=== PATIENT | female | born 1955 | race African-American/Black ===

== ENCOUNTER 2019-01-13 13:49 | Inpatient (IN) | payer MEDICARE ==
[~2019-01-13] VITALS: Ht 162.6 cm; Wt 67.8 kg
--- NOTE | 2019-01-13 15:18 | PHYS DOC ---
Past Medical History Past Medical History: GERD, Hypertension Additional Past Medical Histor: Parkinson's, grave's, cardiac stent Past Surgical History: Hysterectomy Additional Past Surgical Histo: Right ankle plate & screws, Left rotator cuff repair Additional Information: non smoker Alcohol Use: None Drug Use: None Adult General Chief Complaint Chief Complaint: MECHANICAL FALL HPI HPI Patient is a 63 year old female presents after tripping and falling off she was getting dressed. She hit her right side of her face on the headboard of the bed. She had a negative loss of consciousness. Occurred at 1:20 PM. Rates her pain as 4 out of 10 character the pain is raw. The patient declines pain medicine this time. Had no pain medicine prior to arrival. Review of Systems Review of Systems Constitutional: Denies fever or chills [] Eyes: Denies change in visual acuity, redness, or eye pain [] HENT: Denies nasal congestion or sore throat but report pain to the R side of face. Respiratory: Denies cough or shortness of breath [] Cardiovascular: No additional information not addressed in HPI [] GI: Denies abdominal pain, nausea, vomiting, bloody stools or diarrhea [] : Denies dysuria or hematuria [] Musculoskeletal: Denies back pain or joint pain [] Integument: Denies rash or skin lesions [] Neurologic: Denies headache, focal weakness or sensory changes [] Endocrine: Denies polyuria or polydipsia [] Complete systems were reviewed and found to be within normal limits, except as documented in this note. Current Medications Current Medications Current Medications Medications (Trade) Dose Ordered Sig/Karol Start Time Stop Time Status Last Admin Dose Admin Fentanyl Citrate (Fentanyl 2ml Vial) 50 mcg PRN Q1HR PRN 01/13/19 17:30 01/14/19 17:29 Ondansetron HCl (Zofran) 4 mg PRN Q8HRS PRN 01/13/19 17:30 01/14/19 17:29 Allergies Allergies Allergies Coded Allergies Type Severity Reaction Last Updated Verified oxybutynin Allergy Intermediate Nausea 01/13/19 Yes ciprofloxacin Allergy Mild Diarrhea 01/13/19 Yes gabapentin Allergy Mild Virtago 01/13/19 Yes Physical Exam Physical Exam Constitutional: Well developed, well nourished, no acute distress, non-toxic appearance. [] HENT: Normocephalic, traumatic old bruising to left orbital area, new bruising and edema to the R orbital., bilateral external ears normal, oropharynx moist, no oral exudates, nose normal. [] Eyes: PERRLA, EOMI, conjunctiva normal on left, on the right has some blood, no discharge. [] Neck: Normal range of motion, no tenderness, supple, no stridor. [] Cardiovascular:Heart rate regular rhythm, no murmur [] Lungs & Thorax: Bilateral breath sounds clear to auscultation [] Abdomen: Bowel sounds normal, soft, no tenderness, no masses, no pulsatile taiwo s. [] Skin: Warm, dry, no erythema, no rash. [] Extremities: No tenderness, no cyanosis, no clubbing, ROM intact, no edema. [] Neurologic: Alert and oriented X 3, normal motor function, normal sensory function, no focal deficits noted. [] Psychologic: Affect normal, judgement normal, mood normal. [] Current Patient Data Vital Signs Vital Signs Date Time Temp Pulse Resp B/P (MAP) Pulse Ox O2 Delivery O2 Flow Rate FiO2 01/13/19 14:40 97.8 64 18 135/69 (91) 98 Room Air 97.8 Lab Values Laboratory Tests Test 01/13/19 16:36 White Blood Count 3.9 x10^3/uL (4.0-11.0) L Red Blood Count 3.85 x10^6/uL (3.50-5.40) Hemoglobin 12.0 g/dL (12.0-15.5) Hematocrit 36.5 % (36.0-47.0) Mean Corpuscular Volume 95 fL (79-100) Mean Corpuscular Hemoglobin 31 pg (25-35) Mean Corpuscular Hemoglobin Concent 33 g/dL (31-37) Red Cell Distribution Width 14.4 % (11.5-14.5) Platelet Count 229 x10^3/uL (140-400) Neutrophils (%) (Auto) 55 % (31-73) Lymphocytes (%) (Auto) 32 % (24-48) Monocytes (%) (Auto) 9 % (0-9) Eosinophils (%) (Auto) 3 % (0-3) Basophils (%) (Auto) 1 % (0-3) Neutrophils # (Auto) 2.1 x10^3uL (1.8-7.7) Lymphocytes # (Auto) 1.2 x10^3/uL (1.0-4.8) Monocytes # (Auto) 0.3 x10^3/uL (0.0-1.1) Eosinophils # (Auto) 0.1 x10^3/uL (0.0-0.7) Basophils # (Auto) 0.0 x10^3/uL (0.0-0.2) Prothrombin Time 13.1 SEC (11.7-14.0) Prothrombin Time INR 1.0 (0.8-1.1) PTT 43 SEC (24-38) H Sodium Level 141 mmol/L (136-145) Potassium Level 4.5 mmol/L (3.5-5.1) Chloride Level 102 mmol/L (98-107) Carbon Dioxide Level 31 mmol/L (21-32) Anion Gap 8 (6-14) Blood Urea Nitrogen 20 mg/dL (7-20) Creatinine 0.8 mg/dL (0.6-1.0) Estimated GFR (Cockcroft-Gault) 88.2 Glucose Level 95 mg/dL (70-99) Calcium Level 8.9 mg/dL (8.5-10.1) Laboratory Tests 01/13/19 16:36 Laboratory Tests 01/13/19 16:36 EKG EKG [] Radiology/Procedures Radiology/Procedures []PATIENT: JEREMY HANEY DACCOUNT: [id number]#: [id number] : 1955 LOCATION: ER AGE: 63 SEX: F EXAM STATUS: REG ER ORD. PHYSICIAN: DARWIN HORN APRN REASON: FELL ON FACE THIS AM, HEAD INJURY, NECK PAIN PROCEDURE: CT CERVICAL SPINE WO CONTRAST CT HEAD AND MAXILLOFACIAL WO, CT CERVICAL SPINE WO CONTRAST dated 01/13/2019 3:03 PM Indication: Pain after injury fell on face.. Next pain. Comparison: No comparison is available. Technique: Contiguous axial imaging the head was performed from skull base to vertex. In addition, axial imaging the maxillofacial bones and cervical spine obtained with thin cut coronal and sagittal reconstruction One or more of the following individualized dose reduction techniques were utilized for this examination: 1. Automated exposure control 2. Adjustment of the mA and/or kV according to patient size 3. Use of iterative reconstruction technique Findings: There is a small hyperdense extra-axial collection along the right frontotemporal convexity that measures approximately 5 mm thickness. No significant mass effect or midline shift. Brain parenchyma is of normal otherwise normal attenuation. No subarachnoid hemorrhage or intraventricular hemorrhage. Posterior fossa and brainstem unremarkable. No acute calvarial abnormality. Images the maxillofacial bones show focal soft tissue swelling at the right frontal bone and lateral right orbital region. Small amount of soft tissue gas. The orbital arceo and maxillary acreo are intact. No displaced facial fracture. The zygomatic arches are intact. Mandible is intact. No nasal bone fracture. Mild mucosal thickening of the bilateral ethmoid air cells and bilateral maxillary sinus. Mastoid air cells are clear. Middle ears are clear. No significant soft tissue abnormality. Images of the cervical spine acquired from skull base to T2. Sagittal alignment is anatomic. Vertebral body heights are maintained. No prevertebral soft tissue swelling. Posterior elements are intact. No apparent fracture. Mild to moderate endplate hypertrophic changes throughout with moderate multilevel uncovertebral spurring and facet arthropathy. Resultant mild central stenosis at C5-C6 and C6-C7 with moderate to severe bilateral foraminal stenosis at the C5-C6 level and moderate to severe left foraminal stenosis at C6-C7. Visualized soft tissue structures unremarkable. There is a nodular focus at the right thyroid gland that measures 1.9 cm maximum dimension. Limited images of lung apices are clear. IMPRESSION HEAD: 1. There is a small hyperdense extra-axial collection along the right frontotemporal convexity, likely a small subdural hematoma. No significant mass effect or midline shift. IMPRESSION MAXILLOFACIAL: 1. Focal soft tissue swelling over the right frontal bone and right orbit with no evidence of underlying displaced fracture. 2. Mild sinus disease. IMPRESSION CERVICAL SPINE: 1. No evidence of fracture or malalignment. 2. Moderate multilevel spondylosis. Results discussed with ER physician at approximate 4:10 PM on the day of the exam. Electronically signed by: Darwin Monson MD (01/13/2019 4:10 PM) [facility] Course & Med Decision Making Course & Med Decision Making Pertinent Labs and Imaging studies reviewed. (See chart for details) Discussed symptoms with patient. Will obtain x-rays and head/neck/face CT. Patient is agreeable. Radiologist report that patient has small subdural hematoma. Talked to Dr. Palafox's DATA CENTER OPERATOR, Lauren. Will admit to hospital to Hospitalist. Dr. Mcallister agrees to admit. Dragon Disclaimer Dragon Disclaimer This electronic medical record was generated, in whole or in part, using a voice recognition dictation system. Departure Departure Impression: Primary Impression: Subdural hematoma Disposition: ADMITTED INPATIENT Condition: CRITICAL Referrals: UNKNOWN PCP NAME (PCP) DARWIN HORN APRN January 13, 2019 15:18
--- NOTE | 2019-01-13 16:02 | RAD ---
Examination: 2 views of the left tibia and fibula HISTORY: History of fall, pain COMPARISON: None available Findings/ impression: The alignment of the tibia and fibula grossly appears unremarkable. Severe joint space loss identified in the medial, lateral, patellofemoral compartments with large osteophytes. There is a lucency identified at base of the osteophyte of the lateral knee compartment probably artifactual given single view of the knee and less likely fractured osteophyte. Recommend 3 views of the left knee for further evaluation. Electronically signed by: Drew Nassar MD (01/13/2019 3:59 PM) [facility]
--- NOTE | 2019-01-13 16:06 | RAD ---
Examination: 2 views of the left forearm HISTORY: History of fall, pain COMPARISON: None available. FINDINGS: The alignment of the radius, ulna grossly appears unremarkable. There is no acute fracture or dislocation identified. IMPRESSION: No acute osseous findings. Electronically signed by: Drew Nassar MD (01/13/2019 4:04 PM) [place] [id number]
--- NOTE | 2019-01-13 16:13 | RAD ---
CT HEAD AND MAXILLOFACIAL WO, CT CERVICAL SPINE WO CONTRAST dated 01/13/2019 3:03 PM Indication: Pain after injury fell on face.. Next pain. Comparison: No comparison is available. Technique: Contiguous axial imaging the head was performed from skull base to vertex. In addition, axial imaging the maxillofacial bones and cervical spine obtained with thin cut coronal and sagittal reconstruction One or more of the following individualized dose reduction techniques were utilized for this examination: 1. Automated exposure control 2. Adjustment of the mA and/or kV according to patient size 3. Use of iterative reconstruction technique Findings: There is a small hyperdense extra-axial collection along the right frontotemporal convexity that measures approximately 5 mm thickness. No significant mass effect or midline shift. Brain parenchyma is of normal otherwise normal attenuation. No subarachnoid hemorrhage or intraventricular hemorrhage. Posterior fossa and brainstem unremarkable. No acute calvarial abnormality. Images the maxillofacial bones show focal soft tissue swelling at the right frontal bone and lateral right orbital region. Small amount of soft tissue gas. The orbital arceo and maxillary arceo are intact. No displaced facial fracture. The zygomatic arches are intact. Mandible is intact. No nasal bone fracture. Mild mucosal thickening of the bilateral ethmoid air cells and bilateral maxillary sinus. Mastoid air cells are clear. Middle ears are clear. No significant soft tissue abnormality. Images of the cervical spine acquired from skull base to T2. Sagittal alignment is anatomic. Vertebral body heights are maintained. No prevertebral soft tissue swelling. Posterior elements are intact. No apparent fracture. Mild to moderate endplate hypertrophic changes throughout with moderate multilevel uncovertebral spurring and facet arthropathy. Resultant mild central stenosis at C5-C6 and C6-C7 with moderate to severe bilateral foraminal stenosis at the C5-C6 level and moderate to severe left foraminal stenosis at C6-C7. Visualized soft tissue structures unremarkable. There is a nodular focus at the right thyroid gland that measures 1.9 cm maximum dimension. Limited images of lung apices are clear. IMPRESSION HEAD: 1. There is a small hyperdense extra-axial collection along the right frontotemporal convexity, likely a small subdural hematoma. No significant mass effect or midline shift. IMPRESSION MAXILLOFACIAL: 1. Focal soft tissue swelling over the right frontal bone and right orbit with no evidence of underlying displaced fracture. 2. Mild sinus disease. IMPRESSION CERVICAL SPINE: 1. No evidence of fracture or malalignment. 2. Moderate multilevel spondylosis. Results discussed with ER physician at approximate 4:10 PM on the day of the exam. Electronically signed by: Darwin Monson MD (01/13/2019 4:10 PM) [facility]
[2019-01-13 16:42] LABS: BASO % 1 % (0-3); EOS # 0.1 x10^3/uL (0.0-0.7); EOS % 3 % (0-3); HEMATOCRIT 36.5 % (36.0-47.0); LYMPH # 1.2 x10^3/uL (1.0-4.8); LYMPH % 32 % (24-48); MEAN CORPUSCULAR HEMOGLOBIN 31 pg (25-35); MEAN CORPUSCULAR HGB CONC 33 g/dL (31-37); MEAN CORPUSCULAR VOLUME 95 fL (79-100); MONO # 0.3 x10^3/uL (0.0-1.1); MONO % 9 % (0-9); NEUT # 2.1 x10^3uL (1.8-7.7); NEUT % 55 % (31-73); PLATELET COUNT 229 x10^3/uL (140-400); RED BLOOD COUNT 3.85 x10^6/uL (3.50-5.40); RED CELL DISTRIBUTION WIDTH 14.4 % (11.5-14.5); WHITE BLOOD COUNT 3.9 x10^3/uL (4.0-11.0)
[2019-01-13 16:51] LABS: CALCIUM 8.9 mg/dL (8.5-10.1); CREATININE 0.8 mg/dL (0.6-1.0); GFR 88.2; POTASSIUM 4.5 mmol/L (3.5-5.1); PROTHROMBIN TIME PATIENT 13.1 SEC (11.7-14.0)
--- NOTE | 2019-01-13 17:24 | PDOC1 ---
History and Physical Date of Admission Date of Admission DATE: 01/13/19 TIME: 17:22 Identification/Chief Complaint Chief Complaint Fall at home, subdural hematoma Source Source: Caregiver, Chart review, Patient History of Present Illness History of Present Illness Ms Wilkes is a 63 year old female w/ PMHx GERD, Hypertension, Parkinson's, grav e's, PVD s/p peripheral stents, and bladder dystonia with intermittent cathing who presents after tripping and falling while she was getting dressed. She hit her right side of her face on the headboard of the bed and struck her right orbit. She had no loss of consciousness. Occurred at 1:20 PM. Rates her pain as 4 out of 10, aching. Her sister, bedside notes that she fell late last week as well and still has some bruising on her left eye from this. CT head revealed what is a likely a subdural hematoma. On further review she notes she is on ASA for a lower extremity stent placed at [facility] over 3 years ago. Past Medical History Cardiovascular: HTN Pulmonary: No pertinent hx CENTRAL NERVOUS SYSTEM: Other (Parkinison's) GI: GERD Heme/Onc: No pertinent hx Hepatobiliary: No pertinent hx Psych: No pertinent hx Rheumatologic: No pertinent hx Infectious disease: No pertinent hx ENT: No pertinent hx Renal/: Urinary Incontinence Endocrine: No pertinent hx Dermatology: No pertinent hx Past Surgical History Past Surgical History: Arthroscopy (left rotator cuff), Hysterectomy, Other (Right ankle fracture repair) Family History Family History: Heart Disease, High Cholestrol, Hypertension Social History Smoke: No ALCOHOL: none Drugs: None Current Problem List Problem List Problems Medical Problems: (1) Subdural hematoma Status: Acute Allergies Allergies: Coded Allergies: oxybutynin (Verified Allergy, Intermediate, Nausea, 01/13/19) & Hypotension ciprofloxacin (Verified Allergy, Mild, Diarrhea, 01/13/19) gabapentin (Verified Allergy, Mild, Virtago, 01/13/19) ROS General: YES: Fatigue, Malaise; No: Chills, Night Sweats, Appetite, Other PSYCHOLOGICAL ROS: No: Anxiety, Behavioral Disorder, Concentration difficultie, Decreased libido, Depression, Disorientation, Hallucinations, Hostility, Irritablity, Memory difficulties, Mood Swings, Obsessive thoughts, Physical abuse, Sexual abuse, Sleep disturbances, Suicidal ideation, Other Eyes: No Blurry vision, No Decreased vision, No Double vision, No Dry eyes, No Excessive tearing, No Eye Pain, No Itchy Eyes, No Loss of vision, No Phot ophobia, No Scotomata, No Uses contacts, No Uses glasses, No Other HEENT: YES: Heacaches, Visual Changes; No: Hearing change, Nasal congestion, Nasal discharge, Oral lesions, Sinus pain, Sore Throat, Epistaxis, Sneezing, Snoring, Tinnitus, Vertigo, Vocal changes, Other ALLERGY AND IMMUNOLOGY: No: Hives, Insect Bite Sensitivity, Itchy/Watery Eyes, Nasal Congestion, Post Nasal Drip, Seasonal Allergies, Other Hematological and Lymphatic: No: Bleeding Problems, Blood Clots, Blood Transfusions, Brusing, Night Sweats, Pallor, Swollen Lymph Nodes, Other ENDOCRINE: No: Breast Changes, Galactorrhea, Hair Pattern Changes, Hot Flashes, Malaise/lethargy, Mood Swings, Palpitations, Polydipsia/polyuria, Skin Changes, Temperature Intolerance, Unexpected Weight Changes, Other Breast: No New/Changing Breast Lumps, No Nipple changes, No Nipple discharge, No Other Respiratory: No: Cough, Hemoptysis, Orthopnea, Pleuritic Pain, Shortness of breath, SOB with excertion, Sputum Changes, Stridor, Tachypnea, Wheezing, Other Cardiovascular: No Chest Pain, No Palpitations, No Orthopnea, No Paroxysmal Noc. Dyspnea, No Edema, No Lt Headedness, No Other Gastrointestinal: Yes Nausea; No Vomiting, No Abdominal Pain, No Diarrhea, No Constipation, No Melena, No Hematochezia, No Other Genitourinary: No Dysuria, No Frequency, No Incontinence, No Hematuria, No Retention, No Discharge, No Urgency, No Pain, No Flank Pain, No Other, No , No , No , No , No , No , No Musculoskeletal: No Gait Disturbance, No Joint Pain, No Joint Stiffness, No Joint Swelling, No Muscle Pain, No Muscular Weakness, No Pain In:, No Swelling In:, No Other Neurological: No Behavorial Changes, No Bowel/Bladder ControlChng, No Confusion, No Dizziness, No Gait Disturbance, No Headaches, No Impaired Coord/balance, No Memory Loss, No Numbness/Tingling, No Seizures, No Speech Problems, No Tremors, No Visual Changes, No Weakness, No Other Skin: No Dry Skin, No Eczema, No Hair Changes, No Lumps, No Mole Changes, No Mottling, No Nail Changes, No Pruritus, No Rash, No Skin Lesion Changes, No Other, No Acne Physical Exam General: Alert, Oriented X3, Cooperative, No acute distress HEENT: PERRLA, EOMI, Mucous membr. moist/pink, Other (Right orbit swollen, bruising, left orbit bruising as well) Lungs: Clear to auscultation, Normal air movement Heart: S1S2, RRR, no gallops, no murmurs Abdomen: Normal bowel sounds, Soft, No tenderness, No hepatosplenomegaly, No masses Rectal Exam: not examined Extremities: No clubbing, No cyanosis, No edema, Normal pulses, No tenderness/swelling Skin: No rashes, No breakdown, No significant lesion Neuro: Normal gait, Normal speech, Strength at 5/5 X4 ext, Normal tone, Sensation intact, Cranial nerves 3-12 NL, Reflexes 2+ Psych/Mental Status: Mental status NL, Mood NL Vitals Vitals Vital Signs Date Time Temp Pulse Resp B/P (MAP) Pulse Ox O2 Delivery O2 Flow Rate FiO2 01/13/19 14:40 97.8 64 18 135/69 (91) 98 Room Air 97.8 Labs Labs Laboratory Tests Test 01/13/19 16:36 White Blood Count 3.9 x10^3/uL (4.0-11.0) Red Blood Count 3.85 x10^6/uL (3.50-5.40) Hemoglobin 12.0 g/dL (12.0-15.5) Hematocrit 36.5 % (36.0-47.0) Mean Corpuscular Volume 95 fL (79-100) Mean Corpuscular Hemoglobin 31 pg (25-35) Mean Corpuscular Hemoglobin Concent 33 g/dL (31-37) Red Cell Distribution Width 14.4 % (11.5-14.5) Platelet Count 229 x10^3/uL (140-400) Neutrophils (%) (Auto) 55 % (31-73) Lymphocytes (%) (Auto) 32 % (24-48) Monocytes (%) (Auto) 9 % (0-9) Eosinophils (%) (Auto) 3 % (0-3) Basophils (%) (Auto) 1 % (0-3) Neutrophils # (Auto) 2.1 x10^3uL (1.8-7.7) Lymphocytes # (Auto) 1.2 x10^3/uL (1.0-4.8) Monocytes # (Auto) 0.3 x10^3/uL (0.0-1.1) Eosinophils # (Auto) 0.1 x10^3/uL (0.0-0.7) Basophils # (Auto) 0.0 x10^3/uL (0.0-0.2) Prothrombin Time 13.1 SEC (11.7-14.0) Prothromb Time International Ratio 1.0 (0.8-1.1) Activated Partial Thromboplast Time 43 SEC (24-38) Sodium Level 141 mmol/L (136-145) Potassium Level 4.5 mmol/L (3.5-5.1) Chloride Level 102 mmol/L (98-107) Carbon Dioxide Level 31 mmol/L (21-32) Anion Gap 8 (6-14) Blood Urea Nitrogen 20 mg/dL (7-20) Creatinine 0.8 mg/dL (0.6-1.0) Estimated GFR (Cockcroft-Gault) 88.2 Glucose Level 95 mg/dL (70-99) Calcium Level 8.9 mg/dL (8.5-10.1) Laboratory Tests Test 01/13/19 16:36 White Blood Count 3.9 x10^3/uL (4.0-11.0) Red Blood Count 3.85 x10^6/uL (3.50-5.40) Hemoglobin 12.0 g/dL (12.0-15.5) Hematocrit 36.5 % (36.0-47.0) Mean Corpuscular Volume 95 fL (79-100) Mean Corpuscular Hemoglobin 31 pg (25-35) Mean Corpuscular Hemoglobin Concent 33 g/dL (31-37) Red Cell Distribution Width 14.4 % (11.5-14.5) Platelet Count 229 x10^3/uL (140-400) Neutrophils (%) (Auto) 55 % (31-73) Lymphocytes (%) (Auto) 32 % (24-48) Monocytes (%) (Auto) 9 % (0-9) Eosinophils (%) (Auto) 3 % (0-3) Basophils (%) (Auto) 1 % (0-3) Neutrophils # (Auto) 2.1 x10^3uL (1.8-7.7) Lymphocytes # (Auto) 1.2 x10^3/uL (1.0-4.8) Monocytes # (Auto) 0.3 x10^3/uL (0.0-1.1) Eosinophils # (Auto) 0.1 x10^3/uL (0.0-0.7) Basophils # (Auto) 0.0 x10^3/uL (0.0-0.2) Prothrombin Time 13.1 SEC (11.7-14.0) Prothromb Time International Ratio 1.0 (0.8-1.1) Activated Partial Thromboplast Time 43 SEC (24-38) Sodium Level 141 mmol/L (136-145) Potassium Level 4.5 mmol/L (3.5-5.1) Chloride Level 102 mmol/L (98-107) Carbon Dioxide Level 31 mmol/L (21-32) Anion Gap 8 (6-14) Blood Urea Nitrogen 20 mg/dL (7-20) Creatinine 0.8 mg/dL (0.6-1.0) Estimated GFR (Cockcroft-Gault) 88.2 Glucose Level 95 mg/dL (70-99) Calcium Level 8.9 mg/dL (8.5-10.1) Images Images CT facial bones - There is a small hyperdense extra-axial collection along the right frontotemporal convexity, likely a small subdural hematoma. No significant mass effect or midline shift. VTE Prophylaxis Ordered VTE Prophylaxis Devices: Yes VTE Pharmacological Prophylaxi: Contraindicated Assessment/Plan Assessment/Plan A/P: Subdural hematoma - small frontal density on CT. Will hold ASA, admit to ICU, q4 hour neuro checks, consult neurosurgery, serial head CTs GERD - cont home PPI Hypertension - cont home medications, lower BP by 25%, MONITOR CLOSELY Parkinson's - cont sinemet, requip. Consult neuro. Falls - consult PT/OT, may need some skilled svcs on d/c to prevent further fal ls Grave's - will verify her thyroid dosing PVD s/p peripheral stents - hold antiplatelet agents for SDH Bladder dystonia - with intermittent self-catheterization, seen by Urology outpatient, had this recommended for her history of dystonia and frequent UTI, will intermittently cath inpatient, would not recommend a grace at this time with her history of catheter related UTIs FEN - General diet PPX - SCDs FULL CODE ICU for SDH likely 2 midnights. SABI HARRIS MD January 13, 2019 17:24
[2019-01-13] MEDS ORDERED: ONDANSETRON PF 4 MG/2 ML VIAL. IV PRN (17:30)
[2019-01-13] MEDS: fentaNYL PF VIAL 100 MCG/2 ML VIAL IV PRN ×2 (18:08→21:50)
[2019-01-13 20:00] VITALS: BP 167/74
[2019-01-13 20:15] VITALS: BP 187/95
[2019-01-13 20:45] VITALS: BP 192/95
[2019-01-13] MEDS ORDERED: ASPI81TA59 PO (20:54)
[2019-01-13] MEDS ORDERED: CARB1TAB4 PO (20:54)
[2019-01-13] MEDS ORDERED: ATOR10TA60 PO (20:54)
[2019-01-13] MEDS ORDERED: CARB1TAB5 PO (20:54)
[2019-01-13] MEDS ORDERED: ROPI0.5T PO (20:54)
[2019-01-13] MEDS ORDERED: NITR0.4T22 SL (20:54)
[2019-01-13] MEDS ORDERED: HYDR12.58 PO (20:54)
[2019-01-13] MEDS ORDERED: CICL15CR2 TP (20:54)
[2019-01-13] MEDS ORDERED: LEVO75TA5 PO (20:54)
[2019-01-13] MEDS ORDERED: RANI150T2 PO (20:54)
--- NOTE | 2019-01-13 20:57 | RAD ---
Three-view left knee radiographs 01/13/2019 CLINICAL HISTORY: Fall with left knee pain. AP, lateral and oblique digital radiographs of the left knee were obtained. No fracture or dislocation of the left knee is seen. Moderate to severe degenerative changes are seen involving all 3 compartments of the left knee. These consist of joint compartment narrowing, subchondral sclerosis and associated osteophyte formation. This particularly involves the lateral and patellofemoral compartments. IMPRESSION: Degenerative changes are seen involving left knee as discussed above. No fracture or dislocation is seen. Electronically signed by: Rd Perera MD (01/13/2019 8:54 PM) [facility]
[2019-01-13 21:00] VITALS: BP 164/74
[2019-01-13] MEDS ORDERED: HYDROcodone/APAP 5/325MG 1 TAB TABLET PO PRN (21:15)
[2019-01-13] MEDS ORDERED: NITROGLYCERIN SUBLINGUAL 0.4 MG BOTTLE OF 25. SL PRN (21:15)
[2019-01-13] MEDS: rOPINIRole 0.25 MG TABLET. PO SCH (21:44)
[2019-01-13] MEDS: CARBIDOPA/LEVODOPA CR 25/100MG TABLET.SA. PO SCH ×2 (21:49)
[2019-01-13 22:00] VITALS: BP 152/73
[2019-01-13] MEDS: ATORVASTATIN CALCIUM 10 MG TABLET. PO SCH (22:13)
[2019-01-13 22:40] LABS: BILIRUBIN,URINE NEGATIVE (NEG); CLARITY,URINE CLEAR; COLOR,URINE YELLOW; NITRITE,URINE POSITIVE (NEG); PH,URINE 6.5; PROTEIN,URINE NEGATIVE (NEG-TRACE)
[2019-01-13 22:49] LABS: BACTERIA,URINE MANY /HPF (0-FEW)
[2019-01-13 23:00] VITALS: BP 146/74
--- NOTE | 2019-01-13 23:22 | NUR ---
Patient admitted to room 104 from ER at 1945. Monitor on, SB noted. On RA. Bilateral black eyes with swelling noted to right one. A bandage that was placed in the ER is noted right above the right eye. Patient denies any pain or discomfort at this time. CAll light is within reach. Family at bedside. Dr. Mcallister paged at [phone] and returned page at [phone] for orders. Admission orders received, see orders. At 2300, patient straight cathed using sterile technique. 350cc of clear, yellow urine emptied from patient's bladder. Patient tolerated procedure well. VSS.
[2019-01-14] VITALS (24 sets, daily range): BP systolic 95–144; BP diastolic 51–88
[2019-01-14] MEDS: fentaNYL PF VIAL 100 MCG/2 ML VIAL IV PRN (02:35)
[2019-01-14 04:32] LABS: BASO % 1 % (0-3); EOS % 0 % (0-3); HEMATOCRIT 37.4 % (36.0-47.0); HEMOGLOBIN 12.4 g/dL (12.0-15.5); LYMPH # 0.9 x10^3/uL (1.0-4.8); LYMPH % 12 % (24-48); MEAN CORPUSCULAR HEMOGLOBIN 31 pg (25-35); MEAN CORPUSCULAR HGB CONC 33 g/dL (31-37); MEAN CORPUSCULAR VOLUME 93 fL (79-100); MONO # 0.4 x10^3/uL (0.0-1.1); MONO % 5 % (0-9); NEUT # 6.3 x10^3uL (1.8-7.7); NEUT % 82 % (31-73); PLATELET COUNT 228 x10^3/uL (140-400); RED BLOOD COUNT 4.01 x10^6/uL (3.50-5.40); RED CELL DISTRIBUTION WIDTH 14.2 % (11.5-14.5); WHITE BLOOD COUNT 7.7 x10^3/uL (4.0-11.0)
[2019-01-14 04:55] LABS: CALCIUM 9.2 mg/dL (8.5-10.1); CREATININE 0.6 mg/dL (0.6-1.0); POTASSIUM 3.7 mmol/L (3.5-5.1)
--- NOTE | 2019-01-14 06:43 | EKG ---
[facility] [address] [place] [address] Test Date: 2019-01-13 Test Time: 19:28:42 Pat Name: JEREMY HANEY Department: Room: 104 1 Gender: F Advertising Assistant: : 1955 Requested By: DEJAN WELSH Order Number: [id number] Reading MD: Jc Thomas Measurements Intervals [place] Rate: 44 P: 55 TN: 202 QRS: 14 QRSD: 86 T: 74 QT: 500 QTc: 427 Interpretive Statements SINUS BRADYCARDIA Electronically Signed On 02-07-2019 11:42:33 CDT by Jc Thomas
[2019-01-14] MEDS: LEVOTHYROXINE 75 MCG TABLET PO SCH (06:47)
[2019-01-14] MEDS: rOPINIRole 0.25 MG TABLET. PO SCH ×3 (08:55→21:27)
[2019-01-14] MEDS: CARBIDOPA/LEVODOPA CR 25/100MG TABLET.SA. PO SCH ×11 (08:55→21:29)
[2019-01-14] MEDS: hydroCHLOROthiazide 12.5 MG CAPSULE PO SCH (08:55)
[2019-01-14] MEDS: FAMOTIDINE 20 MG TABLET. PO SCH (08:55)
--- NOTE | 2019-01-14 11:20 | RAD ---
CT head without contrast dated 01/14/2019. Comparison made to 01/13/2019. CLINICAL INDICATION: Follow-up subdural hematoma. TECHNIQUE: Contiguous axial imaging the head was performed from skull base to vertex. No contrast administered. One or more of the following individualized dose reduction techniques were utilized for this examination: 1. Automated exposure control 2. Adjustment of the mA and/or kV according to patient size 3. Use of iterative reconstruction technique. FINDINGS: There is been interval increase in size of right convexity subdural hematoma which now extends from the middle cranial fossa to the vertex. Maximum thickness of the high density collection measures about 7 mm versus 5 mm previously. There is increasing mass effect upon the right lateral ventricle with estimated 4 mm of right to left midline shift. Suspected trace amount of hemorrhage along the anterior falx. No definite subarachnoid hemorrhage or intraventricular hemorrhage. Brain parenchyma is otherwise stable in attenuation. Moderate mucosal thickening of the bilateral ethmoid air cells. Soft tissue swelling over the lateral right orbit, unchanged. No apparent fracture. IMPRESSION: Interval increase in size of right convexity subdural hematoma. There is mild mass effect with estimated 4 mm of right to left midline shift, new from prior study. Results discussed with patient's ICU nurse at approximately 11:15 AM on the day of the study. Electronically signed by: Darwin Monson MD (01/14/2019 11:17 AM) [id number]
--- NOTE | 2019-01-14 11:43 | NUR ---
SS following for discharge planning. SS reviewed pt's chart. Pt is from home with family and is currently on room air. PT/OT ordered. SS will await PT/OT evaluations and recommendations and will proceed accordingly with discharge planning.
--- NOTE | 2019-01-14 13:10 | PDOC ---
Provider Note Provider Note patient seen and examined s/p fall follow up CT with interval increase in size of right convexity subdural hematoma. There is mild mass effect with estimated 4 mm of right to left midline shift. Neuro intact keep in ICU today repeat CT head in AM full consult to follow MARIANA MARTINES MD January 14, 2019 13:10
--- NOTE | 2019-01-14 13:52 | PDOC2 ---
NEUROLOGY CONSULT Date of Admission Date of Admission DATE: 01/14/19 TIME: 13:42 Reason for Consult Reason for Consult: IMPRESSION: Small right SDH. Orbital soft tissue ecchymosis from falling, no fracture. Falls. UTI. PD. HTN. PVD s/p stents. Bladder dystonia. GERD. RECOMMENDATIONS/PLAN: BP control. Avoid anticoagulant and antiplatelet agens at the present time. Treat medical diseases. Lab: see orders. Fall prevention. HISTORY OF THE PRESENT ILLNESS: This is a 63-year-old AA female patient with history of PD, Hypertension, Grave's disease, PVD s/p peripheral stents, and bladder dystonia with intermittent cathing who presents after tripping and falling while she was getting dressed. She hit her right side of her face on the headboard of the bed and struck her right orbit. She had no loss of consciousness. Her sister, bedside notes that she fell late last week as well and still has some bruising on her left eye from that fall. She has been on ASA for a lower extremity stent placed at [facility] over 3 years ago. Past Medical History Cardiovascular: HTN Pulmonary: No pertinent hx CENTRAL NERVOUS SYSTEM: Other (Parkinison's) GI: GERD Heme/Onc: No pertinent hx Hepatobiliary: No pertinent hx Psych: No pertinent hx Rheumatologic: No pertinent hx Infectious disease: No pertinent hx ENT: No pertinent hx Renal/: Urinary Incontinence Endocrine: No pertinent hx Dermatology: No pertinent hx Past Surgical History Arthroscopy (left rotator cuff), Hysterectomy, Other (Right ankle fracture repair) Family History Heart Disease, High Cholestrol, Hypertension Social History Smoke: No ALCOHOL: none Drugs: None ALLERGY: NKDA MEDICATIONS: Refer to MAR REVIEW OF SYSTEMS: Constitutional: No malnutrition, weight loss, cachexia. Head: No traumatic brain or head injury. Skin: No edema, or rash. Ear: No infection. Eyes: No vision loss or color blindness. Nose: No bleeding or purulent discharges. Hearing: No hearing decrease. Neck: No injury. Breast: No history of cancer, masses,or discharges. Cardiac: HTN, PVD. Pulmonary: No COPD. GI: GERD. Urinary/genital: UTI. Endocrinologic: No cousin face, craniofacial dysmorphism, polydactyly. Skeletomuscular: Falls. Neurological: PD. Psychiatric: Denies drug use/abuse. Otherwise, not [id number] review of systems. PHYSICAL EXAMINATION: General appearance is in subacute distress. HEENT: Normocephalic and nontraumatic. Eyes, nose, ears, and throat are unremarkable. Neck is supple. No lymphadenopathy. No bruits are heard over the carotid artery. No crepitus. Cardiovascular: S1, S2, regular rate and rhythm. Pulmonary: Clear to auscultation bilaterally. Abdomen: Bowel sounds are positive. Abdomen is soft, nontender, and no ndistended. Extremities: No rash, lesions, or edema. No restriction of range of motion NEUROLOGICAL EXAMINATION: Awake. Oriented to time, place and person. PERRL. EOMI. Bilateral orbital area ecchymoses. CN: no focal findings. Muscle tone: within normal. Muscle strength: 5- DTR: 2 Plantar reflex: Flexor response bilaterally Gait: not examined in bed. Sensory exam: no abnormal findings. No cerebellar signs elicited. F-T-N test fine Current Medications Current Medications Current Medications Ondansetron HCl (Zofran) 4 mg PRN Q8HRS PRN IV NAUSEA/VOMITING Last administered on 01/13/19at 20:49; Start 01/13/19 at 17:30; Stop 01/14/19 at 17:29 Fentanyl Citrate (Fentanyl 2ml Vial) 50 mcg PRN Q1HR PRN IV PAIN Last administered on 01/14/19at 02:35; Start 01/13/19 at 17:30; Stop 01/14/19 at 17:29 Acetaminophen/ Hydrocodone Bitart (Lortab 5/325) 1 tab PRN Q6HRS PRN PO PAIN; Start 01/13/19 at 21:15 Atorvastatin Calcium (Lipitor) 10 mg QHS PO Last administered on 01/13/19at 22:13; Start 01/13/19 at 22:30 Carbidopa/Levodopa (Sinemet Cr) 1 tab.sa 5XDAY PO Last administered on 01/14/19at 11:40; Start 01/13/19 at 22:00 Levothyroxine Sodium (Synthroid) 75 mcg DAILY06 PO Last administered on 01/14/19at 06:47; Start 01/14/19 at 06:00 Nitroglycerin (Nitrostat) 0.4 mg PRN Q5MIN PRN SL CHEST PAIN; Start 01/13/19 at 21:15 Carbidopa/Levodopa (Sinemet Cr) 2 tab.sa 0700,1000,1300,1600 PO Last administered on 01/14/19at 11:40; Start 01/14/19 at 07:00 Non-Formulary Medication (Ciclopirox Olamine (Ciclopirox)) 1 teja HS TP ; Start 01/14/19 at 21:00; Status UNV Hydrochlorothiazide (Microzide) 12.5 mg DAILY PO Last administered on 01/14/19at 08:55; Start 01/14/19 at 09:00 Famotidine (Pepcid) 20 mg DAILY PO Last administered on 01/14/19at 08:55; Start 01/14/19 at 09:00 Ropinirole HCl (Requip) 0.5 mg TID PO Last administered on 01/14/19at 08:55; Start 01/13/19 at 22:00 Carbidopa/Levodopa (Sinemet Cr) 2 tab.sa 1900,2100 PO Last administered on 01/13/19at 21:49; Start 01/13/19 at 22:00 Labetalol HCl (Normodyne Iv Push) 10 mg PRN Q2HR PRN IVP HYPERTENSION, SEE COMMENTS; Start 01/13/19 at 22:00 Active Scripts Active Reported Ciclopirox (Ciclopirox Olamine) 15 Gm Cream..g. 1 Teja TP HS NITROGLYCERIN SubLingual (Nitroglycerin) 0.4 Mg Tab.subl 0.4 Mg SL PRN Q5MIN PRN Atorvastatin Calcium 10 Mg Tablet 1 Tab PO DAILY Ranitidine Hcl 150 Mg Tablet 150 Mg PO DAILY Requip (Ropinirole Hcl) 0.5 Mg Tablet 0.5 Mg PO TID Children's Aspirin (Aspirin) 81 Mg Tab.chew 81 Mg PO DAILY Hydrochlorothiazide Tablet (Hydrochlorothiazide) 12.5 Mg Tablet 12.5 Mg PO DAILY Levothyroxine Sodium 75 Mcg Tablet 1 Tab PO DAILY Sinemet Cr 25-100 Tablet (Carbidopa/Levodopa) 1 Each Tablet.er 1 Tab PO FIVE TIMES A DAY Sinemet Cr 50-200 Tablet (Carbidopa/Levodopa) 1 Each Tablet.er 1 Tab PO SIX TIMES A DAY Allergies Allergies: Allergies Coded Allergies Type Severity Reaction Last Updated Verified oxybutynin Allergy Intermediate Nausea 01/13/19 Yes ciprofloxacin Allergy Mild Diarrhea 01/13/19 Yes gabapentin Allergy Mild VERTIGO 01/14/19 Yes ROS Review of System The patient denies any associated fevers, chills, headache, ear pain, rhinorrhea, sore throat, stiff neck, productive cough, chest pain, shortness of breath, back or flank pain, abdominal pain, nausea, vomiting, diarrhea, constipation, dysuria, rash, numbness, weakness, tingling, incontinence, difficulty ambulating, or diaphoresis. Physical Exam Physical Exam General: Well developed, well nourished, no acute distress, well appearing HEENT: Pupils equally round and reactive to light, EOMI, no discharge, normal conjunctiva Neck: Supple, no nuchal rigidity, no JVD, trachea midline, no tenderness Cardiac: RRR, no murmurs, no gallops, no rubs Chest/Lungs: CTAB, no wheeze, no rhonchi, no crackles Abdomen: soft, non-distended, no guarding, no peritoneal signs, non-tender Back: No tenderness Extremities: no edema, pulses intact, non-tender,capillary refill <3 sec bilateral upper and lower extremities, Neuro: Alert and oriented x 4, no focal deficits, normal speech Vitals Vitals: Vital Signs Date Time Temp Pulse Resp B/P (MAP) Pulse Ox O2 Delivery O2 Flow Rate FiO2 01/14/19 10:00 54 13 128/71 (90) 98 Room Air 01/14/19 08:00 97.8 97.8 01/13/19 18:08 98.0 Labs Labs Laboratory Tests Test 01/13/19 16:36 01/13/19 22:30 01/14/19 03:45 White Blood Count 3.9 x10^3/uL (4.0-11.0) 7.7 x10^3/uL (4.0-11.0) Red Blood Count 3.85 x10^6/uL (3.50-5.40) 4.01 x10^6/uL (3.50-5.40) Hemoglobin 12.0 g/dL (12.0-15.5) 12.4 g/dL (12.0-15.5) Hematocrit 36.5 % (36.0-47.0) 37.4 % (36.0-47.0) Mean Corpuscular Volume 95 fL (79-100) 93 fL (79-100) Mean Corpuscular Hemoglobin 31 pg (25-35) 31 pg (25-35) Mean Corpuscular Hemoglobin Concent 33 g/dL (31-37) 33 g/dL (31-37) Red Cell Distribution Width 14.4 % (11.5-14.5) 14.2 % (11.5-14.5) Platelet Count 229 x10^3/uL (140-400) 228 x10^3/uL (140-400) Neutrophils (%) (Auto) 55 % (31-73) 82 % (31-73) Lymphocytes (%) (Auto) 32 % (24-48) 12 % (24-48) Monocytes (%) (Auto) 9 % (0-9) 5 % (0-9) Eosinophils (%) (Auto) 3 % (0-3) 0 % (0-3) Basophils (%) (Auto) 1 % (0-3) 1 % (0-3) Neutrophils # (Auto) 2.1 x10^3uL (1.8-7.7) 6.3 x10^3uL (1.8-7.7) Lymphocytes # (Auto) 1.2 x10^3/uL (1.0-4.8) 0.9 x10^3/uL (1.0-4.8) Monocytes # (Auto) 0.3 x10^3/uL (0.0-1.1) 0.4 x10^3/uL (0.0-1.1) Eosinophils # (Auto) 0.1 x10^3/uL (0.0-0.7) 0.0 x10^3/uL (0.0-0.7) Basophils # (Auto) 0.0 x10^3/uL (0.0-0.2) 0.0 x10^3/uL (0.0-0.2) Prothrombin Time 13.1 SEC (11.7-14.0) Prothromb Time International Ratio 1.0 (0.8-1.1) Activated Partial Thromboplast Time 43 SEC (24-38) Sodium Level 141 mmol/L (136-145) 140 mmol/L (136-145) Potassium Level 4.5 mmol/L (3.5-5.1) 3.7 mmol/L (3.5-5.1) Chloride Level 102 mmol/L (98-107) 101 mmol/L (98-107) Carbon Dioxide Level 31 mmol/L (21-32) 29 mmol/L (21-32) Anion Gap 8 (6-14) 10 (6-14) Blood Urea Nitrogen 20 mg/dL (7-20) 16 mg/dL (7-20) Creatinine 0.8 mg/dL (0.6-1.0) 0.6 mg/dL (0.6-1.0) Estimated GFR (Cockcroft-Gault) 88.2 123.0 Glucose Level 95 mg/dL (70-99) 104 mg/dL (70-99) Calcium Level 8.9 mg/dL (8.5-10.1) 9.2 mg/dL (8.5-10.1) Urine Collection Type Unknown Urine Color Yellow Urine Clarity Clear Urine pH 6.5 Urine Specific Goodwin 1.020 Urine Protein Negative mg/dL (NEG-TRACE) Urine Glucose (UA) Negative mg/dL (NEG) Urine Ketones (Stick) 40 mg/dL (NEG) Urine Blood Negative (NEG) Urine Nitrite Positive (NEG) Urine Bilirubin Negative (NEG) Urine Urobilinogen Dipstick 1.0 mg/dL (0.2 mg/dL) Urine Leukocyte Esterase Small (NEG) Urine RBC 1-2 /HPF (0-2) Urine WBC 5-10 /HPF (0-4) Urine Bacteria Many /HPF (0-FEW) Laboratory Tests Test 01/13/19 16:36 01/13/19 22:30 01/14/19 03:45 White Blood Count 3.9 x10^3/uL (4.0-11.0) 7.7 x10^3/uL (4.0-11.0) Red Blood Count 3.85 x10^6/uL (3.50-5.40) 4.01 x10^6/uL (3.50-5.40) Hemoglobin 12.0 g/dL (12.0-15.5) 12.4 g/dL (12.0-15.5) Hematocrit 36.5 % (36.0-47.0) 37.4 % (36.0-47.0) Mean Corpuscular Volume 95 fL (79-100) 93 fL (79-100) Mean Corpuscular Hemoglobin 31 pg (25-35) 31 pg (25-35) Mean Corpuscular Hemoglobin Concent 33 g/dL (31-37) 33 g/dL (31-37) Red Cell Distribution Width 14.4 % (11.5-14.5) 14.2 % (11.5-14.5) Platelet Count 229 x10^3/uL (140-400) 228 x10^3/uL (140-400) Neutrophils (%) (Auto) 55 % (31-73) 82 % (31-73) Lymphocytes (%) (Auto) 32 % (24-48) 12 % (24-48) Monocytes (%) (Auto) 9 % (0-9) 5 % (0-9) Eosinophils (%) (Auto) 3 % (0-3) 0 % (0-3) Basophils (%) (Auto) 1 % (0-3) 1 % (0-3) Neutrophils # (Auto) 2.1 x10^3uL (1.8-7.7) 6.3 x10^3uL (1.8-7.7) Lymphocytes # (Auto) 1.2 x10^3/uL (1.0-4.8) 0.9 x10^3/uL (1.0-4.8) Monocytes # (Auto) 0.3 x10^3/uL (0.0-1.1) 0.4 x10^3/uL (0.0-1.1) Eosinophils # (Auto) 0.1 x10^3/uL (0.0-0.7) 0.0 x10^3/uL (0.0-0.7) Basophils # (Auto) 0.0 x10^3/uL (0.0-0.2) 0.0 x10^3/uL (0.0-0.2) Prothrombin Time 13.1 SEC (11.7-14.0) Prothromb Time International Ratio 1.0 (0.8-1.1) Activated Partial Thromboplast Time 43 SEC (24-38) Sodium Level 141 mmol/L (136-145) 140 mmol/L (136-145) Potassium Level 4.5 mmol/L (3.5-5.1) 3.7 mmol/L (3.5-5.1) Chloride Level 102 mmol/L (98-107) 101 mmol/L (98-107) Carbon Dioxide Level 31 mmol/L (21-32) 29 mmol/L (21-32) Anion Gap 8 (6-14) 10 (6-14) Blood Urea Nitrogen 20 mg/dL (7-20) 16 mg/dL (7-20) Creatinine 0.8 mg/dL (0.6-1.0) 0.6 mg/dL (0.6-1.0) Estimated GFR (Cockcroft-Gault) 88.2 123.0 Glucose Level 95 mg/dL (70-99) 104 mg/dL (70-99) Calcium Level 8.9 mg/dL (8.5-10.1) 9.2 mg/dL (8.5-10.1) Urine Collection Type Unknown Urine Color Yellow Urine Clarity Clear Urine pH 6.5 Urine Specific Goodwin 1.020 Urine Protein Negative mg/dL (NEG-TRACE) Urine Glucose (UA) Negative mg/dL (NEG) Urine Ketones (Stick) 40 mg/dL (NEG) Urine Blood Negative (NEG) Urine Nitrite Positive (NEG) Urine Bilirubin Negative (NEG) Urine Urobilinogen Dipstick 1.0 mg/dL (0.2 mg/dL) Urine Leukocyte Esterase Small (NEG) Urine RBC 1-2 /HPF (0-2) Urine WBC 5-10 /HPF (0-4) Urine Bacteria Many /HPF (0-FEW) MAKENNA KHALIL MD January 14, 2019 13:52
[2019-01-14 14:57] LABS: BARBITURATES NEG (NEG); BENZODIAZEPINES NEG (NEG); CANNABINOIDS NEG (NEG); COCAINE NEG (NEG); METHADONE NEG (NEG); OPIATES NEG (NEG); PHENCYCLIDINE NEG (NEG)
[2019-01-14 15:00] LABS: AMPHETAMINE/METHAMPHETAMINE NEG (NEG)
--- NOTE | 2019-01-14 16:31 | PDOC ---
[facility] [facility] PROGRESS NOTE Chief Complaint Chief Complaint Subdural hematoma HTN Parkinson's Grave's PVD s/p peripheral stents GERD Bladder dystonia with intermittent cathing History of Present Illness History of Present Illness Patient seen and examined in ICU She was sitting comfortable in chair She was pleasant, alert and oriented x3 Bilateral periorbital ecchymosis present, no fracture Awaiting secondary CT to see size change Vitals Vitals Vital Signs Date Time Temp Pulse Resp B/P (MAP) Pulse Ox O2 Delivery O2 Flow Rate FiO2 01/14/19 15:00 52 15 131/71 (91) 100 Room Air 01/14/19 12:00 98.6 98.6 01/13/19 18:08 98.0 Physical Exam General: Alert, Oriented X3, Cooperative, No acute distress Abdomen: Normal bowel sounds, Soft, No tenderness, No hepatosplenomegaly, No masses Extremities: No clubbing, No cyanosis, No edema, Normal pulses, No tenderness/swelling Skin: No rashes, No breakdown, Other (bilateraly periorbital ecchymosis, swelling to R christian) Labs LABS Laboratory Tests Test 01/13/19 16:36 01/13/19 22:30 01/14/19 03:45 01/14/19 14:30 White Blood Count 3.9 x10^3/uL (4.0-11.0) 7.7 x10^3/uL (4.0-11.0) Red Blood Count 3.85 x10^6/uL (3.50-5.40) 4.01 x10^6/uL (3.50-5.40) Hemoglobin 12.0 g/dL (12.0-15.5) 12.4 g/dL (12.0-15.5) Hematocrit 36.5 % (36.0-47.0) 37.4 % (36.0-47.0) Mean Corpuscular Volume 95 fL (79-100) 93 fL (79-100) Mean Corpuscular Hemoglobin 31 pg (25-35) 31 pg (25-35) Mean Corpuscular Hemoglobin Concent 33 g/dL (31-37) 33 g/dL (31-37) Red Cell Distribution Width 14.4 % (11.5-14.5) 14.2 % (11.5-14.5) Platelet Count 229 x10^3/uL (140-400) 228 x10^3/uL (140-400) Neutrophils (%) (Auto) 55 % (31-73) 82 % (31-73) Lymphocytes (%) (Auto) 32 % (24-48) 12 % (24-48) Monocytes (%) (Auto) 9 % (0-9) 5 % (0-9) Eosinophils (%) (Auto) 3 % (0-3) 0 % (0-3) Basophils (%) (Auto) 1 % (0-3) 1 % (0-3) Neutrophils # (Auto) 2.1 x10^3uL (1.8-7.7) 6.3 x10^3uL (1.8-7.7) Lymphocytes # (Auto) 1.2 x10^3/uL (1.0-4.8) 0.9 x10^3/uL (1.0-4.8) Monocytes # (Auto) 0.3 x10^3/uL (0.0-1.1) 0.4 x10^3/uL (0.0-1.1) Eosinophils # (Auto) 0.1 x10^3/uL (0.0-0.7) 0.0 x10^3/uL (0.0-0.7) Basophils # (Auto) 0.0 x10^3/uL (0.0-0.2) 0.0 x10^3/uL (0.0-0.2) Prothrombin Time 13.1 SEC (11.7-14.0) Prothromb Time International Ratio 1.0 (0.8-1.1) Activated Partial Thromboplast Time 43 SEC (24-38) Sodium Level 141 mmol/L (136-145) 140 mmol/L (136-145) Potassium Level 4.5 mmol/L (3.5-5.1) 3.7 mmol/L (3.5-5.1) Chloride Level 102 mmol/L (98-107) 101 mmol/L (98-107) Carbon Dioxide Level 31 mmol/L (21-32) 29 mmol/L (21-32) Anion Gap 8 (6-14) 10 (6-14) Blood Urea Nitrogen 20 mg/dL (7-20) 16 mg/dL (7-20) Creatinine 0.8 mg/dL (0.6-1.0) 0.6 mg/dL (0.6-1.0) Estimated GFR (Cockcroft-Gault) 88.2 123.0 Glucose Level 95 mg/dL (70-99) 104 mg/dL (70-99) Calcium Level 8.9 mg/dL (8.5-10.1) 9.2 mg/dL (8.5-10.1) Urine Collection Type Unknown Urine Color Yellow Urine Clarity Clear Urine pH 6.5 Urine Specific [place] 1.020 Urine Protein Negative mg/dL (NEG-TRACE) Urine Glucose (UA) Negative mg/dL (NEG) Urine Ketones (Stick) 40 mg/dL (NEG) Urine Blood Negative (NEG) Urine Nitrite Positive (NEG) Urine Bilirubin Negative (NEG) Urine Urobilinogen Dipstick 1.0 mg/dL (0.2 mg/dL) Urine Leukocyte Esterase Small (NEG) Urine RBC 1-2 /HPF (0-2) Urine WBC 5-10 /HPF (0-4) Urine Bacteria Many /HPF (0-FEW) Urine Opiates Screen Neg (NEG) Urine Methadone Screen Neg (NEG) Urine Barbiturates Neg (NEG) Urine Phencyclidine Screen Neg (NEG) Urine Amphetamine/Methamphetamine Neg (NEG) Urine Benzodiazepines Screen Neg (NEG) Urine Cocaine Screen Neg (NEG) Urine Cannabinoids Screen Neg (NEG) Urine Ethyl Alcohol Neg (NEG) Review of Systems Review of Systems Patient reports ROSENTHAL Patient denies abdominal pain Assessment and Plan Assessmemt and Plan Problems Medical Problems: (1) Subdural hematoma Status: Acute Assessment: Subdural hematoma UTI HTN Parkinson's Grave's PVD s/p peripheral stents GERD Bladder dystonia with intermittent cathing Plan: Await CT results to monitor size Avoid anticoagulant and antiplatelet agents at the present time- per neuro surg Ciprofloxacin for UTI Home meds Labs DVT ppx Full code Neuro Surg consulted Comment Review of Relevant I have reviewed the following items dami (where applicable) has been applied. Labs Laboratory Tests Test 01/13/19 16:36 01/13/19 22:30 01/14/19 03:45 01/14/19 14:30 White Blood Count 3.9 x10^3/uL (4.0-11.0) 7.7 x10^3/uL (4.0-11.0) Red Blood Count 3.85 x10^6/uL (3.50-5.40) 4.01 x10^6/uL (3.50-5.40) Hemoglobin 12.0 g/dL (12.0-15.5) 12.4 g/dL (12.0-15.5) Hematocrit 36.5 % (36.0-47.0) 37.4 % (36.0-47.0) Mean Corpuscular Volume 95 fL (79-100) 93 fL (79-100) Mean Corpuscular Hemoglobin 31 pg (25-35) 31 pg (25-35) Mean Corpuscular Hemoglobin Concent 33 g/dL (31-37) 33 g/dL (31-37) Red Cell Distribution Width 14.4 % (11.5-14.5) 14.2 % (11.5-14.5) Platelet Count 229 x10^3/uL (140-400) 228 x10^3/uL (140-400) Neutrophils (%) (Auto) 55 % (31-73) 82 % (31-73) Lymphocytes (%) (Auto) 32 % (24-48) 12 % (24-48) Monocytes (%) (Auto) 9 % (0-9) 5 % (0-9) Eosinophils (%) (Auto) 3 % (0-3) 0 % (0-3) Basophils (%) (Auto) 1 % (0-3) 1 % (0-3) Neutrophils # (Auto) 2.1 x10^3uL (1.8-7.7) 6.3 x10^3uL (1.8-7.7) Lymphocytes # (Auto) 1.2 x10^3/uL (1.0-4.8) 0.9 x10^3/uL (1.0-4.8) Monocytes # (Auto) 0.3 x10^3/uL (0.0-1.1) 0.4 x10^3/uL (0.0-1.1) Eosinophils # (Auto) 0.1 x10^3/uL (0.0-0.7) 0.0 x10^3/uL (0.0-0.7) Basophils # (Auto) 0.0 x10^3/uL (0.0-0.2) 0.0 x10^3/uL (0.0-0.2) Prothrombin Time 13.1 SEC (11.7-14.0) Prothromb Time International Ratio 1.0 (0.8-1.1) Activated Partial Thromboplast Time 43 SEC (24-38) Sodium Level 141 mmol/L (136-145) 140 mmol/L (136-145) Potassium Level 4.5 mmol/L (3.5-5.1) 3.7 mmol/L (3.5-5.1) Chloride Level 102 mmol/L (98-107) 101 mmol/L (98-107) Carbon Dioxide Level 31 mmol/L (21-32) 29 mmol/L (21-32) Anion Gap 8 (6-14) 10 (6-14) Blood Urea Nitrogen 20 mg/dL (7-20) 16 mg/dL (7-20) Creatinine 0.8 mg/dL (0.6-1.0) 0.6 mg/dL (0.6-1.0) Estimated GFR (Cockcroft-Gault) 88.2 123.0 Glucose Level 95 mg/dL (70-99) 104 mg/dL (70-99) Calcium Level 8.9 mg/dL (8.5-10.1) 9.2 mg/dL (8.5-10.1) Urine Collection Type Unknown Urine Color Yellow Urine Clarity Clear Urine pH 6.5 Urine Specific [place] 1.020 Urine Protein Negative mg/dL (NEG-TRACE) Urine Glucose (UA) Negative mg/dL (NEG) Urine Ketones (Stick) 40 mg/dL (NEG) Urine Blood Negative (NEG) Urine Nitrite Positive (NEG) Urine Bilirubin Negative (NEG) Urine Urobilinogen Dipstick 1.0 mg/dL (0.2 mg/dL) Urine Leukocyte Esterase Small (NEG) Urine RBC 1-2 /HPF (0-2) Urine WBC 5-10 /HPF (0-4) Urine Bacteria Many /HPF (0-FEW) Urine Opiates Screen Neg (NEG) Urine Methadone Screen Neg (NEG) Urine Barbiturates Neg (NEG) Urine Phencyclidine Screen Neg (NEG) Urine Amphetamine/Methamphetamine Neg (NEG) Urine Benzodiazepines Screen Neg (NEG) Urine Cocaine Screen Neg (NEG) Urine Cannabinoids Screen Neg (NEG) Urine Ethyl Alcohol Neg (NEG) Laboratory Tests Test 01/13/19 16:36 01/13/19 22:30 01/14/19 03:45 01/14/19 14:30 White Blood Count 3.9 x10^3/uL (4.0-11.0) 7.7 x10^3/uL (4.0-11.0) Red Blood Count 3.85 x10^6/uL (3.50-5.40) 4.01 x10^6/uL (3.50-5.40) Hemoglobin 12.0 g/dL (12.0-15.5) 12.4 g/dL (12.0-15.5) Hematocrit 36.5 % (36.0-47.0) 37.4 % (36.0-47.0) Mean Corpuscular Volume 95 fL (79-100) 93 fL (79-100) Mean Corpuscular Hemoglobin 31 pg (25-35) 31 pg (25-35) Mean Corpuscular Hemoglobin Concent 33 g/dL (31-37) 33 g/dL (31-37) Red Cell Distribution Width 14.4 % (11.5-14.5) 14.2 % (11.5-14.5) Platelet Count 229 x10^3/uL (140-400) 228 x10^3/uL (140-400) Neutrophils (%) (Auto) 55 % (31-73) 82 % (31-73) Lymphocytes (%) (Auto) 32 % (24-48) 12 % (24-48) Monocytes (%) (Auto) 9 % (0-9) 5 % (0-9) Eosinophils (%) (Auto) 3 % (0-3) 0 % (0-3) Basophils (%) (Auto) 1 % (0-3) 1 % (0-3) Neutrophils # (Auto) 2.1 x10^3uL (1.8-7.7) 6.3 x10^3uL (1.8-7.7) Lymphocytes # (Auto) 1.2 x10^3/uL (1.0-4.8) 0.9 x10^3/uL (1.0-4.8) Monocytes # (Auto) 0.3 x10^3/uL (0.0-1.1) 0.4 x10^3/uL (0.0-1.1) Eosinophils # (Auto) 0.1 x10^3/uL (0.0-0.7) 0.0 x10^3/uL (0.0-0.7) Basophils # (Auto) 0.0 x10^3/uL (0.0-0.2) 0.0 x10^3/uL (0.0-0.2) Prothrombin Time 13.1 SEC (11.7-14.0) Prothromb Time International Ratio 1.0 (0.8-1.1) Activated Partial Thromboplast Time 43 SEC (24-38) Sodium Level 141 mmol/L (136-145) 140 mmol/L (136-145) Potassium Level 4.5 mmol/L (3.5-5.1) 3.7 mmol/L (3.5-5.1) Chloride Level 102 mmol/L (98-107) 101 mmol/L (98-107) Carbon Dioxide Level 31 mmol/L (21-32) 29 mmol/L (21-32) Anion Gap 8 (6-14) 10 (6-14) Blood Urea Nitrogen 20 mg/dL (7-20) 16 mg/dL (7-20) Creatinine 0.8 mg/dL (0.6-1.0) 0.6 mg/dL (0.6-1.0) Estimated GFR (Cockcroft-Gault) 88.2 123.0 Glucose Level 95 mg/dL (70-99) 104 mg/dL (70-99) Calcium Level 8.9 mg/dL (8.5-10.1) 9.2 mg/dL (8.5-10.1) Urine Collection Type Unknown Urine Color Yellow Urine Clarity Clear Urine pH 6.5 Urine Specific [place] 1.020 Urine Protein Negative mg/dL (NEG-TRACE) Urine Glucose (UA) Negative mg/dL (NEG) Urine Ketones (Stick) 40 mg/dL (NEG) Urine Blood Negative (NEG) Urine Nitrite Positive (NEG) Urine Bilirubin Negative (NEG) Urine Urobilinogen Dipstick 1.0 mg/dL (0.2 mg/dL) Urine Leukocyte Esterase Small (NEG) Urine RBC 1-2 /HPF (0-2) Urine WBC 5-10 /HPF (0-4) Urine Bacteria Many /HPF (0-FEW) Urine Opiates Screen Neg (NEG) Urine Methadone Screen Neg (NEG) Urine Barbiturates Neg (NEG) Urine Phencyclidine Screen Neg (NEG) Urine Amphetamine/Methamphetamine Neg (NEG) Urine Benzodiazepines Screen Neg (NEG) Urine Cocaine Screen Neg (NEG) Urine Cannabinoids Screen Neg (NEG) Urine Ethyl Alcohol Neg (NEG) Medications Current Medications Ondansetron HCl (Zofran) 4 mg PRN Q8HRS PRN IV NAUSEA/VOMITING Last administered on 01/13/19 20:49; Start 01/13/19 at 17:30; Stop 01/14/19 at 17:29 Fentanyl Citrate (Fentanyl 2ml Vial) 50 mcg PRN Q1HR PRN IV PAIN Last administered on 01/14/19 02:35; Start 01/13/19 at 17:30; Stop 01/14/19 at 17:29 Acetaminophen/ Hydrocodone Bitart (Lortab 5/325) 1 tab PRN Q6HRS PRN PO PAIN; Start 01/13/19 at 21:15 Atorvastatin Calcium (Lipitor) 10 mg QHS PO Last administered on 01/13/19 22:13; Start 01/13/19 at 22:30 Carbidopa/Levodopa (Sinemet Cr) 1 tab.sa 5XDAY PO Last administered on 01/14/19at 14:34; Start 01/13/19 at 22:00 Levothyroxine Sodium (Synthroid) 75 mcg DAILY06 PO Last administered on 01/14/19 06:47; Start 01/14/19 at 06:00 Nitroglycerin (Nitrostat) 0.4 mg PRN Q5MIN PRN SL CHEST PAIN; Start 01/13/19 at 21:15 Carbidopa/Levodopa (Sinemet Cr) 2 tab.sa 0700,1000,1300,1600 PO Last administered on 01/14/19 14:34; Start 01/14/19 at 07:00 Non-Formulary Medication (Ciclopirox Olamine (Ciclopirox)) 1 teja HS TP ; Start 01/14/19 at 21:00; Status UNV Hydrochlorothiazide (Microzide) 12.5 mg DAILY PO Last administered on 01/14/19at 08:55; Start 01/14/19 at 09:00 Famotidine (Pepcid) 20 mg DAILY PO Last administered on 01/14/19at 08:55; Start 01/14/19 at 09:00 Ropinirole HCl (Requip) 0.5 mg TID PO Last administered on 01/14/19at 14:36; Start 01/13/19 at 22:00 Carbidopa/Levodopa (Sinemet Cr) 2 tab.sa 1900,2100 PO Last administered on 01/13/19at 21:49; Start 01/13/19 at 22:00 Labetalol HCl (Normodyne Iv Push) 10 mg PRN Q2HR PRN IVP HYPERTENSION, SEE COMMENTS; Start 01/13/19 at 22:00 Active Scripts Active Reported Ciclopirox (Ciclopirox Olamine) 15 Gm Cream..g. 1 Teja TP HS NITROGLYCERIN SubLingual (Nitroglycerin) 0.4 Mg Tab.subl 0.4 Mg SL PRN Q5MIN PRN Atorvastatin Calcium 10 Mg Tablet 1 Tab PO DAILY Ranitidine Hcl 150 Mg Tablet 150 Mg PO DAILY Requip (Ropinirole Hcl) 0.5 Mg Tablet 0.5 Mg PO TID Children's Aspirin (Aspirin) 81 Mg Tab.chew 81 Mg PO DAILY Hydrochlorothiazide Tablet (Hydrochlorothiazide) 12.5 Mg Tablet 12.5 Mg PO DAILY Levothyroxine Sodium 75 Mcg Tablet 1 Tab PO DAILY Sinemet Cr 25-100 Tablet (Carbidopa/Levodopa) 1 Each Tablet.er 1 Tab PO FIVE TIMES A DAY Sinemet Cr 50-200 Tablet (Carbidopa/Levodopa) 1 Each Tablet.er 1 Tab PO SIX TIMES A DAY Vitals/I & O Vital Sign - Last 24 Hours 01/13/19 01/13/19 01/13/19 01/13/19 18:07 18:08 19:45 20:00 Temp 97.8 97.8 Pulse 44 42 Resp 20 20 18 B/P (MAP) 167/74 (105) Pulse Ox 99 100 O2 Delivery Room Air Room Air Room Air O2 Flow Rate 98.0 01/13/19 01/13/19 01/13/19 01/13/19 20:15 20:45 21:00 21:50 Pulse 46 60 44 Resp 16 17 16 13 B/P (MAP) 187/95 (125) 192/95 (127) 164/74 (104) Pulse Ox 100 100 98 95 O2 Delivery Room Air Room Air Room Air Room Air 01/13/19 01/13/19 01/14/19 01/14/19 22:00 23:00 00:00 00:00 Temp 97.6 97.6 Pulse 68 62 60 Resp 18 20 16 B/P (MAP) 152/73 (99) 146/74 (98) 143/71 (95) Pulse Ox 98 97 98 O2 Delivery Room Air Room Air Room Air Room Air 01/14/19 01/14/19 01/14/19 01/14/19 01:00 02:00 02:35 03:00 Pulse 65 81 68 Resp 12 13 16 14 B/P (MAP) 119/70 (86) 142/71 (94) 116/72 (87) Pulse Ox 96 98 94 97 O2 Delivery Room Air Room Air Room Air 01/14/19 01/14/19 01/14/19 01/14/19 03:15 04:00 04:00 05:00 Temp 97.8 97.8 Pulse 49 50 Resp 18 15 12 B/P (MAP) 140/87 (104) 121/64 (83) Pulse Ox 98 96 97 O2 Delivery Room Air Room Air Room Air Room Air 01/14/19 01/14/19 01/14/19 01/14/19 06:00 07:00 08:00 08:00 Temp 97.8 97.8 Pulse 42 40 45 Resp 12 12 13 B/P (MAP) 137/69 (91) 144/88 (106) 110/84 (93) Pulse Ox 100 100 100 O2 Delivery Room Air Room Air Room Air Room Air 01/14/19 01/14/19 01/14/19 01/14/19 09:00 10:00 11:00 12:00 Temp 98.6 98.6 Pulse 76 54 58 45 Resp 23 13 20 13 B/P (MAP) 102/61 (75) 128/71 (90) 119/78 (92) 136/78 (97) Pulse Ox 100 98 98 100 O2 Delivery Room Air Room Air Room Air Room Air 01/14/19 01/14/19 01/14/19 01/14/19 12:00 13:00 14:00 15:00 Pulse 55 56 52 Resp 12 18 15 B/P (MAP) 95/51 (66) 103/62 (76) 131/71 (91) Pulse Ox 98 98 100 O2 Delivery Room Air Room Air Room Air Room Air Intake and Output 01/13/19 01/13/19 01/14/19 14:59 22:59 06:59 Intake Total 480 ml 120 ml Output Total 425 ml Balance 480 ml -305 ml LEOLA MILLER III DO January 14, 2019 16:31
[2019-01-14] MEDS ORDERED: CIPROFLOXACIN 400MG PREMIX 200 ML IV SCH (17:30)
[2019-01-14] MEDS: cefTRIAXone IV Push 1 GM VIAL. IVP SCH (17:56)
[2019-01-14] MEDS: CICLOPIROX OLAMINE TP SCH (21:00)
[2019-01-14] MEDS: ATORVASTATIN CALCIUM 10 MG TABLET. PO SCH (21:27)
[2019-01-15] VITALS (17 sets, daily range): BP systolic 78–170; BP diastolic 4–94
--- NOTE | 2019-01-15 00:11 | CONS ---
DATE OF CONSULTATION: 01/14/2019 REASON FOR CONSULTATION: Subdural hematoma. HISTORY OF PRESENT ILLNESS: The patient is a 63-year-old woman who fell while she was getting dressed. She struck the right side of her face and head on the headboard of the bed. There was no loss of consciousness. She came to the Emergency Room for further evaluation. She does have problems with Parkinson's disease and unsteadiness. The morning following her injury, she says she has mild headache. She does not notice any other significant pain. She denies any difficulty with mentation. She denies numbness or weakness in the upper and lower extremities. PAST MEDICAL HISTORY: Includes hypertension, Parkinson's disease, GERD, urinary incontinence. PAST SURGICAL HISTORY: Left rotator cuff arthroscopy, hysterectomy, right ankle fracture repair. ALLERGIES: SHE REPORTS THAT SHE IS ALLERGIC TO OXYBUTYNIN, WHICH IS ASSOCIATED WITH NAUSEA AND HYPOTENSION. CIPROFLOXACIN, DIARRHEA. GABAPENTIN, VERTIGO. MEDICATIONS: Available on the chart. She does take aspirin. PERSONAL HISTORY: She does not smoke or use alcohol or use illicit drugs. REVIEW OF SYSTEMS: Ten points was performed and other than outlined above, was negative. PHYSICAL EXAMINATION: GENERAL: She is seated in a chair. She is alert, pleasant and cooperative, oriented x 3 with normal recent and remote memory, normal speech. There is bilateral ecchymosis in the periorbital regions, more significant on the right side with some orbital swelling. Her pupils are equal and reactive to light with normal extraocular motor function. Facial motor and facial sensory examination was normal. Her lower cranial nerves were intact. Motor examination: Strength was 5/5 in upper and lower extremities bilaterally. There was full range of motion of upper and lower extremities bilaterally. LABORATORY DATA: I reviewed CT scans of the head from yesterday and today. There is a small right acute subdural hematoma present on the initial study, which has enlarged slightly reaching about 7 mm in greatest thickness over the right frontotemporoparietal region. This is associated with a right to left shift. The patient suffered a subdural hematoma related to a fall. At this point, she is stable. Because of the enlargement, I would keep her in the ICU today. She can be fed. I think the chance of a problem requiring operative intervention is low. I would have her rescanned tomorrow. I appreciate asking us to see her. MARIANA MARTINES MD DR: Wesley JOB#: [id number] / [id number] GALINA
[2019-01-15 04:40] LABS: BASO % 1 % (0-3); EOS # 0.1 x10^3/uL (0.0-0.7); EOS % 2 % (0-3); HEMATOCRIT 36.3 % (36.0-47.0); LYMPH # 1.3 x10^3/uL (1.0-4.8); LYMPH % 31 % (24-48); MEAN CORPUSCULAR HEMOGLOBIN 31 pg (25-35); MEAN CORPUSCULAR HGB CONC 33 g/dL (31-37); MEAN CORPUSCULAR VOLUME 94 fL (79-100); MONO # 0.4 x10^3/uL (0.0-1.1); MONO % 9 % (0-9); NEUT # 2.4 x10^3uL (1.8-7.7); NEUT % 57 % (31-73); PLATELET COUNT 220 x10^3/uL (140-400); RED BLOOD COUNT 3.86 x10^6/uL (3.50-5.40); RED CELL DISTRIBUTION WIDTH 14.2 % (11.5-14.5); WHITE BLOOD COUNT 4.3 x10^3/uL (4.0-11.0)
[2019-01-15] MEDS: LABETALOL 20 MG/4 ML DISP.SYRIN. IVP PRN ×2 (04:46→22:06)
[2019-01-15 04:55] LABS: CALCIUM 9.2 mg/dL (8.5-10.1); CREATININE 0.7 mg/dL (0.6-1.0); GFR 102.9; POTASSIUM 3.5 mmol/L (3.5-5.1)
[2019-01-15] MEDS: LEVOTHYROXINE 75 MCG TABLET PO SCH (05:23)
[2019-01-15] MEDS: CARBIDOPA/LEVODOPA CR 25/100MG TABLET.SA. PO SCH ×8 (05:23→21:14)
[2019-01-15] MEDS: hydroCHLOROthiazide 12.5 MG CAPSULE PO SCH (08:20)
[2019-01-15] MEDS: FAMOTIDINE 20 MG TABLET. PO SCH (08:21)
[2019-01-15] MEDS: rOPINIRole 0.25 MG TABLET. PO SCH ×3 (08:21→21:14)
--- NOTE | 2019-01-15 10:21 | PDOC ---
PROGRESS NOTES Chief Complaint Chief Complaint Subdural hematoma Interval increase in size of right convexity subdural hematoma. There is mild mass effect with estimated 4 mm of right to left midline shift, new from prior study Focal soft tissue swelling over the right frontal bone and right orbit with no evidence of underlying displaced fracture. Mild sinus disease. on ct head HTN Parkinson's Grave's PVD s/p peripheral stents GERD Bladder dystonia with intermittent cathing GAIT INSTABILITY hypertension, uncontrolled History of Present Illness History of Present Illness seen and examined in ICU She was pleasant, alert and oriented x3 Bilateral periorbital ecchymosis present, no fracture Awaiting secondary CT NEUROSURGERY FOLLOWING norvasc 5 mg po daily 35 min cc time Vitals Vitals Vital Signs Date Time Temp Pulse Resp B/P (MAP) Pulse Ox O2 Delivery O2 Flow Rate FiO2 01/15/19 06:00 60 20 165/94 (117) 98 Room Air 01/15/19 04:00 98.4 98.4 Physical Exam General: Alert, Oriented X3, Cooperative, No acute distress, mild distress Heart: Regular rate, Normal S1, Normal S2 Lungs: Clear Abdomen: Normal bowel sounds, Soft, No tenderness, No hepatosplenomegaly, No masses Extremities: No clubbing, No cyanosis, No edema, Normal pulses, No tend erness/swelling Skin: No rashes, No breakdown, Other (bilateraly periorbital ecchymosis, swelling to [place]) Labs LABS CT HEAD AND MAXILLOFACIAL WO, CT CERVICAL SPINE WO CONTRAST dated 01/13/2019 3:03 PM Indication: Pain after injury fell on face.. Next pain. Comparison: No comparison is available. Technique: Contiguous axial imaging the head was performed from skull base to vertex. In addition, axial imaging the maxillofacial bones and cervical spine obtained with thin cut coronal and sagittal reconstruction One or more of the following individualized dose reduction techniques were utilized for this examination: 1. Automated exposure control 2. Adjustment of the mA and/or kV according to patient size 3. Use of iterative reconstruction technique Findings: There is a small hyperdense extra-axial collection along the right frontotemporal convexity that measures approximately 5 mm thickness. No significant mass effect or midline shift. Brain parenchyma is of normal otherwise normal attenuation. No subarachnoid hemorrhage or intraventricular hemorrhage. Posterior fossa and brainstem unremarkable. No acute calvarial abnormality. Images the maxillofacial bones show focal soft tissue swelling at the right frontal bone and lateral right orbital region. Small amount of soft tissue gas. The orbital arceo and maxillary arceo are intact. No displaced facial fracture. The zygomatic arches are intact. Mandible is intact. No nasal bone fracture. Mild mucosal thickening of the bilateral ethmoid air cells and bilateral maxillary sinus. Mastoid air cells are clear. Middle ears are clear. No significant soft tissue abnormality. Images of the cervical spine acquired from skull base to T2. Sagittal alignment is anatomic. Vertebral body heights are maintained. No prevertebral soft tissue swelling. Posterior elements are intact. No apparent fracture. Mild to moderate endplate hypertrophic changes throughout with moderate multilevel uncovertebral spurring and facet arthropathy. Resultant mild central stenosis at C5-C6 and C6-C7 with moderate to severe bilateral foraminal stenosis at the C5-C6 level and moderate to severe left foraminal stenosis at C6-C7. Visualized soft tissue structures unremarkable. There is a nodular focus at the right thyroid gland that measures 1.9 cm maximum dimension. Limited images of lung apices are clear. IMPRESSION HEAD: 1. There is a small hyperdense extra-axial collection along the right frontotemporal convexity, likely a small subdural hematoma. No significant mass effect or midline shift. IMPRESSION MAXILLOFACIAL: 1. Focal soft tissue swelling over the right frontal bone and right orbit with no evidence of underlying displaced fracture. 2. Mild sinus disease. IMPRESSION CERVICAL SPINE: 1. No evidence of fracture or malalignment. 2. Moderate multilevel spondylosis. CT head without contrast dated 01/14/2019. Comparison made to 01/13/2019. CLINICAL INDICATION: Follow-up subdural hematoma. TECHNIQUE: Contiguous axial imaging the head was performed from skull base to vertex. No contrast administered. One or more of the following individualized dose reduction techniques were utilized for this examination: 1. Automated exposure control 2. Adjustment of the mA and/or kV according to patient size 3. Use of iterative reconstruction technique. FINDINGS: There is been interval increase in size of right convexity subdural hematoma which now extends from the middle cranial fossa to the vertex. Maximum thickness of the high density collection measures about 7 mm versus 5 mm previously. There is increasing mass effect upon the right lateral ventricle with estimated 4 mm of right to left midline shift. Suspected trace amount of hemorrhage along the anterior falx. No definite subarachnoid hemorrhage or intraventricular hemorrhage. Brain parenchyma is otherwise stable in attenuation. Moderate mucosal thickening of the bilateral ethmoid air cells. Soft tissue swelling over the lateral right orbit, unchanged. No apparent fracture. IMPRESSION: Interval increase in size of right convexity subdural hematoma. There is mild mass effect with estimated 4 mm of right to left midline shift, new from prior study. Laboratory Tests Test 01/14/19 14:30 01/15/19 03:50 Urine Opiates Screen Neg (NEG) Urine Methadone Screen Neg (NEG) Urine Barbiturates Neg (NEG) Urine Phencyclidine Screen Neg (NEG) Urine Amphetamine/Methamphetamine Neg (NEG) Urine Benzodiazepines Screen Neg (NEG) Urine Cocaine Screen Neg (NEG) Urine Cannabinoids Screen Neg (NEG) Urine Ethyl Alcohol Neg (NEG) White Blood Count 4.3 x10^3/uL (4.0-11.0) Red Blood Count 3.86 x10^6/uL (3.50-5.40) Hemoglobin 12.0 g/dL (12.0-15.5) Hematocrit 36.3 % (36.0-47.0) Mean Corpuscular Volume 94 fL (79-100) Mean Corpuscular Hemoglobin 31 pg (25-35) Mean Corpuscular Hemoglobin Concent 33 g/dL (31-37) Red Cell Distribution Width 14.2 % (11.5-14.5) Platelet Count 220 x10^3/uL (140-400) Neutrophils (%) (Auto) 57 % (31-73) Lymphocytes (%) (Auto) 31 % (24-48) Monocytes (%) (Auto) 9 % (0-9) Eosinophils (%) (Auto) 2 % (0-3) Basophils (%) (Auto) 1 % (0-3) Neutrophils # (Auto) 2.4 x10^3uL (1.8-7.7) Lymphocytes # (Auto) 1.3 x10^3/uL (1.0-4.8) Monocytes # (Auto) 0.4 x10^3/uL (0.0-1.1) Eosinophils # (Auto) 0.1 x10^3/uL (0.0-0.7) Basophils # (Auto) 0.0 x10^3/uL (0.0-0.2) Sodium Level 143 mmol/L (136-145) Potassium Level 3.5 mmol/L (3.5-5.1) Chloride Level 103 mmol/L (98-107) Carbon Dioxide Level 31 mmol/L (21-32) Anion Gap 9 (6-14) Blood Urea Nitrogen 11 mg/dL (7-20) Creatinine 0.7 mg/dL (0.6-1.0) Estimated GFR (Cockcroft-Gault) 102.9 Glucose Level 96 mg/dL (70-99) Calcium Level 9.2 mg/dL (8.5-10.1) Assessment and Plan Assessmemt and Plan Problems Medical Problems: (1) Subdural hematoma Status: Acute Comment Review of Relevant I have reviewed the following items dami (where applicable) has been applied. Labs Laboratory Tests Test 01/13/19 16:36 01/13/19 22:30 01/14/19 03:45 01/14/19 14:30 White Blood Count 3.9 x10^3/uL (4.0-11.0) 7.7 x10^3/uL (4.0-11.0) Red Blood Count 3.85 x10^6/uL (3.50-5.40) 4.01 x10^6/uL (3.50-5.40) Hemoglobin 12.0 g/dL (12.0-15.5) 12.4 g/dL (12.0-15.5) Hematocrit 36.5 % (36.0-47.0) 37.4 % (36.0-47.0) Mean Corpuscular Volume 95 fL (79-100) 93 fL (79-100) Mean Corpuscular Hemoglobin 31 pg (25-35) 31 pg (25-35) Mean Corpuscular Hemoglobin Concent 33 g/dL (31-37) 33 g/dL (31-37) Red Cell Distribution Width 14.4 % (11.5-14.5) 14.2 % (11.5-14.5) Platelet Count 229 x10^3/uL (140-400) 228 x10^3/uL (140-400) Neutrophils (%) (Auto) 55 % (31-73) 82 % (31-73) Lymphocytes (%) (Auto) 32 % (24-48) 12 % (24-48) Monocytes (%) (Auto) 9 % (0-9) 5 % (0-9) Eosinophils (%) (Auto) 3 % (0-3) 0 % (0-3) Basophils (%) (Auto) 1 % (0-3) 1 % (0-3) Neutrophils # (Auto) 2.1 x10^3uL (1.8-7.7) 6.3 x10^3uL (1.8-7.7) Lymphocytes # (Auto) 1.2 x10^3/uL (1.0-4.8) 0.9 x10^3/uL (1.0-4.8) Monocytes # (Auto) 0.3 x10^3/uL (0.0-1.1) 0.4 x10^3/uL (0.0-1.1) Eosinophils # (Auto) 0.1 x10^3/uL (0.0-0.7) 0.0 x10^3/uL (0.0-0.7) Basophils # (Auto) 0.0 x10^3/uL (0.0-0.2) 0.0 x10^3/uL (0.0-0.2) Prothrombin Time 13.1 SEC (11.7-14.0) Prothromb Time International Ratio 1.0 (0.8-1.1) Activated Partial Thromboplast Time 43 SEC (24-38) Sodium Level 141 mmol/L (136-145) 140 mmol/L (136-145) Potassium Level 4.5 mmol/L (3.5-5.1) 3.7 mmol/L (3.5-5.1) Chloride Level 102 mmol/L (98-107) 101 mmol/L (98-107) Carbon Dioxide Level 31 mmol/L (21-32) 29 mmol/L (21-32) Anion Gap 8 (6-14) 10 (6-14) Blood Urea Nitrogen 20 mg/dL (7-20) 16 mg/dL (7-20) Creatinine 0.8 mg/dL (0.6-1.0) 0.6 mg/dL (0.6-1.0) Estimated GFR (Cockcroft-Gault) 88.2 123.0 Glucose Level 95 mg/dL (70-99) 104 mg/dL (70-99) Calcium Level 8.9 mg/dL (8.5-10.1) 9.2 mg/dL (8.5-10.1) Urine Collection Type Unknown Urine Color Yellow Urine Clarity Clear Urine pH 6.5 Urine Specific Ocate 1.020 Urine Protein Negative mg/dL (NEG-TRACE) Urine Glucose (UA) Negative mg/dL (NEG) Urine Ketones (Stick) 40 mg/dL (NEG) Urine Blood Negative (NEG) Urine Nitrite Positive (NEG) Urine Bilirubin Negative (NEG) Urine Urobilinogen Dipstick 1.0 mg/dL (0.2 mg/dL) Urine Leukocyte Esterase Small (NEG) Urine RBC 1-2 /HPF (0-2) Urine WBC 5-10 /HPF (0-4) Urine Bacteria Many /HPF (0-FEW) Urine Opiates Screen Neg (NEG) Urine Methadone Screen Neg (NEG) Urine Barbiturates Neg (NEG) Urine Phencyclidine Screen Neg (NEG) Urine Amphetamine/Methamphetamine Neg (NEG) Urine Benzodiazepines Screen Neg (NEG) Urine Cocaine Screen Neg (NEG) Urine Cannabinoids Screen Neg (NEG) Urine Ethyl Alcohol Neg (NEG) Test 01/15/19 03:50 White Blood Count 4.3 x10^3/uL (4.0-11.0) Red Blood Count 3.86 x10^6/uL (3.50-5.40) Hemoglobin 12.0 g/dL (12.0-15.5) Hematocrit 36.3 % (36.0-47.0) Mean Corpuscular Volume 94 fL (79-100) Mean Corpuscular Hemoglobin 31 pg (25-35) Mean Corpuscular Hemoglobin Concent 33 g/dL (31-37) Red Cell Distribution Width 14.2 % (11.5-14.5) Platelet Count 220 x10^3/uL (140-400) Neutrophils (%) (Auto) 57 % (31-73) Lymphocytes (%) (Auto) 31 % (24-48) Monocytes (%) (Auto) 9 % (0-9) Eosinophils (%) (Auto) 2 % (0-3) Basophils (%) (Auto) 1 % (0-3) Neutrophils # (Auto) 2.4 x10^3uL (1.8-7.7) Lymphocytes # (Auto) 1.3 x10^3/uL (1.0-4.8) Monocytes # (Auto) 0.4 x10^3/uL (0.0-1.1) Eosinophils # (Auto) 0.1 x10^3/uL (0.0-0.7) Basophils # (Auto) 0.0 x10^3/uL (0.0-0.2) Sodium Level 143 mmol/L (136-145) Potassium Level 3.5 mmol/L (3.5-5.1) Chloride Level 103 mmol/L (98-107) Carbon Dioxide Level 31 mmol/L (21-32) Anion Gap 9 (6-14) Blood Urea Nitrogen 11 mg/dL (7-20) Creatinine 0.7 mg/dL (0.6-1.0) Estimated GFR (Cockcroft-Gault) 102.9 Glucose Level 96 mg/dL (70-99) Calcium Level 9.2 mg/dL (8.5-10.1) Laboratory Tests Test 01/14/19 14:30 01/15/19 03:50 Urine Opiates Screen Neg (NEG) Urine Methadone Screen Neg (NEG) Urine Barbiturates Neg (NEG) Urine Phencyclidine Screen Neg (NEG) Urine Amphetamine/Methamphetamine Neg (NEG) Urine Benzodiazepines Screen Neg (NEG) Urine Cocaine Screen Neg (NEG) Urine Cannabinoids Screen Neg (NEG) Urine Ethyl Alcohol Neg (NEG) White Blood Count 4.3 x10^3/uL (4.0-11.0) Red Blood Count 3.86 x10^6/uL (3.50-5.40) Hemoglobin 12.0 g/dL (12.0-15.5) Hematocrit 36.3 % (36.0-47.0) Mean Corpuscular Volume 94 fL (79-100) Mean Corpuscular Hemoglobin 31 pg (25-35) Mean Corpuscular Hemoglobin Concent 33 g/dL (31-37) Red Cell Distribution Width 14.2 % (11.5-14.5) Platelet Count 220 x10^3/uL (140-400) Neutrophils (%) (Auto) 57 % (31-73) Lymphocytes (%) (Auto) 31 % (24-48) Monocytes (%) (Auto) 9 % (0-9) Eosinophils (%) (Auto) 2 % (0-3) Basophils (%) (Auto) 1 % (0-3) Neutrophils # (Auto) 2.4 x10^3uL (1.8-7.7) Lymphocytes # (Auto) 1.3 x10^3/uL (1.0-4.8) Monocytes # (Auto) 0.4 x10^3/uL (0.0-1.1) Eosinophils # (Auto) 0.1 x10^3/uL (0.0-0.7) Basophils # (Auto) 0.0 x10^3/uL (0.0-0.2) Sodium Level 143 mmol/L (136-145) Potassium Level 3.5 mmol/L (3.5-5.1) Chloride Level 103 mmol/L (98-107) Carbon Dioxide Level 31 mmol/L (21-32) Anion Gap 9 (6-14) Blood Urea Nitrogen 11 mg/dL (7-20) Creatinine 0.7 mg/dL (0.6-1.0) Estimated GFR (Cockcroft-Gault) 102.9 Glucose Level 96 mg/dL (70-99) Calcium Level 9.2 mg/dL (8.5-10.1) Medications Current Medications Ondansetron HCl (Zofran) 4 mg PRN Q8HRS PRN IV NAUSEA/VOMITING Last administered on 01/13/19 20:49; Start 01/13/19 at 17:30; Stop 01/14/19 at 17:29; Status DC Fentanyl Citrate (Fentanyl 2ml Vial) 50 mcg PRN Q1HR PRN IV PAIN Last administered on 01/14/19 02:35; Start 01/13/19 at 17:30; Stop 01/14/19 at 17:29; Status DC Acetaminophen/ Hydrocodone Bitart (Lortab 5/325) 1 tab PRN Q6HRS PRN PO PAIN; Start 01/13/19 at 21:15 Atorvastatin Calcium (Lipitor) 10 mg QHS PO Last administered on 01/14/19 21:27; Start 01/13/19 at 22:30 Carbidopa/Levodopa (Sinemet Cr) 1 tab.sa 5XDAY PO Last administered on 01/15/19 05:23; Start 01/13/19 at 22:00 Levothyroxine Sodium (Synthroid) 75 mcg DAILY06 PO Last administered on 5/15/19at 05:23; Start 01/14/19 at 06:00 Nitroglycerin (Nitrostat) 0.4 mg PRN Q5MIN PRN SL CHEST PAIN; Start 01/13/19 at 21:15 Carbidopa/Levodopa (Sinemet Cr) 2 tab.sa 0700,1000,1300,1600 PO Last administered on 01/15/19 09:23; Start 01/14/19 at 07:00 Non-Formulary Medication (Ciclopirox Olamine (Ciclopirox)) 1 teja HS TP ; Start 01/14/19 at 21:00; Status UNV Hydrochlorothiazide (Microzide) 12.5 mg DAILY PO Last administered on 01/15/19 08:20; Start 01/14/19 at 09:00 Famotidine (Pepcid) 20 mg DAILY PO Last administered on 01/15/19 08:21; Start 01/14/19 at 09:00 Ropinirole HCl (Requip) 0.5 mg TID PO Last administered on 01/15/19 08:21; Start 01/13/19 at 22:00 Carbidopa/Levodopa (Sinemet Cr) 2 tab.sa 1900,2100 PO Last administered on 01/14/19at 21:28; Start 01/13/19 at 22:00 Labetalol HCl (Normodyne Iv Push) 10 mg PRN Q2HR PRN IVP HYPERTENSION, SEE COMMENTS Last administered on 01/15/19 04:46; Start 01/13/19 at 22:00 Ciprofloxacin/ Dextrose 200 ml @ 200 mls/hr Q12HR IV ; Start 01/14/19 at 17:30; Stop 01/14/19 at 17:30; Status DC Ceftriaxone Sodium (Rocephin) 1 gm Q24H IVP Last administered on 01/14/19at 17:56; Start 01/14/19 at 18:00 Active Scripts Active Reported Ciclopirox (Ciclopirox Olamine) 15 Gm Cream..g. 1 Teja TP HS NITROGLYCERIN SubLingual (Nitroglycerin) 0.4 Mg Tab.subl 0.4 Mg SL PRN Q5MIN PRN Atorvastatin Calcium 10 Mg Tablet 1 Tab PO DAILY Ranitidine Hcl 150 Mg Tablet 150 Mg PO DAILY Requip (Ropinirole Hcl) 0.5 Mg Tablet 0.5 Mg PO TID Children's Aspirin (Aspirin) 81 Mg Tab.chew 81 Mg PO DAILY Hydrochlorothiazide Tablet (Hydrochlorothiazide) 12.5 Mg Tablet 12.5 Mg PO DAILY Levothyroxine Sodium 75 Mcg Tablet 1 Tab PO DAILY Sinemet Cr 25-100 Tablet (Carbidopa/Levodopa) 1 Each Tablet.er 1 Tab PO FIVE TIMES A DAY Sinemet Cr 50-200 Tablet (Carbidopa/Levodopa) 1 Each Tablet.er 1 Tab PO SIX TIMES A DAY Vitals/I & O Vital Sign - Last 24 Hours 01/14/19 01/14/19 01/14/19 01/14/19 11:00 12:00 12:00 13:00 Temp 98.6 98.6 Pulse 58 45 55 Resp 20 13 12 B/P (MAP) 119/78 (92) 136/78 (97) 95/51 (66) Pulse Ox 98 100 98 O2 Delivery Room Air Room Air Room Air Room Air 01/14/19 01/14/19 01/14/19 01/14/19 14:00 15:00 16:00 16:00 Temp 98.4 98.4 Pulse 56 52 48 Resp 18 15 17 B/P (MAP) 103/62 (76) 131/71 (91) 127/71 (89) Pulse Ox 98 100 100 O2 Delivery Room Air Room Air Room Air Room Air 01/14/19 01/14/19 01/14/19 01/14/19 17:00 18:00 19:00 20:00 Temp 98.6 98.6 Pulse 52 50 56 44 Resp 23 17 22 18 B/P (MAP) 118/62 (80) 121/70 (87) 134/75 (94) 125/70 (88) Pulse Ox 97 98 100 100 O2 Delivery Room Air Room Air Room Air Room Air 01/14/19 01/14/19 01/14/19 01/14/19 20:00 21:00 22:00 23:00 Pulse 51 47 45 Resp 16 15 14 B/P (MAP) 113/60 (77) 134/78 (96) 130/62 (84) Pulse Ox 99 98 98 O2 Delivery Room Air Room Air Room Air Room Air 01/14/19 01/15/19 01/15/19 01/15/19 23:59 00:00 01:00 02:00 Temp 97.9 97.9 Pulse 49 48 55 Resp 18 18 20 B/P (MAP) 126/70 (88) 119/59 (79) 140/77 (98) Pulse Ox 99 100 100 O2 Delivery Room Air Room Air Room Air Room Air 01/15/19 01/15/19 01/15/19 01/15/19 03:00 04:00 04:00 04:46 Temp 98.4 98.4 Pulse 55 58 65 Resp 14 16 B/P (MAP) 153/75 (101) 163/83 (109) 163/83 Pulse Ox 99 99 O2 Delivery Room Air Room Air Room Air 01/15/19 01/15/19 05:00 06:00 Pulse 59 60 Resp 16 20 B/P (MAP) 151/65 (93) 165/94 (117) Pulse Ox 99 98 O2 Delivery Room Air Room Air Intake and Output 01/14/19 01/14/19 01/15/19 15:00 23:00 07:00 Intake Total 360 ml 1120 ml 360 ml Output Total 700 ml 835 ml 930 ml Balance -340 ml 285 ml -570 ml GABBY LARSON MD January 15, 2019 10:21
[2019-01-15] MEDS: amLODIPine BESYLATE 5 MG TABLET PO SCH (12:00)
--- NOTE | 2019-01-15 13:22 | PDOC ---
PROGRESS NOTES Assessment Assessment Small right SDH. Orbital soft tissue ecchymosis from falling, no fracture. Falls. UTI. PD. HTN. PVD s/p stents. Bladder dystonia. GERD. RECOMMENDATIONS/PLAN: BP control. Continue Sinemet. Avoid anticoagulant and antiplatelet agents at the present time. Treat medical diseases. Fall prevention. OT/PT. HISTORY OF THE PRESENT ILLNESS: This is a 63-year-old AA female patient with history of PD, Hypertension, Grave's disease, PVD s/p peripheral stents, and bladder dystonia with intermittent cathing who presents after tripping and falling while she was getting dressed. She hit her right side of her face on the headboard of the bed and struck her right orbit. She had no loss of consciousness. Her sister, bedside notes that she fell late last week as well and still has some bruising on her left eye from that fall. She has been on ASA for a lower extremity stent placed at [facility] over 3 years ago. Past Medical History Cardiovascular: HTN Pulmonary: No pertinent hx CENTRAL NERVOUS SYSTEM: Other (Parkinison's) GI: GERD Heme/Onc: No pertinent hx Hepatobiliary: No pertinent hx Psych: No pertinent hx Rheumatologic: No pertinent hx Infectious disease: No pertinent hx ENT: No pertinent hx Renal/: Urinary Incontinence Endocrine: No pertinent hx Dermatology: No pertinent hx Past Surgical History Arthroscopy (left rotator cuff), Hysterectomy, Other (Right ankle fracture repair) Family History Heart Disease, High Cholestrol, Hypertension Social History Smoke: No ALCOHOL: none Drugs: None ALLERGY: NKDA MEDICATIONS: Refer to MAR REVIEW OF SYSTEMS: Constitutional: No malnutrition, weight loss, cachexia. Head: No traumatic brain or head injury. Skin: No edema, or rash. Ear: No infection. Eyes: No vision loss or color blindness. Nose: No bleeding or purulent discharges. Hearing: No hearing decrease. Neck: No injury. Breast: No history of cancer, masses,or discharges. Cardiac: HTN, PVD. Pulmonary: No COPD. GI: GERD. Urinary/genital: UTI. Endocrinologic: No cousin face, craniofacial dysmorphism, polydactyly. Skeletomuscular: Falls. Neurological: PD. Psychiatric: Denies drug use/abuse. Otherwise, not [id number] review of systems. PHYSICAL EXAMINATION: General appearance is in subacute distress. HEENT: Normocephalic and nontraumatic. Eyes, nose, ears, and throat are unremarkable. Neck is supple. No lymphadenopathy. No bruits are heard over the carotid artery. No crepitus. Cardiovascular: S1, S2, regular rate and rhythm. Pulmonary: Clear to auscultation bilaterally. Abdomen: Bowel sounds are positive. Abdomen is soft, nontender, and nondistended. Extremities: No rash, lesions, or edema. No restriction of range of motion NEUROLOGICAL EXAMINATION: Awake. Oriented to time, place and person. PERRL. EOMI. Bilateral orbital area ecchymoses. CN: no focal findings. Muscle tone: fluctuated. Muscle strength: 5- DTR: 2 UE, 1-2 at knee. Plantar reflex: Flexor response bilaterally Gait: not examined in bed. Sensory exam: no abnormal findings. No cerebellar signs elicited. F-T-N test fine Objective Objective Vital Signs Date Time Temp Pulse Resp B/P (MAP) Pulse Ox O2 Delivery O2 Flow Rate FiO2 01/15/19 08:00 Room Air 01/15/19 06:00 60 20 165/94 (117) 98 01/15/19 04:00 98.4 98.4 Intake and Output 01/15/19 06:59 Intake Total 1840 ml Output Total 2465 ml Balance -625 ml Intake Oral 1840 ml Output Urine Total 2465 ml Vitals Signs Vitals VS - Last 72 Hours, by Label Date Time Temp Pulse Resp B/P (MAP) Pulse Ox O2 Delivery O2 Flow Rate FiO2 01/15/19 08:00 Room Air 01/15/19 06:00 60 20 165/94 (117) 98 Room Air 01/15/19 05:00 59 16 151/65 (93) 99 Room Air 01/15/19 04:46 65 163/83 01/15/19 04:00 Room Air 01/15/19 04:00 98.4 58 16 163/83 (109) 99 Room Air 98.4 01/15/19 03:00 55 14 153/75 (101) 99 Room Air 01/15/19 02:00 55 20 140/77 (98) 100 Room Air 01/15/19 01:00 48 18 119/59 (79) 100 Room Air 01/15/19 00:00 97.9 49 18 126/70 (88) 99 Room Air 97.9 01/14/19 23:59 Room Air 01/14/19 23:00 45 14 130/62 (84) 98 Room Air 01/14/19 22:00 47 15 134/78 (96) 98 Room Air 01/14/19 21:00 51 16 113/60 (77) 99 Room Air 01/14/19 20:00 Room Air 01/14/19 20:00 98.6 44 18 125/70 (88) 100 Room Air 98.6 01/14/19 19:00 56 22 134/75 (94) 100 Room Air 01/14/19 18:00 50 17 121/70 (87) 98 Room Air 01/14/19 17:00 52 23 118/62 (80) 97 Room Air 01/14/19 16:00 98.4 48 17 127/71 (89) 100 Room Air 98.4 01/14/19 16:00 Room Air 01/14/19 15:00 52 15 131/71 (91) 100 Room Air 01/14/19 14:00 56 18 103/62 (76) 98 Room Air 01/14/19 13:00 55 12 95/51 (66) 98 Room Air 01/14/19 12:00 Room Air 01/14/19 12:00 98.6 45 13 136/78 (97) 100 Room Air 98.6 01/14/19 11:00 58 20 119/78 (92) 98 Room Air 01/14/19 10:00 54 13 128/71 (90) 98 Room Air 01/14/19 09:00 76 23 102/61 (75) 100 Room Air 01/14/19 08:00 Room Air 01/14/19 08:00 97.8 45 13 110/84 (93) 100 Room Air 97.8 01/14/19 07:00 40 12 144/88 (106) 100 Room Air Laboratory Laboratory Laboratory Tests Test 01/14/19 14:30 01/15/19 03:50 Urine Opiates Screen Neg (NEG) Urine Methadone Screen Neg (NEG) Urine Barbiturates Neg (NEG) Urine Phencyclidine Screen Neg (NEG) Urine Amphetamine/Methamphetamine Neg (NEG) Urine Benzodiazepines Screen Neg (NEG) Urine Cocaine Screen Neg (NEG) Urine Cannabinoids Screen Neg (NEG) Urine Ethyl Alcohol Neg (NEG) White Blood Count 4.3 x10^3/uL (4.0-11.0) Red Blood Count 3.86 x10^6/uL (3.50-5.40) Hemoglobin 12.0 g/dL (12.0-15.5) Hematocrit 36.3 % (36.0-47.0) Mean Corpuscular Volume 94 fL (79-100) Mean Corpuscular Hemoglobin 31 pg (25-35) Mean Corpuscular Hemoglobin Concent 33 g/dL (31-37) Red Cell Distribution Width 14.2 % (11.5-14.5) Platelet Count 220 x10^3/uL (140-400) Neutrophils (%) (Auto) 57 % (31-73) Lymphocytes (%) (Auto) 31 % (24-48) Monocytes (%) (Auto) 9 % (0-9) Eosinophils (%) (Auto) 2 % (0-3) Basophils (%) (Auto) 1 % (0-3) Neutrophils # (Auto) 2.4 x10^3uL (1.8-7.7) Lymphocytes # (Auto) 1.3 x10^3/uL (1.0-4.8) Monocytes # (Auto) 0.4 x10^3/uL (0.0-1.1) Eosinophils # (Auto) 0.1 x10^3/uL (0.0-0.7) Basophils # (Auto) 0.0 x10^3/uL (0.0-0.2) Sodium Level 143 mmol/L (136-145) Potassium Level 3.5 mmol/L (3.5-5.1) Chloride Level 103 mmol/L (98-107) Carbon Dioxide Level 31 mmol/L (21-32) Anion Gap 9 (6-14) Blood Urea Nitrogen 11 mg/dL (7-20) Creatinine 0.7 mg/dL (0.6-1.0) Estimated GFR (Cockcroft-Gault) 102.9 Glucose Level 96 mg/dL (70-99) Calcium Level 9.2 mg/dL (8.5-10.1) Medication Medications Current Medications Amlodipine Besylate (Norvasc) 5 mg DAILY PO ; Start 01/15/19 at 12:00 Ceftriaxone Sodium (Rocephin) 1 gm Q24H IVP Last administered on 01/14/19at 17:56; Start 01/14/19 at 18:00 Ciprofloxacin/ Dextrose 200 ml @ 200 mls/hr Q12HR IV ; Start 01/14/19 at 17:30; Stop 01/14/19 at 17:30; Status DC Non-Formulary Medication (Ciclopirox Olamine (Ciclopirox)) 1 tomas HS TP ; Start 01/14/19 at 21:00; Status UNV Comment Review of Relevant I have reviewed the following items dami (where applicable) has been applied. MAKENNA KHALIL MD January 15, 2019 13:22
--- NOTE | 2019-01-15 13:57 | PDOC ---
PROGRESS NOTES Subjective Subjective up in chair feels better denies headache Objective Objective Vital Signs Date Time Temp Pulse Resp B/P (MAP) Pulse Ox O2 Delivery O2 Flow Rate FiO2 01/15/19 08:00 Room Air 01/15/19 06:00 60 20 165/94 (117) 98 01/15/19 04:00 98.4 98.4 01/13/19 18:08 98.0 Intake and Output 01/15/19 06:59 Intake Total 1840 ml Output Total 2465 ml Balance -625 ml Intake Oral 1840 ml Output Urine Total 2465 ml Physical Exam General: Alert, Oriented X3, Cooperative, No acute distress MUSCULOSKELETAL: Other (CHINO) Neuro: Normal speech Assessment Assessment Problems Medical Problems: (1) Subdural hematoma Status: Acute Plan Plan of Care reviewed f/u CT head, stable ok to transfer to floor will need f/u CT head in 2 to 3 days will follow Comment Review of Relevant I have reviewed the following items dami (where applicable) has been applied. Labs Laboratory Tests Test 01/13/19 16:36 01/13/19 22:30 01/14/19 03:45 01/14/19 14:30 White Blood Count 3.9 x10^3/uL (4.0-11.0) 7.7 x10^3/uL (4.0-11.0) Red Blood Count 3.85 x10^6/uL (3.50-5.40) 4.01 x10^6/uL (3.50-5.40) Hemoglobin 12.0 g/dL (12.0-15.5) 12.4 g/dL (12.0-15.5) Hematocrit 36.5 % (36.0-47.0) 37.4 % (36.0-47.0) Mean Corpuscular Volume 95 fL (79-100) 93 fL (79-100) Mean Corpuscular Hemoglobin 31 pg (25-35) 31 pg (25-35) Mean Corpuscular Hemoglobin Concent 33 g/dL (31-37) 33 g/dL (31-37) Red Cell Distribution Width 14.4 % (11.5-14.5) 14.2 % (11.5-14.5) Platelet Count 229 x10^3/uL (140-400) 228 x10^3/uL (140-400) Neutrophils (%) (Auto) 55 % (31-73) 82 % (31-73) Lymphocytes (%) (Auto) 32 % (24-48) 12 % (24-48) Monocytes (%) (Auto) 9 % (0-9) 5 % (0-9) Eosinophils (%) (Auto) 3 % (0-3) 0 % (0-3) Basophils (%) (Auto) 1 % (0-3) 1 % (0-3) Neutrophils # (Auto) 2.1 x10^3uL (1.8-7.7) 6.3 x10^3uL (1.8-7.7) Lymphocytes # (Auto) 1.2 x10^3/uL (1.0-4.8) 0.9 x10^3/uL (1.0-4.8) Monocytes # (Auto) 0.3 x10^3/uL (0.0-1.1) 0.4 x10^3/uL (0.0-1.1) Eosinophils # (Auto) 0.1 x10^3/uL (0.0-0.7) 0.0 x10^3/uL (0.0-0.7) Basophils # (Auto) 0.0 x10^3/uL (0.0-0.2) 0.0 x10^3/uL (0.0-0.2) Prothrombin Time 13.1 SEC (11.7-14.0) Prothromb Time International Ratio 1.0 (0.8-1.1) Activated Partial Thromboplast Time 43 SEC (24-38) Sodium Level 141 mmol/L (136-145) 140 mmol/L (136-145) Potassium Level 4.5 mmol/L (3.5-5.1) 3.7 mmol/L (3.5-5.1) Chloride Level 102 mmol/L (98-107) 101 mmol/L (98-107) Carbon Dioxide Level 31 mmol/L (21-32) 29 mmol/L (21-32) Anion Gap 8 (6-14) 10 (6-14) Blood Urea Nitrogen 20 mg/dL (7-20) 16 mg/dL (7-20) Creatinine 0.8 mg/dL (0.6-1.0) 0.6 mg/dL (0.6-1.0) Estimated GFR (Cockcroft-Gault) 88.2 123.0 Glucose Level 95 mg/dL (70-99) 104 mg/dL (70-99) Calcium Level 8.9 mg/dL (8.5-10.1) 9.2 mg/dL (8.5-10.1) Urine Collection Type Unknown Urine Color Yellow Urine Clarity Clear Urine pH 6.5 Urine Specific [place] 1.020 Urine Protein Negative mg/dL (NEG-TRACE) Urine Glucose (UA) Negative mg/dL (NEG) Urine Ketones (Stick) 40 mg/dL (NEG) Urine Blood Negative (NEG) Urine Nitrite Positive (NEG) Urine Bilirubin Negative (NEG) Urine Urobilinogen Dipstick 1.0 mg/dL (0.2 mg/dL) Urine Leukocyte Esterase Small (NEG) Urine RBC 1-2 /HPF (0-2) Urine WBC 5-10 /HPF (0-4) Urine Bacteria Many /HPF (0-FEW) Urine Opiates Screen Neg (NEG) Urine Methadone Screen Neg (NEG) Urine Barbiturates Neg (NEG) Urine Phencyclidine Screen Neg (NEG) Urine Amphetamine/Methamphetamine Neg (NEG) Urine Benzodiazepines Screen Neg (NEG) Urine Cocaine Screen Neg (NEG) Urine Cannabinoids Screen Neg (NEG) Urine Ethyl Alcohol Neg (NEG) Test 01/15/19 03:50 White Blood Count 4.3 x10^3/uL (4.0-11.0) Red Blood Count 3.86 x10^6/uL (3.50-5.40) Hemoglobin 12.0 g/dL (12.0-15.5) Hematocrit 36.3 % (36.0-47.0) Mean Corpuscular Volume 94 fL (79-100) Mean Corpuscular Hemoglobin 31 pg (25-35) Mean Corpuscular Hemoglobin Concent 33 g/dL (31-37) Red Cell Distribution Width 14.2 % (11.5-14.5) Platelet Count 220 x10^3/uL (140-400) Neutrophils (%) (Auto) 57 % (31-73) Lymphocytes (%) (Auto) 31 % (24-48) Monocytes (%) (Auto) 9 % (0-9) Eosinophils (%) (Auto) 2 % (0-3) Basophils (%) (Auto) 1 % (0-3) Neutrophils # (Auto) 2.4 x10^3uL (1.8-7.7) Lymphocytes # (Auto) 1.3 x10^3/uL (1.0-4.8) Monocytes # (Auto) 0.4 x10^3/uL (0.0-1.1) Eosinophils # (Auto) 0.1 x10^3/uL (0.0-0.7) Basophils # (Auto) 0.0 x10^3/uL (0.0-0.2) Sodium Level 143 mmol/L (136-145) Potassium Level 3.5 mmol/L (3.5-5.1) Chloride Level 103 mmol/L (98-107) Carbon Dioxide Level 31 mmol/L (21-32) Anion Gap 9 (6-14) Blood Urea Nitrogen 11 mg/dL (7-20) Creatinine 0.7 mg/dL (0.6-1.0) Estimated GFR (Cockcroft-Gault) 102.9 Glucose Level 96 mg/dL (70-99) Calcium Level 9.2 mg/dL (8.5-10.1) Laboratory Tests Test 01/14/19 14:30 01/15/19 03:50 Urine Opiates Screen Neg (NEG) Urine Methadone Screen Neg (NEG) Urine Barbiturates Neg (NEG) Urine Phencyclidine Screen Neg (NEG) Urine Amphetamine/Methamphetamine Neg (NEG) Urine Benzodiazepines Screen Neg (NEG) Urine Cocaine Screen Neg (NEG) Urine Cannabinoids Screen Neg (NEG) Urine Ethyl Alcohol Neg (NEG) White Blood Count 4.3 x10^3/uL (4.0-11.0) Red Blood Count 3.86 x10^6/uL (3.50-5.40) Hemoglobin 12.0 g/dL (12.0-15.5) Hematocrit 36.3 % (36.0-47.0) Mean Corpuscular Volume 94 fL (79-100) Mean Corpuscular Hemoglobin 31 pg (25-35) Mean Corpuscular Hemoglobin Concent 33 g/dL (31-37) Red Cell Distribution Width 14.2 % (11.5-14.5) Platelet Count 220 x10^3/uL (140-400) Neutrophils (%) (Auto) 57 % (31-73) Lymphocytes (%) (Auto) 31 % (24-48) Monocytes (%) (Auto) 9 % (0-9) Eosinophils (%) (Auto) 2 % (0-3) Basophils (%) (Auto) 1 % (0-3) Neutrophils # (Auto) 2.4 x10^3uL (1.8-7.7) Lymphocytes # (Auto) 1.3 x10^3/uL (1.0-4.8) Monocytes # (Auto) 0.4 x10^3/uL (0.0-1.1) Eosinophils # (Auto) 0.1 x10^3/uL (0.0-0.7) Basophils # (Auto) 0.0 x10^3/uL (0.0-0.2) Sodium Level 143 mmol/L (136-145) Potassium Level 3.5 mmol/L (3.5-5.1) Chloride Level 103 mmol/L (98-107) Carbon Dioxide Level 31 mmol/L (21-32) Anion Gap 9 (6-14) Blood Urea Nitrogen 11 mg/dL (7-20) Creatinine 0.7 mg/dL (0.6-1.0) Estimated GFR (Cockcroft-Gault) 102.9 Glucose Level 96 mg/dL (70-99) Calcium Level 9.2 mg/dL (8.5-10.1) Medications Current Medications Ondansetron HCl (Zofran) 4 mg PRN Q8HRS PRN IV NAUSEA/VOMITING Last administered on 01/13/19at 20:49; Start 01/13/19 at 17:30; Stop 01/14/19 at 17:29; Status DC Fentanyl Citrate (Fentanyl 2ml Vial) 50 mcg PRN Q1HR PRN IV PAIN Last administered on 01/14/19at 02:35; Start 01/13/19 at 17:30; Stop 01/14/19 at 17:29; Status DC Acetaminophen/ Hydrocodone Bitart (Lortab 5/325) 1 tab PRN Q6HRS PRN PO PAIN; Start 01/13/19 at 21:15 Atorvastatin Calcium (Lipitor) 10 mg QHS PO Last administered on 01/14/19at 21:27; Start 01/13/19 at 22:30 Carbidopa/Levodopa (Sinemet Cr) 1 tab.sa 5XDAY PO Last administered on 01/15/19 10:42; Start 01/13/19 at 22:00 Levothyroxine Sodium (Synthroid) 75 mcg DAILY06 PO Last administered on 01/15/19 05:23; Start 01/14/19 at 06:00 Nitroglycerin (Nitrostat) 0.4 mg PRN Q5MIN PRN SL CHEST PAIN; Start 01/13/19 at 21:15 Carbidopa/Levodopa (Sinemet Cr) 2 tab.sa 0700,1000,1300,1600 PO Last administered on 01/15/19 10:42; Start 01/14/19 at 07:00 Non-Formulary Medication (Ciclopirox Olamine (Ciclopirox)) 1 teja HS TP ; Start 01/14/19 at 21:00; Status UNV Hydrochlorothiazide (Microzide) 12.5 mg DAILY PO Last administered on 01/15/19 08:20; Start 01/14/19 at 09:00 Famotidine (Pepcid) 20 mg DAILY PO Last administered on 01/15/19 08:21; Start 01/14/19 at 09:00 Ropinirole HCl (Requip) 0.5 mg TID PO Last administered on 01/15/19 08:21; Start 01/13/19 at 22:00 Carbidopa/Levodopa (Sinemet Cr) 2 tab.sa 1900,2100 PO Last administered on 01/14/19at 21:28; Start 01/13/19 at 22:00 Labetalol HCl (Normodyne Iv Push) 10 mg PRN Q2HR PRN IVP HYPERTENSION, SEE COMMENTS Last administered on 01/15/19 04:46; Start 01/13/19 at 22:00 Ciprofloxacin/ Dextrose 200 ml @ 200 mls/hr Q12HR IV ; Start 01/14/19 at 17:30; Stop 01/14/19 at 17:30; Status DC Ceftriaxone Sodium (Rocephin) 1 gm Q24H IVP Last administered on 01/14/19at 17:56; Start 01/14/19 at 18:00 Amlodipine Besylate (Norvasc) 5 mg DAILY PO ; Start 01/15/19 at 12:00 Active Scripts Active Reported Ciclopirox (Ciclopirox Olamine) 15 Gm Cream..g. 1 Teja TP HS NITROGLYCERIN SubLingual (Nitroglycerin) 0.4 Mg Tab.subl 0.4 Mg SL PRN Q5MIN PRN Atorvastatin Calcium 10 Mg Tablet 1 Tab PO DAILY Ranitidine Hcl 150 Mg Tablet 150 Mg PO DAILY Requip (Ropinirole Hcl) 0.5 Mg Tablet 0.5 Mg PO TID Children's Aspirin (Aspirin) 81 Mg Tab.chew 81 Mg PO DAILY Hydrochlorothiazide Tablet (Hydrochlorothiazide) 12.5 Mg Tablet 12.5 Mg PO DAILY Levothyroxine Sodium 75 Mcg Tablet 1 Tab PO DAILY Sinemet Cr 25-100 Tablet (Carbidopa/Levodopa) 1 Each Tablet.er 1 Tab PO FIVE TIMES A DAY Sinemet Cr 50-200 Tablet (Carbidopa/Levodopa) 1 Each Tablet.er 1 Tab PO SIX TIMES A DAY Vitals/I & O Vital Sign - Last 24 Hours 01/14/19 01/14/19 01/14/19 01/14/19 14:00 15:00 16:00 16:00 Temp 98.4 98.4 Pulse 56 52 48 Resp 18 15 17 B/P (MAP) 103/62 (76) 131/71 (91) 127/71 (89) Pulse Ox 98 100 100 O2 Delivery Room Air Room Air Room Air Room Air 01/14/19 01/14/19 01/14/19 01/14/19 17:00 18:00 19:00 20:00 Temp 98.6 98.6 Pulse 52 50 56 44 Resp 23 17 22 18 B/P (MAP) 118/62 (80) 121/70 (87) 134/75 (94) 125/70 (88) Pulse Ox 97 98 100 100 O2 Delivery Room Air Room Air Room Air Room Air 01/14/19 01/14/19 01/14/19 01/14/19 20:00 21:00 22:00 23:00 Pulse 51 47 45 Resp 16 15 14 B/P (MAP) 113/60 (77) 134/78 (96) 130/62 (84) Pulse Ox 99 98 98 O2 Delivery Room Air Room Air Room Air Room Air 01/14/19 01/15/19 01/15/19 01/15/19 23:59 00:00 01:00 02:00 Temp 97.9 97.9 Pulse 49 48 55 Resp 18 18 20 B/P (MAP) 126/70 (88) 119/59 (79) 140/77 (98) Pulse Ox 99 100 100 O2 Delivery Room Air Room Air Room Air Room Air 01/15/19 01/15/19 01/15/19 01/15/19 03:00 04:00 04:00 04:46 Temp 98.4 98.4 Pulse 55 58 65 Resp 14 16 B/P (MAP) 153/75 (101) 163/83 (109) 163/83 Pulse Ox 99 99 O2 Delivery Room Air Room Air Room Air 01/15/19 01/15/19 01/15/19 05:00 06:00 08:00 Pulse 59 60 Resp 16 20 B/P (MAP) 151/65 (93) 165/94 (117) Pulse Ox 99 98 O2 Delivery Room Air Room Air Room Air Intake and Output 01/14/19 01/14/19 01/15/19 14:59 22:59 06:59 Intake Total 360 ml 1120 ml 360 ml Output Total 700 ml 750 ml 1015 ml Balance -340 ml 370 ml -655 ml PAULINA WHALTEY [employer] January 15, 2019 13:57
[2019-01-15 14:00] LABS: PROTHROMBIN TIME PATIENT 13.8 SEC (11.7-14.0)
[2019-01-15] MEDS: CARBIDOPA/LEVODOPA 25/100MG TABLET PO SCH ×3 (15:00→21:15)
--- NOTE | 2019-01-15 15:17 | RAD ---
Examination: CT HEAD WO CONTRAST History: Subdural hemorrhage follow-up Comparison/Correlation: 01/14/2019 CT head without contrast Findings: Axial images of the head were obtained without contrast. Right subdural hematoma is again present with similar, high density as compared to the previous exam. It is similar in thickness. No new hemorrhage. Slight mass effect on the gyri again seen. Slight midline shift to the left again seen a less than 0.5 cm and this is unchanged. No hydrocephalus. Bony structures are unremarkable. Impression: No change in known right lateral convexity subdural hemorrhage. PQRS Compliance Statement: One or more of the following individualized dose reduction techniques were utilized for this examination: 1. Automated exposure control 2. Adjustment of the mA and/or kV according to patient size 3. Use of iterative reconstruction technique Electronically signed by: Douglas Fuentes MD (01/15/2019 3:14 PM) [id number]
--- NOTE | 2019-01-15 16:16 | NUR ---
SS following up with discharge planning. PT recommended acute rehabilitation. SS met with pt and pt's family in room to discuss discharge planning and acute rehabilitation. Pt reported that acute rehabilitation was not necessary and reported that she will discharge to home. She reported that her home is set up to accommodate her and she has good family support. Pt declined home healthcare at this time but did request that she be provided with a list of home healthcare agencies for information.
--- NOTE | 2019-01-15 16:47 | PDOC2 ---
CONSULT Date of Consult Date of Consult DATE: 01/15/19 TIME: 16:38 Reason for consultation: Coagulopathy Consult: Hematology oncology, Dr. Melvina Dunbar History of present illness: She is a 63-year-old female who had a fall, unfortunately suffered a mild acute subdural, that progressed slightly over time between and 14 January, worsened w/ recent ASA use (currently held), but no change on [address], associated with bruising on the eye and slightly prolonged PTT, with some gait instability, and we were consulted due to the coagulopathy. She has had recent antibiotics within the last few months for UTI and looks as if she is getting treated for UTI currently as well. Her family history includes her and her sister's with heavy periods including clots up to quarter-sized and she also has evidence of a small hematoma on the left forearm and the left leg had a hematoma that lasted for a few months that has recently healed. She had to be on blood thinners for some coronary artery disease after an DC in 2015 and did have easy bruising at that time. Coags were normal in 2016 and 2016 when tested at . Past medical history: Right subdural hematoma after a fall January 2019 UTI with incontinence Parkinson's disease Hypertension Peripheral vascular disease with stents Bladder dystonia with intermittent GERD Falls History of heavy periods and easy bruising Past surgical history: Right ankle surgery Left rotator cuff surgery Hysterectomy Allergies: Cipro, oxybutynin, gabapentin Medications: See attached list Social history: No tobacco or alcohol, sister and her niece in the room Family history: Heavy periods, easy bruising, heart disease, hypertension, hyperlipidemia Review of systems: Easy bruising, hematomas, falls, history of GERD, UTIs, otherwise 10 point review of systems negative, including no current neurologic symptoms or headache currently. Physical exam: Vitals reviewed Gen.: Well-nourished and well-developed in no acute distress, sitting in a chair, reading, with shoes on HEENT: mucous membranes moist, head normocephalic, R eye periorb bruising, bandage and proptosis bilat Neck: Supple, no lymphadenopathy Lymph nodes: No palpable lymphadenopathy neck or axilla Lungs: Breathing comfortably, no evidence of respiratory distress Abdomen: Soft, nontender, nondistended Extremities: No cyanosis or edema Skin: No obvious rashes or skin breakdown, small hematoma L forearm Neuro: Alert and oriented 3 Psych: Pleasant mood and affect Lab reviewed: White count 4.3, hemoglobin 12, platelets 220 MCV of 94 INR 1.1 PT of 13.8 PTT of 43 down to 41 with upper limit of normal being 38 Urinalysis with positive nitrate and leukoesterase and white blood cell and bacteria Urine drug screen negative Creatinine 0.7 Rads reviewed: CT head showed subdural hematoma slightly worse between and 14 January with no change 15 january, with 4 mm right to left midline shift and maximal dimension of subdural 7 mm on [address] Case discussed with: Patient and her sister, records reviewed in [facility] and [facility], including labs and radiology, please see note for summary details. Assessment and Plan: Ms Wilkes is a 63-year-old female with subdural hematoma on aspirin after a fall, history of heavy periods in the past and hematomas and slightly prolonged PTT. Coagulopathy: We'll check mixing study if able, PTT only slightly prolonged, as well as other labs on the differential for prolonged PTT, would avoid aspirin and heparin and anticoagulation Subdural hematoma: Neurosurgery is following, no change on today's CT which is reassuring, if any concern for progression would give 2-4 units of FFP and recheck coags as needed history of vascular disease: On aspirin per cardiology [employer], would get cardiology and neurosurgery approval before restarting aspirin Disposition: After continued clinical improvement, we can follow up labs as an outpatient as needed and consider screening for von Willebrand's or anything else as needed in follow-up based on initial labs Thank you kindly for this consultation, I will return on Sunday morning but I am available for any questions in the interim. Past Medical History Cardiovascular: HTN Pulmonary: No pertinent hx CENTRAL NERVOUS SYSTEM: Other (Parkinison's) GI: GERD Heme/Onc: No pertinent hx Hepatobiliary: No pertinent hx Psych: No pertinent hx Rheumatologic: No pertinent hx Infectious disease: No pertinent hx ENT: No pertinent hx Renal/: Urinary Incontinence Endocrine: No pertinent hx Dermatology: No pertinent hx Past Surgical History Past Surgical History: Arthroscopy (left rotator cuff), Hysterectomy, Other (Right ankle fracture repair) Family History Family History: Heart Disease, High Cholestrol, Hypertension Social History No ALCOHOL: none Drugs: None Current Problem List Problem List Problems Medical Problems: (1) Subdural hematoma Status: Acute Current Medications Current Medications Current Medications Ondansetron HCl (Zofran) 4 mg PRN Q8HRS PRN IV NAUSEA/VOMITING Last administered on 01/13/19 20:49; Start 01/13/19 at 17:30; Stop 01/14/19 at 17:29; Status DC Fentanyl Citrate (Fentanyl 2ml Vial) 50 mcg PRN Q1HR PRN IV PAIN Last administered on 01/14/19 02:35; Start 01/13/19 at 17:30; Stop 01/14/19 at 17:29; Status DC Acetaminophen/ Hydrocodone Bitart (Lortab 5/325) 1 tab PRN Q6HRS PRN PO PAIN; Start 01/13/19 at 21:15 Atorvastatin Calcium (Lipitor) 10 mg QHS PO Last administered on 01/14/19 21:27; Start 01/13/19 at 22:30 Carbidopa/Levodopa (Sinemet Cr) 1 tab.sa 5XDAY PO Last administered on 01/15/19 10:42; Start 01/13/19 at 22:00; Stop 01/15/19 at 14:26; Status DC Levothyroxine Sodium (Synthroid) 75 mcg DAILY06 PO Last administered on 01/15/19 05:23; Start 01/14/19 at 06:00 Nitroglycerin (Nitrostat) 0.4 mg PRN Q5MIN PRN SL CHEST PAIN; Start 01/13/19 at 21:15 Carbidopa/Levodopa (Sinemet Cr) 2 tab.sa 0700,1000,1300,1600 PO Last administered on 01/15/19at 14:34; Start 01/14/19 at 07:00 Non-Formulary Medication (Ciclopirox Olamine (Ciclopirox)) 1 teja HS TP ; Start 01/14/19 at 21:00; Status UNV Hydrochlorothiazide (Microzide) 12.5 mg DAILY PO Last administered on 01/15/19 08:20; Start 01/14/19 at 09:00 Famotidine (Pepcid) 20 mg DAILY PO Last administered on 01/15/19 08:21; Start 01/14/19 at 09:00 Ropinirole HCl (Requip) 0.5 mg TID PO Last administered on 01/15/19 14:33; Start 01/13/19 at 22:00 Carbidopa/Levodopa (Sinemet Cr) 2 tab.sa 1900,2100 PO Last administered on 01/14/19at 21:28; Start 01/13/19 at 22:00 Labetalol HCl (Normodyne Iv Push) 10 mg PRN Q2HR PRN IVP HYPERTENSION, SEE COMMENTS Last administered on 01/15/19at 04:46; Start 01/13/19 at 22:00 Ciprofloxacin/ Dextrose 200 ml @ 200 mls/hr Q12HR IV ; Start 01/14/19 at 17:30; Stop 01/14/19 at 17:30; Status DC Ceftriaxone Sodium (Rocephin) 1 gm Q24H IVP Last administered on 01/14/19at 17:56; Start 01/14/19 at 18:00 Amlodipine Besylate (Norvasc) 5 mg DAILY PO ; Start 01/15/19 at 12:00 Carbidopa/Levodopa (Sinemet 25/100) 1 tab 5XDAY PO Last administered on 01/15/19 at 15:00; Start 01/15/19 at 15:00 Lactobacillus Rhamnosus (Culturelle) 1 cap BID PO ; Start 01/15/19 at 21:00 Active Scripts Active Reported Ciclopirox (Ciclopirox Olamine) 15 Gm Cream..g. 1 Teja TP HS NITROGLYCERIN SubLingual (Nitroglycerin) 0.4 Mg Tab.subl 0.4 Mg SL PRN Q5MIN PRN Atorvastatin Calcium 10 Mg Tablet 1 Tab PO DAILY Ranitidine Hcl 150 Mg Tablet 150 Mg PO DAILY Requip (Ropinirole Hcl) 0.5 Mg Tablet 0.5 Mg PO TID Children's Aspirin (Aspirin) 81 Mg Tab.chew 81 Mg PO DAILY Hydrochlorothiazide Tablet (Hydrochlorothiazide) 12.5 Mg Tablet 12.5 Mg PO DAILY Levothyroxine Sodium 75 Mcg Tablet 1 Tab PO DAILY Sinemet Cr 25-100 Tablet (Carbidopa/Levodopa) 1 Each Tablet.er 1 Tab PO FIVE TIMES A DAY Sinemet Cr 50-200 Tablet (Carbidopa/Levodopa) 1 Each Tablet.er 1 Tab PO SIX TIMES A DAY Allergies Allergies: Coded Allergies: oxybutynin (Verified Allergy, Intermediate, Nausea, 01/13/19) & Hypotension ciprofloxacin (Verified Allergy, Mild, Diarrhea, 01/13/19) gabapentin (Verified Allergy, Mild, VERTIGO, 01/14/19) Vitals VITALS Vital Signs Date Time Temp Pulse Resp B/P (MAP) Pulse Ox O2 Delivery O2 Flow Rate FiO2 01/15/19 15:00 60 22 117/50 (72) 97 Room Air 01/15/19 12:00 98.9 98.9 Labs Labs Laboratory Tests Test 01/13/19 22:30 01/14/19 03:45 01/14/19 14:30 01/14/19 14:40 Urine Collection Type Unknown Urine Color Yellow Urine Clarity Clear Urine pH 6.5 Urine Specific [place] 1.020 Urine Protein Negative mg/dL (NEG-TRACE) Urine Glucose (UA) Negative mg/dL (NEG) Urine Ketones (Stick) 40 mg/dL (NEG) Urine Blood Negative (NEG) Urine Nitrite Positive (NEG) Urine Bilirubin Negative (NEG) Urine Urobilinogen Dipstick 1.0 mg/dL (0.2 mg/dL) Urine Leukocyte Esterase Small (NEG) Urine RBC 1-2 /HPF (0-2) Urine WBC 5-10 /HPF (0-4) Urine Bacteria Many /HPF (0-FEW) White Blood Count 7.7 x10^3/uL (4.0-11.0) Red Blood Count 4.01 x10^6/uL (3.50-5.40) Hemoglobin 12.4 g/dL (12.0-15.5) Hematocrit 37.4 % (36.0-47.0) Mean Corpuscular Volume 93 fL (79-100) Mean Corpuscular Hemoglobin 31 pg (25-35) Mean Corpuscular Hemoglobin Concent 33 g/dL (31-37) Red Cell Distribution Width 14.2 % (11.5-14.5) Platelet Count 228 x10^3/uL (140-400) Neutrophils (%) (Auto) 82 % (31-73) Lymphocytes (%) (Auto) 12 % (24-48) Monocytes (%) (Auto) 5 % (0-9) Eosinophils (%) (Auto) 0 % (0-3) Basophils (%) (Auto) 1 % (0-3) Neutrophils # (Auto) 6.3 x10^3uL (1.8-7.7) Lymphocytes # (Auto) 0.9 x10^3/uL (1.0-4.8) Monocytes # (Auto) 0.4 x10^3/uL (0.0-1.1) Eosinophils # (Auto) 0.0 x10^3/uL (0.0-0.7) Basophils # (Auto) 0.0 x10^3/uL (0.0-0.2) Sodium Level 140 mmol/L (136-145) Potassium Level 3.7 mmol/L (3.5-5.1) Chloride Level 101 mmol/L (98-107) Carbon Dioxide Level 29 mmol/L (21-32) Anion Gap 10 (6-14) Blood Urea Nitrogen 16 mg/dL (7-20) Creatinine 0.6 mg/dL (0.6-1.0) Estimated GFR (Cockcroft-Gault) 123.0 Glucose Level 104 mg/dL (70-99) Calcium Level 9.2 mg/dL (8.5-10.1) Urine Opiates Screen Neg (NEG) Urine Methadone Screen Neg (NEG) Urine Barbiturates Neg (NEG) Urine Phencyclidine Screen Neg (NEG) Urine Amphetamine/Methamphetamine Neg (NEG) Urine Benzodiazepines Screen Neg (NEG) Urine Cocaine Screen Neg (NEG) Urine Cannabinoids Screen Neg (NEG) Urine Ethyl Alcohol Neg (NEG) Nasal Screen MRSA (PCR) Negative (Negative) Test 01/15/19 03:50 01/15/19 13:30 White Blood Count 4.3 x10^3/uL (4.0-11.0) Red Blood Count 3.86 x10^6/uL (3.50-5.40) Hemoglobin 12.0 g/dL (12.0-15.5) Hematocrit 36.3 % (36.0-47.0) Mean Corpuscular Volume 94 fL (79-100) Mean Corpuscular Hemoglobin 31 pg (25-35) Mean Corpuscular Hemoglobin Concent 33 g/dL (31-37) Red Cell Distribution Width 14.2 % (11.5-14.5) Platelet Count 220 x10^3/uL (140-400) Neutrophils (%) (Auto) 57 % (31-73) Lymphocytes (%) (Auto) 31 % (24-48) Monocytes (%) (Auto) 9 % (0-9) Eosinophils (%) (Auto) 2 % (0-3) Basophils (%) (Auto) 1 % (0-3) Neutrophils # (Auto) 2.4 x10^3uL (1.8-7.7) Lymphocytes # (Auto) 1.3 x10^3/uL (1.0-4.8) Monocytes # (Auto) 0.4 x10^3/uL (0.0-1.1) Eosinophils # (Auto) 0.1 x10^3/uL (0.0-0.7) Basophils # (Auto) 0.0 x10^3/uL (0.0-0.2) Sodium Level 143 mmol/L (136-145) Potassium Level 3.5 mmol/L (3.5-5.1) Chloride Level 103 mmol/L (98-107) Carbon Dioxide Level 31 mmol/L (21-32) Anion Gap 9 (6-14) Blood Urea Nitrogen 11 mg/dL (7-20) Creatinine 0.7 mg/dL (0.6-1.0) Estimated GFR (Cockcroft-Gault) 102.9 Glucose Level 96 mg/dL (70-99) Calcium Level 9.2 mg/dL (8.5-10.1) Prothrombin Time 13.8 SEC (11.7-14.0) Prothromb Time International Ratio 1.1 (0.8-1.1) Activated Partial Thromboplast Time 41 SEC (24-38) Fibrinogen 364 mg/dL (200-440) Laboratory Tests Test 01/15/19 03:50 01/15/19 13:30 White Blood Count 4.3 x10^3/uL (4.0-11.0) Red Blood Count 3.86 x10^6/uL (3.50-5.40) Hemoglobin 12.0 g/dL (12.0-15.5) Hematocrit 36.3 % (36.0-47.0) Mean Corpuscular Volume 94 fL (79-100) Mean Corpuscular Hemoglobin 31 pg (25-35) Mean Corpuscular Hemoglobin Concent 33 g/dL (31-37) Red Cell Distribution Width 14.2 % (11.5-14.5) Platelet Count 220 x10^3/uL (140-400) Neutrophils (%) (Auto) 57 % (31-73) Lymphocytes (%) (Auto) 31 % (24-48) Monocytes (%) (Auto) 9 % (0-9) Eosinophils (%) (Auto) 2 % (0-3) Basophils (%) (Auto) 1 % (0-3) Neutrophils # (Auto) 2.4 x10^3uL (1.8-7.7) Lymphocytes # (Auto) 1.3 x10^3/uL (1.0-4.8) Monocytes # (Auto) 0.4 x10^3/uL (0.0-1.1) Eosinophils # (Auto) 0.1 x10^3/uL (0.0-0.7) Basophils # (Auto) 0.0 x10^3/uL (0.0-0.2) Sodium Level 143 mmol/L (136-145) Potassium Level 3.5 mmol/L (3.5-5.1) Chloride Level 103 mmol/L (98-107) Carbon Dioxide Level 31 mmol/L (21-32) Anion Gap 9 (6-14) Blood Urea Nitrogen 11 mg/dL (7-20) Creatinine 0.7 mg/dL (0.6-1.0) Estimated GFR (Cockcroft-Gault) 102.9 Glucose Level 96 mg/dL (70-99) Calcium Level 9.2 mg/dL (8.5-10.1) Prothrombin Time 13.8 SEC (11.7-14.0) Prothromb Time International Ratio 1.1 (0.8-1.1) Activated Partial Thromboplast Time 41 SEC (24-38) Fibrinogen 364 mg/dL (200-440) MELVINA DUNBAR MD January 15, 2019 16:47
[2019-01-15 17:28] LABS: ALBUMIN 3.7 g/dL (3.4-5.0); DIRECT BILIRUBIN 0.2 mg/dL (0.0-0.2); TOTAL BILIRUBIN 0.5 mg/dL (0.2-1.0); TOTAL PROTEIN 6.6 g/dL (6.4-8.2)
[2019-01-15] MEDS: cefTRIAXone IV Push 1 GM VIAL. IVP SCH (18:10)
[2019-01-15] MEDS: CICLOPIROX OLAMINE TP SCH (21:00)
[2019-01-15] MEDS: LACTOBACILLUS RHAMNOSUS GG 1 CAPSULE. PO SCH (21:14)
[2019-01-15] MEDS: ATORVASTATIN CALCIUM 10 MG TABLET. PO SCH (21:14)
[2019-01-16] VITALS: BP 101/53
[2019-01-16 04:00] VITALS: BP 143/81
[2019-01-16] MEDS: LEVOTHYROXINE 75 MCG TABLET PO SCH (05:04)
[2019-01-16 05:26] LABS: BASO % 1 % (0-3); EOS # 0.1 x10^3/uL (0.0-0.7); EOS % 2 % (0-3); HEMATOCRIT 34.4 % (36.0-47.0); HEMOGLOBIN 11.5 g/dL (12.0-15.5); LYMPH # 1.6 x10^3/uL (1.0-4.8); LYMPH % 34 % (24-48); MEAN CORPUSCULAR HEMOGLOBIN 31 pg (25-35); MEAN CORPUSCULAR HGB CONC 33 g/dL (31-37); MEAN CORPUSCULAR VOLUME 94 fL (79-100); MONO # 0.4 x10^3/uL (0.0-1.1); MONO % 9 % (0-9); NEUT # 2.6 x10^3uL (1.8-7.7); NEUT % 54 % (31-73); PLATELET COUNT 216 x10^3/uL (140-400); RED BLOOD COUNT 3.67 x10^6/uL (3.50-5.40); RED CELL DISTRIBUTION WIDTH 14.5 % (11.5-14.5); WHITE BLOOD COUNT 4.8 x10^3/uL (4.0-11.0)
[2019-01-16 06:06] LABS: CALCIUM 8.8 mg/dL (8.5-10.1); CREATININE 0.6 mg/dL (0.6-1.0); POTASSIUM 3.4 mmol/L (3.5-5.1)
[2019-01-16] MEDS: CARBIDOPA/LEVODOPA CR 25/100MG TABLET.SA. PO SCH ×6 (07:08→21:10)
[2019-01-16] MEDS: CARBIDOPA/LEVODOPA 25/100MG TABLET PO SCH ×5 (07:08→22:13)
[2019-01-16 08:00] VITALS: BP 109/56
[2019-01-16] MEDS: hydroCHLOROthiazide 12.5 MG CAPSULE PO SCH (08:49)
[2019-01-16] MEDS: LACTOBACILLUS RHAMNOSUS GG 1 CAPSULE. PO SCH ×2 (08:49→21:10)
[2019-01-16] MEDS: amLODIPine BESYLATE 5 MG TABLET PO SCH (08:50)
[2019-01-16] MEDS: rOPINIRole 0.25 MG TABLET. PO SCH ×3 (08:51→21:10)
[2019-01-16] MEDS: FAMOTIDINE 20 MG TABLET. PO SCH (08:51)
--- NOTE | 2019-01-16 08:56 | PDOC ---
PROGRESS NOTES Chief Complaint Chief Complaint Subdural hematoma 01/15 Interval increase in size of right convexity subdural hematoma. There is mild mass effect with estimated 4 mm of right to left midline shift, new from prior study Focal soft tissue swelling over the right frontal bone and right orbit with no evidence of underlying displaced fracture. 01/16 No change in known right lateral convexity subdural hemorrhage. Mild sinus disease. on ct head HTN Parkinson's Grave's PVD s/p peripheral stents GERD Bladder dystonia with intermittent cathing GAIT INSTABILITY hypertension, uncontrolled History of Present Illness History of Present Illness seen and examined in ICU She was pleasant, alert and oriented x3 Bilateral periorbital ecchymosis present, no fracture secondary CT NEUROSURGERY FOLLOWING norvasc 5 mg po daily 38 min cc time Vitals Vitals Vital Signs Date Time Temp Pulse Resp B/P (MAP) Pulse Ox O2 Delivery O2 Flow Rate FiO2 01/16/19 08:50 62 109/56 01/16/19 08:00 98.9 16 95 Room Air 98.9 Physical Exam General: Alert, Oriented X3, Cooperative, No acute distress Heart: Regular rate, Normal S1, Normal S2 Lungs: Clear Abdomen: Normal bowel sounds, Soft, No tenderness, No hepatosplenomegaly, No masses Extremities: No clubbing, No cyanosis, No edema, Normal pulses, No tenderness/swelling Skin: No rashes, No breakdown, Other (bilateraly periorbital ecchymosis, swelling to R mandaeism) Labs LABS Examination: CT HEAD WO CONTRAST History: Subdural hemorrhage follow-up Comparison/Correlation: 01/14/2019 CT head without contrast Findings: Axial images of the head were obtained without contrast. Right subdural hematoma is again present with similar, high density as compared to the previous exam. It is similar in thickness. No new hemorrhage. Slight mass effect on the gyri again seen. Slight midline shift to the left again seen a less than 0.5 cm and this is unchanged. No hydrocephalus. Bony structures are unremarkable. Impression: No change in known right lateral convexity subdural hemorrhage. PQRS Compliance Statement: One or more of the following individualized dose reduction techniques were utilized for this examination: 1. Automated exposure control 2. Adjustment of the mA and/or kV according to patient size 3. Use of iterative reconstruction technique Electronically signed by: Douglas Fuentes MD (01/15/2019 3:14 PM) [id number] Laboratory Tests Test 01/15/19 13:30 01/15/19 16:35 01/16/19 04:30 01/16/19 04:35 Prothrombin Time 13.8 SEC (11.7-14.0) Prothromb Time International Ratio 1.1 (0.8-1.1) Activated Partial Thromboplast Time 41 SEC (24-38) Fibrinogen 364 mg/dL (200-440) Total Bilirubin 0.5 mg/dL (0.2-1.0) Direct Bilirubin 0.2 mg/dL (0.0-0.2) Aspartate Amino Transf (AST/SGOT) 13 U/L (15-37) Alanine Aminotransferase (ALT/SGPT) 11 U/L (14-59) Alkaline Phosphatase 140 U/L (46-116) Total Protein 6.6 g/dL (6.4-8.2) Albumin 3.7 g/dL (3.4-5.0) Sodium Level 144 mmol/L (136-145) Potassium Level 3.4 mmol/L (3.5-5.1) Chloride Level 104 mmol/L (98-107) Carbon Dioxide Level 32 mmol/L (21-32) Anion Gap 8 (6-14) Blood Urea Nitrogen 12 mg/dL (7-20) Creatinine 0.6 mg/dL (0.6-1.0) Estimated GFR (Cockcroft-Gault) 123.0 Glucose Level 85 mg/dL (70-99) Calcium Level 8.8 mg/dL (8.5-10.1) White Blood Count 4.8 x10^3/uL (4.0-11.0) Red Blood Count 3.67 x10^6/uL (3.50-5.40) Hemoglobin 11.5 g/dL (12.0-15.5) Hematocrit 34.4 % (36.0-47.0) Mean Corpuscular Volume 94 fL (79-100) Mean Corpuscular Hemoglobin 31 pg (25-35) Mean Corpuscular Hemoglobin Concent 33 g/dL (31-37) Red Cell Distribution Width 14.5 % (11.5-14.5) Platelet Count 216 x10^3/uL (140-400) Neutrophils (%) (Auto) 54 % (31-73) Lymphocytes (%) (Auto) 34 % (24-48) Monocytes (%) (Auto) 9 % (0-9) Eosinophils (%) (Auto) 2 % (0-3) Basophils (%) (Auto) 1 % (0-3) Neutrophils # (Auto) 2.6 x10^3uL (1.8-7.7) Lymphocytes # (Auto) 1.6 x10^3/uL (1.0-4.8) Monocytes # (Auto) 0.4 x10^3/uL (0.0-1.1) Eosinophils # (Auto) 0.1 x10^3/uL (0.0-0.7) Basophils # (Auto) 0.0 x10^3/uL (0.0-0.2) Assessment and Plan Assessmemt and Plan Problems Medical Problems: (1) Subdural hematoma Status: Acute Comment Review of Relevant I have reviewed the following items dami (where applicable) has been applied. Labs Laboratory Tests Test 01/14/19 14:30 01/14/19 14:40 01/15/19 03:50 01/15/19 13:30 Urine Opiates Screen Neg (NEG) Urine Methadone Screen Neg (NEG) Urine Barbiturates Neg (NEG) Urine Phencyclidine Screen Neg (NEG) Urine Amphetamine/Methamphetamine Neg (NEG) Urine Benzodiazepines Screen Neg (NEG) Urine Cocaine Screen Neg (NEG) Urine Cannabinoids Screen Neg (NEG) Urine Ethyl Alcohol Neg (NEG) Nasal Screen MRSA (PCR) Negative (Negative) White Blood Count 4.3 x10^3/uL (4.0-11.0) Red Blood Count 3.86 x10^6/uL (3.50-5.40) Hemoglobin 12.0 g/dL (12.0-15.5) Hematocrit 36.3 % (36.0-47.0) Mean Corpuscular Volume 94 fL (79-100) Mean Corpuscular Hemoglobin 31 pg (25-35) Mean Corpuscular Hemoglobin Concent 33 g/dL (31-37) Red Cell Distribution Width 14.2 % (11.5-14.5) Platelet Count 220 x10^3/uL (140-400) Neutrophils (%) (Auto) 57 % (31-73) Lymphocytes (%) (Auto) 31 % (24-48) Monocytes (%) (Auto) 9 % (0-9) Eosinophils (%) (Auto) 2 % (0-3) Basophils (%) (Auto) 1 % (0-3) Neutrophils # (Auto) 2.4 x10^3uL (1.8-7.7) Lymphocytes # (Auto) 1.3 x10^3/uL (1.0-4.8) Monocytes # (Auto) 0.4 x10^3/uL (0.0-1.1) Eosinophils # (Auto) 0.1 x10^3/uL (0.0-0.7) Basophils # (Auto) 0.0 x10^3/uL (0.0-0.2) Sodium Level 143 mmol/L (136-145) Potassium Level 3.5 mmol/L (3.5-5.1) Chloride Level 103 mmol/L (98-107) Carbon Dioxide Level 31 mmol/L (21-32) Anion Gap 9 (6-14) Blood Urea Nitrogen 11 mg/dL (7-20) Creatinine 0.7 mg/dL (0.6-1.0) Estimated GFR (Cockcroft-Gault) 102.9 Glucose Level 96 mg/dL (70-99) Calcium Level 9.2 mg/dL (8.5-10.1) Prothrombin Time 13.8 SEC (11.7-14.0) Prothromb Time International Ratio 1.1 (0.8-1.1) Activated Partial Thromboplast Time 41 SEC (24-38) Fibrinogen 364 mg/dL (200-440) Test 01/15/19 16:35 01/16/19 04:30 01/16/19 04:35 Total Bilirubin 0.5 mg/dL (0.2-1.0) Direct Bilirubin 0.2 mg/dL (0.0-0.2) Aspartate Amino Transf (AST/SGOT) 13 U/L (15-37) Alanine Aminotransferase (ALT/SGPT) 11 U/L (14-59) Alkaline Phosphatase 140 U/L (46-116) Total Protein 6.6 g/dL (6.4-8.2) Albumin 3.7 g/dL (3.4-5.0) Sodium Level 144 mmol/L (136-145) Potassium Level 3.4 mmol/L (3.5-5.1) Chloride Level 104 mmol/L (98-107) Carbon Dioxide Level 32 mmol/L (21-32) Anion Gap 8 (6-14) Blood Urea Nitrogen 12 mg/dL (7-20) Creatinine 0.6 mg/dL (0.6-1.0) Estimated GFR (Cockcroft-Gault) 123.0 Glucose Level 85 mg/dL (70-99) Calcium Level 8.8 mg/dL (8.5-10.1) White Blood Count 4.8 x10^3/uL (4.0-11.0) Red Blood Count 3.67 x10^6/uL (3.50-5.40) Hemoglobin 11.5 g/dL (12.0-15.5) Hematocrit 34.4 % (36.0-47.0) Mean Corpuscular Volume 94 fL (79-100) Mean Corpuscular Hemoglobin 31 pg (25-35) Mean Corpuscular Hemoglobin Concent 33 g/dL (31-37) Red Cell Distribution Width 14.5 % (11.5-14.5) Platelet Count 216 x10^3/uL (140-400) Neutrophils (%) (Auto) 54 % (31-73) Lymphocytes (%) (Auto) 34 % (24-48) Monocytes (%) (Auto) 9 % (0-9) Eosinophils (%) (Auto) 2 % (0-3) Basophils (%) (Auto) 1 % (0-3) Neutrophils # (Auto) 2.6 x10^3uL (1.8-7.7) Lymphocytes # (Auto) 1.6 x10^3/uL (1.0-4.8) Monocytes # (Auto) 0.4 x10^3/uL (0.0-1.1) Eosinophils # (Auto) 0.1 x10^3/uL (0.0-0.7) Basophils # (Auto) 0.0 x10^3/uL (0.0-0.2) Laboratory Tests Test 01/15/19 13:30 01/15/19 16:35 01/16/19 04:30 01/16/19 04:35 Prothrombin Time 13.8 SEC (11.7-14.0) Prothromb Time International Ratio 1.1 (0.8-1.1) Activated Partial Thromboplast Time 41 SEC (24-38) Fibrinogen 364 mg/dL (200-440) Total Bilirubin 0.5 mg/dL (0.2-1.0) Direct Bilirubin 0.2 mg/dL (0.0-0.2) Aspartate Amino Transf (AST/SGOT) 13 U/L (15-37) Alanine Aminotransferase (ALT/SGPT) 11 U/L (14-59) Alkaline Phosphatase 140 U/L (46-116) Total Protein 6.6 g/dL (6.4-8.2) Albumin 3.7 g/dL (3.4-5.0) Sodium Level 144 mmol/L (136-145) Potassium Level 3.4 mmol/L (3.5-5.1) Chloride Level 104 mmol/L (98-107) Carbon Dioxide Level 32 mmol/L (21-32) Anion Gap 8 (6-14) Blood Urea Nitrogen 12 mg/dL (7-20) Creatinine 0.6 mg/dL (0.6-1.0) Estimated GFR (Cockcroft-Gault) 123.0 Glucose Level 85 mg/dL (70-99) Calcium Level 8.8 mg/dL (8.5-10.1) White Blood Count 4.8 x10^3/uL (4.0-11.0) Red Blood Count 3.67 x10^6/uL (3.50-5.40) Hemoglobin 11.5 g/dL (12.0-15.5) Hematocrit 34.4 % (36.0-47.0) Mean Corpuscular Volume 94 fL (79-100) Mean Corpuscular Hemoglobin 31 pg (25-35) Mean Corpuscular Hemoglobin Concent 33 g/dL (31-37) Red Cell Distribution Width 14.5 % (11.5-14.5) Platelet Count 216 x10^3/uL (140-400) Neutrophils (%) (Auto) 54 % (31-73) Lymphocytes (%) (Auto) 34 % (24-48) Monocytes (%) (Auto) 9 % (0-9) Eosinophils (%) (Auto) 2 % (0-3) Basophils (%) (Auto) 1 % (0-3) Neutrophils # (Auto) 2.6 x10^3uL (1.8-7.7) Lymphocytes # (Auto) 1.6 x10^3/uL (1.0-4.8) Monocytes # (Auto) 0.4 x10^3/uL (0.0-1.1) Eosinophils # (Auto) 0.1 x10^3/uL (0.0-0.7) Basophils # (Auto) 0.0 x10^3/uL (0.0-0.2) Medications Current Medications Ondansetron HCl (Zofran) 4 mg PRN Q8HRS PRN IV NAUSEA/VOMITING Last administ ered on 01/13/19at 20:49; Start 01/13/19 at 17:30; Stop 01/14/19 at 17:29; Status DC Fentanyl Citrate (Fentanyl 2ml Vial) 50 mcg PRN Q1HR PRN IV PAIN Last administered on 01/14/19at 02:35; Start 01/13/19 at 17:30; Stop 01/14/19 at 17:29; Status DC Acetaminophen/ Hydrocodone Bitart (Lortab 5/325) 1 tab PRN Q6HRS PRN PO PAIN; Start 01/13/19 at 21:15 Atorvastatin Calcium (Lipitor) 10 mg QHS PO Last administered on 01/15/19 21:14; Start 01/13/19 at 22:30 Carbidopa/Levodopa (Sinemet Cr) 1 tab.sa 5XDAY PO Last administered on 01/15/19at 10:42; Start 01/13/19 at 22:00; Stop 01/15/19 at 14:26; Status DC Levothyroxine Sodium (Synthroid) 75 mcg DAILY06 PO Last administered on 01/16/19at 05:04; Start 01/14/19 at 06:00 Nitroglycerin (Nitrostat) 0.4 mg PRN Q5MIN PRN SL CHEST PAIN; Start 01/13/19 at 21:15 Carbidopa/Levodopa (Sinemet Cr) 2 tab.sa 0700,1000,1300,1600 PO Last administered on 01/16/19at 07:08; Start 01/14/19 at 07:00 Non-Formulary Medication (Ciclopirox Olamine (Ciclopirox)) 1 teja HS TP ; Start 01/14/19 at 21:00; Stop 01/16/19 at 07:37; Status DC Hydrochlorothiazide (Microzide) 12.5 mg DAILY PO Last administered on 01/16/19 08:49; Start 01/14/19 at 09:00 Famotidine (Pepcid) 20 mg DAILY PO Last administered on 01/16/19 08:51; Start 01/14/19 at 09:00 Ropinirole HCl (Requip) 0.5 mg TID PO Last administered on 01/16/19 08:51; Start 01/13/19 at 22:00 Carbidopa/Levodopa (Sinemet Cr) 2 tab.sa 1900,2100 PO Last administered on 01/15/19 21:14; Start 01/13/19 at 22:00 Labetalol HCl (Normodyne Iv Push) 10 mg PRN Q2HR PRN IVP HYPERTENSION, SEE COMMENTS Last administered on 01/15/19 22:06; Start 01/13/19 at 22:00 Ciprofloxacin/ Dextrose 200 ml @ 200 mls/hr Q12HR IV ; Start 01/14/19 at 17:30; Stop 01/14/19 at 17:30; Status DC Ceftriaxone Sodium (Rocephin) 1 gm Q24H IVP Last administered on 01/15/19 18:10; Start 01/14/19 at 18:00 Amlodipine Besylate (Norvasc) 5 mg DAILY PO Last administered on 01/16/19 08:50; Start 01/15/19 at 12:00 Carbidopa/Levodopa (Sinemet 25/100) 1 tab 5XDAY PO Last administered on 07:08; Start 01/15/19 at 15:00 Lactobacillus Rhamnosus (Culturelle) 1 cap BID PO Last administered on 01/16/19 08:49; Start 01/15/19 at 21:00 Active Scripts Active Reported Ciclopirox (Ciclopirox Olamine) 15 Gm Cream..g. 1 Teja TP HS NITROGLYCERIN SubLingual (Nitroglycerin) 0.4 Mg Tab.subl 0.4 Mg SL PRN Q5MIN PRN Atorvastatin Calcium 10 Mg Tablet 1 Tab PO DAILY Ranitidine Hcl 150 Mg Tablet 150 Mg PO DAILY Requip (Ropinirole Hcl) 0.5 Mg Tablet 0.5 Mg PO TID Children's Aspirin (Aspirin) 81 Mg Tab.chew 81 Mg PO DAILY Hydrochlorothiazide Tablet (Hydrochlorothiazide) 12.5 Mg Tablet 12.5 Mg PO DAILY Levothyroxine Sodium 75 Mcg Tablet 1 Tab PO DAILY Sinemet Cr 25-100 Tablet (Carbidopa/Levodopa) 1 Each Tablet.er 1 Tab PO FIVE TIMES A DAY Sinemet Cr 50-200 Tablet (Carbidopa/Levodopa) 1 Each Tablet.er 1 Tab PO SIX TIMES A DAY Vitals/I & O Vital Sign - Last 24 Hours 01/15/19 01/15/19 01/15/19 01/15/19 09:00 10:00 12:00 12:00 Temp 98.9 98.9 Pulse 66 68 68 Resp 20 24 26 B/P (MAP) 124/69 (87) 127/85 (99) 104/75 (85) Pulse Ox 97 99 98 O2 Delivery Room Air Room Air Room Air Room Air 01/15/19 01/15/19 01/15/19 01/15/19 13:00 14:00 15:00 16:00 Pulse 72 66 60 60 Resp 18 18 22 20 B/P (MAP) 78/50 (59) 94/66 (75) 117/50 (72) 117/63 (81) Pulse Ox 98 98 97 97 O2 Delivery Room Air Room Air Room Air Room Air 01/15/19 01/15/19 01/15/19 01/16/19 20:00 20:00 22:06 00:00 Temp 99.0 98.7 99.0 98.7 Pulse 63 61 54 Resp 18 14 B/P (MAP) 136/63 (87) 160/86 101/53 (69) Pulse Ox 99 97 O2 Delivery Room Air Room Air Room Air 01/16/19 01/16/19 01/16/19 04:00 08:00 08:50 Temp 98.7 98.9 98.7 98.9 Pulse 60 62 62 Resp 16 16 B/P (MAP) 143/81 (101) 109/56 (73) 109/56 Pulse Ox 98 95 O2 Delivery Room Air Room Air Intake and Output 01/15/19 01/15/19 01/16/19 15:00 23:00 07:00 Intake Total 480 ml Output Total 1025 ml 975 ml Balance -1025 ml -495 ml GABBY LARSON MD January 16, 2019 08:56
[2019-01-16 11:12] VITALS: BP 118/63
[2019-01-16 15:13] VITALS: BP 102/56
[2019-01-16] MEDS ORDERED: POTASSIUM CHLORIDE 20 MEQ TABLET.ER. PO ONE (17:00)
[2019-01-16] MEDS: cefTRIAXone IV Push 1 GM VIAL. IVP SCH (17:03)
[2019-01-16 20:00] VITALS: BP 126/70
[2019-01-16] MEDS: ATORVASTATIN CALCIUM 10 MG TABLET. PO SCH (21:10)
[2019-01-17] VITALS (12 sets, daily range): BP systolic 76–142; BP diastolic 39–76
[2019-01-17 05:38] LABS: BASO % 1 % (0-3); EOS # 0.2 x10^3/uL (0.0-0.7); EOS % 4 % (0-3); HEMATOCRIT 34.4 % (36.0-47.0); HEMOGLOBIN 11.6 g/dL (12.0-15.5); LYMPH # 1.5 x10^3/uL (1.0-4.8); LYMPH % 33 % (24-48); MEAN CORPUSCULAR HEMOGLOBIN 32 pg (25-35); MEAN CORPUSCULAR HGB CONC 34 g/dL (31-37); MEAN CORPUSCULAR VOLUME 95 fL (79-100); MONO # 0.4 x10^3/uL (0.0-1.1); MONO % 10 % (0-9); NEUT # 2.4 x10^3uL (1.8-7.7); NEUT % 53 % (31-73); PLATELET COUNT 217 x10^3/uL (140-400); RED BLOOD COUNT 3.64 x10^6/uL (3.50-5.40); RED CELL DISTRIBUTION WIDTH 14.8 % (11.5-14.5); WHITE BLOOD COUNT 4.5 x10^3/uL (4.0-11.0)
[2019-01-17] MEDS: CARBIDOPA/LEVODOPA 25/100MG TABLET PO SCH ×4 (05:54→19:00)
[2019-01-17] MEDS: LEVOTHYROXINE 75 MCG TABLET PO SCH (05:54)
[2019-01-17 06:08] LABS: CREATININE 0.6 mg/dL (0.6-1.0); POTASSIUM 3.9 mmol/L (3.5-5.1)
[2019-01-17] MEDS: amLODIPine BESYLATE 5 MG TABLET PO SCH (08:39)
[2019-01-17] MEDS: FAMOTIDINE 20 MG TABLET. PO SCH (08:39)
[2019-01-17] MEDS: LACTOBACILLUS RHAMNOSUS GG 1 CAPSULE. PO SCH ×2 (08:39→20:04)
[2019-01-17] MEDS: hydroCHLOROthiazide 12.5 MG CAPSULE PO SCH (08:39)
[2019-01-17] MEDS: rOPINIRole 0.25 MG TABLET. PO SCH ×3 (08:39→20:04)
[2019-01-17] MEDS: CARBIDOPA/LEVODOPA CR 25/100MG TABLET.SA. PO SCH ×6 (08:40→22:59)
--- NOTE | 2019-01-17 08:54 | PDOC ---
SUBJECTIVE Subjective S: a little out of sorts, thinks maybe due to PD meds... O: Gen: NAD, resting in bed HEENT: bruising bilat periorb R>L Psych: pleasant mood and affect A/P: Ms Wilkes is a 63-year-old female with subdural hematoma on aspirin after a fall, history of heavy periods in the past and hematomas and slightly prolonged PTT. 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 OBJECTIVE Vital Signs Vital Signs Date Time Temp Pulse Resp B/P (MAP) Pulse Ox O2 Delivery O2 Flow Rate FiO2 01/17/19 08:39 68 142/76 01/17/19 06:30 98.0 68 16 142/76 (98) 95 Room Air 98.0 01/17/19 04:00 98.2 79 30 116/66 (83) 98 Room Air 98.2 01/17/19 00:00 98.1 54 12 100/60 (73) 99 Room Air 98.1 01/16/19 20:00 Room Air 01/16/19 20:00 98.0 62 17 126/70 (88) 96 Room Air 98.0 01/16/19 15:13 97.6 59 22 102/56 (71) 96 Room Air 97.6 01/16/19 11:12 98.5 64 19 118/63 (81) 100 Room Air 98.5 I & O Intake and Output 01/17/19 06:59 Intake Total 120 ml Output Total 2100 ml Balance -1980 ml Intake Oral 120 ml Output Urine Total 2100 ml # Bowel Movements 1 COMMENT Lab Laboratory Tests Test 01/17/19 05:00 White Blood Count 4.5 x10^3/uL (4.0-11.0) Red Blood Count 3.64 x10^6/uL (3.50-5.40) Hemoglobin 11.6 g/dL (12.0-15.5) Hematocrit 34.4 % (36.0-47.0) Mean Corpuscular Volume 95 fL (79-100) Mean Corpuscular Hemoglobin 32 pg (25-35) Mean Corpuscular Hemoglobin Concent 34 g/dL (31-37) Red Cell Distribution Width 14.8 % (11.5-14.5) Platelet Count 217 x10^3/uL (140-400) Neutrophils (%) (Auto) 53 % (31-73) Lymphocytes (%) (Auto) 33 % (24-48) Monocytes (%) (Auto) 10 % (0-9) Eosinophils (%) (Auto) 4 % (0-3) Basophils (%) (Auto) 1 % (0-3) Neutrophils # (Auto) 2.4 x10^3uL (1.8-7.7) Lymphocytes # (Auto) 1.5 x10^3/uL (1.0-4.8) Monocytes # (Auto) 0.4 x10^3/uL (0.0-1.1) Eosinophils # (Auto) 0.2 x10^3/uL (0.0-0.7) Basophils # (Auto) 0.0 x10^3/uL (0.0-0.2) Sodium Level 145 mmol/L (136-145) Potassium Level 3.9 mmol/L (3.5-5.1) Chloride Level 106 mmol/L (98-107) Carbon Dioxide Level 29 mmol/L (21-32) Anion Gap 10 (6-14) Blood Urea Nitrogen 16 mg/dL (7-20) Creatinine 0.6 mg/dL (0.6-1.0) Estimated GFR (Cockcroft-Gault) 123.0 Glucose Level 83 mg/dL (70-99) Calcium Level 9.0 mg/dL (8.5-10.1) MELVINA KOENIG MD January 17, 2019 08:54
--- NOTE | 2019-01-17 11:22 | PDOC ---
PROGRESS NOTES Chief Complaint Chief Complaint Subdural hematoma 01/15 Interval increase in size of right convexity subdural hematoma. There is mild mass effect with estimated 4 mm of right to left midline shift, new from prior study Focal soft tissue swelling over the right frontal bone and right orbit with no evidence of underlying displaced fracture. 01/16 No change in known right lateral convexity subdural hemorrhage. Mild sinus disease. on ct head HTN Parkinson's Grave's PVD s/p peripheral stents GERD Bladder dystonia with intermittent cathing GAIT INSTABILITY hypertension History of Present Illness History of Present Illness Patient is feeling better and hoping to [place] discmissed soon. Patient denies headache, discussed recommendations from neurosurgical contact center consultant. rochelle continue to follow Vitals Vitals Vital Signs Date Time Temp Pulse Resp B/P (MAP) Pulse Ox O2 Delivery O2 Flow Rate FiO2 01/17/19 11:16 98.2 61 18 113/62 (79) 98 Room Air 98.2 Physical Exam General: Alert, Oriented X3, Cooperative, No acute distress Heart: Regular rate, Normal S1, Normal S2 Lungs: Clear Abdomen: Normal bowel sounds, Soft, No tenderness, No hepatosplenomegaly, No masses Extremities: No clubbing, No cyanosis, No edema, Normal pulses, No tenderness/swelling Skin: No rashes, No breakdown, Other (bilateraly periorbital ecchymosis, swelling to R episcopalian) Labs LABS Laboratory Tests Test 01/17/19 05:00 White Blood Count 4.5 x10^3/uL (4.0-11.0) Red Blood Count 3.64 x10^6/uL (3.50-5.40) Hemoglobin 11.6 g/dL (12.0-15.5) Hematocrit 34.4 % (36.0-47.0) Mean Corpuscular Volume 95 fL (79-100) Mean Corpuscular Hemoglobin 32 pg (25-35) Mean Corpuscular Hemoglobin Concent 34 g/dL (31-37) Red Cell Distribution Width 14.8 % (11.5-14.5) Platelet Count 217 x10^3/uL (140-400) Neutrophils (%) (Auto) 53 % (31-73) Lymphocytes (%) (Auto) 33 % (24-48) Monocytes (%) (Auto) 10 % (0-9) Eosinophils (%) (Auto) 4 % (0-3) Basophils (%) (Auto) 1 % (0-3) Neutrophils # (Auto) 2.4 x10^3uL (1.8-7.7) Lymphocytes # (Auto) 1.5 x10^3/uL (1.0-4.8) Monocytes # (Auto) 0.4 x10^3/uL (0.0-1.1) Eosinophils # (Auto) 0.2 x10^3/uL (0.0-0.7) Basophils # (Auto) 0.0 x10^3/uL (0.0-0.2) Sodium Level 145 mmol/L (136-145) Potassium Level 3.9 mmol/L (3.5-5.1) Chloride Level 106 mmol/L (98-107) Carbon Dioxide Level 29 mmol/L (21-32) Anion Gap 10 (6-14) Blood Urea Nitrogen 16 mg/dL (7-20) Creatinine 0.6 mg/dL (0.6-1.0) Estimated GFR (Cockcroft-Gault) 123.0 Glucose Level 83 mg/dL (70-99) Calcium Level 9.0 mg/dL (8.5-10.1) Assessment and Plan Assessmemt and Plan Problems Medical Problems: (1) Subdural hematoma Status: Acute Comment Review of Relevant I have reviewed the following items dami (where applicable) has been applied. Labs Laboratory Tests Test 01/15/19 13:30 01/15/19 16:35 01/16/19 04:30 01/16/19 04:35 Prothrombin Time 13.8 SEC (11.7-14.0) Prothromb Time International Ratio 1.1 (0.8-1.1) Activated Partial Thromboplast Time 41 SEC (24-38) Fibrinogen 364 mg/dL (200-440) Total Bilirubin 0.5 mg/dL (0.2-1.0) Direct Bilirubin 0.2 mg/dL (0.0-0.2) Aspartate Amino Transf (AST/SGOT) 13 U/L (15-37) Alanine Aminotransferase (ALT/SGPT) 11 U/L (14-59) Alkaline Phosphatase 140 U/L (46-116) Total Protein 6.6 g/dL (6.4-8.2) Albumin 3.7 g/dL (3.4-5.0) Sodium Level 144 mmol/L (136-145) Potassium Level 3.4 mmol/L (3.5-5.1) Chloride Level 104 mmol/L (98-107) Carbon Dioxide Level 32 mmol/L (21-32) Anion Gap 8 (6-14) Blood Urea Nitrogen 12 mg/dL (7-20) Creatinine 0.6 mg/dL (0.6-1.0) Estimated GFR (Cockcroft-Gault) 123.0 Glucose Level 85 mg/dL (70-99) Calcium Level 8.8 mg/dL (8.5-10.1) White Blood Count 4.8 x10^3/uL (4.0-11.0) Red Blood Count 3.67 x10^6/uL (3.50-5.40) Hemoglobin 11.5 g/dL (12.0-15.5) Hematocrit 34.4 % (36.0-47.0) Mean Corpuscular Volume 94 fL (79-100) Mean Corpuscular Hemoglobin 31 pg (25-35) Mean Corpuscular Hemoglobin Concent 33 g/dL (31-37) Red Cell Distribution Width 14.5 % (11.5-14.5) Platelet Count 216 x10^3/uL (140-400) Neutrophils (%) (Auto) 54 % (31-73) Lymphocytes (%) (Auto) 34 % (24-48) Monocytes (%) (Auto) 9 % (0-9) Eosinophils (%) (Auto) 2 % (0-3) Basophils (%) (Auto) 1 % (0-3) Neutrophils # (Auto) 2.6 x10^3uL (1.8-7.7) Lymphocytes # (Auto) 1.6 x10^3/uL (1.0-4.8) Monocytes # (Auto) 0.4 x10^3/uL (0.0-1.1) Eosinophils # (Auto) 0.1 x10^3/uL (0.0-0.7) Basophils # (Auto) 0.0 x10^3/uL (0.0-0.2) Test 01/17/19 05:00 White Blood Count 4.5 x10^3/uL (4.0-11.0) Red Blood Count 3.64 x10^6/uL (3.50-5.40) Hemoglobin 11.6 g/dL (12.0-15.5) Hematocrit 34.4 % (36.0-47.0) Mean Corpuscular Volume 95 fL (79-100) Mean Corpuscular Hemoglobin 32 pg (25-35) Mean Corpuscular Hemoglobin Concent 34 g/dL (31-37) Red Cell Distribution Width 14.8 % (11.5-14.5) Platelet Count 217 x10^3/uL (140-400) Neutrophils (%) (Auto) 53 % (31-73) Lymphocytes (%) (Auto) 33 % (24-48) Monocytes (%) (Auto) 10 % (0-9) Eosinophils (%) (Auto) 4 % (0-3) Basophils (%) (Auto) 1 % (0-3) Neutrophils # (Auto) 2.4 x10^3uL (1.8-7.7) Lymphocytes # (Auto) 1.5 x10^3/uL (1.0-4.8) Monocytes # (Auto) 0.4 x10^3/uL (0.0-1.1) Eosinophils # (Auto) 0.2 x10^3/uL (0.0-0.7) Basophils # (Auto) 0.0 x10^3/uL (0.0-0.2) Sodium Level 145 mmol/L (136-145) Potassium Level 3.9 mmol/L (3.5-5.1) Chloride Level 106 mmol/L (98-107) Carbon Dioxide Level 29 mmol/L (21-32) Anion Gap 10 (6-14) Blood Urea Nitrogen 16 mg/dL (7-20) Creatinine 0.6 mg/dL (0.6-1.0) Estimated GFR (Cockcroft-Gault) 123.0 Glucose Level 83 mg/dL (70-99) Calcium Level 9.0 mg/dL (8.5-10.1) Laboratory Tests Test 01/17/19 05:00 White Blood Count 4.5 x10^3/uL (4.0-11.0) Red Blood Count 3.64 x10^6/uL (3.50-5.40) Hemoglobin 11.6 g/dL (12.0-15.5) Hematocrit 34.4 % (36.0-47.0) Mean Corpuscular Volume 95 fL (79-100) Mean Corpuscular Hemoglobin 32 pg (25-35) Mean Corpuscular Hemoglobin Concent 34 g/dL (31-37) Red Cell Distribution Width 14.8 % (11.5-14.5) Platelet Count 217 x10^3/uL (140-400) Neutrophils (%) (Auto) 53 % (31-73) Lymphocytes (%) (Auto) 33 % (24-48) Monocytes (%) (Auto) 10 % (0-9) Eosinophils (%) (Auto) 4 % (0-3) Basophils (%) (Auto) 1 % (0-3) Neutrophils # (Auto) 2.4 x10^3uL (1.8-7.7) Lymphocytes # (Auto) 1.5 x10^3/uL (1.0-4.8) Monocytes # (Auto) 0.4 x10^3/uL (0.0-1.1) Eosinophils # (Auto) 0.2 x10^3/uL (0.0-0.7) Basophils # (Auto) 0.0 x10^3/uL (0.0-0.2) Sodium Level 145 mmol/L (136-145) Potassium Level 3.9 mmol/L (3.5-5.1) Chloride Level 106 mmol/L (98-107) Carbon Dioxide Level 29 mmol/L (21-32) Anion Gap 10 (6-14) Blood Urea Nitrogen 16 mg/dL (7-20) Creatinine 0.6 mg/dL (0.6-1.0) Estimated GFR (Cockcroft-Gault) 123.0 Glucose Level 83 mg/dL (70-99) Calcium Level 9.0 mg/dL (8.5-10.1) Medications Current Medications Ondansetron HCl (Zofran) 4 mg PRN Q8HRS PRN IV NAUSEA/VOMITING Last administ ered on 01/13/19at 20:49; Start 01/13/19 at 17:30; Stop 01/14/19 at 17:29; Status DC Fentanyl Citrate (Fentanyl 2ml Vial) 50 mcg PRN Q1HR PRN IV PAIN Last administered on 01/14/19at 02:35; Start 01/13/19 at 17:30; Stop 01/14/19 at 17:29; Status DC Acetaminophen/ Hydrocodone Bitart (Lortab 5/325) 1 tab PRN Q6HRS PRN PO PAIN; Start 01/13/19 at 21:15 Atorvastatin Calcium (Lipitor) 10 mg QHS PO Last administered on 01/16/19 21:10; Start 01/13/19 at 22:30 Carbidopa/Levodopa (Sinemet Cr) 1 tab.sa 5XDAY PO Last administered on 01/15/19 10:42; Start 01/13/19 at 22:00; Stop 01/15/19 at 14:26; Status DC Levothyroxine Sodium (Synthroid) 75 mcg DAILY06 PO Last administered on 01/17/19 05:54; Start 01/14/19 at 06:00 Nitroglycerin (Nitrostat) 0.4 mg PRN Q5MIN PRN SL CHEST PAIN; Start 01/13/19 at 21:15 Carbidopa/Levodopa (Sinemet Cr) 2 tab.sa 0700,1000,1300,1600 PO Last administered on 01/17/19 10:14; Start 01/14/19 at 07:00 Non-Formulary Medication (Ciclopirox Olamine (Ciclopirox)) 1 teja HS TP ; Start 01/14/19 at 21:00; Stop 01/16/19 at 07:37; Status DC Hydrochlorothiazide (Microzide) 12.5 mg DAILY PO Last administered on 01/17/19 08:39; Start 01/14/19 at 09:00 Famotidine (Pepcid) 20 mg DAILY PO Last administered on 01/17/19 08:39; Start 01/14/19 at 09:00 Ropinirole HCl (Requip) 0.5 mg TID PO Last administered on 01/17/19 08:39; Start 01/13/19 at 22:00 Carbidopa/Levodopa (Sinemet Cr) 2 tab.sa 1900,2100 PO Last administered on 01/16/19 21:10; Start 01/13/19 at 22:00 Labetalol HCl (Normodyne Iv Push) 10 mg PRN Q2HR PRN IVP HYPERTENSION, SEE COMMENTS Last administered on 01/15/19at 22:06; Start 01/13/19 at 22:00 Ciprofloxacin/ Dextrose 200 ml @ 200 mls/hr Q12HR IV ; Start 01/14/19 at 17:30; Stop 01/14/19 at 17:30; Status DC Ceftriaxone Sodium (Rocephin) 1 gm Q24H IVP Last administered on 01/16/19at 17:03; Start 01/14/19 at 18:00 Amlodipine Besylate (Norvasc) 5 mg DAILY PO Last administered on 01/17/19at 08:39; Start 01/15/19 at 12:00 Carbidopa/Levodopa (Sinemet 25/100) 1 tab 5XDAY PO Last administered on at 10:14; Start 01/15/19 at 15:00 Lactobacillus Rhamnosus (Culturelle) 1 cap BID PO Last administered on 01/17/19at 08:39; Start 01/15/19 at 21:00 Potassium Chloride (Klor-Con) 40 meq 1X ONCE PO Last administered on 01/16/19at 17:03; Start 01/16/19 at 17:00; Stop 01/16/19 at 17:01; Status DC Active Scripts Active Reported Ciclopirox (Ciclopirox Olamine) 15 Gm Cream..g. 1 Teja TP HS NITROGLYCERIN SubLingual (Nitroglycerin) 0.4 Mg Tab.subl 0.4 Mg SL PRN Q5MIN PRN Atorvastatin Calcium 10 Mg Tablet 1 Tab PO DAILY Ranitidine Hcl 150 Mg Tablet 150 Mg PO DAILY Requip (Ropinirole Hcl) 0.5 Mg Tablet 0.5 Mg PO TID Children's Aspirin (Aspirin) 81 Mg Tab.chew 81 Mg PO DAILY Hydrochlorothiazide Tablet (Hydrochlorothiazide) 12.5 Mg Tablet 12.5 Mg PO DAILY Levothyroxine Sodium 75 Mcg Tablet 1 Tab PO DAILY Sinemet Cr 25-100 Tablet (Carbidopa/Levodopa) 1 Each Tablet.er 1 Tab PO FIVE TIMES A DAY Sinemet Cr 50-200 Tablet (Carbidopa/Levodopa) 1 Each Tablet.er 1 Tab PO SIX TIMES A DAY Vitals/I & O Vital Sign - Last 24 Hours 01/16/19 01/16/19 01/16/19 01/17/19 15:13 20:00 20:00 00:00 Temp 97.6 98.0 98.1 97.6 98.0 98.1 Pulse 59 62 54 Resp 22 17 12 B/P (MAP) 102/56 (71) 126/70 (88) 100/60 (73) Pulse Ox 96 96 99 O2 Delivery Room Air Room Air Room Air Room Air 01/17/19 01/17/19 01/17/19 01/17/19 04:00 06:30 08:39 11:16 Temp 98.2 98.0 98.2 98.2 98.0 98.2 Pulse 79 68 68 61 Resp 30 16 18 B/P (MAP) 116/66 (83) 142/76 (98) 142/76 113/62 (79) Pulse Ox 98 95 98 O2 Delivery Room Air Room Air Room Air Intake and Output0 01/16/19 01/16/19 01/17/19 14:59 22:59 06:59 Intake Total 120 ml Output Total 1000 ml 1100 ml Balance 120 ml -1000 ml -1100 ml MARY THAKKAR MD January 17, 2019 11:22
[2019-01-17 15:14] LABS: IMMUNOGLOBULIN A 119 mg/dL (87-352); IMMUNOGLOBULIN G 746 mg/dL (700-1600); IMMUNOGLOBULIN M 113 mg/dL (26-217)
--- NOTE | 2019-01-17 16:05 | PDOC ---
PROGRESS NOTES Assessment Assessment Small right SDH. Orbital soft tissue ecchymosis from falling, no fracture. Falls. UTI. PD. HTN. PVD s/p stents. Bladder dystonia. GERD. RECOMMENDATIONS/PLAN: BP control. Continue Sinemet. Avoid anticoagulant and antiplatelet agents at the present time. Treat medical diseases. Fall prevention. Repeat HCT w/o contrast anytime if worse. FU with PCP. FU with Neurology as needed. OT/PT. HISTORY OF THE PRESENT ILLNESS: This is a 63-year-old AA female patient with history of PD, Hypertension, Grave's disease, PVD s/p peripheral stents, and bladder dystonia with intermittent cathing who presents after tripping and falling while she was getting dressed. She hit her right side of her face on the headboard of the bed and struck her right orbit. She had no loss of consciousness. Her sister, bedside notes that she fell late last week as well and still has some bruising on her left eye from that fall. She has been on ASA for a lower extremity stent placed at [facility] over 3 years ago. Past Medical History Cardiovascular: HTN Pulmonary: No pertinent hx CENTRAL NERVOUS SYSTEM: Other (Parkinison's) GI: GERD Heme/Onc: No pertinent hx Hepatobiliary: No pertinent hx Psych: No pertinent hx Rheumatologic: No pertinent hx Infectious disease: No pertinent hx ENT: No pertinent hx Renal/: Urinary Incontinence Endocrine: No pertinent hx Dermatology: No pertinent hx Past Surgical History Arthroscopy (left rotator cuff), Hysterectomy, Other (Right ankle fracture repair) Family History Heart Disease, High Cholestrol, Hypertension Social History Smoke: No ALCOHOL: none Drugs: None ALLERGY: NKDA MEDICATIONS: Refer to MAR REVIEW OF SYSTEMS: Constitutional: No malnutrition, weight loss, cachexia. Head: No traumatic brain or head injury. Skin: No edema, or rash. Ear: No infection. Eyes: No vision loss or color blindness. Nose: No bleeding or purulent discharges. Hearing: No hearing decrease. Neck: No injury. Breast: No history of cancer, masses,or discharges. Cardiac: HTN, PVD. Pulmonary: No COPD. GI: GERD. Urinary/genital: UTI. Endocrinologic: No cousin face, craniofacial dysmorphism, polydactyly. Skeletomuscular: Falls. Neurological: PD. Psychiatric: Denies drug use/abuse. Otherwise, not [id number] review of systems. PHYSICAL EXAMINATION: General appearance is in no acute distress. HEENT: Normocephalic and nontraumatic. Eyes, nose, ears, and throat are unremarkable. Neck is supple. No lymphadenopathy. No bruits are heard over the carotid artery. No crepitus. Cardiovascular: S1, S2, regular rate and rhythm. Pulmonary: Clear to auscultation bilaterally. Abdomen: Bowel sounds are positive. Abdomen is soft, nontender, and nondistended. Extremities: No rash, lesions, or edema. No restriction of range of motion NEUROLOGICAL EXAMINATION: Awake. Oriented to time, place and person. PERRL. EOMI. Bilateral orbital area ecchymoses. CN: no focal findings. Muscle tone: fluctuated. Muscle strength: 5- DTR: 2 UE, 1-2 at knee. Plantar reflex: Flexor response bilaterally Gait: not examined in bed. Sensory exam: no abnormal findings. No cerebellar signs elicited. F-T-N test fine Objective Objective Vital Signs Date Time Temp Pulse Resp B/P (MAP) Pulse Ox O2 Delivery O2 Flow Rate FiO2 01/17/19 11:16 98.2 61 18 113/62 (79) 98 Room Air 98.2 Intake and Output 01/17/19 07:00 Intake Total 120 ml Output Total 2100 ml Balance -1980 ml Intake Oral 120 ml Output Urine Total 2100 ml # Bowel Movements 1 Vitals Signs Vitals VS - Last 72 Hours, by Label Date Time Temp Pulse Resp B/P (MAP) Pulse Ox O2 Delivery O2 Flow Rate FiO2 01/17/19 11:16 98.2 61 18 113/62 (79) 98 Room Air 98.2 01/17/19 08:39 68 142/76 01/17/19 08:00 Room Air 01/17/19 06:30 98.0 68 16 142/76 (98) 95 Room Air 98.0 01/17/19 04:00 98.2 79 30 116/66 (83) 98 Room Air 98.2 01/17/19 00:00 98.1 54 12 100/60 (73) 99 Room Air 98.1 01/16/19 20:00 Room Air 01/16/19 20:00 98.0 62 17 126/70 (88) 96 Room Air 98.0 01/16/19 15:13 97.6 59 22 102/56 (71) 96 Room Air 97.6 01/16/19 11:12 98.5 64 19 118/63 (81) 100 Room Air 98.5 01/16/19 08:50 62 109/56 01/16/19 08:00 98.9 62 16 109/56 (73) 95 Room Air 98.9 01/16/19 08:00 Room Air Laboratory Laboratory Laboratory Tests Test 01/17/19 05:00 White Blood Count 4.5 x10^3/uL (4.0-11.0) Red Blood Count 3.64 x10^6/uL (3.50-5.40) Hemoglobin 11.6 g/dL (12.0-15.5) Hematocrit 34.4 % (36.0-47.0) Mean Corpuscular Volume 95 fL (79-100) Mean Corpuscular Hemoglobin 32 pg (25-35) Mean Corpuscular Hemoglobin Concent 34 g/dL (31-37) Red Cell Distribution Width 14.8 % (11.5-14.5) Platelet Count 217 x10^3/uL (140-400) Neutrophils (%) (Auto) 53 % (31-73) Lymphocytes (%) (Auto) 33 % (24-48) Monocytes (%) (Auto) 10 % (0-9) Eosinophils (%) (Auto) 4 % (0-3) Basophils (%) (Auto) 1 % (0-3) Neutrophils # (Auto) 2.4 x10^3uL (1.8-7.7) Lymphocytes # (Auto) 1.5 x10^3/uL (1.0-4.8) Monocytes # (Auto) 0.4 x10^3/uL (0.0-1.1) Eosinophils # (Auto) 0.2 x10^3/uL (0.0-0.7) Basophils # (Auto) 0.0 x10^3/uL (0.0-0.2) Sodium Level 145 mmol/L (136-145) Potassium Level 3.9 mmol/L (3.5-5.1) Chloride Level 106 mmol/L (98-107) Carbon Dioxide Level 29 mmol/L (21-32) Anion Gap 10 (6-14) Blood Urea Nitrogen 16 mg/dL (7-20) Creatinine 0.6 mg/dL (0.6-1.0) Estimated GFR (Cockcroft-Gault) 123.0 Glucose Level 83 mg/dL (70-99) Calcium Level 9.0 mg/dL (8.5-10.1) Medication Medications Current Medications Potassium Chloride (Klor-Con) 40 meq 1X ONCE PO Last administered on 01/16/19at 17:03; Start 01/16/19 at 17:00; Stop 01/16/19 at 17:01; Status DC Comment Review of Relevant I have reviewed the following items dami (where applicable) has been applied. MAKENNA KHALIL MD January 17, 2019 16:05
[2019-01-17 16:11] LABS: ALPHA 1 0.2 g/dL (0.0-0.4); ALPHA 2 0.6 g/dL (0.4-1.0); BETA 0.7 g/dL (0.7-1.3); GAMMA 0.6 g/dL (0.4-1.8); PROTEIN TOTAL 6.1 g/dL (6.0-8.5); SPEP AG RATIO 1.9 (0.7-1.7)
--- NOTE | 2019-01-17 16:45 | NUR ---
Was notified by OFFICE CORRESPONDENT that the patient's BP was 76/39. Patient up in recliner. Awake and alert. Responds appropriately. BP rechecked and was 81/41. Dr. Cummings notified of hypotension and he requested orthostatic blood pressure be done. Reclining in chair BP 87/46. Sitting BP 83/39. Standing BP 80/49. Patient asymptomatic. Dr. Cummings was notified of results.
[2019-01-17] MEDS: cefTRIAXone IV Push 1 GM VIAL. IVP SCH (20:04)
[2019-01-17] MEDS: ATORVASTATIN CALCIUM 10 MG TABLET. PO SCH (21:29)
[2019-01-18 03:06] VITALS: BP 128/63
[2019-01-18 05:28] LABS: BASO % 1 % (0-3); EOS # 0.1 x10^3/uL (0.0-0.7); EOS % 3 % (0-3); HEMATOCRIT 34.7 % (36.0-47.0); HEMOGLOBIN 11.5 g/dL (12.0-15.5); LYMPH # 1.4 x10^3/uL (1.0-4.8); LYMPH % 30 % (24-48); MEAN CORPUSCULAR HEMOGLOBIN 31 pg (25-35); MEAN CORPUSCULAR HGB CONC 33 g/dL (31-37); MEAN CORPUSCULAR VOLUME 94 fL (79-100); MONO # 0.4 x10^3/uL (0.0-1.1); MONO % 9 % (0-9); NEUT # 2.7 x10^3uL (1.8-7.7); NEUT % 57 % (31-73); PLATELET COUNT 234 x10^3/uL (140-400); RED BLOOD COUNT 3.69 x10^6/uL (3.50-5.40); RED CELL DISTRIBUTION WIDTH 14.6 % (11.5-14.5); WHITE BLOOD COUNT 4.8 x10^3/uL (4.0-11.0)
[2019-01-18 06:08] LABS: CALCIUM 9.1 mg/dL (8.5-10.1); CREATININE 0.6 mg/dL (0.6-1.0); POTASSIUM 3.5 mmol/L (3.5-5.1)
[2019-01-18] MEDS: LEVOTHYROXINE 75 MCG TABLET PO SCH (06:19)
[2019-01-18 07:03] VITALS: BP 153/80
[2019-01-18] MEDS: CARBIDOPA/LEVODOPA 25/100MG TABLET PO SCH ×5 (07:22→19:59)
[2019-01-18] MEDS: rOPINIRole 0.25 MG TABLET. PO SCH ×3 (07:23→19:58)
[2019-01-18] MEDS: CARBIDOPA/LEVODOPA CR 25/100MG TABLET.SA. PO SCH ×6 (07:24→23:00)
--- NOTE | 2019-01-18 09:12 | RAD ---
CT HEAD INDICATION: Follow-up subdural bleed COMPARISON: 01/15/2019 Exposure: One or more of the following individualized dose reduction techniques were utilized for this examination: 1. Automated exposure control 2. Adjustment of the mA and/or kV according to patient size 3. Use of iterative reconstruction technique TECHNIQUE: 5 mm contiguous axial images were obtained from the skull base to the vertex in both bone and soft tissue algorithm. FINDINGS: Minimal [id number] midline shift measuring 4.5 mm is unchanged. Right subdural hematoma in the right frontal parietotemporal region with the thickness of 5 mm is similar to prior exam. The visualized lateral ventricles, third ventricle, fourth ventricle are patent. There is effacement of the right cerebral gyri similar to prior exam. The basal cisterns are uneffaced. The visualized paranasal sinuses, mastoid air cells are clear. Mild soft tissue swelling identified lateral to the orbital wall likely soft tissue injury. IMPRESSION: 1. Unchanged right cerebral convexity subdural hemorrhage with minimal mass effect. Electronically signed by: Drew Nassar MD (01/18/2019 9:09 AM) [facility]
[2019-01-18] MEDS: LACTOBACILLUS RHAMNOSUS GG 1 CAPSULE. PO SCH ×2 (09:52→19:58)
[2019-01-18] MEDS: hydroCHLOROthiazide 12.5 MG CAPSULE PO SCH (09:52)
[2019-01-18] MEDS: FAMOTIDINE 20 MG TABLET. PO SCH (09:52)
[2019-01-18] MEDS: amLODIPine BESYLATE 5 MG TABLET PO SCH (09:52)
[2019-01-18 10:39] VITALS: BP 100/55
[2019-01-18 14:55] VITALS: BP 108/47
--- NOTE | 2019-01-18 15:26 | PDOC ---
PROGRESS NOTES Assessment Assessment Small right SDH. Orbital soft tissue ecchymosis from falling, no fracture. Falls. UTI. PD. HTN. PVD s/p stents. Bladder dystonia. GERD. RECOMMENDATIONS/PLAN: BP control. Continue Sinemet. Avoid anticoagulant and antiplatelet agents at the present time. Treat medical diseases. Fall prevention. Repeat HCT w/o contrast anytime if worse. FU with PCP. FU with Neurology as needed. OT/PT. HISTORY OF THE PRESENT ILLNESS: This is a 63-year-old AA female patient with history of PD, Hypertension, Grave's disease, PVD s/p peripheral stents, and bladder dystonia with intermittent cathing who presents after tripping and falling while she was getting dressed. She hit her right side of her face on the headboard of the bed and struck her right orbit. She had no loss of consciousness. Her sister, bedside notes that she fell late last week as well and still has some bruising on her left eye from that fall. She has been on ASA for a lower extremity stent placed at [facility] over 3 years ago. No headaches or other complaints on 01/18/19. Past Medical History Cardiovascular: HTN Pulmonary: No pertinent hx CENTRAL NERVOUS SYSTEM: Other (Parkinison's) GI: GERD Heme/Onc: No pertinent hx Hepatobiliary: No pertinent hx Psych: No pertinent hx Rheumatologic: No pertinent hx Infectious disease: No pertinent hx ENT: No pertinent hx Renal/: Urinary Incontinence Endocrine: No pertinent hx Dermatology: No pertinent hx Past Surgical History Arthroscopy (left rotator cuff), Hysterectomy, Other (Right ankle fracture repair) Family History Heart Disease, High Cholestrol, Hypertension Social History Smoke: No ALCOHOL: none Drugs: None ALLERGY: NKDA MEDICATIONS: Refer to MAR REVIEW OF SYSTEMS: Constitutional: No malnutrition, weight loss, cachexia. Head: No traumatic brain or head injury. Skin: No edema, or rash. Ear: No infection. Eyes: No vision loss or color blindness. Nose: No bleeding or purulent discharges. Hearing: No hearing decrease. Neck: No injury. Breast: No history of cancer, masses,or discharges. Cardiac: HTN, PVD. Pulmonary: No COPD. GI: GERD. Urinary/genital: UTI. Endocrinologic: No cousin face, craniofacial dysmorphism, polydactyly. Skeletomuscular: Falls. Neurological: PD. Psychiatric: Denies drug use/abuse. Otherwise, not [id number] review of systems. PHYSICAL EXAMINATION: General appearance is in no acute distress. HEENT: Normocephalic and nontraumatic. Eyes, nose, ears, and throat are unremarkable. Neck is supple. No lymphadenopathy. No bruits are heard over the carotid artery. No crepitus. Cardiovascular: S1, S2, regular rate and rhythm. Pulmonary: Clear to auscultation bilaterally. Abdomen: Bowel sounds are positive. Abdomen is soft, nontender, and nondistended. Extremities: No rash, lesions, or edema. No restriction of range of motion NEUROLOGICAL EXAMINATION: Awake. Oriented to time, place and person. PERRL. EOMI. Bilateral orbital area ecchymoses. CN: no focal findings. Muscle tone: fluctuated. Muscle strength: 5- DTR: 2 UE, 1-2 at knee. Plantar reflex: Flexor response bilaterally Gait: not examined in bed. Sensory exam: no abnormal findings. No cerebellar signs elicited. F-T-N test fine Objective Objective Vital Signs Date Time Temp Pulse Resp B/P (MAP) Pulse Ox O2 Delivery O2 Flow Rate FiO2 01/18/19 14:55 97.6 74 18 108/47 (67) 97 Room Air 97.6 01/18/19 08:00 98.0 Intake and Output 01/18/19 07:00 Intake Total 200 ml Output Total 300 ml Balance -100 ml Intake Oral 200 ml Output Urine Total 300 ml Vitals Signs Vitals VS - Last 72 Hours, by Label Date Time Temp Pulse Resp B/P (MAP) Pulse Ox O2 Delivery O2 Flow Rate FiO2 01/18/19 14:55 97.6 74 18 108/47 (67) 97 Room Air 97.6 01/18/19 10:39 97.8 67 17 100/55 (70) 97 Room Air 97.8 01/18/19 09:52 81 153/80 01/18/19 08:00 Room Air 98.0 01/18/19 07:03 98.1 81 16 153/80 (104) 95 Room Air 98.1 01/18/19 03:06 98.2 67 18 128/63 (84) 98 Room Air 98.2 01/17/19 23:05 98.1 61 16 101/55 (70) 97 Room Air 98.1 01/17/19 20:00 Room Air 01/17/19 19:10 98.3 68 16 95/57 (70) 99 Room Air 98.3 01/17/19 16:36 80/49 (59) 01/17/19 16:32 83/39 (54) 01/17/19 16:30 87/46 (60) 01/17/19 16:15 58 81/41 (54) 01/17/19 16:08 97.5 60 18 76/39 (51) 99 Room Air 97.5 01/17/19 15:00 97.5 60 18 76/39 (51) 99 Room Air 97.5 01/17/19 11:16 98.2 61 18 113/62 (79) 98 Room Air 98.2 01/17/19 08:39 68 142/76 01/17/19 08:00 Room Air Laboratory Laboratory Laboratory Tests Test 01/18/19 04:10 White Blood Count 4.8 x10^3/uL (4.0-11.0) Red Blood Count 3.69 x10^6/uL (3.50-5.40) Hemoglobin 11.5 g/dL (12.0-15.5) Hematocrit 34.7 % (36.0-47.0) Mean Corpuscular Volume 94 fL (79-100) Mean Corpuscular Hemoglobin 31 pg (25-35) Mean Corpuscular Hemoglobin Concent 33 g/dL (31-37) Red Cell Distribution Width 14.6 % (11.5-14.5) Platelet Count 234 x10^3/uL (140-400) Neutrophils (%) (Auto) 57 % (31-73) Lymphocytes (%) (Auto) 30 % (24-48) Monocytes (%) (Auto) 9 % (0-9) Eosinophils (%) (Auto) 3 % (0-3) Basophils (%) (Auto) 1 % (0-3) Neutrophils # (Auto) 2.7 x10^3uL (1.8-7.7) Lymphocytes # (Auto) 1.4 x10^3/uL (1.0-4.8) Monocytes # (Auto) 0.4 x10^3/uL (0.0-1.1) Eosinophils # (Auto) 0.1 x10^3/uL (0.0-0.7) Basophils # (Auto) 0.0 x10^3/uL (0.0-0.2) Sodium Level 144 mmol/L (136-145) Potassium Level 3.5 mmol/L (3.5-5.1) Chloride Level 105 mmol/L (98-107) Carbon Dioxide Level 28 mmol/L (21-32) Anion Gap 11 (6-14) Blood Urea Nitrogen 21 mg/dL (7-20) Creatinine 0.6 mg/dL (0.6-1.0) Estimated GFR (Cockcroft-Gault) 123.0 Glucose Level 90 mg/dL (70-99) Calcium Level 9.1 mg/dL (8.5-10.1) Medication Medications Current Medications Carbidopa/Levodopa (Sinemet 25/100) 1 tab 0700,1000,1300 PO Last administered on 01/18/19at 13:28; Start 01/18/19 at 07:00 Carbidopa/Levodopa (Sinemet 25/100) 1 tab 1600,1900 PO Last administered on 01/17/19 19:00; Start 01/17/19 at 19:00 Ropinirole HCl (Requip) 0.5 mg TID@0700,1300,1900 PO Last administered on 01/18/19 13:28; Start 01/17/19 at 19:00 Comment Review of Relevant I have reviewed the following items dami (where applicable) has been applied. MAKENNA KHALIL MD January 18, 2019 15:26
--- NOTE | 2019-01-18 16:08 | NUR ---
Patient wants to know if she can be discharged after having the CT scan done this morning. Paged Dr. Joe for update at 0775, currently awaiting for call back. Addendum: 01/19/19 at 1011 by VELMA NIETO RN Late entry: Dr. Joe's nurse practitioner, Minnie Recio called back at 0723 01/18, stated that patient can be discharged and she will arrange an outpatient follow up.
--- NOTE | 2019-01-18 17:18 | PDOC ---
PROGRESS NOTES Chief Complaint Chief Complaint Subdural hematoma 01/15 Interval increase in size of right convexity subdural hematoma. There is mild mass effect with estimated 4 mm of right to left midline shift, new from prior study Focal soft tissue swelling over the right frontal bone and right orbit with no evidence of underlying displaced fracture. 01/16 No change in known right lateral convexity subdural hemorrhage. Mild sinus disease. on ct head HTN Parkinson's Grave's PVD s/p peripheral stents GERD Bladder dystonia with intermittent cathing GAIT INSTABILITY hypertension Repeat CT unchanged awaiting for clearance from neurosurgery stabel from the medical stand point of view History of Present Illness History of Present Illness Patient is feeling better and hoping to be dismissed soon. Patient denies headache, discussed recommendations from neurosurgical student union consultant. will continue to follow Vitals Vitals Vital Signs Date Time Temp Pulse Resp B/P (MAP) Pulse Ox O2 Delivery O2 Flow Rate FiO2 01/18/19 14:55 97.6 74 18 108/47 (67) 97 Room Air 97.6 01/18/19 08:00 98.0 Physical Exam General: Alert, Oriented X3, Cooperative, No acute distress Heart: Regular rate, Normal S1, Normal S2 Lungs: Clear Abdomen: Normal bowel sounds, Soft, No tenderness, No hepatosplenomegaly, No masses Extremities: No clubbing, No cyanosis, No edema, Normal pulses, No tenderness/swelling Skin: No rashes, No breakdown, Other (bilateraly periorbital ecchymosis, swelling to R adventist) Labs LABS Laboratory Tests Test 01/18/19 04:10 White Blood Count 4.8 x10^3/uL (4.0-11.0) Red Blood Count 3.69 x10^6/uL (3.50-5.40) Hemoglobin 11.5 g/dL (12.0-15.5) Hematocrit 34.7 % (36.0-47.0) Mean Corpuscular Volume 94 fL (79-100) Mean Corpuscular Hemoglobin 31 pg (25-35) Mean Corpuscular Hemoglobin Concent 33 g/dL (31-37) Red Cell Distribution Width 14.6 % (11.5-14.5) Platelet Count 234 x10^3/uL (140-400) Neutrophils (%) (Auto) 57 % (31-73) Lymphocytes (%) (Auto) 30 % (24-48) Monocytes (%) (Auto) 9 % (0-9) Eosinophils (%) (Auto) 3 % (0-3) Basophils (%) (Auto) 1 % (0-3) Neutrophils # (Auto) 2.7 x10^3uL (1.8-7.7) Lymphocytes # (Auto) 1.4 x10^3/uL (1.0-4.8) Monocytes # (Auto) 0.4 x10^3/uL (0.0-1.1) Eosinophils # (Auto) 0.1 x10^3/uL (0.0-0.7) Basophils # (Auto) 0.0 x10^3/uL (0.0-0.2) Sodium Level 144 mmol/L (136-145) Potassium Level 3.5 mmol/L (3.5-5.1) Chloride Level 105 mmol/L (98-107) Carbon Dioxide Level 28 mmol/L (21-32) Anion Gap 11 (6-14) Blood Urea Nitrogen 21 mg/dL (7-20) Creatinine 0.6 mg/dL (0.6-1.0) Estimated GFR (Cockcroft-Gault) 123.0 Glucose Level 90 mg/dL (70-99) Calcium Level 9.1 mg/dL (8.5-10.1) Assessment and Plan Assessmemt and Plan Problems Medical Problems: (1) Subdural hematoma Status: Acute Comment Review of Relevant I have reviewed the following items dami (where applicable) has been applied. Labs Laboratory Tests Test 01/17/19 05:00 01/18/19 04:10 White Blood Count 4.5 x10^3/uL (4.0-11.0) 4.8 x10^3/uL (4.0-11.0) Red Blood Count 3.64 x10^6/uL (3.50-5.40) 3.69 x10^6/uL (3.50-5.40) Hemoglobin 11.6 g/dL (12.0-15.5) 11.5 g/dL (12.0-15.5) Hematocrit 34.4 % (36.0-47.0) 34.7 % (36.0-47.0) Mean Corpuscular Volume 95 fL (79-100) 94 fL (79-100) Mean Corpuscular Hemoglobin 32 pg (25-35) 31 pg (25-35) Mean Corpuscular Hemoglobin Concent 34 g/dL (31-37) 33 g/dL (31-37) Red Cell Distribution Width 14.8 % (11.5-14.5) 14.6 % (11.5-14.5) Platelet Count 217 x10^3/uL (140-400) 234 x10^3/uL (140-400) Neutrophils (%) (Auto) 53 % (31-73) 57 % (31-73) Lymphocytes (%) (Auto) 33 % (24-48) 30 % (24-48) Monocytes (%) (Auto) 10 % (0-9) 9 % (0-9) Eosinophils (%) (Auto) 4 % (0-3) 3 % (0-3) Basophils (%) (Auto) 1 % (0-3) 1 % (0-3) Neutrophils # (Auto) 2.4 x10^3uL (1.8-7.7) 2.7 x10^3uL (1.8-7.7) Lymphocytes # (Auto) 1.5 x10^3/uL (1.0-4.8) 1.4 x10^3/uL (1.0-4.8) Monocytes # (Auto) 0.4 x10^3/uL (0.0-1.1) 0.4 x10^3/uL (0.0-1.1) Eosinophils # (Auto) 0.2 x10^3/uL (0.0-0.7) 0.1 x10^3/uL (0.0-0.7) Basophils # (Auto) 0.0 x10^3/uL (0.0-0.2) 0.0 x10^3/uL (0.0-0.2) Sodium Level 145 mmol/L (136-145) 144 mmol/L (136-145) Potassium Level 3.9 mmol/L (3.5-5.1) 3.5 mmol/L (3.5-5.1) Chloride Level 106 mmol/L (98-107) 105 mmol/L (98-107) Carbon Dioxide Level 29 mmol/L (21-32) 28 mmol/L (21-32) Anion Gap 10 (6-14) 11 (6-14) Blood Urea Nitrogen 16 mg/dL (7-20) 21 mg/dL (7-20) Creatinine 0.6 mg/dL (0.6-1.0) 0.6 mg/dL (0.6-1.0) Estimated GFR (Cockcroft-Gault) 123.0 123.0 Glucose Level 83 mg/dL (70-99) 90 mg/dL (70-99) Calcium Level 9.0 mg/dL (8.5-10.1) 9.1 mg/dL (8.5-10.1) Laboratory Tests Test 01/18/19 04:10 White Blood Count 4.8 x10^3/uL (4.0-11.0) Red Blood Count 3.69 x10^6/uL (3.50-5.40) Hemoglobin 11.5 g/dL (12.0-15.5) Hematocrit 34.7 % (36.0-47.0) Mean Corpuscular Volume 94 fL (79-100) Mean Corpuscular Hemoglobin 31 pg (25-35) Mean Corpuscular Hemoglobin Concent 33 g/dL (31-37) Red Cell Distribution Width 14.6 % (11.5-14.5) Platelet Count 234 x10^3/uL (140-400) Neutrophils (%) (Auto) 57 % (31-73) Lymphocytes (%) (Auto) 30 % (24-48) Monocytes (%) (Auto) 9 % (0-9) Eosinophils (%) (Auto) 3 % (0-3) Basophils (%) (Auto) 1 % (0-3) Neutrophils # (Auto) 2.7 x10^3uL (1.8-7.7) Lymphocytes # (Auto) 1.4 x10^3/uL (1.0-4.8) Monocytes # (Auto) 0.4 x10^3/uL (0.0-1.1) Eosinophils # (Auto) 0.1 x10^3/uL (0.0-0.7) Basophils # (Auto) 0.0 x10^3/uL (0.0-0.2) Sodium Level 144 mmol/L (136-145) Potassium Level 3.5 mmol/L (3.5-5.1) Chloride Level 105 mmol/L (98-107) Carbon Dioxide Level 28 mmol/L (21-32) Anion Gap 11 (6-14) Blood Urea Nitrogen 21 mg/dL (7-20) Creatinine 0.6 mg/dL (0.6-1.0) Estimated GFR (Cockcroft-Gault) 123.0 Glucose Level 90 mg/dL (70-99) Calcium Level 9.1 mg/dL (8.5-10.1) Medications Current Medications Ondansetron HCl (Zofran) 4 mg PRN Q8HRS PRN IV NAUSEA/VOMITING Last administe red on 01/13/19 20:49; Start 01/13/19 at 17:30; Stop 01/14/19 at 17:29; Status DC Fentanyl Citrate (Fentanyl 2ml Vial) 50 mcg PRN Q1HR PRN IV PAIN Last administered on 01/14/19 02:35; Start 01/13/19 at 17:30; Stop 01/14/19 at 17:29; Status DC Acetaminophen/ Hydrocodone Bitart (Lortab 5/325) 1 tab PRN Q6HRS PRN PO PAIN; Start 01/13/19 at 21:15 Atorvastatin Calcium (Lipitor) 10 mg QHS PO Last administered on 01/17/19 21:29; Start 01/13/19 at 22:30 Carbidopa/Levodopa (Sinemet Cr) 1 tab.sa 5XDAY PO Last administered on 01/15/19at 10:42; Start 01/13/19 at 22:00; Stop 01/15/19 at 14:26; Status DC Levothyroxine Sodium (Synthroid) 75 mcg DAILY06 PO Last administered on 01/18/19at 06:19; Start 01/14/19 at 06:00 Nitroglycerin (Nitrostat) 0.4 mg PRN Q5MIN PRN SL CHEST PAIN; Start 01/13/19 at 21:15 Carbidopa/Levodopa (Sinemet Cr) 2 tab.sa 0700,1000,1300,1600 PO Last administered on 01/18/19at 16:35; Start 01/14/19 at 07:00 Non-Formulary Medication (Ciclopirox Olamine (Ciclopirox)) 1 teja HS TP ; Start 01/14/19 at 21:00; Stop 01/16/19 at 07:37; Status DC Hydrochlorothiazide (Microzide) 12.5 mg DAILY PO Last administered on 01/18/19at 09:52; Start 01/14/19 at 09:00 Famotidine (Pepcid) 20 mg DAILY PO Last administered on 01/18/19 09:52; Start 01/14/19 at 09:00 Ropinirole HCl (Requip) 0.5 mg TID PO Last administered on 01/17/19at 13:07; Start 01/13/19 at 22:00; Stop 01/17/19 at 17:47; Status DC Carbidopa/Levodopa (Sinemet Cr) 2 tab.sa 1900,2100 PO Last administered on 01/17/19at 22:59; Start 01/13/19 at 22:00 Labetalol HCl (Normodyne Iv Push) 10 mg PRN Q2HR PRN IVP HYPERTENSION, SEE COMMENTS Last administered on 01/15/19at 22:06; Start 01/13/19 at 22:00 Ciprofloxacin/ Dextrose 200 ml @ 200 mls/hr Q12HR IV ; Start 01/14/19 at 17:30; Stop 01/14/19 at 17:30; Status DC Ceftriaxone Sodium (Rocephin) 1 gm Q24H IVP Last administered on 01/17/19at 20:04; Start 01/14/19 at 18:00 Amlodipine Besylate (Norvasc) 5 mg DAILY PO Last administered on 01/18/19 09:52; Start 01/15/19 at 12:00 Carbidopa/Levodopa (Sinemet 25/100) 1 tab 5XDAY PO Last administered on 01/17/19at 13:08; Start 01/15/19 at 15:00; Stop 01/17/19 at 17:51; Status DC Lactobacillus Rhamnosus (Culturelle) 1 cap BID PO Last administered on 01/18/19 09:52; Start 01/15/19 at 21:00 Potassium Chloride (Klor-Con) 40 meq 1X ONCE PO Last administered on 01/16/19at 17:03; Start 01/16/19 at 17:00; Stop 01/16/19 at 17:01; Status DC Ropinirole HCl (Requip) 0.5 mg TID@0700,1300,1900 PO Last administered on 01/18/19at 13:28; Start 01/17/19 at 19:00 Carbidopa/Levodopa (Sinemet 25/100) 1 tab 0700,1000,1300 PO Last administered on 01/18/19at 13:28; Start 01/18/19 at 07:00 Carbidopa/Levodopa (Sinemet 25/100) 1 tab 1600,1900 PO Last administered on 01/18/19at 16:35; Start 01/17/19 at 19:00 Active Scripts Active Reported Ciclopirox (Ciclopirox Olamine) 15 Gm Cream..g. 1 Teja TP HS NITROGLYCERIN SubLingual (Nitroglycerin) 0.4 Mg Tab.subl 0.4 Mg SL PRN Q5MIN PRN Atorvastatin Calcium 10 Mg Tablet 1 Tab PO DAILY Ranitidine Hcl 150 Mg Tablet 150 Mg PO DAILY Requip (Ropinirole Hcl) 0.5 Mg Tablet 0.5 Mg PO TID Children's Aspirin (Aspirin) 81 Mg Tab.chew 81 Mg PO DAILY Hydrochlorothiazide Tablet (Hydrochlorothiazide) 12.5 Mg Tablet 12.5 Mg PO DAILY Levothyroxine Sodium 75 Mcg Tablet 1 Tab PO DAILY Sinemet Cr 25-100 Tablet (Carbidopa/Levodopa) 1 Each Tablet.er 1 Tab PO FIVE TIMES A DAY Sinemet Cr 50-200 Tablet (Carbidopa/Levodopa) 1 Each Tablet.er 1 Tab PO SIX TIMES A DAY Vitals/I & O Vital Sign - Last 24 Hours 01/17/19 01/17/19 01/17/19 01/18/19 19:10 20:00 23:05 03:06 Temp 98.3 98.1 98.2 98.3 98.1 98.2 Pulse 68 61 67 Resp 16 16 18 B/P (MAP) 95/57 (70) 101/55 (70) 128/63 (84) Pulse Ox 99 97 98 O2 Delivery Room Air Room Air Room Air Room Air 01/18/19 01/18/19 01/18/19 01/18/19 07:03 08:00 09:52 10:39 Temp 98.1 97.8 98.1 97.8 Pulse 81 81 67 Resp 16 17 B/P (MAP) 153/80 (104) 153/80 100/55 (70) Pulse Ox 95 97 O2 Delivery Room Air Room Air Room Air O2 Flow Rate 98.0 01/18/19 14:55 Temp 97.6 97.6 Pulse 74 Resp 18 B/P (MAP) 108/47 (67) Pulse Ox 97 O2 Delivery Room Air Intake and Output 01/17/19 01/17/19 01/18/19 14:59 22:59 06:59 Intake Total 200 ml Output Total 300 ml Balance -100 ml MARY THAKKAR MD January 18, 2019 17:18
[2019-01-18] MEDS: cefTRIAXone IV Push 1 GM VIAL. IVP SCH (18:20)
[2019-01-18 19:32] VITALS: BP 92/52
[2019-01-18] MEDS: ATORVASTATIN CALCIUM 10 MG TABLET. PO SCH (19:59)
[2019-01-18 23:29] VITALS: BP 100/56
[2019-01-19 03:04] VITALS: BP 105/54
[2019-01-19 05:44] LABS: BASO % 1 % (0-3); EOS # 0.1 x10^3/uL (0.0-0.7); EOS % 3 % (0-3); HEMATOCRIT 32.9 % (36.0-47.0); LYMPH # 1.5 x10^3/uL (1.0-4.8); LYMPH % 33 % (24-48); MEAN CORPUSCULAR HEMOGLOBIN 31 pg (25-35); MEAN CORPUSCULAR HGB CONC 33 g/dL (31-37); MEAN CORPUSCULAR VOLUME 94 fL (79-100); MONO # 0.4 x10^3/uL (0.0-1.1); MONO % 9 % (0-9); NEUT # 2.4 x10^3uL (1.8-7.7); NEUT % 54 % (31-73); PLATELET COUNT 227 x10^3/uL (140-400); RED CELL DISTRIBUTION WIDTH 14.3 % (11.5-14.5); WHITE BLOOD COUNT 4.4 x10^3/uL (4.0-11.0)
[2019-01-19 06:09] LABS: CALCIUM 8.7 mg/dL (8.5-10.1); CREATININE 0.7 mg/dL (0.6-1.0); GFR 102.9; POTASSIUM 3.6 mmol/L (3.5-5.1)
[2019-01-19] MEDS: LEVOTHYROXINE 75 MCG TABLET PO SCH (06:12)
[2019-01-19 06:58] VITALS: BP 147/83
[2019-01-19] MEDS: CARBIDOPA/LEVODOPA CR 25/100MG TABLET.SA. PO SCH ×2 (07:12→10:28)
[2019-01-19] MEDS: rOPINIRole 0.25 MG TABLET. PO SCH (07:12)
[2019-01-19] MEDS: CARBIDOPA/LEVODOPA 25/100MG TABLET PO SCH ×2 (07:12→10:28)
[2019-01-19] MEDS: hydroCHLOROthiazide 12.5 MG CAPSULE PO SCH (09:11)
[2019-01-19] MEDS: FAMOTIDINE 20 MG TABLET. PO SCH (09:11)
[2019-01-19] MEDS: LACTOBACILLUS RHAMNOSUS GG 1 CAPSULE. PO SCH (09:11)
[2019-01-19] MEDS: amLODIPine BESYLATE 5 MG TABLET PO SCH (09:12)
[2019-01-19 10:25] VITALS: BP 99/54
--- NOTE | 2019-01-19 10:45 | NUR ---
Discharge Note: JEREMY HANEY [address] Discharge instructions and discharge home medications reviewed with patient and a copy given. All questions have been answered and understanding verbalized. The following instructions and handouts were given: Stop Aspirin FF up with PCP in a week. FF up with Neurosurgery (Dr. Joe) in a week FF up with Neurology as needed, Subdural hematoma handout. Discontinued lines and drains: peripheral IV intact, grace catheter tip intact, patient tolerated removal, no complications noted Patient discharged to home via wheelchair, accompanied by her sisters at 1040.
--- NOTE | 2019-01-19 12:30 | PDOC3 ---
Discharge Summary Visit Information Date of Admission: January 13, 2019 Date of Discharge: January 19, 2019 Admitting Diagnosis Comment: Subdural hematoma - small frontal density on CT. Will hold ASA, admit to ICU, q4 hour neuro checks, consult neurosurgery, serial head CTs GERD - cont home PPI Hypertension - cont home medications, lower BP by 25%, MONITOR CLOSELY Parkinson's - cont sinemet, requip. Consult neuro. Falls - consult PT/OT, may need some skilled svcs on d/c to prevent further falls Grave's - will verify her thyroid dosing PVD s/p peripheral stents - hold antiplatelet agents for SDH Bladder dystonia - with intermittent self-catheterization, seen by Urology outpatient, had this recommended for her history of dystonia and frequent UTI, will intermittently cath inpatient, would not recommend a grace at this time with her history of catheter related UTIs Final Diagnosis Problems Medical Problems: (1) Subdural hematoma asymptomatic Status: Acute GERD - cont home PPI Hypertension fairly controlled Parkinson's - cont sinemet, requip. Consult neuro. Falls - consult PT/OT, may need some skilled svcs on d/c to prevent further falls Grave's -continue home meds PVD s/p peripheral stents - Bladder dystonia - with intermittent self-catheterization, seen by Urology outpatient, had this recommended for her history of dystonia and frequent UTI, will intermittently cath inpatient Brief Hospital Course Allergies Allergies Coded Allergies Type Severity Reaction Last Updated Verified oxybutynin Allergy Intermediate HYPOTENSION, NAUSEA 01/16/19 Yes ciprofloxacin Adverse Reaction Mild Diarrhea 01/16/19 Yes gabapentin Adverse Reaction Mild VERTIGO 01/16/19 Yes Vital Signs Vital Signs Date Time Temp Pulse Resp B/P (MAP) Pulse Ox O2 Delivery O2 Flow Rate FiO2 01/19/19 10:25 98.0 74 16 99/54 (69) 99 Room Air 98.0 01/18/19 08:00 98.0 Gen.: well-developed well-nourished in no apparent distress Head: Normal shape atraumatic Eyes: Exophthalmus due to Bessy Ears: Normal shape Nose: Normal shape no trauma Mouth: No exudates of the back of throat no thrush no lesions Neck: Supple no JVD no carotid bruit or lymphadenopathy no thyromegaly Chest: Lungs clear to auscultation with good inspiratory effort no crackles rales or rhonchi Cardiovascular: S1-S2 regular rhythm no murmurs gallops or rubs Abdomen: Bowel sounds present soft nontender no hepatosplenomegaly appreciated sign Extremities: No clubbing no cyanosis no edema peripheral pulses palpated bilaterally Neurological: Alert awake oriented in person time place and situation, cranial nerves II through XII intact, no motor or sensory deficits appreciated Psych: Appropriate mood, cooperative Lab Results Laboratory Tests Test 01/18/19 04:10 01/19/19 05:20 White Blood Count 4.8 x10^3/uL (4.0-11.0) 4.4 x10^3/uL (4.0-11.0) Red Blood Count 3.69 x10^6/uL (3.50-5.40) 3.50 x10^6/uL (3.50-5.40) Hemoglobin 11.5 g/dL (12.0-15.5) 11.0 g/dL (12.0-15.5) Hematocrit 34.7 % (36.0-47.0) 32.9 % (36.0-47.0) Mean Corpuscular Volume 94 fL (79-100) 94 fL (79-100) Mean Corpuscular Hemoglobin 31 pg (25-35) 31 pg (25-35) Mean Corpuscular Hemoglobin Concent 33 g/dL (31-37) 33 g/dL (31-37) Red Cell Distribution Width 14.6 % (11.5-14.5) 14.3 % (11.5-14.5) Platelet Count 234 x10^3/uL (140-400) 227 x10^3/uL (140-400) Neutrophils (%) (Auto) 57 % (31-73) 54 % (31-73) Lymphocytes (%) (Auto) 30 % (24-48) 33 % (24-48) Monocytes (%) (Auto) 9 % (0-9) 9 % (0-9) Eosinophils (%) (Auto) 3 % (0-3) 3 % (0-3) Basophils (%) (Auto) 1 % (0-3) 1 % (0-3) Neutrophils # (Auto) 2.7 x10^3uL (1.8-7.7) 2.4 x10^3uL (1.8-7.7) Lymphocytes # (Auto) 1.4 x10^3/uL (1.0-4.8) 1.5 x10^3/uL (1.0-4.8) Monocytes # (Auto) 0.4 x10^3/uL (0.0-1.1) 0.4 x10^3/uL (0.0-1.1) Eosinophils # (Auto) 0.1 x10^3/uL (0.0-0.7) 0.1 x10^3/uL (0.0-0.7) Basophils # (Auto) 0.0 x10^3/uL (0.0-0.2) 0.0 x10^3/uL (0.0-0.2) Sodium Level 144 mmol/L (136-145) 144 mmol/L (136-145) Potassium Level 3.5 mmol/L (3.5-5.1) 3.6 mmol/L (3.5-5.1) Chloride Level 105 mmol/L (98-107) 105 mmol/L (98-107) Carbon Dioxide Level 28 mmol/L (21-32) 30 mmol/L (21-32) Anion Gap 11 (6-14) 9 (6-14) Blood Urea Nitrogen 21 mg/dL (7-20) 19 mg/dL (7-20) Creatinine 0.6 mg/dL (0.6-1.0) 0.7 mg/dL (0.6-1.0) Estimated GFR (Cockcroft-Gault) 123.0 102.9 Glucose Level 90 mg/dL (70-99) 88 mg/dL (70-99) Calcium Level 9.1 mg/dL (8.5-10.1) 8.7 mg/dL (8.5-10.1) Laboratory Tests Test 01/19/19 05:20 White Blood Count 4.4 x10^3/uL (4.0-11.0) Red Blood Count 3.50 x10^6/uL (3.50-5.40) Hemoglobin 11.0 g/dL (12.0-15.5) Hematocrit 32.9 % (36.0-47.0) Mean Corpuscular Volume 94 fL (79-100) Mean Corpuscular Hemoglobin 31 pg (25-35) Mean Corpuscular Hemoglobin Concent 33 g/dL (31-37) Red Cell Distribution Width 14.3 % (11.5-14.5) Platelet Count 227 x10^3/uL (140-400) Neutrophils (%) (Auto) 54 % (31-73) Lymphocytes (%) (Auto) 33 % (24-48) Monocytes (%) (Auto) 9 % (0-9) Eosinophils (%) (Auto) 3 % (0-3) Basophils (%) (Auto) 1 % (0-3) Neutrophils # (Auto) 2.4 x10^3uL (1.8-7.7) Lymphocytes # (Auto) 1.5 x10^3/uL (1.0-4.8) Monocytes # (Auto) 0.4 x10^3/uL (0.0-1.1) Eosinophils # (Auto) 0.1 x10^3/uL (0.0-0.7) Basophils # (Auto) 0.0 x10^3/uL (0.0-0.2) Sodium Level 144 mmol/L (136-145) Potassium Level 3.6 mmol/L (3.5-5.1) Chloride Level 105 mmol/L (98-107) Carbon Dioxide Level 30 mmol/L (21-32) Anion Gap 9 (6-14) Blood Urea Nitrogen 19 mg/dL (7-20) Creatinine 0.7 mg/dL (0.6-1.0) Estimated GFR (Cockcroft-Gault) 102.9 Glucose Level 88 mg/dL (70-99) Calcium Level 8.7 mg/dL (8.5-10.1) Brief Hospital Course Ms Haney is a 63 year old female w/ PMHx GERD, Hypertension, Parkinson's, grave's, PVD s/p peripheral stents, and bladder dystonia with intermittent cathing who presents after tripping and falling while she was getting dressed. She hit her right side of her face on the headboard of the bed and struck her right orbit. She had no loss of consciousness. Occurred at 1:20 PM. Rates her pain as 4 out of 10, aching. Her sister, bedside notes that she fell late last week as well and still has some bruising on her left eye from this. CT head revealed what is a likely a subdural hematoma. On further review she notes she is on ASA for a lower extremity stent placed at [facility] over 3 years ago. She was admitted initially to the intensive care unit for close monitoring insulin neurosurgical evaluation. The patient fortunately not did not require intervention given the stability of her subdural hematoma and lack of neurological deficits or symptoms. He was transitioned to the medical floor where she remained on observation pending repeat CAT scans 2 of them were done after the initial one and no worsening was noted. She was deemed appropriate from the neurosurgical standpoint of view to be dismissed home. She understand that she has to been more careful at home given her underlying Parkinson's disease with the expected gait disturbances. She was in good spirits to be dismissed home Grace catheter will be discontinued and she will continue with intermittent catheterization at home Results of her last CAT scan are as follows PATIENT: JEREMY HANEY ACCOUNT: [id number] : 1955 LOCATION: [address] [place] [address] AGE: 63 SEX: F EXAM STATUS: ADM IN ORD. PHYSICIAN: MARIANA MARTINES MD REASON: f/u SDH PROCEDURE: CT HEAD WO CONTRAST CT HEAD INDICATION: Follow-up subdural bleed COMPARISON: 01/15/2019 Exposure: One or more of the following individualized dose reduction techniques were utilized for this examination: 1. Automated exposure control 2. Adjustment of the mA and/or kV according to patient size 3. Use of iterative reconstruction technique TECHNIQUE: 5 mm contiguous axial images were obtained from the skull base to the vertex in both bone and soft tissue algorithm. FINDINGS: Minimal oltje-el-[id number] midline shift measuring 4.5 mm is unchanged. Right subdural hematoma in the right frontal parietotemporal region with the thickness of 5 mm is similar to prior exam. The visualized lateral ventricles, third ventricle, fourth ventricle are patent. There is effacement of the right cerebral gyri similar to prior exam. The basal cisterns are uneffaced. The visualized paranasal sinuses, mastoid air cells are clear. Mild soft tissue swelling identified lateral to the orbital wall likely soft tissue injury. IMPRESSION: 1. Unchanged right cerebral convexity subdural hemorrhage with minimal mass effect. Electronically signed by: Drew Nassar MD (01/18/2019 9:09 AM) [facility] DICTATED and SIGNED BY: DREW NASSAR MD DATE: 01/18/19908 Discharge Information Condition at Discharge: Improved Follow Up: Weeks (1 week with primary care physician) Disposition/Orders: D/C to Home Scheduled Aspirin (Children's Aspirin) 81 Mg Tab.chew, 81 MG PO DAILY for CAD, (Reported) Entered as Reported by: DARA VANCE on 01/13/192053 Last Action: New Order on 01/13/192053 by DARA VANCE Atorvastatin Calcium (Atorvastatin Calcium) 10 Mg Tablet, 1 TAB PO DAILY for high cholesterol, #30 Ref 5 (Reported) Entered as Reported by: DARA VANCE on 01/13/192053 Last Action: Continued on 01/13/192113 by DARA VANCE Carbidopa/Levodopa (Sinemet Cr 50-200 Tablet) 1 Each Tablet.er, 1 TAB PO six times a day for parkinsons, (Reported) Entered as Reported by: DARA VANCE on 01/13/192053 Last Action: Converted on 01/13/192113 by DARA VANCE Carbidopa/Levodopa (Sinemet Cr 25-100 Tablet) 1 Each Tablet.er, 1 TAB PO five times a day for parkinsons, (Reported) Entered as Reported by: DARA VANCE on 01/13/192053 Last Action: Continued on 01/13/192113 by DARA VANCE Ciclopirox Olamine (Ciclopirox) 15 Gm Cream..g., 1 MILANA TP HS for toes, #15 Ref 1 (Reported) Entered as Reported by: DARA VANCE on 01/13/192053 Last Action: Converted on 01/13/192113 by DARA VANCE Hydrochlorothiazide (Hydrochlorothiazide Tablet) 12.5 Mg Tablet, 12.5 MG PO DAILY for DIURETIC, Ref 0 (Reported) Entered as Reported by: DARA VANCE on 01/13/192053 Last Action: Converted on 01/13/192113 by DARA VANCE Levothyroxine Sodium (Levothyroxine Sodium) 75 Mcg Tablet, 1 TAB PO DAILY for hypothyroidism, #30 Ref 5 (Reported) Entered as Reported by: DARA VANCE on 01/13/192053 Last Action: Continued on 01/13/192113 by DARA VANCE Ranitidine Hcl (Ranitidine Hcl) 150 Mg Tablet, 150 MG PO DAILY for GERD, (Reported) Entered as Reported by: DARA VANCE on 01/13/192053 Last Action: Converted on 01/13/192113 by DARA VANCE Ropinirole Hcl (Requip) 0.5 Mg Tablet, 0.5 MG PO TID for parkinsons, (Reported) Entered as Reported by: DARA VANCE on 01/13/192053 Last Action: Converted on 01/13/192113 by DARA VANCE Scheduled PRN Nitroglycerin (NITROGLYCERIN SubLingual) 0.4 Mg Tab.subl, 0.4 MG SL PRN Q5MIN PRN for CHEST PAIN, (Reported) Entered as Reported by: DARA VANCE on 01/13/192053 Last Action: Continued on 01/13/192113 by MARY MOHAN MD January 19, 2019 12:30
[2019-01-21 06:00] LABS: FACTOR IX ASSAY SEE SEPARATE REPORT
[2019-01-22 08:58] LABS: LUPUS ANTICOAGULANT SEE SEPARATE REPORT
[2019-01-22 09:00] LABS: FACTOR XI ASSAY SEE SEPARATE REPORT
[2019-01-25] MEDS ORDERED: CARBIDOPA/LEVODOPA CR 25/100MG TABLET.SA. PO SCH (07:00)
[2019-01-28] MEDS ORDERED: POLY17PO29 PO (14:01)
[2019-01-28] MEDS ORDERED: DEXA4TAB63 PO (14:02)
== END 2019-01-19 10:40 | disposition home or self-care (01) | DRG 83 ==
LOC: ER 13:49 → 1 WEST ICU 17:27 → 6 SOUTH 01-17 06:57
PROVIDERS: ADMIT Internal Medicine; ATTEND Internal Medicine
DX: S06.5X9A Traumatic subdural hemorrhage with loss of consciousness of unspecified duration, initial encounter (principal); N39.0 Urinary tract infection, site not specified; D68.9 Coagulation defect, unspecified; G20 Parkinson's disease; G24.9 Dystonia, unspecified; I10 Essential (primary) hypertension; I25.10 Atherosclerotic heart disease of native coronary artery without angina pectoris; I25.2 Old myocardial infarction; I73.9 Peripheral vascular disease, unspecified; K21.9 Gastro-esophageal reflux disease without esophagitis; S00.11XA Contusion of right eyelid and periocular area, initial encounter; S00.12XA Contusion of left eyelid and periocular area, initial encounter; W01.0XXA Fall on same level from slipping, tripping and stumbling without subsequent striking against object, initial encounter; Z79.899 Other long term (current) drug therapy; Z82.49 Family history of ischemic heart disease and other diseases of the circulatory system; Z90.710 Acquired absence of both cervix and uterus; Z95.5 Presence of coronary angioplasty implant and graft; Z95.820 Peripheral vascular angioplasty status with implants and grafts; Z87.440 Personal history of urinary (tract) infections; Z79.82 Long term (current) use of aspirin; Z88.8 Allergy status to other drugs, medicaments and biological substances; Y93.89 Activity, other specified; Y92.89 Other specified places as the place of occurrence of the external cause; Y99.8 Other external cause status
CPT/HCPCS: 36415; 70450; 70486; 72125; 73090; 73562; 73590; 80048; 80076; 80307; 81001; 84165; 85025; 85250; 85270; 85335; 85384; 85610; 85730; 86334; 86850; 86900; 86901; 87641; 93005; J0696; J2405; J3010; J3490; 97110; 97116; 97535; 99285-25

== ENCOUNTER 2019-01-24 12:57 | Inpatient (IN) | payer MEDICARE ==
[~2019-01-24] VITALS: Ht 162.6 cm; Wt 70.1 kg
[~2019-01-24 12:57] MED LIST: ASPI81TA59 PO; ATOR10TA60 PO; CARB1TAB4 PO; CARB1TAB5 PO; CICL15CR2 TP; HYDR12.58 PO; LEVO75TA5 PO; NITR0.4T22 SL; RANI150T2 PO; ROPI0.5T PO
[2019-01-24] MEDS ORDERED: IV NORMAL SALINE 1000ML BAG 1,000 ML IV ONE (13:45)
[2019-01-24 13:50] LABS: BASO % 1 % (0-3); EOS % 0 % (0-3); HEMATOCRIT 36.8 % (36.0-47.0); HEMOGLOBIN 12.4 g/dL (12.0-15.5); LYMPH # 0.8 x10^3/uL (1.0-4.8); LYMPH % 14 % (24-48); MEAN CORPUSCULAR HEMOGLOBIN 32 pg (25-35); MEAN CORPUSCULAR HGB CONC 34 g/dL (31-37); MEAN CORPUSCULAR VOLUME 94 fL (79-100); MONO # 0.4 x10^3/uL (0.0-1.1); MONO % 7 % (0-9); NEUT # 4.2 x10^3uL (1.8-7.7); NEUT % 78 % (31-73); PLATELET COUNT 293 x10^3/uL (140-400); RED BLOOD COUNT 3.91 x10^6/uL (3.50-5.40); WHITE BLOOD COUNT 5.4 x10^3/uL (4.0-11.0)
--- NOTE | 2019-01-24 13:52 | PHYS DOC ---
Past Medical History Past Medical History: GERD, High Cholesterol, Hypertension Additional Past Medical Histor: Parkinson's, grave's, cardiac stent Past Surgical History: Hysterectomy Additional Past Surgical Histo: Right ankle plate & screws, Left rotator cuff repair Alcohol Use: None Drug Use: None Adult General Chief Complaint Chief Complaint: FATIGUE HPI HPI Patient is a 63 year old female who presents with fatigue and generalized weakness. She was admitted on January 13 for a fall that resulted in a subdural hematoma and was discharged just 4 days ago. She and her sisters are concerned because they were told if she experienced nausea or vomiting that it may be a si gn of increasing intracranial pressure. Patient feels nauseous but it is only when she eats food. She states that her appetite has been decreased and she feels as if she is force feeding herself. She has not vomited but she dry-heaved once while eating. She has not had morning nausea or been woken up from sleep due to nausea. She denies headache, palpitations, shortness of breath, fever, chills, extremity weakness, changes in sensation, vision or hearing. She has not had any weight loss. Review of Systems Review of Systems Constitutional: Reports fatigue and generalized weakness. Denies fever or chills Eyes: Denies vision changes, diplopia, or blurred vision HENT: Denies nasal congestion or sore throat Respiratory: Denies cough or shortness of breath Cardiovascular: Denies chest pain or palpitations GI: Reports nausea. Denies abdominal pain or vomiting : Denies dysuria or hematuria Neurologic: Denies headache, focal weakness or sensory changes Complete systems were reviewed and found to be within normal limits, except as documented in this note. Current Medications Current Medications Current Medications Medications (Trade) Dose Ordered Sig/Karol Start Time Stop Time Status Last Admin Dose Admin Atropine Sulfate (ATROPINE 0.5mg SYRINGE) 0.5 mg 1X ONCE 01/24/19 17:15 01/24/19 17:20 DC Ceftriaxone Sodium (Rocephin) 1 gm 1X ONCE 01/24/19 17:00 01/24/19 17:01 DC 01/24/19 17:26 1 GM Dexamethasone (Decadron) 2 mg 1X ONCE 01/24/19 17:15 01/24/19 17:20 DC Famotidine (Pepcid Vial) 20 mg 1X ONCE 01/24/19 17:15 01/24/19 17:20 DC 01/24/19 17:29 20 MG Ondansetron HCl (Zofran) 4 mg 1X ONCE 01/24/19 16:45 01/24/19 16:53 DC 01/24/19 17:26 4 MG Potassium Chloride (Klor-Con) 40 meq 1X ONCE 01/24/19 16:30 01/24/19 16:32 DC Sodium Chloride 1,000 ml @ 1,000 mls/hr 1X ONCE 01/24/19 13:45 01/24/19 14:44 DC 01/24/19 14:30 1,000 MLS/HR Allergies Allergies Allergies Coded Allergies Type Severity Reaction Last Updated Verified oxybutynin Allergy Intermediate HYPOTENSION, NAUSEA 01/16/19 Yes ciprofloxacin Adverse Reaction Mild Diarrhea 01/16/19 Yes gabapentin Adverse Reaction Mild VERTIGO 01/16/19 Yes Physical Exam Physical Exam Constitutional: Well developed, well nourished, no acute distress, non-toxic appearance HENT: Bilateral orbital ecchymoses from prior fall, nares patent, oropharynx dry Eyes: PERRL, EOMI, conjunctiva normal, no discharge Neck: Normal range of motion, supple, nontender without lymphadenopathy Cardiovascular: Heart rate bradycardic, regular rhythm Lungs & Thorax: Bilateral breath sounds clear to auscultation, no wheezing Abdomen: Soft, no tenderness Neurologic: Alert and oriented, normal motor function, normal sensory function, no focal deficits noted, cranial nerves II through XII grossly intact bila terally, finger to nose testing normal. Psychologic: Affect is flat, judgement normal, mood normal Current Patient Data Vital Signs Vital Signs Date Time Temp Pulse Resp B/P (MAP) Pulse Ox O2 Delivery O2 Flow Rate FiO2 01/24/19 16:30 48 20 148/73 (98) 100 Room Air 01/24/19 13:30 97.5 97.5 Lab Values Laboratory Tests Test 01/24/19 13:20 01/24/19 16:11 White Blood Count 5.4 x10^3/uL (4.0-11.0) Red Blood Count 3.91 x10^6/uL (3.50-5.40) Hemoglobin 12.4 g/dL (12.0-15.5) Hematocrit 36.8 % (36.0-47.0) Mean Corpuscular Volume 94 fL (79-100) Mean Corpuscular Hemoglobin 32 pg (25-35) Mean Corpuscular Hemoglobin Concent 34 g/dL (31-37) Red Cell Distribution Width 14.0 % (11.5-14.5) Platelet Count 293 x10^3/uL (140-400) Neutrophils (%) (Auto) 78 % (31-73) H Lymphocytes (%) (Auto) 14 % (24-48) L Monocytes (%) (Auto) 7 % (0-9) Eosinophils (%) (Auto) 0 % (0-3) Basophils (%) (Auto) 1 % (0-3) Neutrophils # (Auto) 4.2 x10^3uL (1.8-7.7) Lymphocytes # (Auto) 0.8 x10^3/uL (1.0-4.8) L Monocytes # (Auto) 0.4 x10^3/uL (0.0-1.1) Eosinophils # (Auto) 0.0 x10^3/uL (0.0-0.7) Basophils # (Auto) 0.0 x10^3/uL (0.0-0.2) Sodium Level 143 mmol/L (136-145) Potassium Level 3.3 mmol/L (3.5-5.1) L Chloride Level 102 mmol/L (98-107) Carbon Dioxide Level 33 mmol/L (21-32) H Anion Gap 8 (6-14) Blood Urea Nitrogen 13 mg/dL (7-20) Creatinine 0.6 mg/dL (0.6-1.0) Estimated GFR (Cockcroft-Gault) 123.0 BUN/Creatinine Ratio 22 (6-20) H Glucose Level 99 mg/dL (70-99) Calcium Level 9.5 mg/dL (8.5-10.1) Magnesium Level 2.1 mg/dL (1.8-2.4) Total Bilirubin 0.8 mg/dL (0.2-1.0) Aspartate Amino Transferase (AST) 16 U/L (15-37) Alanine Aminotransferase (ALT) 14 U/L (14-59) Alkaline Phosphatase 167 U/L (46-116) H Creatine Kinase 118 U/L (26-192) Creatine Kinase MB (Mass) 1.3 ng/mL (0.0-3.6) Creatine Kinase MB Relative Index 1.1 % (0-4) Troponin I Quantitative < 0.017 ng/mL (0.000-0.055) Total Protein 8.0 g/dL (6.4-8.2) Albumin 4.3 g/dL (3.4-5.0) Albumin/Globulin Ratio 1.2 (1.0-1.7) Thyroid Stimulating Hormone (TSH) 3.735 uIU/mL (0.358-3.74) Free Thyroxine 1.11 ng/dL (0.76-1.46) Free Triiodothyronine (T3) pg/mL 1.92 pg/mL (2.18-3.98) L Urine Color Yellow Urine Clarity Turbid Urine pH 6.5 Urine Specific [place] 1.020 Urine Protein Negative mg/dL (NEG-TRACE) Urine Glucose (UA) Negative mg/dL (NEG) Urine Ketones (Stick) Trace mg/dL (NEG) Urine Blood Negative (NEG) Urine Nitrite Negative (NEG) Urine Bilirubin Negative (NEG) Urine Urobilinogen Dipstick 1.0 mg/dL (0.2 mg/dL) Urine Leukocyte Esterase Moderate (NEG) Urine RBC 0 /HPF (0-2) Urine WBC 5-10 /HPF (0-4) Urine Squamous Epithelial Cells Occ /LPF Urine Bacteria Few /HPF (0-FEW) Urine Mucus Mod /LPF Laboratory Tests 01/24/19 13:20 Laboratory Tests 01/24/19 13:20 EKG EKG @1344: Sinus bradycardia with rate of 46. Normal axis. No Q waves. No T wave inversions. No ST segment elevation or depression. @1728: Sinus bradycardia with rate of 43. Normal axis. No Q waves. No ST segment elevation or depression. [] Radiology/Procedures Radiology/Procedures [] Course & Med Decision Making Course & Med Decision Making Pertinent Labs and Imaging studies reviewed. (See chart for details) [] Dragon Disclaimer Dragon Disclaimer This electronic medical record was generated, in whole or in part, using a voice recognition dictation system. Departure Departure Impression: Primary Impression: Severe sinus bradycardia Additional Impressions: Subacute subdural hematoma Fatigue Hypokalemia Urinary tract infection Disposition: ADMITTED INPATIENT Condition: GUARDED Referrals: UNKNOWN PCP NAME (PCP) Problem Qualifiers Additional Impressions: Fatigue Fatigue type: unspecified Qualified Codes: R53.83 - Other fatigue Urinary tract infection Urinary tract infection type: catheter-associated UTI Indwelling urinary catheter type: unspecified Encounter type: initial encounter Qualified Codes: T83.511A - Infection and inflammatory reaction due to indwelling urethral catheter, initial encounter; N39.0 - Urinary tract infection, site not specified WANDA ANDREW DO January 24, 2019 13:52
--- NOTE | 2019-01-24 14:00 | RAD ---
Portable chest, 01/24/2019: HISTORY: Fatigue The heart is at the upper limits of normal in size. The pulmonary vascularity is normal. No pulmonary infiltrate is seen. There is no evidence of pleural fluid. IMPRESSION: No acute cardiopulmonary abnormality is detected. Electronically signed by: Ady Campbell MD (01/24/2019 1:57 PM) [facility]
[2019-01-24 14:02] LABS: CALCIUM 9.5 mg/dL (8.5-10.1); CREATININE 0.6 mg/dL (0.6-1.0); POTASSIUM 3.3 mmol/L (3.5-5.1)
--- NOTE | 2019-01-24 14:04 | EKG ---
[facility] [address] [place] [address] Test Date: 2019-01-24 Test Time: 13:44:04 Pat Name: JEREMY HANEY Department: Room: Gender: F [employer] In[employer]: : [id number] Requested By: WANDA ANDREW Order Number: [id number] Reading MD: Catarino Dacosta MD Measurements Intervals Paden Rate: 46 P: 48 AR: 210 QRS: 8 QRSD: 80 T: 72 QT: 472 QTc: 414 Interpretive Statements SINUS BRADYCARDIA Electronically Signed On 01-25-2019 11:45:13 CDT by Catarino Dacosta MD
[2019-01-24 14:08] LABS: ALBUMIN 4.3 g/dL (3.4-5.0); ALBUMIN/GLOBULIN RATIO 1.2 (1.0-1.7); MAGNESIUM 2.1 mg/dL (1.8-2.4); TOTAL BILIRUBIN 0.8 mg/dL (0.2-1.0)
[2019-01-24 14:19] LABS: FREE T4 1.11 ng/dL (0.76-1.46); THYROID STIM HORMONE (TSH) 3.735 uIU/mL (0.358-3.74)
--- NOTE | 2019-01-24 14:47 | RAD ---
CT of the head without contrast, 01/24/2019: HISTORY: Weakness, previous subdural hematoma Comparison is made to a study from 01/18/2019. There is a persistent subdural hematoma on the right which extends from the temporal region up through the frontoparietal region. Portions of this hematoma are less dense and less clearly defined than on the previous study, compatible with normal evolution of an acute hemorrhage. It is best defined in the right temporal region where it measures 5 to 6 mm in thickness. On the coronal images it measures 6-7 mm in thickness in the parietal region is 7-8 mm in width in the frontal region. No prior coronal images are available for direct comparison. The overall size appears similar to that seen on 01/18/2019. There is ongoing effacement of cortical sulci over the right cerebral convexity. There is a moderate right to left shift of the midline structures which has worsened. The degree of effacement of the right lateral ventricle appears to worsened slightly. No intra-axial hemorrhage is seen. There is moderate hyperostosis interna. IMPRESSION: The evolving recent right subdural hematoma is of similar overall size, however, there is increasing mass effect with an increase in the right to left shift of the midline structures. PQRS Compliance Statement: One or more of the following individualized dose reduction techniques were utilized for this examination: 1. Automated exposure control 2. Adjustment of the mA and/or kV according to patient size 3. Use of iterative reconstruction technique Electronically signed by: Ady Campbell MD (01/24/2019 2:44 PM) [facility]
[2019-01-24 16:20] LABS: BILIRUBIN,URINE NEGATIVE (NEG); CLARITY,URINE TURBID; COLOR,URINE YELLOW; NITRITE,URINE NEGATIVE (NEG); PH,URINE 6.5; PROTEIN,URINE NEGATIVE (NEG-TRACE)
[2019-01-24] MEDS ORDERED: POTASSIUM CHLORIDE 20 MEQ TABLET.ER. PO ONE (16:30)
[2019-01-24 16:38] LABS: BACTERIA,URINE FEW /HPF (0-FEW); RBC,URINE 0 /HPF (0-2); SQUAMOUS EPITHELIAL CELL,UR OCC /LPF
[2019-01-24] MEDS ORDERED: ONDANSETRON PF 4 MG/2 ML VIAL. IV ONE (16:45)
[2019-01-24] MEDS ORDERED: cefTRIAXone IV Push 1 GM VIAL. IVP ONE (17:00)
[2019-01-24] MEDS ORDERED: ATROPINE 0.5 MG/5 ML DISP.SYRINGE. IV ONE (17:15)
[2019-01-24] MEDS ORDERED: FAMOTIDINE 20 MG/2 ML VIAL IVP ONE (17:15)
[2019-01-24] MEDS ORDERED: DEXAMETHASONE 1 MG TABLET PO ONE (17:15)
[2019-01-24] MEDS ORDERED: ONDANSETRON PF 4 MG/2 ML VIAL. IV PRN (17:45)
[2019-01-24 19:07] VITALS: BP 132/93
[2019-01-24] MEDS ORDERED: POLY17PO29 PO (19:56)
[2019-01-24] MEDS ORDERED: NITROGLYCERIN SUBLINGUAL 0.4 MG BOTTLE OF 25. SL PRN (20:15)
[2019-01-24] MEDS ORDERED: CARBIDOPA PO SCH (20:15)
[2019-01-24] MEDS ORDERED: LEVODOPA PO SCH (20:15)
[2019-01-24] MEDS ORDERED: CICLOPIROX OLAMINE TP SCH (21:00)
[2019-01-24] MEDS ORDERED: rOPINIRole 0.25 MG TABLET. PO SCH (21:00)
[2019-01-24] MEDS: ATORVASTATIN CALCIUM 10 MG TABLET. PO SCH (21:11)
[2019-01-24] MEDS: CARBIDOPA/LEVODOPA CR 25/100MG TABLET.SA. PO SCH (21:12)
[2019-01-24] MEDS: FAMOTIDINE 20 MG TABLET. PO SCH (21:49)
--- NOTE | 2019-01-24 22:02 | PDOC1 ---
History and Physical Date of Admission Date of Admission DATE: 01/24/19 TIME: 22:02 Identification/Chief Complaint Chief Complaint SEEN IN ER , 63 year old female who presents with fatigue and generalized weakness. admitted on January 13 for a fall that resulted in a subdural hematoma and was discharged just 4 days ago. She and her sisters are concerned because they were told if she experienced nausea or vomiting that it may be a sign of increasing intracranial pressure. Patient feels nauseous but it is only when she eats food. She states that her appetite has been decreased and she feels as if she is force feeding herself. has not vomited but she dry-heaved once while eating. She has not had morning nausea or been woken up from sleep due to nausea. She denies headache, palpitations, shortness of breath, fever, chills, extremity weakness, changes in sensation, vision or hearing. CT SHOWS more of shift tonight Past Medical History Past Medical History Past Medical History Past Medical History Past Medical History: GERD, High Cholesterol, Hypertension Additional Past Medical Histor: Parkinson's, grave's, cardiac stent Past Surgical History: Hysterectomy Additional Past Surgical Histo: Right ankle plate & screws, Left rotator cuff repair Alcohol Use: None Drug Use: None family hx htn Cardiovascular: HTN Pulmonary: No pertinent hx CENTRAL NERVOUS SYSTEM: Other GI: GERD Heme/Onc: No pertinent hx Hepatobiliary: No pertinent hx Psych: No pertinent hx Rheumatologic: No pertinent hx Infectious disease: No pertinent hx Renal/: Urinary Incontinence Endocrine: No pertinent hx Past Surgical History Past Surgical History: Arthroscopy, Hysterectomy, Other Family History Family History: Heart Disease, High Cholestrol, Hypertension Social History Smoke: No ALCOHOL: none Drugs: None Current Problem List Problem List Problems Medical Problems: (1) Fatigue Status: Acute (2) Hypokalemia Status: Acute (3) Severe sinus bradycardia Status: Acute (4) Subacute subdural hematoma Status: Acute (5) Urinary tract infection Status: Acute Current Medications Current Medications Current Medications Sodium Chloride 1,000 ml @ 1,000 mls/hr 1X ONCE IV Last administered on 01/24/19at 14:30; Start 01/24/19 at 13:45; Stop 01/24/19 at 14:44; Status DC Potassium Chloride (Klor-Con) 40 meq 1X ONCE PO Last administered on 01/24/19at 17:44; Start 01/24/19 at 16:30; Stop 01/24/19 at 16:32; Status DC Ondansetron HCl (Zofran) 4 mg 1X ONCE IV Last administered on 01/24/19at 17:26; Start 01/24/19 at 16:45; Stop 01/24/19 at 16:53; Status DC Ceftriaxone Sodium (Rocephin) 1 gm 1X ONCE IVP Last administered on 01/24/19at 17:26; Start 01/24/19 at 17:00; Stop 01/24/19 at 17:01; Status DC Dexamethasone (Decadron) 2 mg 1X ONCE PO Last administered on 01/24/19at 17:44; Start 01/24/19 at 17:15; Stop 01/24/19 at 17:20; Status DC Famotidine (Pepcid Vial) 20 mg 1X ONCE IVP Last administered on 01/24/19at 17:29; Start 01/24/19 at 17:15; Stop 01/24/19 at 17:20; Status DC Atropine Sulfate (ATROPINE 0.5mg SYRINGE) 0.5 mg 1X ONCE IV ; Start 01/24/19 at 17:15; Stop 01/24/19 at 17:20; Status DC Ondansetron HCl (Zofran) 4 mg PRN Q8HRS PRN IV NAUSEA/VOMITING; Start 01/24/19 at 17:45; Stop 01/25/19 at 17:44 Atorvastatin Calcium (Lipitor) 10 mg QHS PO Last administered on 01/24/19at 21:11; Start 01/24/19 at 21:00 Carbidopa/Levodopa (Sinemet Cr) 3 tab.sa 0700,1000,1300 PO ; Start 01/25/19 at 07:00 Levothyroxine Sodium (Synthroid) 75 mcg DAILY06 PO ; Start 01/25/19 at 09:00 Nitroglycerin (Nitrostat) 0.4 mg PRN Q5MIN PRN SL CHEST PAIN; Start 01/24/19 at 20:15 Non-Formulary Medication (Carbidopa/ Levodopa (Sinemet Cr 50-200 Tablet)) 1 tab six times a day PO ; Start 01/24/19 at 20:15; Status UNV Non-Formulary Medication (Ciclopirox Olamine (Ciclopirox)) 1 teja HS TP ; Start 01/24/19 at 21:00; Status UNV Hydrochlorothiazide (Microzide) 12.5 mg DAILY PO ; Start 01/25/19 at 09:00 Polyethylene Glycol (miraLAX PACKET) 17 gm DAILY PO ; Start 01/25/19 at 09:00; Stop 01/25/19 at 09:00; Status DC Famotidine (Pepcid) 20 mg QHS PO Last administered on 01/24/19at 21:49; Start 01/24/19 at 22:00 Ropinirole HCl (Requip) 0.5 mg TID PO ; Start 01/24/19 at 21:00; Stop 01/24/19 at 21:45; Status DC Carbidopa/Levodopa (Sinemet Cr) 3 tab.sa 1600,1900 PO ; Start 01/25/19 at 16:00 Carbidopa/Levodopa (Sinemet Cr) 2 tab.sa 2200 PO Last administered on 01/24/19at 21:12; Start 01/24/19 at 22:00 Polyethylene Glycol (miraLAX PACKET) 17 gm PRN DAILY PRN PO CONSTIPATION 1ST CHOICE; Start 01/25/19 at 09:00 Ropinirole HCl (Requip) 0.5 mg 0700,1300,1900 PO ; Start 01/25/19 at 07:00 Active Scripts Active Reported Miralax (Polyethylene Glycol 3350) 17 Gm Powd.pack 1 Pkt PO DAILY PRN Ciclopirox (Ciclopirox Olamine) 15 Gm Cream..g. 1 Teja TP HS NITROGLYCERIN SubLingual (Nitroglycerin) 0.4 Mg Tab.subl 0.4 Mg SL PRN Q5MIN PRN Atorvastatin Calcium 10 Mg Tablet 1 Tab PO DAILY Ranitidine Hcl 150 Mg Tablet 150 Mg PO DAILY Requip (Ropinirole Hcl) 0.5 Mg Tablet 0.5 Mg PO TID Hydrochlorothiazide Tablet (Hydrochlorothiazide) 12.5 Mg Tablet 12.5 Mg PO DAILY Levothyroxine Sodium 75 Mcg Tablet 1 Tab PO DAILY Sinemet Cr 25-100 Tablet (Carbidopa/Levodopa) 1 Each Tablet.er 1 Tab PO FIVE TIMES A DAY Sinemet Cr 50-200 Tablet (Carbidopa/Levodopa) 1 Each Tablet.er 1 Tab PO SIX TIMES A DAY Allergies Allergies: Coded Allergies: oxybutynin (Verified Allergy, Intermediate, HYPOTENSION, NAUSEA, 01/16/19) ciprofloxacin (Verified Adverse Reaction, Mild, Diarrhea, 01/16/19) gabapentin (Verified Adverse Reaction, Mild, VERTIGO, 01/16/19) ROS Review of System ROS 14 pt ros otherwise neg General: YES: Fatigue, Malaise; No: Chills, Night Sweats, Appetite, Other PSYCHOLOGICAL ROS: No: Anxiety, Behavioral Disorder, Concentration difficultie, Decreased libido, Depression, Disorientation, Hallucinations, Hostility, Irritablity, Memory difficulties, Mood Swings, Obsessive thoughts, Physical abuse, Sexual abuse, Sleep disturbances, Suicidal ideation, Other Eyes: No Blurry vision, No Decreased vision, No Double vision, No Dry eyes, No Excessive tearing, No Eye Pain, No Itchy Eyes, No Loss of vision, No Photophobia, No Scotomata, No Uses contacts, No Uses glasses, No Other HEENT: YES: Heacaches, Visual Changes; No: Hearing change, Nasal congestion, Nasal discharge, Oral lesions, Sinus pain, Sore Throat, Epistaxis, Sneezing, Snoring, Tinnitus, Vertigo, Vocal changes, Other ALLERGY AND IMMUNOLOGY: No: Hives, Insect Bite Sensitivity, Itchy/Watery Eyes, Nasal Congestion, Post Nasal Drip, Seasonal Allergies, Other Hematological and Lymphatic: No: Bleeding Problems, Blood Clots, Blood Transfusions, Brusing, Night Sweats, Pallor, Swollen Lymph Nodes, Other ENDOCRINE: No: Breast Changes, Galactorrhea, Hair Pattern Changes, Hot Flashes, Malaise/lethargy, Mood Swings, Palpitations, Polydipsia/polyuria, Skin Changes, Temperature Intolerance, Unexpected Weight Changes, Other Breast: No New/Changing Breast Lumps, No Nipple changes, No Nipple discharge, No Other Respiratory: No: Cough, Hemoptysis, Orthopnea, Pleuritic Pain, Shortness of breath, SOB with excertion, Sputum Changes, Stridor, Tachypnea, Wheezing, Other Cardiovascular: No Chest Pain, No Palpitations, No Orthopnea, No Paroxysmal Noc. Dyspnea, No Edema, No Lt Headedness, No Other Gastrointestinal: Yes Nausea; No Vomiting, No Abdominal Pain, No Diarrhea, No Constipation, No Melena, No Hematochezia, No Other Genitourinary: No Dysuria, No Frequency, No Incontinence, No Hematuria, No Retention, No Discharge, No Urgency, No Pain, No Flank Pain, No Other, No , No , No , No , No , No , No Musculoskeletal: No Gait Disturbance, No Joint Pain, No Joint Stiffness, No Joint Swelling, No Muscle Pain, No Muscular Weakness, No Pain In:, No Swelling In:, No Other Neurological: No Behavorial Changes, No Bowel/Bladder Control Chng, No Confusion, No Dizziness, No Gait Disturbance, No Headaches, No Impaired Coord/balance, No Memory Loss, No Numbness/Tingling, No Seizures, No Speech Problems, No Tremors, No Visual Changes, No Weakness, No Other Skin: No Dry Skin, No Eczema, No Hair Changes, No Lumps, No Mole Changes, No Mottling, No Nail Changes, No Pruritus, No Rash, No Skin Lesion Changes, No Other, No Acne Physical Exam General: Alert, Oriented X3, Cooperative, No acute distress HEENT: PERRLA, EOMI, Mucous membr. moist/pink, Other (Right orbit swollen, bruising, left orbit bruising as well) Lungs: Clear to auscultation, Normal air movement Heart: S1S2, RRR, no gallops, no murmurs Abdomen: Normal bowel sounds, Soft, No tenderness, No hepatosplenomegaly, No masses Rectal Exam: not examined Extremities: No clubbing, No cyanosis, No edema, Normal pulses, No tenderness/swelling Skin: No rashes, No breakdown, No significant lesion Neuro: Normal gait, Normal speech, Strength at 5/5 X4 ext, Normal tone, Sensation intact, Cranial nerves 3-12 NL, Reflexes 2+ Psych/Mental Status: Mental status NL, Mood NL ct head viewed General: YES: Fatigue PSYCHOLOGICAL ROS: No: Anxiety, Behavioral Disorder, Concentration difficultie, Decreased libido, Depression, Disorientation, Hallucinations, Hostility, Irritablity, Memory difficulties, Mood Swings, Obsessive thoughts, Physical abuse, Sexual abuse, Sleep disturbances, Suicidal ideation, Other ALLERGY AND IMMUNOLOGY: No: Hives, Insect Bite Sensitivity, Itchy/Watery Eyes, Nasal Congestion, Post Nasal Drip, Seasonal Allergies, Other Respiratory: No: Cough, Hemoptysis, Orthopnea, Pleuritic Pain, Shortness of breath, SOB with excertion, Sputum Changes, Stridor, Tachypnea, Wheezing, Other Physical Exam General: Alert, Oriented X3, Cooperative, No acute distress HEENT: PERRLA, EOMI, Mucous membr. moist/pink Lungs: Clear to auscultation, Normal air movement Breasts: Not examined Abdomen: Normal bowel sounds, Soft Extremities: No edema Neuro: Normal speech, Cranial nerves 3-12 NL Psych/Mental Status: Mental status NL, Mood NL Vitals Vitals Vital Signs Date Time Temp Pulse Resp B/P (MAP) Pulse Ox O2 Delivery O2 Flow Rate FiO2 01/24/19 19:40 Room Air 01/24/19 19:07 98.1 52 18 132/93 (106) 97 98.1 Labs Labs Laboratory Tests Test 01/24/19 13:20 01/24/19 16:11 White Blood Count 5.4 x10^3/uL (4.0-11.0) Red Blood Count 3.91 x10^6/uL (3.50-5.40) Hemoglobin 12.4 g/dL (12.0-15.5) Hematocrit 36.8 % (36.0-47.0) Mean Corpuscular Volume 94 fL (79-100) Mean Corpuscular Hemoglobin 32 pg (25-35) Mean Corpuscular Hemoglobin Concent 34 g/dL (31-37) Red Cell Distribution Width 14.0 % (11.5-14.5) Platelet Count 293 x10^3/uL (140-400) Neutrophils (%) (Auto) 78 % (31-73) Lymphocytes (%) (Auto) 14 % (24-48) Monocytes (%) (Auto) 7 % (0-9) Eosinophils (%) (Auto) 0 % (0-3) Basophils (%) (Auto) 1 % (0-3) Neutrophils # (Auto) 4.2 x10^3uL (1.8-7.7) Lymphocytes # (Auto) 0.8 x10^3/uL (1.0-4.8) Monocytes # (Auto) 0.4 x10^3/uL (0.0-1.1) Eosinophils # (Auto) 0.0 x10^3/uL (0.0-0.7) Basophils # (Auto) 0.0 x10^3/uL (0.0-0.2) Sodium Level 143 mmol/L (136-145) Potassium Level 3.3 mmol/L (3.5-5.1) Chloride Level 102 mmol/L (98-107) Carbon Dioxide Level 33 mmol/L (21-32) Anion Gap 8 (6-14) Blood Urea Nitrogen 13 mg/dL (7-20) Creatinine 0.6 mg/dL (0.6-1.0) Estimated GFR (Cockcroft-Gault) 123.0 BUN/Creatinine Ratio 22 (6-20) Glucose Level 99 mg/dL (70-99) Calcium Level 9.5 mg/dL (8.5-10.1) Magnesium Level 2.1 mg/dL (1.8-2.4) Total Bilirubin 0.8 mg/dL (0.2-1.0) Aspartate Amino Transf (AST/SGOT) 16 U/L (15-37) Alanine Aminotransferase (ALT/SGPT) 14 U/L (14-59) Alkaline Phosphatase 167 U/L (46-116) Creatine Kinase 118 U/L (26-192) Creatine Kinase MB (Mass) 1.3 ng/mL (0.0-3.6) Creatine Kinase MB Relative Index 1.1 % (0-4) Troponin I Quantitative < 0.017 ng/mL (0.000-0.055) Total Protein 8.0 g/dL (6.4-8.2) Albumin 4.3 g/dL (3.4-5.0) Albumin/Globulin Ratio 1.2 (1.0-1.7) Thyroid Stimulating Hormone (TSH) 3.735 uIU/mL (0.358-3.74) Free Thyroxine 1.11 ng/dL (0.76-1.46) Free Triiodothyronine (T3) pg/mL 1.92 pg/mL (2.18-3.98) Urine Color Yellow Urine Clarity Turbid Urine pH 6.5 Urine Specific [place] 1.020 Urine Protein Negative mg/dL (NEG-TRACE) Urine Glucose (UA) Negative mg/dL (NEG) Urine Ketones (Stick) Trace mg/dL (NEG) Urine Blood Negative (NEG) Urine Nitrite Negative (NEG) Urine Bilirubin Negative (NEG) Urine Urobilinogen Dipstick 1.0 mg/dL (0.2 mg/dL) Urine Leukocyte Esterase Moderate (NEG) Urine RBC 0 /HPF (0-2) Urine WBC 5-10 /HPF (0-4) Urine Squamous Epithelial Cells Occ /LPF Urine Bacteria Few /HPF (0-FEW) Urine Mucus Mod /LPF Laboratory Tests Test 01/24/19 13:20 01/24/19 16:11 White Blood Count 5.4 x10^3/uL (4.0-11.0) Red Blood Count 3.91 x10^6/uL (3.50-5.40) Hemoglobin 12.4 g/dL (12.0-15.5) Hematocrit 36.8 % (36.0-47.0) Mean Corpuscular Volume 94 fL (79-100) Mean Corpuscular Hemoglobin 32 pg (25-35) Mean Corpuscular Hemoglobin Concent 34 g/dL (31-37) Red Cell Distribution Width 14.0 % (11.5-14.5) Platelet Count 293 x10^3/uL (140-400) Neutrophils (%) (Auto) 78 % (31-73) Lymphocytes (%) (Auto) 14 % (24-48) Monocytes (%) (Auto) 7 % (0-9) Eosinophils (%) (Auto) 0 % (0-3) Basophils (%) (Auto) 1 % (0-3) Neutrophils # (Auto) 4.2 x10^3uL (1.8-7.7) Lymphocytes # (Auto) 0.8 x10^3/uL (1.0-4.8) Monocytes # (Auto) 0.4 x10^3/uL (0.0-1.1) Eosinophils # (Auto) 0.0 x10^3/uL (0.0-0.7) Basophils # (Auto) 0.0 x10^3/uL (0.0-0.2) Sodium Level 143 mmol/L (136-145) Potassium Level 3.3 mmol/L (3.5-5.1) Chloride Level 102 mmol/L (98-107) Carbon Dioxide Level 33 mmol/L (21-32) Anion Gap 8 (6-14) Blood Urea Nitrogen 13 mg/dL (7-20) Creatinine 0.6 mg/dL (0.6-1.0) Estimated GFR (Cockcroft-Gault) 123.0 BUN/Creatinine Ratio 22 (6-20) Glucose Level 99 mg/dL (70-99) Calcium Level 9.5 mg/dL (8.5-10.1) Magnesium Level 2.1 mg/dL (1.8-2.4) Total Bilirubin 0.8 mg/dL (0.2-1.0) Aspartate Amino Transf (AST/SGOT) 16 U/L (15-37) Alanine Aminotransferase (ALT/SGPT) 14 U/L (14-59) Alkaline Phosphatase 167 U/L (46-116) Creatine Kinase 118 U/L (26-192) Creatine Kinase MB (Mass) 1.3 ng/mL (0.0-3.6) Creatine Kinase MB Relative Index 1.1 % (0-4) Troponin I Quantitative < 0.017 ng/mL (0.000-0.055) Total Protein 8.0 g/dL (6.4-8.2) Albumin 4.3 g/dL (3.4-5.0) Albumin/Globulin Ratio 1.2 (1.0-1.7) Thyroid Stimulating Hormone (TSH) 3.735 uIU/mL (0.358-3.74) Free Thyroxine 1.11 ng/dL (0.76-1.46) Free Triiodothyronine (T3) pg/mL 1.92 pg/mL (2.18-3.98) Urine Color Yellow Urine Clarity Turbid Urine pH 6.5 Urine Specific [place] 1.020 Urine Protein Negative mg/dL (NEG-TRACE) Urine Glucose (UA) Negative mg/dL (NEG) Urine Ketones (Stick) Trace mg/dL (NEG) Urine Blood Negative (NEG) Urine Nitrite Negative (NEG) Urine Bilirubin Negative (NEG) Urine Urobilinogen Dipstick 1.0 mg/dL (0.2 mg/dL) Urine Leukocyte Esterase Moderate (NEG) Urine RBC 0 /HPF (0-2) Urine WBC 5-10 /HPF (0-4) Urine Squamous Epithelial Cells Occ /LPF Urine Bacteria Few /HPF (0-FEW) Urine Mucus Mod /LPF Images Images CT of the head without contrast, 01/24/2019: HISTORY: Weakness, previous subdural hematoma Comparison is made to a study from 01/18/2019. There is a persistent subdural hematoma on the right which extends from the temporal region up through the frontoparietal region. Portions of this hematoma are less dense and less clearly defined than on the previous study, compatible with normal evolution of an acute hemorrhage. It is best defined in the right temporal region where it measures 5 to 6 mm in thickness. On the coronal images it measures 6-7 mm in thickness in the parietal region is 7-8 mm in width in the frontal region. No prior coronal images are available for direct comparison. The overall size appears similar to that seen on 01/18/2019. There is ongoing effacement of cortical sulci over the right cerebral convexity. There is a moderate right to left shift of the midline structures which has worsened. The degree of effacement of the right lateral ventricle appears to worsened slightly. No intra-axial hemorrhage is seen. There is moderate hyperostosis interna. IMPRESSION: The evolving recent right subdural hematoma is of similar overall size, however, there is increasing mass effect with an increase in the right to left shift of the midline structures. PQRS Compliance Statement: One or more of the following individualized dose reduction techniques were utilized for this examination: 1. Automated exposure control 2. Adjustment of the mA and/or kV according to patient size 3. Use of iterative reconstruction technique Electronically signed by: Ady Campbell MD (01/24/2019 2:44 PM) [facility] VTE Prophylaxis Ordered VTE Prophylaxis Devices: Yes VTE Pharmacological Prophylaxi: Contraindicated Assessment/Plan Assessment/Plan impression Subdural hematoma - small frontal density on CT. Will hold ASA, admit to ICU, q4 hour neuro checks, consult neurosurgery, serial head CTs The evolving recent right subdural hematoma is of similar overall size, however, there is increasing mass effect with an increase in the right to left shift of the midline structures. GERD - cont home PPI Hypertension - cont home medications, lower BP by 25%, MONITOR CLOSELY Parkinson's - cont sinemet, requip. Consult neuro. Falls - consult PT/OT, may need some skilled svcs on d/c to prevent further falls Grave's - will verify her thyroid dosing PVD s/p peripheral stents - hold antiplatelet agents for SDH Bladder dystonia - with intermittent self-catheterization, seen by Urology outpatient, had this recommended for her history of dystonia and frequent UTI, will intermittently cath inpatient neurosurg consulted in ER 37 min cc time GABBY LARSON MD January 24, 2019 22:02
[2019-01-24 22:21] VITALS: BP 119/80
[2019-01-25 03:45] VITALS: BP 132/60
--- NOTE | 2019-01-25 05:05 | NUR ---
Reported by day shift Frankie RN Dr. Joe and Dr. Thomas consults called. Pt remained SB through out shift heart rate 30-50's. Pt asymptomatic. BP stable. Dr. Lacy on floor around 2200 to see pt.
[2019-01-25] MEDS: rOPINIRole 0.25 MG TABLET. PO SCH ×3 (06:02→19:09)
[2019-01-25] MEDS: LEVOTHYROXINE 75 MCG TABLET PO SCH (06:02)
[2019-01-25] MEDS: CARBIDOPA/LEVODOPA CR 25/100MG TABLET.SA. PO SCH ×6 (06:03→21:47)
[2019-01-25 07:00] VITALS: BP 154/68
[2019-01-25] MEDS: hydroCHLOROthiazide 12.5 MG CAPSULE PO SCH (08:17)
[2019-01-25] MEDS: POLYETHYLENE GLYCOL 3350 17 GM PACKET. PO PRN (08:18)
[2019-01-25] MEDS ORDERED: POLYETHYLENE GLYCOL 3350 17 GM PACKET. PO SCH (09:00)
--- NOTE | 2019-01-25 09:59 | PDOC ---
PROGRESS NOTES History of Present Illness History of Present Illness VTE Prophylaxis Ordered VTE Prophylaxis Devices: Yes VTE Pharmacological Prophylaxi: Contraindicated Assessment/Plan Assessment/Plan impression Subdural hematoma - small frontal density on CT. Will hold ASA, admit to ICU, q4 hour neuro checks, consult neurosurgery, serial head CTs The evolving recent right subdural hematoma is of similar overall size, however, there is increasing mass effect with an increase in the right to left shift of the midline structures. GERD - cont home PPI Hypertension - cont home medications, lower BP by 25%, MONITOR CLOSELY Parkinson's - cont sinemet, requip. Consult neuro. Falls - consult PT/OT, may need some skilled svcs on d/c to prevent further falls Grave's - will verify her thyroid dosing PVD s/p peripheral stents - hold antiplatelet agents for SDH Bladder dystonia - with intermittent self-catheterization, seen by Urology outpatient, had this recommended for her history of dystonia and frequent UTI, will intermittently cath inpatient neurosurg consulted in ER 44 min pt exam, chart review, > 50% of time spent with exam, chart review, pt care coordination Vitals Vitals Vital Signs Date Time Temp Pulse Resp B/P (MAP) Pulse Ox O2 Delivery O2 Flow Rate FiO2 01/25/19 07:50 Room Air 01/25/19 07:00 97.7 58 18 154/68 (96) 97 97.7 Physical Exam General: Alert, Oriented X3, Cooperative, No acute distress Heart: Regular rate Lungs: Clear Abdomen: Normal bowel sounds, Soft, No tenderness Extremities: No cyanosis, No edema Labs LABS REASON: Weakness, Hx of subdural hematoma PROCEDURE: CT HEAD WO CONTRAST CT of the head without contrast, 01/24/2019: HISTORY: Weakness, previous subdural hematoma Comparison is made to a study from 01/18/2019. There is a persistent subdural hematoma on the right which extends from the temporal region up through the frontoparietal region. Portions of this hematoma are less dense and less clearly defined than on the previous study, compatible with normal evolution of an acute hemorrhage. It is best defined in the right temporal region where it measures 5 to 6 mm in thickness. On the coronal images it measures 6-7 mm in thickness in the parietal region is 7-8 mm in width in the frontal region. No prior coronal images are available for direct comparison. The overall size appears similar to that seen on 01/18/2019. There is ongoing effacement of cortical sulci over the right cerebral convexity. There is a moderate right to left shift of the midline structures which has worsened. The degree of effacement of the right lateral ventricle appears to worsened slightly. No intra-axial hemorrhage is seen. There is moderate hyperostosis interna. IMPRESSION: The evolving recent right subdural hematoma is of similar overall size, however, there is increasing mass effect with an increase in the right to left shift of the midline structures. PQRS Compliance Statement: One or more of the following individualized dose reduction techniques were utilized for this examination: 1. Automated exposure control 2. Adjustment of the mA and/or kV according to patient size 3. Use of iterative reconstruction technique Electronically signed by: Ady Campbell MD (01/24/2019 2:44 PM) [facility] CT HEAD AND MAXILLOFACIAL WO, CT CERVICAL SPINE WO CONTRAST dated 01/13/2019 3:03 PM Indication: Pain after injury fell on face.. Next pain. Comparison: No comparison is available. Technique: Contiguous axial imaging the head was performed from skull base to vertex. In addition, axial imaging the maxillofacial bones and cervical spine obtained with thin cut coronal and sagittal reconstruction One or more of the following individualized dose reduction techniques were utilized for this examination: 1. Automated exposure control 2. Adjustment of the mA and/or kV according to patient size 3. Use of iterative reconstruction technique Findings: There is a small hyperdense extra-axial collection along the right frontotemporal convexity that measures approximately 5 mm thickness. No significant mass effect or midline shift. Brain parenchyma is of normal otherwise normal attenuation. No subarachnoid hemorrhage or intraventricular hemorrhage. Posterior fossa and brainstem unremarkable. No acute calvarial abnormality. Images the maxillofacial bones show focal soft tissue swelling at the right frontal bone and lateral right orbital region. Small amount of soft tissue gas. The orbital arceo and maxillary arceo are intact. No displaced facial fracture. The zygomatic arches are intact. Mandible is intact. No nasal bone fracture. Mild mucosal thickening of the bilateral ethmoid air cells and bilateral maxillary sinus. Mastoid air cells are clear. Middle ears are clear. No significant soft tissue abnormality. Images of the cervical spine acquired from skull base to T2. Sagittal alignment is anatomic. Vertebral body heights are maintained. No prevertebral soft tissue swelling. Posterior elements are intact. No apparent fracture. Mild to moderate endplate hypertrophic changes throughout with moderate multilevel uncovertebral spurring and facet arthropathy. Resultant mild central stenosis at C5-C6 and C6-C7 with moderate to severe bilateral foraminal stenosis at the C5-C6 level and moderate to severe left foraminal stenosis at C6-C7. Visualized soft tissue structures unremarkable. There is a nodular focus at the right thyroid gland that measures 1.9 cm maximum dimension. Limited images of lung apices are clear. IMPRESSION HEAD: 1. There is a small hyperdense extra-axial collection along the right frontotemporal convexity, likely a small subdural hematoma. No significant mass effect or midline shift. Laboratory Tests Test 01/24/19 13:20 01/24/19 16:11 01/24/19 21:00 01/24/19 23:40 White Blood Count 5.4 x10^3/uL (4.0-11.0) Red Blood Count 3.91 x10^6/uL (3.50-5.40) Hemoglobin 12.4 g/dL (12.0-15.5) Hematocrit 36.8 % (36.0-47.0) Mean Corpuscular Volume 94 fL (79-100) Mean Corpuscular Hemoglobin 32 pg (25-35) Mean Corpuscular Hemoglobin Concent 34 g/dL (31-37) Red Cell Distribution Width 14.0 % (11.5-14.5) Platelet Count 293 x10^3/uL (140-400) Neutrophils (%) (Auto) 78 % (31-73) Lymphocytes (%) (Auto) 14 % (24-48) Monocytes (%) (Auto) 7 % (0-9) Eosinophils (%) (Auto) 0 % (0-3) Basophils (%) (Auto) 1 % (0-3) Neutrophils # (Auto) 4.2 x10^3uL (1.8-7.7) Lymphocytes # (Auto) 0.8 x10^3/uL (1.0-4.8) Monocytes # (Auto) 0.4 x10^3/uL (0.0-1.1) Eosinophils # (Auto) 0.0 x10^3/uL (0.0-0.7) Basophils # (Auto) 0.0 x10^3/uL (0.0-0.2) Sodium Level 143 mmol/L (136-145) Potassium Level 3.3 mmol/L (3.5-5.1) Chloride Level 102 mmol/L (98-107) Carbon Dioxide Level 33 mmol/L (21-32) Anion Gap 8 (6-14) Blood Urea Nitrogen 13 mg/dL (7-20) Creatinine 0.6 mg/dL (0.6-1.0) Estimated GFR (Cockcroft-Gault) 123.0 BUN/Creatinine Ratio 22 (6-20) Glucose Level 99 mg/dL (70-99) Calcium Level 9.5 mg/dL (8.5-10.1) Magnesium Level 2.1 mg/dL (1.8-2.4) Total Bilirubin 0.8 mg/dL (0.2-1.0) Aspartate Amino Transf (AST/SGOT) 16 U/L (15-37) Alanine Aminotransferase (ALT/SGPT) 14 U/L (14-59) Alkaline Phosphatase 167 U/L (46-116) Creatine Kinase 118 U/L (26-192) Creatine Kinase MB (Mass) 1.3 ng/mL (0.0-3.6) Creatine Kinase MB Relative Index 1.1 % (0-4) Troponin I Quantitative < 0.017 ng/mL (0.000-0.055) < 0.017 ng/mL (0.000-0.055) < 0.017 ng/mL (0.000-0.055) Total Protein 8.0 g/dL (6.4-8.2) Albumin 4.3 g/dL (3.4-5.0) Albumin/Globulin Ratio 1.2 (1.0-1.7) Thyroid Stimulating Hormone (TSH) 3.735 uIU/mL (0.358-3.74) Free Thyroxine 1.11 ng/dL (0.76-1.46) Free Triiodothyronine (T3) pg/mL 1.92 pg/mL (2.18-3.98) Urine Color Yellow Urine Clarity Turbid Urine pH 6.5 Urine Specific [employer] 1.020 Urine Protein Negative mg/dL (NEG-TRACE) Urine Glucose (UA) Negative mg/dL (NEG) Urine Ketones (Stick) Trace mg/dL (NEG) Urine Blood Negative (NEG) Urine Nitrite Negative (NEG) Urine Bilirubin Negative (NEG) Urine Urobilinogen Dipstick 1.0 mg/dL (0.2 mg/dL) Urine Leukocyte Esterase Moderate (NEG) Urine RBC 0 /HPF (0-2) Urine WBC 5-10 /HPF (0-4) Urine Squamous Epithelial Cells Occ /LPF Urine Bacteria Few /HPF (0-FEW) Urine Mucus Mod /LPF Assessment and Plan Assessmemt and Plan Problems Medical Problems: (1) Fatigue Status: Acute (2) Hypokalemia Status: Acute (3) Severe sinus bradycardia Status: Acute (4) Subacute subdural hematoma Status: Acute (5) Urinary tract infection Status: Acute Comment Review of Relevant I have reviewed the following items dami (where applicable) has been applied. Labs Laboratory Tests Test 01/24/19 13:20 01/24/19 16:11 01/24/19 21:00 01/24/19 23:40 White Blood Count 5.4 x10^3/uL (4.0-11.0) Red Blood Count 3.91 x10^6/uL (3.50-5.40) Hemoglobin 12.4 g/dL (12.0-15.5) Hematocrit 36.8 % (36.0-47.0) Mean Corpuscular Volume 94 fL (79-100) Mean Corpuscular Hemoglobin 32 pg (25-35) Mean Corpuscular Hemoglobin Concent 34 g/dL (31-37) Red Cell Distribution Width 14.0 % (11.5-14.5) Platelet Count 293 x10^3/uL (140-400) Neutrophils (%) (Auto) 78 % (31-73) Lymphocytes (%) (Auto) 14 % (24-48) Monocytes (%) (Auto) 7 % (0-9) Eosinophils (%) (Auto) 0 % (0-3) Basophils (%) (Auto) 1 % (0-3) Neutrophils # (Auto) 4.2 x10^3uL (1.8-7.7) Lymphocytes # (Auto) 0.8 x10^3/uL (1.0-4.8) Monocytes # (Auto) 0.4 x10^3/uL (0.0-1.1) Eosinophils # (Auto) 0.0 x10^3/uL (0.0-0.7) Basophils # (Auto) 0.0 x10^3/uL (0.0-0.2) Sodium Level 143 mmol/L (136-145) Potassium Level 3.3 mmol/L (3.5-5.1) Chloride Level 102 mmol/L (98-107) Carbon Dioxide Level 33 mmol/L (21-32) Anion Gap 8 (6-14) Blood Urea Nitrogen 13 mg/dL (7-20) Creatinine 0.6 mg/dL (0.6-1.0) Estimated GFR (Cockcroft-Gault) 123.0 BUN/Creatinine Ratio 22 (6-20) Glucose Level 99 mg/dL (70-99) Calcium Level 9.5 mg/dL (8.5-10.1) Magnesium Level 2.1 mg/dL (1.8-2.4) Total Bilirubin 0.8 mg/dL (0.2-1.0) Aspartate Amino Transf (AST/SGOT) 16 U/L (15-37) Alanine Aminotransferase (ALT/SGPT) 14 U/L (14-59) Alkaline Phosphatase 167 U/L (46-116) Creatine Kinase 118 U/L (26-192) Creatine Kinase MB (Mass) 1.3 ng/mL (0.0-3.6) Creatine Kinase MB Relative Index 1.1 % (0-4) Troponin I Quantitative < 0.017 ng/mL (0.000-0.055) < 0.017 ng/mL (0.000-0.055) < 0.017 ng/mL (0.000-0.055) Total Protein 8.0 g/dL (6.4-8.2) Albumin 4.3 g/dL (3.4-5.0) Albumin/Globulin Ratio 1.2 (1.0-1.7) Thyroid Stimulating Hormone (TSH) 3.735 uIU/mL (0.358-3.74) Free Thyroxine 1.11 ng/dL (0.76-1.46) Free Triiodothyronine (T3) pg/mL 1.92 pg/mL (2.18-3.98) Urine Color Yellow Urine Clarity Turbid Urine pH 6.5 Urine Specific [employer] 1.020 Urine Protein Negative mg/dL (NEG-TRACE) Urine Glucose (UA) Negative mg/dL (NEG) Urine Ketones (Stick) Trace mg/dL (NEG) Urine Blood Negative (NEG) Urine Nitrite Negative (NEG) Urine Bilirubin Negative (NEG) Urine Urobilinogen Dipstick 1.0 mg/dL (0.2 mg/dL) Urine Leukocyte Esterase Moderate (NEG) Urine RBC 0 /HPF (0-2) Urine WBC 5-10 /HPF (0-4) Urine Squamous Epithelial Cells Occ /LPF Urine Bacteria Few /HPF (0-FEW) Urine Mucus Mod /LPF Laboratory Tests Test 01/24/19 13:20 01/24/19 16:11 01/24/19 21:00 01/24/19 23:40 White Blood Count 5.4 x10^3/uL (4.0-11.0) Red Blood Count 3.91 x10^6/uL (3.50-5.40) Hemoglobin 12.4 g/dL (12.0-15.5) Hematocrit 36.8 % (36.0-47.0) Mean Corpuscular Volume 94 fL (79-100) Mean Corpuscular Hemoglobin 32 pg (25-35) Mean Corpuscular Hemoglobin Concent 34 g/dL (31-37) Red Cell Distribution Width 14.0 % (11.5-14.5) Platelet Count 293 x10^3/uL (140-400) Neutrophils (%) (Auto) 78 % (31-73) Lymphocytes (%) (Auto) 14 % (24-48) Monocytes (%) (Auto) 7 % (0-9) Eosinophils (%) (Auto) 0 % (0-3) Basophils (%) (Auto) 1 % (0-3) Neutrophils # (Auto) 4.2 x10^3uL (1.8-7.7) Lymphocytes # (Auto) 0.8 x10^3/uL (1.0-4.8) Monocytes # (Auto) 0.4 x10^3/uL (0.0-1.1) Eosinophils # (Auto) 0.0 x10^3/uL (0.0-0.7) Basophils # (Auto) 0.0 x10^3/uL (0.0-0.2) Sodium Level 143 mmol/L (136-145) Potassium Level 3.3 mmol/L (3.5-5.1) Chloride Level 102 mmol/L (98-107) Carbon Dioxide Level 33 mmol/L (21-32) Anion Gap 8 (6-14) Blood Urea Nitrogen 13 mg/dL (7-20) Creatinine 0.6 mg/dL (0.6-1.0) Estimated GFR (Cockcroft-Gault) 123.0 BUN/Creatinine Ratio 22 (6-20) Glucose Level 99 mg/dL (70-99) Calcium Level 9.5 mg/dL (8.5-10.1) Magnesium Level 2.1 mg/dL (1.8-2.4) Total Bilirubin 0.8 mg/dL (0.2-1.0) Aspartate Amino Transf (AST/SGOT) 16 U/L (15-37) Alanine Aminotransferase (ALT/SGPT) 14 U/L (14-59) Alkaline Phosphatase 167 U/L (46-116) Creatine Kinase 118 U/L (26-192) Creatine Kinase MB (Mass) 1.3 ng/mL (0.0-3.6) Creatine Kinase MB Relative Index 1.1 % (0-4) Troponin I Quantitative < 0.017 ng/mL (0.000-0.055) < 0.017 ng/mL (0.000-0.055) < 0.017 ng/mL (0.000-0.055) Total Protein 8.0 g/dL (6.4-8.2) Albumin 4.3 g/dL (3.4-5.0) Albumin/Globulin Ratio 1.2 (1.0-1.7) Thyroid Stimulating Hormone (TSH) 3.735 uIU/mL (0.358-3.74) Free Thyroxine 1.11 ng/dL (0.76-1.46) Free Triiodothyronine (T3) pg/mL 1.92 pg/mL (2.18-3.98) Urine Color Yellow Urine Clarity Turbid Urine pH 6.5 Urine Specific [employer] 1.020 Urine Protein Negative mg/dL (NEG-TRACE) Urine Glucose (UA) Negative mg/dL (NEG) Urine Ketones (Stick) Trace mg/dL (NEG) Urine Blood Negative (NEG) Urine Nitrite Negative (NEG) Urine Bilirubin Negative (NEG) Urine Urobilinogen Dipstick 1.0 mg/dL (0.2 mg/dL) Urine Leukocyte Esterase Moderate (NEG) Urine RBC 0 /HPF (0-2) Urine WBC 5-10 /HPF (0-4) Urine Squamous Epithelial Cells Occ /LPF Urine Bacteria Few /HPF (0-FEW) Urine Mucus Mod /LPF Medications Current Medications Sodium Chloride 1,000 ml @ 1,000 mls/hr 1X ONCE IV Last administered on 01/24/19 14:30; Start 01/24/19 at 13:45; Stop 01/24/19 at 14:44; Status DC Potassium Chloride (Klor-Con) 40 meq 1X ONCE PO Last administered on 01/24/19 17:44; Start 01/24/19 at 16:30; Stop 01/24/19 at 16:32; Status DC Ondansetron HCl (Zofran) 4 mg 1X ONCE IV Last administered on 01/24/19 17:26; Start 01/24/19 at 16:45; Stop 01/24/19 at 16:53; Status DC Ceftriaxone Sodium (Rocephin) 1 gm 1X ONCE IVP Last administered on 01/24/19 17:26; Start 01/24/19 at 17:00; Stop 01/24/19 at 17:01; Status DC Dexamethasone (Decadron) 2 mg 1X ONCE PO Last administered on 01/24/19at 17:44; Start 01/24/19 at 17:15; Stop 01/24/19 at 17:20; Status DC Famotidine (Pepcid Vial) 20 mg 1X ONCE IVP Last administered on 01/24/19at 17:29; Start 01/24/19 at 17:15; Stop 01/24/19 at 17:20; Status DC Atropine Sulfate (ATROPINE 0.5mg SYRINGE) 0.5 mg 1X ONCE IV ; Start 01/24/19 at 17:15; Stop 01/24/19 at 17:20; Status DC Ondansetron HCl (Zofran) 4 mg PRN Q8HRS PRN IV NAUSEA/VOMITING; Start 01/24/19 at 17:45; Stop 01/25/19 at 17:44 Atorvastatin Calcium (Lipitor) 10 mg QHS PO Last administered on 01/24/19at 21:11; Start 01/24/19 at 21:00 Carbidopa/Levodopa (Sinemet Cr) 3 tab.sa 0700,1000,1300 PO Last administered on 01/25/19 06:03; Start 01/25/19 at 07:00 Levothyroxine Sodium (Synthroid) 75 mcg DAILY07 PO Last administered on 01/25/19at 06:02; Start 01/25/19 at 07:00 Nitroglycerin (Nitrostat) 0.4 mg PRN Q5MIN PRN SL CHEST PAIN; Start 01/24/19 at 20:15 Non-Formulary Medication (Carbidopa/ Levodopa (Sinemet Cr 50-200 Tablet)) 1 tab six times a day PO ; Start 01/24/19 at 20:15; Status UNV Non-Formulary Medication (Ciclopirox Olamine (Ciclopirox)) 1 teja HS TP ; Start 01/24/19 at 21:00; Stop 01/25/19 at 00:22; Status DC Hydrochlorothiazide (Microzide) 12.5 mg DAILY PO Last administered on 01/25/19at 08:17; Start 01/25/19 at 09:00 Polyethylene Glycol (miraLAX PACKET) 17 gm DAILY PO ; Start 01/25/19 at 09:00; Stop 01/25/19 at 09:00; Status DC Famotidine (Pepcid) 20 mg QHS PO Last administered on 01/24/19at 21:49; Start 01/24/19 at 22:00 Ropinirole HCl (Requip) 0.5 mg TID PO ; Start 01/24/19 at 21:00; Stop 01/24/19 at 21:45; Status DC Carbidopa/Levodopa (Sinemet Cr) 3 tab.sa 1600,1900 PO ; Start 01/25/19 at 16:00 Carbidopa/Levodopa (Sinemet Cr) 2 tab.sa 2200 PO Last administered on 01/24/19at 21:12; Start 01/24/19 at 22:00 Polyethylene Glycol (miraLAX PACKET) 17 gm PRN DAILY PRN PO CONSTIPATION 1ST CHOICE Last administered on 01/25/19at 08:18; Start 01/25/19 at 09:00 Ropinirole HCl (Requip) 0.5 mg 0700,1300,1900 PO Last administered on 01/25/19at 06:02; Start 01/25/19 at 07:00 Clotrimazole (Lotrimin) 1 teja QHS TP ; Start 01/25/19 at 21:00 Dexamethasone Sodium Phosphate (Decadron) 2 mg Q8HRS IV ; Start 01/25/19 at 10:00 Active Scripts Active Reported Miralax (Polyethylene Glycol 3350) 17 Gm Powd.pack 1 Pkt PO DAILY PRN Ciclopirox (Ciclopirox Olamine) 15 Gm Cream..g. 1 Teja TP HS NITROGLYCERIN SubLingual (Nitroglycerin) 0.4 Mg Tab.subl 0.4 Mg SL PRN Q5MIN PRN Atorvastatin Calcium 10 Mg Tablet 1 Tab PO DAILY Ranitidine Hcl 150 Mg Tablet 150 Mg PO DAILY Requip (Ropinirole Hcl) 0.5 Mg Tablet 0.5 Mg PO TID Hydrochlorothiazide Tablet (Hydrochlorothiazide) 12.5 Mg Tablet 12.5 Mg PO DAILY Levothyroxine Sodium 75 Mcg Tablet 1 Tab PO DAILY Sinemet Cr 25-100 Tablet (Carbidopa/Levodopa) 1 Each Tablet.er 1 Tab PO FIVE TIMES A DAY Sinemet Cr 50-200 Tablet (Carbidopa/Levodopa) 1 Each Tablet.er 1 Tab PO SIX TIMES A DAY Vitals/I & O Vital Sign - Last 24 Hours 01/24/19 01/24/19 01/24/19 01/24/19 13:30 14:00 15:30 16:30 Temp 97.5 97.5 Pulse 52 52 54 48 Resp 22 18 18 20 B/P (MAP) 135/64 (87) 116/65 (82) 132/69 (90) 148/73 (98) Pulse Ox 99 98 98 100 O2 Delivery Room Air Room Air Room Air Room Air 01/24/19 01/24/19 01/24/19 01/24/19 17:00 17:30 19:07 19:40 Temp 98.1 98.1 Pulse 42 52 52 Resp 16 16 18 B/P (MAP) 139/65 (89) 135/76 (95) 132/93 (106) Pulse Ox 99 100 97 O2 Delivery Room Air Room Air Room Air 01/24/19 01/25/19 01/25/19 01/25/19 22:21 03:45 07:00 07:50 Temp 97.3 98.1 97.7 97.3 98.1 97.7 Pulse 40 41 58 Resp 18 16 18 B/P (MAP) 119/80 (93) 132/60 (84) 154/68 (96) Pulse Ox 99 96 97 O2 Delivery Room Air Room Air Room Air Room Air Intake and Output 01/24/19 01/24/19 01/25/19 15:00 23:00 07:00 Intake Total 1000 ml 200 ml Output Total 950 ml Balance 1000 ml -750 ml GABBY LARSON MD January 25, 2019 09:59
[2019-01-25] MEDS: DEXAMETHASONE SOD PHOS 4 MG/ML VIAL IV SCH ×3 (10:08→21:47)
[2019-01-25 11:00] VITALS: BP 117/52
--- NOTE | 2019-01-25 12:07 | PDOC2 ---
CARDIOLOGY CONSULT NOTE CHEIF COMPLAINT: Fatigue HPI: Pleasant 63 y.o woman presenting with fatigue. cardiology asked to evaluate for bradycardia in the setting of cerebral edema related to bleeding. No prior cardiac rhythm issues per patient. Denies any chest pain. No fatigue. No syncope. PMHX: cad s/p PCI to the LAD Mild HTN dyslipidemia recent cerebral edema. Graves disease parkinsons SOCHX: No alcohol, tob or illicits FAMHX: NC CURRENT MEDS: Current Medications Medications (Trade) Dose Ordered Sig/Karol Start Time Stop Time Status Last Admin Dose Admin Atorvastatin Calcium (Lipitor) 10 mg QHS 01/24/19 21:00 01/24/19 21:11 10 MG Atropine Sulfate (ATROPINE 0.5mg SYRINGE) 0.5 mg 1X ONCE 01/24/19 17:15 01/24/19 17:20 DC Carbidopa/Levodopa (Sinemet Cr) 2 tab.sa 2200 01/24/19 22:00 01/24/19 21:12 2 TAB.SA Ceftriaxone Sodium (Rocephin) 1 gm 1X ONCE 01/24/19 17:00 01/24/19 17:01 DC 01/24/19 17:26 1 GM Clotrimazole (Lotrimin) 1 tomas QHS 01/25/19 21:00 Dexamethasone (Decadron) 2 mg 1X ONCE 01/24/19 17:15 01/24/19 17:20 DC 01/24/19 17:44 2 MG Dexamethasone Sodium Phosphate (Decadron) 2 mg Q8HRS 01/25/19 10:00 01/25/19 10:08 2 MG Famotidine (Pepcid Vial) 20 mg 1X ONCE 01/24/19 17:15 01/24/19 17:20 DC 01/24/19 17:29 20 MG Famotidine (Pepcid) 20 mg QHS 01/24/19 22:00 01/24/19 21:49 20 MG Hydrochlorothiazide (Microzide) 12.5 mg DAILY 01/25/19 09:00 01/25/19 08:17 12.5 MG Levothyroxine Sodium (Synthroid) 75 mcg DAILY07 01/25/19 07:00 01/25/19 06:02 75 MCG Nitroglycerin (Nitrostat) 0.4 mg PRN Q5MIN PRN 01/24/19 20:15 Non-Formulary Medication (Carbidopa/ Levodopa (Sinemet Cr 50-200 Tablet)) 1 tab six times a day 01/24/19 20:15 UNV Non-Formulary Medication (Ciclopirox Olamine (Ciclopirox)) 1 tomas HS 01/24/19 21:00 01/25/19 00:22 DC Ondansetron HCl (Zofran) 4 mg PRN Q8HRS PRN 01/24/19 17:45 01/25/19 17:44 Polyethylene Glycol (miraLAX PACKET) 17 gm PRN DAILY PRN 01/25/19 09:00 01/25/19 08:18 17 GM Potassium Chloride (Klor-Con) 40 meq 1X ONCE 01/24/19 16:30 01/24/19 16:32 DC 01/24/19 17:44 40 MEQ Ropinirole HCl (Requip) 0.5 mg 0700,1300,1900 01/25/19 07:00 01/25/19 06:02 0.5 MG Sodium Chloride 1,000 ml @ 1,000 mls/hr 1X ONCE 01/24/19 13:45 01/24/19 14:44 DC 01/24/19 14:30 1,000 MLS/HR ALLERGIES: Allergies Coded Allergies Type Severity Reaction Last Updated Verified oxybutynin Allergy Intermediate HYPOTENSION, NAUSEA 01/16/19 Yes ciprofloxacin Adverse Reaction Mild Diarrhea 01/16/19 Yes gabapentin Adverse Reaction Mild VERTIGO 01/16/19 Yes ROS: negative for 06/16 systems reviewed unless otherwise noted above in HPI PHYSICAL EXAM: Vital Signs: Vital Signs Date Time Temp Pulse Resp B/P (MAP) Pulse Ox O2 Delivery O2 Flow Rate FiO2 01/25/19 11:00 97.7 48 18 117/52 (73) 97 Room Air 97.7 I & O Intake and Output 01/25/19 07:00 Intake Total 1200 ml Output Total 950 ml Balance 250 ml Intake Oral 200 ml IV Total 1000 ml Output Urine Total 950 ml Physical Exam: GEN.: No apparent distress. Alert and oriented. HEENT: Head is normocephalic, atraumatic ,exopthalmos NECK: Supple. LUNGS: Clear to auscultation. HEART: RRR, S1, S2 present. Peripheral pulses intact ABDOMEN: Soft, nontender. Positive bowel sounds. EXTREMITIES: Without any cyanosis. NEUROLOGIC: Normal speech, normal tone PSYCHIATRIC: Normal affect, normal mood. SKIN: No ulcerations DIAGNOSTIC TESTING: EKG - Sinus bradycardia. Lab Labs unremarkable ASSESSMENT: 1. Sinus bradycardia - likely reactive. 2. Graves disease. 3. Cerebral edema. PLAN: 1. supportive care from CV standpoint. No need for pacer. 2. Routine f/u with primary for cerebral edema, graves etc. thanks. Pls call with any further questions. NASIMA HARVEY MD January 25, 2019 12:07
[2019-01-25 13:53] LABS: BASO % 1 % (0-3); EOS % 0 % (0-3); HEMATOCRIT 35.5 % (36.0-47.0); HEMOGLOBIN 11.9 g/dL (12.0-15.5); LYMPH # 0.4 x10^3/uL (1.0-4.8); LYMPH % 7 % (24-48); MEAN CORPUSCULAR HEMOGLOBIN 31 pg (25-35); MEAN CORPUSCULAR HGB CONC 34 g/dL (31-37); MEAN CORPUSCULAR VOLUME 94 fL (79-100); MONO # 0.2 x10^3/uL (0.0-1.1); MONO % 3 % (0-9); NEUT # 5.4 x10^3uL (1.8-7.7); NEUT % 90 % (31-73); PLATELET COUNT 271 x10^3/uL (140-400); RED BLOOD COUNT 3.79 x10^6/uL (3.50-5.40); RED CELL DISTRIBUTION WIDTH 14.1 % (11.5-14.5)
[2019-01-25 14:10] LABS: ALBUMIN 3.8 g/dL (3.4-5.0); ALBUMIN/GLOBULIN RATIO 1.1 (1.0-1.7); CREATININE 0.6 mg/dL (0.6-1.0); POTASSIUM 3.5 mmol/L (3.5-5.1); TOTAL BILIRUBIN 0.8 mg/dL (0.2-1.0); TOTAL PROTEIN 7.2 g/dL (6.4-8.2)
[2019-01-25 14:28] LABS: % BASOS 1 % (0-3); % LYMPHS 8 % (24-48); % MONOS 5 % (0-10); % SEGS 86 % (35-66)
[2019-01-25 14:29] LABS: PLT ESTIMATE ADEQUATE (ADEQUATE)
[2019-01-25 15:00] VITALS: BP 122/58
[2019-01-25 19:26] VITALS: BP 100/54
[2019-01-25] MEDS: ATORVASTATIN CALCIUM 10 MG TABLET. PO SCH (20:35)
[2019-01-25] MEDS: CLOTRIMAZOLE 1% TOPICAL CREAM 15GM TUBE. TP SCH (20:35)
[2019-01-25] MEDS: FAMOTIDINE 20 MG TABLET. PO SCH (20:35)
[2019-01-25 22:35] VITALS: BP 125/64
[2019-01-26 03:26] VITALS: BP 141/77
[2019-01-26] MEDS: DEXAMETHASONE SOD PHOS 4 MG/ML VIAL IV SCH ×3 (06:08→21:54)
[2019-01-26] MEDS: LEVOTHYROXINE 75 MCG TABLET PO SCH (06:09)
[2019-01-26] MEDS: CARBIDOPA/LEVODOPA CR 25/100MG TABLET.SA. PO SCH ×6 (06:09→21:51)
[2019-01-26] MEDS: rOPINIRole 0.25 MG TABLET. PO SCH ×4 (06:09→21:51)
[2019-01-26 07:00] VITALS: BP 147/63
[2019-01-26] MEDS: hydroCHLOROthiazide 12.5 MG CAPSULE PO SCH (08:13)
[2019-01-26] MEDS: POLYETHYLENE GLYCOL 3350 17 GM PACKET. PO PRN (08:13)
[2019-01-26 11:00] VITALS: BP 138/69
[2019-01-26 11:19] LABS: BASO % 0 % (0-3); EOS % 0 % (0-3); HEMATOCRIT 43.8 % (36.0-47.0); HEMOGLOBIN 14.3 g/dL (12.0-15.5); LYMPH # 0.7 x10^3/uL (1.0-4.8); LYMPH % 7 % (24-48); MEAN CORPUSCULAR HEMOGLOBIN 31 pg (25-35); MEAN CORPUSCULAR HGB CONC 33 g/dL (31-37); MEAN CORPUSCULAR VOLUME 95 fL (79-100); MONO # 0.8 x10^3/uL (0.0-1.1); MONO % 8 % (0-9); NEUT % 84 % (31-73); PLATELET COUNT 325 x10^3/uL (140-400); RED CELL DISTRIBUTION WIDTH 15.1 % (11.5-14.5); WHITE BLOOD COUNT 9.5 x10^3/uL (4.0-11.0)
[2019-01-26 11:38] LABS: CALCIUM 10.3 mg/dL (8.5-10.1); CREATININE 0.9 mg/dL (0.6-1.0); POTASSIUM 3.6 mmol/L (3.5-5.1)
--- NOTE | 2019-01-26 13:17 | PDOC ---
[employer] PROGRESS NOTE Chief Complaint Chief Complaint Subdural hematoma - evolving per CT GERD Hypertension Parkinson's Falls Grave's PVD s/p peripheral stents Bladder dystonia - with intermittent self-catheterization, seen by Urology outpatient History of Present Illness History of Present Illness Patient seen and examined Bruising on face still diffusely noted She reports no new complaints Discussed with Neuro, discussed with Nurse Vitals Vitals Vital Signs Date Time Temp Pulse Resp B/P (MAP) Pulse Ox O2 Delivery O2 Flow Rate FiO2 01/26/19 07:30 Room Air 01/26/19 07:00 98.9 14 147/63 (91) 97 98.9 01/26/19 03:26 54 Physical Exam General: Alert, Oriented X3, Cooperative, No acute distress Heart: Regular rate Lungs: Clear Abdomen: Normal bowel sounds, Soft, No tenderness Extremities: No cyanosis, No edema Labs Labs: Laboratory Tests Test 01/25/19 13:35 01/26/19 10:43 White Blood Count 6.0 x10^3/uL (4.0-11.0) 9.5 x10^3/uL (4.0-11.0) Red Blood Count 3.79 x10^6/uL (3.50-5.40) 4.60 x10^6/uL (3.50-5.40) Hemoglobin 11.9 g/dL (12.0-15.5) 14.3 g/dL (12.0-15.5) Hematocrit 35.5 % (36.0-47.0) 43.8 % (36.0-47.0) Mean Corpuscular Volume 94 fL (79-100) 95 fL (79-100) Mean Corpuscular Hemoglobin 31 pg (25-35) 31 pg (25-35) Mean Corpuscular Hemoglobin Concent 34 g/dL (31-37) 33 g/dL (31-37) Red Cell Distribution Width 14.1 % (11.5-14.5) 15.1 % (11.5-14.5) Platelet Count 271 x10^3/uL (140-400) 325 x10^3/uL (140-400) Neutrophils (%) (Auto) 90 % (31-73) 84 % (31-73) Lymphocytes (%) (Auto) 7 % (24-48) 7 % (24-48) Monocytes (%) (Auto) 3 % (0-9) 8 % (0-9) Eosinophils (%) (Auto) 0 % (0-3) 0 % (0-3) Basophils (%) (Auto) 1 % (0-3) 0 % (0-3) Neutrophils # (Auto) 5.4 x10^3uL (1.8-7.7) 8.0 x10^3uL (1.8-7.7) Lymphocytes # (Auto) 0.4 x10^3/uL (1.0-4.8) 0.7 x10^3/uL (1.0-4.8) Monocytes # (Auto) 0.2 x10^3/uL (0.0-1.1) 0.8 x10^3/uL (0.0-1.1) Eosinophils # (Auto) 0.0 x10^3/uL (0.0-0.7) 0.0 x10^3/uL (0.0-0.7) Basophils # (Auto) 0.0 x10^3/uL (0.0-0.2) 0.0 x10^3/uL (0.0-0.2) Segmented Neutrophils % 86 % (35-66) Lymphocytes % 8 % (24-48) Monocytes % 5 % (0-10) Basophils % 1 % (0-3) Platelet Estimate Adequate (ADEQUATE) Sodium Level 140 mmol/L (136-145) 141 mmol/L (136-145) Potassium Level 3.5 mmol/L (3.5-5.1) 3.6 mmol/L (3.5-5.1) Chloride Level 102 mmol/L (98-107) 101 mmol/L (98-107) Carbon Dioxide Level 27 mmol/L (21-32) 28 mmol/L (21-32) Anion Gap 11 (6-14) 12 (6-14) Blood Urea Nitrogen 10 mg/dL (7-20) 12 mg/dL (7-20) Creatinine 0.6 mg/dL (0.6-1.0) 0.9 mg/dL (0.6-1.0) Estimated GFR (Cockcroft-Gault) 123.0 77.0 BUN/Creatinine Ratio 17 (6-20) Glucose Level 140 mg/dL (70-99) 96 mg/dL (70-99) Calcium Level 9.0 mg/dL (8.5-10.1) 10.3 mg/dL (8.5-10.1) Total Bilirubin 0.8 mg/dL (0.2-1.0) Aspartate Amino Transf (AST/SGOT) 14 U/L (15-37) Alanine Aminotransferase (ALT/SGPT) 13 U/L (14-59) Alkaline Phosphatase 155 U/L (46-116) Total Protein 7.2 g/dL (6.4-8.2) Albumin 3.8 g/dL (3.4-5.0) Albumin/Globulin Ratio 1.1 (1.0-1.7) Review of Systems Review of Systems Patient denies ROSENTHAL Patient denies swelling of extremities Assessment and Plan Assessmemt and Plan Problems Medical Problems: (1) Fatigue Status: Acute (2) Hypokalemia Status: Acute (3) Severe sinus bradycardia Status: Acute (4) Subacute subdural hematoma Status: Acute (5) Urinary tract infection Status: Acute Assessment: Subdural hematoma - evolving per CT Falls GERD Hypertension Parkinson's Grave's PVD s/p peripheral stents Bladder dystonia - with intermittent self-catheterization, seen by Urology outpatient Plan: CT in the AM IV Decadron Intermittent catheterization Home meds Labs PT/OT DVT ppx Code status: Full Neuro and Cards consulted, appreciate input Comment Review of Relevant I have reviewed the following items dami (where applicable) has been applied. Labs Laboratory Tests Test 01/24/19 13:20 01/24/19 16:11 01/24/19 21:00 01/24/19 23:40 White Blood Count 5.4 x10^3/uL (4.0-11.0) Red Blood Count 3.91 x10^6/uL (3.50-5.40) Hemoglobin 12.4 g/dL (12.0-15.5) Hematocrit 36.8 % (36.0-47.0) Mean Corpuscular Volume 94 fL (79-100) Mean Corpuscular Hemoglobin 32 pg (25-35) Mean Corpuscular Hemoglobin Concent 34 g/dL (31-37) Red Cell Distribution Width 14.0 % (11.5-14.5) Platelet Count 293 x10^3/uL (140-400) Neutrophils (%) (Auto) 78 % (31-73) Lymphocytes (%) (Auto) 14 % (24-48) Monocytes (%) (Auto) 7 % (0-9) Eosinophils (%) (Auto) 0 % (0-3) Basophils (%) (Auto) 1 % (0-3) Neutrophils # (Auto) 4.2 x10^3uL (1.8-7.7) Lymphocytes # (Auto) 0.8 x10^3/uL (1.0-4.8) Monocytes # (Auto) 0.4 x10^3/uL (0.0-1.1) Eosinophils # (Auto) 0.0 x10^3/uL (0.0-0.7) Basophils # (Auto) 0.0 x10^3/uL (0.0-0.2) Sodium Level 143 mmol/L (136-145) Potassium Level 3.3 mmol/L (3.5-5.1) Chloride Level 102 mmol/L (98-107) Carbon Dioxide Level 33 mmol/L (21-32) Anion Gap 8 (6-14) Blood Urea Nitrogen 13 mg/dL (7-20) Creatinine 0.6 mg/dL (0.6-1.0) Estimated GFR (Cockcroft-Gault) 123.0 BUN/Creatinine Ratio 22 (6-20) Glucose Level 99 mg/dL (70-99) Calcium Level 9.5 mg/dL (8.5-10.1) Magnesium Level 2.1 mg/dL (1.8-2.4) Total Bilirubin 0.8 mg/dL (0.2-1.0) Aspartate Amino Transf (AST/SGOT) 16 U/L (15-37) Alanine Aminotransferase (ALT/SGPT) 14 U/L (14-59) Alkaline Phosphatase 167 U/L (46-116) Creatine Kinase 118 U/L (26-192) Creatine Kinase MB (Mass) 1.3 ng/mL (0.0-3.6) Creatine Kinase MB Relative Index 1.1 % (0-4) Troponin I Quantitative < 0.017 ng/mL (0.000-0.055) < 0.017 ng/mL (0.000-0.055) < 0.017 ng/mL (0.000-0.055) Total Protein 8.0 g/dL (6.4-8.2) Albumin 4.3 g/dL (3.4-5.0) Albumin/Globulin Ratio 1.2 (1.0-1.7) Thyroid Stimulating Hormone (TSH) 3.735 uIU/mL (0.358-3.74) Free Thyroxine 1.11 ng/dL (0.76-1.46) Free Triiodothyronine (T3) pg/mL 1.92 pg/mL (2.18-3.98) Urine Color Yellow Urine Clarity Turbid Urine pH 6.5 Urine Specific Ezel 1.020 Urine Protein Negative mg/dL (NEG-TRACE) Urine Glucose (UA) Negative mg/dL (NEG) Urine Ketones (Stick) Trace mg/dL (NEG) Urine Blood Negative (NEG) Urine Nitrite Negative (NEG) Urine Bilirubin Negative (NEG) Urine Urobilinogen Dipstick 1.0 mg/dL (0.2 mg/dL) Urine Leukocyte Esterase Moderate (NEG) Urine RBC 0 /HPF (0-2) Urine WBC 5-10 /HPF (0-4) Urine Squamous Epithelial Cells Occ /LPF Urine Bacteria Few /HPF (0-FEW) Urine Mucus Mod /LPF Test 01/25/19 13:35 01/26/19 10:43 White Blood Count 6.0 x10^3/uL (4.0-11.0) 9.5 x10^3/uL (4.0-11.0) Red Blood Count 3.79 x10^6/uL (3.50-5.40) 4.60 x10^6/uL (3.50-5.40) Hemoglobin 11.9 g/dL (12.0-15.5) 14.3 g/dL (12.0-15.5) Hematocrit 35.5 % (36.0-47.0) 43.8 % (36.0-47.0) Mean Corpuscular Volume 94 fL (79-100) 95 fL (79-100) Mean Corpuscular Hemoglobin 31 pg (25-35) 31 pg (25-35) Mean Corpuscular Hemoglobin Concent 34 g/dL (31-37) 33 g/dL (31-37) Red Cell Distribution Width 14.1 % (11.5-14.5) 15.1 % (11.5-14.5) Platelet Count 271 x10^3/uL (140-400) 325 x10^3/uL (140-400) Neutrophils (%) (Auto) 90 % (31-73) 84 % (31-73) Lymphocytes (%) (Auto) 7 % (24-48) 7 % (24-48) Monocytes (%) (Auto) 3 % (0-9) 8 % (0-9) Eosinophils (%) (Auto) 0 % (0-3) 0 % (0-3) Basophils (%) (Auto) 1 % (0-3) 0 % (0-3) Neutrophils # (Auto) 5.4 x10^3uL (1.8-7.7) 8.0 x10^3uL (1.8-7.7) Lymphocytes # (Auto) 0.4 x10^3/uL (1.0-4.8) 0.7 x10^3/uL (1.0-4.8) Monocytes # (Auto) 0.2 x10^3/uL (0.0-1.1) 0.8 x10^3/uL (0.0-1.1) Eosinophils # (Auto) 0.0 x10^3/uL (0.0-0.7) 0.0 x10^3/uL (0.0-0.7) Basophils # (Auto) 0.0 x10^3/uL (0.0-0.2) 0.0 x10^3/uL (0.0-0.2) Segmented Neutrophils % 86 % (35-66) Lymphocytes % 8 % (24-48) Monocytes % 5 % (0-10) Basophils % 1 % (0-3) Platelet Estimate Adequate (ADEQUATE) Sodium Level 140 mmol/L (136-145) 141 mmol/L (136-145) Potassium Level 3.5 mmol/L (3.5-5.1) 3.6 mmol/L (3.5-5.1) Chloride Level 102 mmol/L (98-107) 101 mmol/L (98-107) Carbon Dioxide Level 27 mmol/L (21-32) 28 mmol/L (21-32) Anion Gap 11 (6-14) 12 (6-14) Blood Urea Nitrogen 10 mg/dL (7-20) 12 mg/dL (7-20) Creatinine 0.6 mg/dL (0.6-1.0) 0.9 mg/dL (0.6-1.0) Estimated GFR (Cockcroft-Gault) 123.0 77.0 BUN/Creatinine Ratio 17 (6-20) Glucose Level 140 mg/dL (70-99) 96 mg/dL (70-99) Calcium Level 9.0 mg/dL (8.5-10.1) 10.3 mg/dL (8.5-10.1) Total Bilirubin 0.8 mg/dL (0.2-1.0) Aspartate Amino Transf (AST/SGOT) 14 U/L (15-37) Alanine Aminotransferase (ALT/SGPT) 13 U/L (14-59) Alkaline Phosphatase 155 U/L (46-116) Total Protein 7.2 g/dL (6.4-8.2) Albumin 3.8 g/dL (3.4-5.0) Albumin/Globulin Ratio 1.1 (1.0-1.7) Laboratory Tests Test 01/25/19 13:35 01/26/19 10:43 White Blood Count 6.0 x10^3/uL (4.0-11.0) 9.5 x10^3/uL (4.0-11.0) Red Blood Count 3.79 x10^6/uL (3.50-5.40) 4.60 x10^6/uL (3.50-5.40) Hemoglobin 11.9 g/dL (12.0-15.5) 14.3 g/dL (12.0-15.5) Hematocrit 35.5 % (36.0-47.0) 43.8 % (36.0-47.0) Mean Corpuscular Volume 94 fL (79-100) 95 fL (79-100) Mean Corpuscular Hemoglobin 31 pg (25-35) 31 pg (25-35) Mean Corpuscular Hemoglobin Concent 34 g/dL (31-37) 33 g/dL (31-37) Red Cell Distribution Width 14.1 % (11.5-14.5) 15.1 % (11.5-14.5) Platelet Count 271 x10^3/uL (140-400) 325 x10^3/uL (140-400) Neutrophils (%) (Auto) 90 % (31-73) 84 % (31-73) Lymphocytes (%) (Auto) 7 % (24-48) 7 % (24-48) Monocytes (%) (Auto) 3 % (0-9) 8 % (0-9) Eosinophils (%) (Auto) 0 % (0-3) 0 % (0-3) Basophils (%) (Auto) 1 % (0-3) 0 % (0-3) Neutrophils # (Auto) 5.4 x10^3uL (1.8-7.7) 8.0 x10^3uL (1.8-7.7) Lymphocytes # (Auto) 0.4 x10^3/uL (1.0-4.8) 0.7 x10^3/uL (1.0-4.8) Monocytes # (Auto) 0.2 x10^3/uL (0.0-1.1) 0.8 x10^3/uL (0.0-1.1) Eosinophils # (Auto) 0.0 x10^3/uL (0.0-0.7) 0.0 x10^3/uL (0.0-0.7) Basophils # (Auto) 0.0 x10^3/uL (0.0-0.2) 0.0 x10^3/uL (0.0-0.2) Segmented Neutrophils % 86 % (35-66) Lymphocytes % 8 % (24-48) Monocytes % 5 % (0-10) Basophils % 1 % (0-3) Platelet Estimate Adequate (ADEQUATE) Sodium Level 140 mmol/L (136-145) 141 mmol/L (136-145) Potassium Level 3.5 mmol/L (3.5-5.1) 3.6 mmol/L (3.5-5.1) Chloride Level 102 mmol/L (98-107) 101 mmol/L (98-107) Carbon Dioxide Level 27 mmol/L (21-32) 28 mmol/L (21-32) Anion Gap 11 (6-14) 12 (6-14) Blood Urea Nitrogen 10 mg/dL (7-20) 12 mg/dL (7-20) Creatinine 0.6 mg/dL (0.6-1.0) 0.9 mg/dL (0.6-1.0) Estimated GFR (Cockcroft-Gault) 123.0 77.0 BUN/Creatinine Ratio 17 (6-20) Glucose Level 140 mg/dL (70-99) 96 mg/dL (70-99) Calcium Level 9.0 mg/dL (8.5-10.1) 10.3 mg/dL (8.5-10.1) Total Bilirubin 0.8 mg/dL (0.2-1.0) Aspartate Amino Transf (AST/SGOT) 14 U/L (15-37) Alanine Aminotransferase (ALT/SGPT) 13 U/L (14-59) Alkaline Phosphatase 155 U/L (46-116) Total Protein 7.2 g/dL (6.4-8.2) Albumin 3.8 g/dL (3.4-5.0) Albumin/Globulin Ratio 1.1 (1.0-1.7) Medications Current Medications Sodium Chloride 1,000 ml @ 1,000 mls/hr 1X ONCE IV Last administered on 01/24/19 14:30; Start 01/24/19 at 13:45; Stop 01/24/19 at 14:44; Status DC Potassium Chloride (Klor-Con) 40 meq 1X ONCE PO Last administered on 01/24/19at 17:44; Start 01/24/19 at 16:30; Stop 01/24/19 at 16:32; Status DC Ondansetron HCl (Zofran) 4 mg 1X ONCE IV Last administered on 01/24/19at 17:26; Start 01/24/19 at 16:45; Stop 01/24/19 at 16:53; Status DC Ceftriaxone Sodium (Rocephin) 1 gm 1X ONCE IVP Last administered on 01/24/19 17:26; Start 01/24/19 at 17:00; Stop 01/24/19 at 17:01; Status DC Dexamethasone (Decadron) 2 mg 1X ONCE PO Last administered on 01/24/19at 17:44; Start 01/24/19 at 17:15; Stop 01/24/19 at 17:20; Status DC Famotidine (Pepcid Vial) 20 mg 1X ONCE IVP Last administered on 01/24/19at 17:29; Start 01/24/19 at 17:15; Stop 01/24/19 at 17:20; Status DC Atropine Sulfate (ATROPINE 0.5mg SYRINGE) 0.5 mg 1X ONCE IV ; Start 01/24/19 at 17:15; Stop 01/24/19 at 17:20; Status DC Ondansetron HCl (Zofran) 4 mg PRN Q8HRS PRN IV NAUSEA/VOMITING; Start 01/24/19 at 17:45; Stop 01/25/19 at 17:44; Status DC Atorvastatin Calcium (Lipitor) 10 mg QHS PO Last administered on 01/25/19at 20:35; Start 01/24/19 at 21:00 Carbidopa/Levodopa (Sinemet Cr) 3 tab.sa 0700,1000,1300 PO Last administered on 01/26/19at 13:04; Start 01/25/19 at 07:00 Levothyroxine Sodium (Synthroid) 75 mcg DAILY07 PO Last administered on 01/26/19at 06:09; Start 01/25/19 at 07:00 Nitroglycerin (Nitrostat) 0.4 mg PRN Q5MIN PRN SL CHEST PAIN; Start 01/24/19 at 20:15 Non-Formulary Medication (Carbidopa/ Levodopa (Sinemet Cr 50-200 Tablet)) 1 tab six times a day PO ; Start 01/24/19 at 20:15; Status UNV Non-Formulary Medication (Ciclopirox Olamine (Ciclopirox)) 1 teja HS TP ; Start 01/24/19 at 21:00; Stop 01/25/19 at 00:22; Status DC Hydrochlorothiazide (Microzide) 12.5 mg DAILY PO Last administered on 01/26/19at 08:13; Start 01/25/19 at 09:00 Polyethylene Glycol (miraLAX PACKET) 17 gm DAILY PO ; Start 01/25/19 at 09:00; Stop 01/25/19 at 09:00; Status DC Famotidine (Pepcid) 20 mg QHS PO Last administered on 01/25/19at 20:35; Start 01/24/19 at 22:00 Ropinirole HCl (Requip) 0.5 mg TID PO ; Start 01/24/19 at 21:00; Stop 01/24/19 at 21:45; Status DC Carbidopa/Levodopa (Sinemet Cr) 3 tab.sa 1600,1900 PO Last administered on 01/25/19at 19:09; Start 01/25/19 at 16:00 Carbidopa/Levodopa (Sinemet Cr) 2 tab.sa 2200 PO Last administered on 01/25/19at 21:47; Start 01/24/19 at 22:00 Polyethylene Glycol (miraLAX PACKET) 17 gm PRN DAILY PRN PO CONSTIPATION 1ST CHOICE Last administered on 01/26/19at 08:13; Start 01/25/19 at 09:00 Ropinirole HCl (Requip) 0.5 mg 0700,1300,1900 PO Last administered on 01/26/19at 13:04; Start 01/25/19 at 07:00 Clotrimazole (Lotrimin) 1 teja QHS TP ; Start 01/25/19 at 21:00 Dexamethasone Sodium Phosphate (Decadron) 2 mg Q8HRS IV Last administered on 01/26/19at 13:04; Start 01/25/19 at 10:00 Active Scripts Active Reported Miralax (Polyethylene Glycol 3350) 17 Gm Powd.pack 1 Pkt PO DAILY PRN Ciclopirox (Ciclopirox Olamine) 15 Gm Cream..g. 1 Teja TP HS NITROGLYCERIN SubLingual (Nitroglycerin) 0.4 Mg Tab.subl 0.4 Mg SL PRN Q5MIN PRN Atorvastatin Calcium 10 Mg Tablet 1 Tab PO DAILY Ranitidine Hcl 150 Mg Tablet 150 Mg PO DAILY Requip (Ropinirole Hcl) 0.5 Mg Tablet 0.5 Mg PO TID Hydrochlorothiazide Tablet (Hydrochlorothiazide) 12.5 Mg Tablet 12.5 Mg PO DAILY Levothyroxine Sodium 75 Mcg Tablet 1 Tab PO DAILY Sinemet Cr 25-100 Tablet (Carbidopa/Levodopa) 1 Each Tablet.er 1 Tab PO FIVE TIMES A DAY Sinemet Cr 50-200 Tablet (Carbidopa/Levodopa) 1 Each Tablet.er 1 Tab PO SIX TIMES A DAY Vitals/I & O Vital Sign - Last 24 Hours 01/25/19 01/25/19 01/25/19 01/25/19 15:00 19:26 19:55 22:35 Temp 97.7 97.7 98.0 97.7 97.7 98.0 Pulse 51 52 48 Resp 18 16 16 B/P (MAP) 122/58 (79) 100/54 (69) 125/64 (84) Pulse Ox 96 99 98 O2 Delivery Room Air Room Air Room Air Room Air 01/26/19 01/26/19 01/26/19 03:26 07:00 07:30 Temp 98.4 98.9 98.4 98.9 Pulse 54 Resp 16 14 B/P (MAP) 141/77 (98) 147/63 (91) Pulse Ox 96 97 O2 Delivery Room Air Room Air Room Air Intake and Output 01/25/19 01/25/19 01/26/19 15:00 23:00 07:00 Intake Total 760 ml 360 ml 400 ml Output Total 325 ml 350 ml 1075 ml Balance 435 ml 10 ml -675 ml LEOLA MILLER III DO January 26, 2019 13:17
--- NOTE | 2019-01-26 14:58 | EKG ---
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
[2019-01-26 15:00] VITALS: BP 116/54
[2019-01-26 19:39] VITALS: BP 100/49
[2019-01-26] MEDS: FAMOTIDINE 20 MG TABLET. PO SCH (20:30)
[2019-01-26] MEDS: ATORVASTATIN CALCIUM 10 MG TABLET. PO SCH (20:30)
--- NOTE | 2019-01-26 20:33 | PDOC ---
PROGRESS NOTES Subjective Subjective patient seen and examined at 1100 awake, alert no headache Objective Objective Vital Signs Date Time Temp Pulse Resp B/P (MAP) Pulse Ox O2 Delivery O2 Flow Rate FiO2 01/26/19 19:50 Room Air 01/26/19 19:39 97.7 62 18 100/49 (66) 95 97.7 Intake and Output 01/26/19 07:00 Intake Total 1520 ml Output Total 1750 ml Balance -230 ml Intake Oral 1520 ml Output Urine Total 1750 ml Physical Exam General: Alert, Oriented X3, Cooperative, No acute distress MUSCULOSKELETAL: Other (CHINO) Neuro: Normal speech Assessment Assessment Problems Medical Problems: (1) Fatigue Status: Acute (2) Hypokalemia Status: Acute (3) Severe sinus bradycardia Status: Acute (4) Subacute subdural hematoma Status: Acute (5) Urinary tract infection Status: Acute Plan Plan of Care continue present treatment repeat CT head in AM d/w Dr. Carbajal Comment Review of Relevant I have reviewed the following items dami (where applicable) has been applied. Labs Laboratory Tests Test 01/24/19 21:00 01/24/19 23:40 01/25/19 13:35 01/26/19 10:43 Troponin I Quantitative < 0.017 ng/mL (0.000-0.055) < 0.017 ng/mL (0.000-0.055) White Blood Count 6.0 x10^3/uL (4.0-11.0) 9.5 x10^3/uL (4.0-11.0) Red Blood Count 3.79 x10^6/uL (3.50-5.40) 4.60 x10^6/uL (3.50-5.40) Hemoglobin 11.9 g/dL (12.0-15.5) 14.3 g/dL (12.0-15.5) Hematocrit 35.5 % (36.0-47.0) 43.8 % (36.0-47.0) Mean Corpuscular Volume 94 fL (79-100) 95 fL (79-100) Mean Corpuscular Hemoglobin 31 pg (25-35) 31 pg (25-35) Mean Corpuscular Hemoglobin Concent 34 g/dL (31-37) 33 g/dL (31-37) Red Cell Distribution Width 14.1 % (11.5-14.5) 15.1 % (11.5-14.5) Platelet Count 271 x10^3/uL (140-400) 325 x10^3/uL (140-400) Neutrophils (%) (Auto) 90 % (31-73) 84 % (31-73) Lymphocytes (%) (Auto) 7 % (24-48) 7 % (24-48) Monocytes (%) (Auto) 3 % (0-9) 8 % (0-9) Eosinophils (%) (Auto) 0 % (0-3) 0 % (0-3) Basophils (%) (Auto) 1 % (0-3) 0 % (0-3) Neutrophils # (Auto) 5.4 x10^3uL (1.8-7.7) 8.0 x10^3uL (1.8-7.7) Lymphocytes # (Auto) 0.4 x10^3/uL (1.0-4.8) 0.7 x10^3/uL (1.0-4.8) Monocytes # (Auto) 0.2 x10^3/uL (0.0-1.1) 0.8 x10^3/uL (0.0-1.1) Eosinophils # (Auto) 0.0 x10^3/uL (0.0-0.7) 0.0 x10^3/uL (0.0-0.7) Basophils # (Auto) 0.0 x10^3/uL (0.0-0.2) 0.0 x10^3/uL (0.0-0.2) Segmented Neutrophils % 86 % (35-66) Lymphocytes % 8 % (24-48) Monocytes % 5 % (0-10) Basophils % 1 % (0-3) Platelet Estimate Adequate (ADEQUATE) Sodium Level 140 mmol/L (136-145) 141 mmol/L (136-145) Potassium Level 3.5 mmol/L (3.5-5.1) 3.6 mmol/L (3.5-5.1) Chloride Level 102 mmol/L (98-107) 101 mmol/L (98-107) Carbon Dioxide Level 27 mmol/L (21-32) 28 mmol/L (21-32) Anion Gap 11 (6-14) 12 (6-14) Blood Urea Nitrogen 10 mg/dL (7-20) 12 mg/dL (7-20) Creatinine 0.6 mg/dL (0.6-1.0) 0.9 mg/dL (0.6-1.0) Estimated GFR (Cockcroft-Gault) 123.0 77.0 BUN/Creatinine Ratio 17 (6-20) Glucose Level 140 mg/dL (70-99) 96 mg/dL (70-99) Calcium Level 9.0 mg/dL (8.5-10.1) 10.3 mg/dL (8.5-10.1) Total Bilirubin 0.8 mg/dL (0.2-1.0) Aspartate Amino Transf (AST/SGOT) 14 U/L (15-37) Alanine Aminotransferase (ALT/SGPT) 13 U/L (14-59) Alkaline Phosphatase 155 U/L (46-116) Total Protein 7.2 g/dL (6.4-8.2) Albumin 3.8 g/dL (3.4-5.0) Albumin/Globulin Ratio 1.1 (1.0-1.7) Laboratory Tests Test 01/26/19 10:43 White Blood Count 9.5 x10^3/uL (4.0-11.0) Red Blood Count 4.60 x10^6/uL (3.50-5.40) Hemoglobin 14.3 g/dL (12.0-15.5) Hematocrit 43.8 % (36.0-47.0) Mean Corpuscular Volume 95 fL (79-100) Mean Corpuscular Hemoglobin 31 pg (25-35) Mean Corpuscular Hemoglobin Concent 33 g/dL (31-37) Red Cell Distribution Width 15.1 % (11.5-14.5) Platelet Count 325 x10^3/uL (140-400) Neutrophils (%) (Auto) 84 % (31-73) Lymphocytes (%) (Auto) 7 % (24-48) Monocytes (%) (Auto) 8 % (0-9) Eosinophils (%) (Auto) 0 % (0-3) Basophils (%) (Auto) 0 % (0-3) Neutrophils # (Auto) 8.0 x10^3uL (1.8-7.7) Lymphocytes # (Auto) 0.7 x10^3/uL (1.0-4.8) Monocytes # (Auto) 0.8 x10^3/uL (0.0-1.1) Eosinophils # (Auto) 0.0 x10^3/uL (0.0-0.7) Basophils # (Auto) 0.0 x10^3/uL (0.0-0.2) Sodium Level 141 mmol/L (136-145) Potassium Level 3.6 mmol/L (3.5-5.1) Chloride Level 101 mmol/L (98-107) Carbon Dioxide Level 28 mmol/L (21-32) Anion Gap 12 (6-14) Blood Urea Nitrogen 12 mg/dL (7-20) Creatinine 0.9 mg/dL (0.6-1.0) Estimated GFR (Cockcroft-Gault) 77.0 Glucose Level 96 mg/dL (70-99) Calcium Level 10.3 mg/dL (8.5-10.1) Medications Current Medications Sodium Chloride 1,000 ml @ 1,000 mls/hr 1X ONCE IV Last administered on 01/24/19 14:30; Start 01/24/19 at 13:45; Stop 01/24/19 at 14:44; Status DC Potassium Chloride (Klor-Con) 40 meq 1X ONCE PO Last administered on 01/24/19 17:44; Start 01/24/19 at 16:30; Stop 01/24/19 at 16:32; Status DC Ondansetron HCl (Zofran) 4 mg 1X ONCE IV Last administered on 01/24/19 17:26; Start 01/24/19 at 16:45; Stop 01/24/19 at 16:53; Status DC Ceftriaxone Sodium (Rocephin) 1 gm 1X ONCE IVP Last administered on 01/24/19 17:26; Start 01/24/19 at 17:00; Stop 01/24/19 at 17:01; Status DC Dexamethasone (Decadron) 2 mg 1X ONCE PO Last administered on 01/24/19 17:44; Start 01/24/19 at 17:15; Stop 01/24/19 at 17:20; Status DC Famotidine (Pepcid Vial) 20 mg 1X ONCE IVP Last administered on 5/24/19at 17:29; Start 01/24/19 at 17:15; Stop 01/24/19 at 17:20; Status DC Atropine Sulfate (ATROPINE 0.5mg SYRINGE) 0.5 mg 1X ONCE IV ; Start 01/24/19 at 17:15; Stop 01/24/19 at 17:20; Status DC Ondansetron HCl (Zofran) 4 mg PRN Q8HRS PRN IV NAUSEA/VOMITING; Start 01/24/19 at 17:45; Stop 01/25/19 at 17:44; Status DC Atorvastatin Calcium (Lipitor) 10 mg QHS PO Last administered on 01/25/19at 20:35; Start 01/24/19 at 21:00 Carbidopa/Levodopa (Sinemet Cr) 3 tab.sa 0700,1000,1300 PO Last administered on 01/26/19at 13:04; Start 01/25/19 at 07:00 Levothyroxine Sodium (Synthroid) 75 mcg DAILY07 PO Last administered on 01/26/19at 06:09; Start 01/25/19 at 07:00 Nitroglycerin (Nitrostat) 0.4 mg PRN Q5MIN PRN SL CHEST PAIN; Start 01/24/19 at 20:15 Non-Formulary Medication (Carbidopa/ Levodopa (Sinemet Cr 50-200 Tablet)) 1 tab six times a day PO ; Start 01/24/19 at 20:15; Status UNV Non-Formulary Medication (Ciclopirox Olamine (Ciclopirox)) 1 teja HS TP ; Start 01/24/19 at 21:00; Stop 01/25/19 at 00:22; Status DC Hydrochlorothiazide (Microzide) 12.5 mg DAILY PO Last administered on 01/26/19at 08:13; Start 01/25/19 at 09:00 Polyethylene Glycol (miraLAX PACKET) 17 gm DAILY PO ; Start 01/25/19 at 09:00; Stop 01/25/19 at 09:00; Status DC Famotidine (Pepcid) 20 mg QHS PO Last administered on 01/25/19at 20:35; Start 01/24/19 at 22:00 Ropinirole HCl (Requip) 0.5 mg TID PO ; Start 01/24/19 at 21:00; Stop 01/24/19 at 21:45; Status DC Carbidopa/Levodopa (Sinemet Cr) 3 tab.sa 1600,1900 PO Last administered on 01/26/19at 19:03; Start 01/25/19 at 16:00 Carbidopa/Levodopa (Sinemet Cr) 2 tab.sa 2200 PO Last administered on 01/25/19at 21:47; Start 01/24/19 at 22:00 Polyethylene Glycol (miraLAX PACKET) 17 gm PRN DAILY PRN PO CONSTIPATION 1ST C HOICE Last administered on 01/26/19at 08:13; Start 01/25/19 at 09:00 Ropinirole HCl (Requip) 0.5 mg 0700,1300,1900 PO Last administered on 01/26/19at 19:03; Start 01/25/19 at 07:00 Clotrimazole (Lotrimin) 1 teja QHS TP ; Start 01/25/19 at 21:00 Dexamethasone Sodium Phosphate (Decadron) 2 mg Q8HRS IV Last administered on 01/26/19at 13:04; Start 01/25/19 at 10:00 Active Scripts Active Reported Miralax (Polyethylene Glycol 3350) 17 Gm Powd.pack 1 Pkt PO DAILY PRN Ciclopirox (Ciclopirox Olamine) 15 Gm Cream..g. 1 Teja TP HS NITROGLYCERIN SubLingual (Nitroglycerin) 0.4 Mg Tab.subl 0.4 Mg SL PRN Q5MIN PRN Atorvastatin Calcium 10 Mg Tablet 1 Tab PO DAILY Ranitidine Hcl 150 Mg Tablet 150 Mg PO DAILY Requip (Ropinirole Hcl) 0.5 Mg Tablet 0.5 Mg PO TID Hydrochlorothiazide Tablet (Hydrochlorothiazide) 12.5 Mg Tablet 12.5 Mg PO DAILY Levothyroxine Sodium 75 Mcg Tablet 1 Tab PO DAILY Sinemet Cr 25-100 Tablet (Carbidopa/Levodopa) 1 Each Tablet.er 1 Tab PO FIVE TIMES A DAY Sinemet Cr 50-200 Tablet (Carbidopa/Levodopa) 1 Each Tablet.er 1 Tab PO SIX TIMES A DAY Vitals/I & O Vital Sign - Last 24 Hours 01/25/19 01/26/19 01/26/19 01/26/19 22:35 03:26 07:00 07:30 Temp 98.0 98.4 98.9 98.0 98.4 98.9 Pulse 48 54 Resp 16 16 14 B/P (MAP) 125/64 (84) 141/77 (98) 147/63 (91) Pulse Ox 98 96 97 O2 Delivery Room Air Room Air Room Air Room Air 01/26/19 01/26/19 01/26/19 01/26/19 11:00 15:00 19:39 19:50 Temp 98.1 98.0 97.7 98.1 98.0 97.7 Pulse 57 70 62 Resp 14 14 18 B/P (MAP) 138/69 (92) 116/54 (74) 100/49 (66) Pulse Ox 98 98 95 O2 Delivery Room Air Room Air Room Air Room Air Intake and Output 01/25/19 01/25/19 01/26/19 15:00 23:00 07:00 Intake Total 760 ml 360 ml 400 ml Output Total 325 ml 350 ml 1075 ml Balance 435 ml 10 ml -675 ml MARIANA MARTINES MD January 26, 2019 20:33
[2019-01-26] MEDS: CLOTRIMAZOLE 1% TOPICAL CREAM 15GM TUBE. TP SCH (21:00)
[2019-01-26 23:12] VITALS: BP 111/68
[2019-01-27 03:48] VITALS: BP 135/77
[2019-01-27 04:46] LABS: BASO % 0 % (0-3); EOS % 0 % (0-3); HEMATOCRIT 33.8 % (36.0-47.0); HEMOGLOBIN 11.3 g/dL (12.0-15.5); LYMPH # 0.8 x10^3/uL (1.0-4.8); LYMPH % 10 % (24-48); MEAN CORPUSCULAR HEMOGLOBIN 32 pg (25-35); MEAN CORPUSCULAR HGB CONC 33 g/dL (31-37); MEAN CORPUSCULAR VOLUME 95 fL (79-100); MONO # 0.4 x10^3/uL (0.0-1.1); MONO % 6 % (0-9); NEUT # 6.6 x10^3uL (1.8-7.7); NEUT % 84 % (31-73); PLATELET COUNT 290 x10^3/uL (140-400); RED BLOOD COUNT 3.58 x10^6/uL (3.50-5.40); RED CELL DISTRIBUTION WIDTH 14.6 % (11.5-14.5); WHITE BLOOD COUNT 7.8 x10^3/uL (4.0-11.0)
[2019-01-27 05:22] LABS: CALCIUM 9.1 mg/dL (8.5-10.1); CREATININE 0.6 mg/dL (0.6-1.0); POTASSIUM 3.8 mmol/L (3.5-5.1)
[2019-01-27] MEDS: DEXAMETHASONE SOD PHOS 4 MG/ML VIAL IV SCH ×3 (06:09→22:22)
[2019-01-27] MEDS: LEVOTHYROXINE 75 MCG TABLET PO SCH (06:09)
[2019-01-27] MEDS: CARBIDOPA/LEVODOPA CR 25/100MG TABLET.SA. PO SCH ×6 (06:20→22:22)
[2019-01-27 07:00] VITALS: BP 141/67
--- NOTE | 2019-01-27 08:25 | RAD ---
CT scan of the head without contrast 01/27/2019 Clinical History: History of subdural hematoma. Technique: Unenhanced, contiguous, 5 mm axial sections were obtained through the head. One or more of the following individualized dose reduction techniques were utilized for this study: 1. Automated exposure control. 2. Adjustment of the mA and/or kV according to patient size. 3. Use of iterative reconstruction technique. Findings: Comparison study is dated 01/04/2019 There is generalized parenchymal atrophy. Areas of decreased attenuation are seen within the periventricular and subcortical white matter of both cerebral hemispheres consistent with areas of small vessel ischemic disease. A subdural hematoma is seen surrounding the right cerebral hemisphere. This measures 8 mm in greatest thickness. It has not significantly changed in size since the previous examination. There is mass effect upon the right cerebral hemisphere with [id number] midline shift of 8 mm. This is unchanged. No acute parenchymal abnormality is seen. No additional extra-axial fluid collection is noted. No skull fracture is seen. IMPRESSION: A right-sided subdural hematoma, is again seen surrounding the right cerebral hemisphere. This measures 8 mm in thickness. There is mass effect upon the right cerebral hemisphere with [id number] midline shift of 8 mm. These findings are unchanged. Electronically signed by: Rd Perera MD (01/27/2019 8:22 AM) [facility]
--- NOTE | 2019-01-27 08:33 | PDOC ---
PROGRESS NOTES Chief Complaint Chief Complaint Subdural hematoma - evolving per CT GERD Hypertension Parkinson's Falls Grave's PVD s/p peripheral stents Bladder dystonia - with intermittent self-catheterization, seen by Urology outpatient History of Present Illness History of Present Illness Ms Wilkes is a 63 year old female w/ PMHx GERD, Hypertension, Parkinson's, grave's, PVD s/p peripheral stents, and bladder dystonia with intermittent cathing who presents with nausea and vomiting after a discharge home a week ago for SDH. Found with 8mm right SDH with midline shift on repeat CT head. CT head revealed what is a likely a subdural hematoma. On further review she notes she is on ASA for a lower extremity stent placed at [facility] over 3 years ago. Patient seen and examined Bruising on face still diffusely noted She reports no new complaints Discussed with Neurosurgery, discussed with Nurse. Bradycardia may be an indication for surgery, she needs to be observed another day. Vitals Vitals Vital Signs Date Time Temp Pulse Resp B/P (MAP) Pulse Ox O2 Delivery O2 Flow Rate FiO2 01/27/19 07:00 98.3 46 16 141/67 (91) 98 Room Air 98.3 Physical Exam General: Alert, Oriented X3, Cooperative, No acute distress Heart: Regular rate Lungs: Clear Abdomen: Normal bowel sounds, Soft, No tenderness Extremities: No cyanosis, No edema Labs LABS Laboratory Tests Test 01/26/19 10:43 01/27/19 03:30 White Blood Count 9.5 x10^3/uL (4.0-11.0) 7.8 x10^3/uL (4.0-11.0) Red Blood Count 4.60 x10^6/uL (3.50-5.40) 3.58 x10^6/uL (3.50-5.40) Hemoglobin 14.3 g/dL (12.0-15.5) 11.3 g/dL (12.0-15.5) Hematocrit 43.8 % (36.0-47.0) 33.8 % (36.0-47.0) Mean Corpuscular Volume 95 fL (79-100) 95 fL (79-100) Mean Corpuscular Hemoglobin 31 pg (25-35) 32 pg (25-35) Mean Corpuscular Hemoglobin Concent 33 g/dL (31-37) 33 g/dL (31-37) Red Cell Distribution Width 15.1 % (11.5-14.5) 14.6 % (11.5-14.5) Platelet Count 325 x10^3/uL (140-400) 290 x10^3/uL (140-400) Neutrophils (%) (Auto) 84 % (31-73) 84 % (31-73) Lymphocytes (%) (Auto) 7 % (24-48) 10 % (24-48) Monocytes (%) (Auto) 8 % (0-9) 6 % (0-9) Eosinophils (%) (Auto) 0 % (0-3) 0 % (0-3) Basophils (%) (Auto) 0 % (0-3) 0 % (0-3) Neutrophils # (Auto) 8.0 x10^3uL (1.8-7.7) 6.6 x10^3uL (1.8-7.7) Lymphocytes # (Auto) 0.7 x10^3/uL (1.0-4.8) 0.8 x10^3/uL (1.0-4.8) Monocytes # (Auto) 0.8 x10^3/uL (0.0-1.1) 0.4 x10^3/uL (0.0-1.1) Eosinophils # (Auto) 0.0 x10^3/uL (0.0-0.7) 0.0 x10^3/uL (0.0-0.7) Basophils # (Auto) 0.0 x10^3/uL (0.0-0.2) 0.0 x10^3/uL (0.0-0.2) Sodium Level 141 mmol/L (136-145) 141 mmol/L (136-145) Potassium Level 3.6 mmol/L (3.5-5.1) 3.8 mmol/L (3.5-5.1) Chloride Level 101 mmol/L (98-107) 103 mmol/L (98-107) Carbon Dioxide Level 28 mmol/L (21-32) 29 mmol/L (21-32) Anion Gap 12 (6-14) 9 (6-14) Blood Urea Nitrogen 12 mg/dL (7-20) 19 mg/dL (7-20) Creatinine 0.9 mg/dL (0.6-1.0) 0.6 mg/dL (0.6-1.0) Estimated GFR (Cockcroft-Gault) 77.0 123.0 Glucose Level 96 mg/dL (70-99) 96 mg/dL (70-99) Calcium Level 10.3 mg/dL (8.5-10.1) 9.1 mg/dL (8.5-10.1) Assessment and Plan Assessmemt and Plan Problems Medical Problems: (1) Fatigue Status: Acute (2) Hypokalemia Status: Acute (3) Severe sinus bradycardia Status: Acute (4) Subacute subdural hematoma Status: Acute (5) Urinary tract infection Status: Acute Comment Review of Relevant I have reviewed the following items dami (where applicable) has been applied. Labs Laboratory Tests Test 01/25/19 13:35 01/26/19 10:43 01/27/19 03:30 White Blood Count 6.0 x10^3/uL (4.0-11.0) 9.5 x10^3/uL (4.0-11.0) 7.8 x10^3/uL (4.0-11.0) Red Blood Count 3.79 x10^6/uL (3.50-5.40) 4.60 x10^6/uL (3.50-5.40) 3.58 x10^6/uL (3.50-5.40) Hemoglobin 11.9 g/dL (12.0-15.5) 14.3 g/dL (12.0-15.5) 11.3 g/dL (12.0-15.5) Hematocrit 35.5 % (36.0-47.0) 43.8 % (36.0-47.0) 33.8 % (36.0-47.0) Mean Corpuscular Volume 94 fL (79-100) 95 fL (79-100) 95 fL (79-100) Mean Corpuscular Hemoglobin 31 pg (25-35) 31 pg (25-35) 32 pg (25-35) Mean Corpuscular Hemoglobin Concent 34 g/dL (31-37) 33 g/dL (31-37) 33 g/dL (31-37) Red Cell Distribution Width 14.1 % (11.5-14.5) 15.1 % (11.5-14.5) 14.6 % (11.5-14.5) Platelet Count 271 x10^3/uL (140-400) 325 x10^3/uL (140-400) 290 x10^3/uL (140-400) Neutrophils (%) (Auto) 90 % (31-73) 84 % (31-73) 84 % (31-73) Lymphocytes (%) (Auto) 7 % (24-48) 7 % (24-48) 10 % (24-48) Monocytes (%) (Auto) 3 % (0-9) 8 % (0-9) 6 % (0-9) Eosinophils (%) (Auto) 0 % (0-3) 0 % (0-3) 0 % (0-3) Basophils (%) (Auto) 1 % (0-3) 0 % (0-3) 0 % (0-3) Neutrophils # (Auto) 5.4 x10^3uL (1.8-7.7) 8.0 x10^3uL (1.8-7.7) 6.6 x10^3uL (1.8-7.7) Lymphocytes # (Auto) 0.4 x10^3/uL (1.0-4.8) 0.7 x10^3/uL (1.0-4.8) 0.8 x10^3/uL (1.0-4.8) Monocytes # (Auto) 0.2 x10^3/uL (0.0-1.1) 0.8 x10^3/uL (0.0-1.1) 0.4 x10^3/uL (0.0-1.1) Eosinophils # (Auto) 0.0 x10^3/uL (0.0-0.7) 0.0 x10^3/uL (0.0-0.7) 0.0 x10^3/uL (0.0-0.7) Basophils # (Auto) 0.0 x10^3/uL (0.0-0.2) 0.0 x10^3/uL (0.0-0.2) 0.0 x10^3/uL (0.0-0.2) Segmented Neutrophils % 86 % (35-66) Lymphocytes % 8 % (24-48) Monocytes % 5 % (0-10) Basophils % 1 % (0-3) Platelet Estimate Adequate (ADEQUATE) Sodium Level 140 mmol/L (136-145) 141 mmol/L (136-145) 141 mmol/L (136-145) Potassium Level 3.5 mmol/L (3.5-5.1) 3.6 mmol/L (3.5-5.1) 3.8 mmol/L (3.5-5.1) Chloride Level 102 mmol/L (98-107) 101 mmol/L (98-107) 103 mmol/L (98-107) Carbon Dioxide Level 27 mmol/L (21-32) 28 mmol/L (21-32) 29 mmol/L (21-32) Anion Gap 11 (6-14) 12 (6-14) 9 (6-14) Blood Urea Nitrogen 10 mg/dL (7-20) 12 mg/dL (7-20) 19 mg/dL (7-20) Creatinine 0.6 mg/dL (0.6-1.0) 0.9 mg/dL (0.6-1.0) 0.6 mg/dL (0.6-1.0) Estimated GFR (Cockcroft-Gault) 123.0 77.0 123.0 BUN/Creatinine Ratio 17 (6-20) Glucose Level 140 mg/dL (70-99) 96 mg/dL (70-99) 96 mg/dL (70-99) Calcium Level 9.0 mg/dL (8.5-10.1) 10.3 mg/dL (8.5-10.1) 9.1 mg/dL (8.5-10.1) Total Bilirubin 0.8 mg/dL (0.2-1.0) Aspartate Amino Transf (AST/SGOT) 14 U/L (15-37) Alanine Aminotransferase (ALT/SGPT) 13 U/L (14-59) Alkaline Phosphatase 155 U/L (46-116) Total Protein 7.2 g/dL (6.4-8.2) Albumin 3.8 g/dL (3.4-5.0) Albumin/Globulin Ratio 1.1 (1.0-1.7) Laboratory Tests Test 01/26/19 10:43 01/27/19 03:30 White Blood Count 9.5 x10^3/uL (4.0-11.0) 7.8 x10^3/uL (4.0-11.0) Red Blood Count 4.60 x10^6/uL (3.50-5.40) 3.58 x10^6/uL (3.50-5.40) Hemoglobin 14.3 g/dL (12.0-15.5) 11.3 g/dL (12.0-15.5) Hematocrit 43.8 % (36.0-47.0) 33.8 % (36.0-47.0) Mean Corpuscular Volume 95 fL (79-100) 95 fL (79-100) Mean Corpuscular Hemoglobin 31 pg (25-35) 32 pg (25-35) Mean Corpuscular Hemoglobin Concent 33 g/dL (31-37) 33 g/dL (31-37) Red Cell Distribution Width 15.1 % (11.5-14.5) 14.6 % (11.5-14.5) Platelet Count 325 x10^3/uL (140-400) 290 x10^3/uL (140-400) Neutrophils (%) (Auto) 84 % (31-73) 84 % (31-73) Lymphocytes (%) (Auto) 7 % (24-48) 10 % (24-48) Monocytes (%) (Auto) 8 % (0-9) 6 % (0-9) Eosinophils (%) (Auto) 0 % (0-3) 0 % (0-3) Basophils (%) (Auto) 0 % (0-3) 0 % (0-3) Neutrophils # (Auto) 8.0 x10^3uL (1.8-7.7) 6.6 x10^3uL (1.8-7.7) Lymphocytes # (Auto) 0.7 x10^3/uL (1.0-4.8) 0.8 x10^3/uL (1.0-4.8) Monocytes # (Auto) 0.8 x10^3/uL (0.0-1.1) 0.4 x10^3/uL (0.0-1.1) Eosinophils # (Auto) 0.0 x10^3/uL (0.0-0.7) 0.0 x10^3/uL (0.0-0.7) Basophils # (Auto) 0.0 x10^3/uL (0.0-0.2) 0.0 x10^3/uL (0.0-0.2) Sodium Level 141 mmol/L (136-145) 141 mmol/L (136-145) Potassium Level 3.6 mmol/L (3.5-5.1) 3.8 mmol/L (3.5-5.1) Chloride Level 101 mmol/L (98-107) 103 mmol/L (98-107) Carbon Dioxide Level 28 mmol/L (21-32) 29 mmol/L (21-32) Anion Gap 12 (6-14) 9 (6-14) Blood Urea Nitrogen 12 mg/dL (7-20) 19 mg/dL (7-20) Creatinine 0.9 mg/dL (0.6-1.0) 0.6 mg/dL (0.6-1.0) Estimated GFR (Cockcroft-Gault) 77.0 123.0 Glucose Level 96 mg/dL (70-99) 96 mg/dL (70-99) Calcium Level 10.3 mg/dL (8.5-10.1) 9.1 mg/dL (8.5-10.1) Medications Current Medications Sodium Chloride 1,000 ml @ 1,000 mls/hr 1X ONCE IV Last administered on 01/24/19at 14:30; Start 01/24/19 at 13:45; Stop 01/24/19 at 14:44; Status DC Potassium Chloride (Klor-Con) 40 meq 1X ONCE PO Last administered on 01/24/19at 17:44; Start 01/24/19 at 16:30; Stop 01/24/19 at 16:32; Status DC Ondansetron HCl (Zofran) 4 mg 1X ONCE IV Last administered on 01/24/19at 17:26; Start 01/24/19 at 16:45; Stop 01/24/19 at 16:53; Status DC Ceftriaxone Sodium (Rocephin) 1 gm 1X ONCE IVP Last administered on 01/24/19at 17:26; Start 01/24/19 at 17:00; Stop 01/24/19 at 17:01; Status DC Dexamethasone (Decadron) 2 mg 1X ONCE PO Last administered on 01/24/19at 17:44; Start 01/24/19 at 17:15; Stop 01/24/19 at 17:20; Status DC Famotidine (Pepcid Vial) 20 mg 1X ONCE IVP Last administered on 01/24/19at 17:29; Start 01/24/19 at 17:15; Stop 01/24/19 at 17:20; Status DC Atropine Sulfate (ATROPINE 0.5mg SYRINGE) 0.5 mg 1X ONCE IV ; Start 01/24/19 at 17:15; Stop 01/24/19 at 17:20; Status DC Ondansetron HCl (Zofran) 4 mg PRN Q8HRS PRN IV NAUSEA/VOMITING; Start 01/24/19 at 17:45; Stop 01/25/19 at 17:44; Status DC Atorvastatin Calcium (Lipitor) 10 mg QHS PO Last administered on 01/26/19at 20:30; Start 01/24/19 at 21:00 Carbidopa/Levodopa (Sinemet Cr) 3 tab.sa 0700,1000,1300 PO Last administered on 01/27/19at 06:20; Start 01/25/19 at 07:00 Levothyroxine Sodium (Synthroid) 75 mcg DAILY07 PO Last administered on 01/27/19at 06:09; Start 01/25/19 at 07:00 Nitroglycerin (Nitrostat) 0.4 mg PRN Q5MIN PRN SL CHEST PAIN; Start 01/24/19 at 20:15 Non-Formulary Medication (Carbidopa/ Levodopa (Sinemet Cr 50-200 Tablet)) 1 tab six times a day PO ; Start 01/24/19 at 20:15; Status UNV Non-Formulary Medication (Ciclopirox Olamine (Ciclopirox)) 1 teja HS TP ; Start 01/24/19 at 21:00; Stop 01/25/19 at 00:22; Status DC Hydrochlorothiazide (Microzide) 12.5 mg DAILY PO Last administered on 01/26/19at 08:13; Start 01/25/19 at 09:00 Polyethylene Glycol (miraLAX PACKET) 17 gm DAILY PO ; Start 01/25/19 at 09:00; Stop 01/25/19 at 09:00; Status DC Famotidine (Pepcid) 20 mg QHS PO Last administered on 01/26/19at 20:30; Start 01/24/19 at 22:00 Ropinirole HCl (Requip) 0.5 mg TID PO ; Start 01/24/19 at 21:00; Stop 01/24/19 at 21:45; Status DC Carbidopa/Levodopa (Sinemet Cr) 3 tab.sa 1600,1900 PO Last administered on 01/26/19at 19:03; Start 01/25/19 at 16:00 Carbidopa/Levodopa (Sinemet Cr) 2 tab.sa 2200 PO Last administered on 01/26/19at 21:51; Start 01/24/19 at 22:00 Polyethylene Glycol (miraLAX PACKET) 17 gm PRN DAILY PRN PO CONSTIPATION 1ST CHOICE Last administered on 01/26/19 08:13; Start 01/25/19 at 09:00 Ropinirole HCl (Requip) 0.5 mg 0700,1300,1900 PO Last administered on 01/26/19at 21:51; Start 01/25/19 at 07:00 Clotrimazole (Lotrimin) 1 teja QHS TP ; Start 01/25/19 at 21:00 Dexamethasone Sodium Phosphate (Decadron) 2 mg Q8HRS IV Last administered on 01/27/19at 06:09; Start 01/25/19 at 10:00 Active Scripts Active Reported Miralax (Polyethylene Glycol 3350) 17 Gm Powd.pack 1 Pkt PO DAILY PRN Ciclopirox (Ciclopirox Olamine) 15 Gm Cream..g. 1 Teja TP HS NITROGLYCERIN SubLingual (Nitroglycerin) 0.4 Mg Tab.subl 0.4 Mg SL PRN Q5MIN PRN Atorvastatin Calcium 10 Mg Tablet 1 Tab PO DAILY Ranitidine Hcl 150 Mg Tablet 150 Mg PO DAILY Requip (Ropinirole Hcl) 0.5 Mg Tablet 0.5 Mg PO TID Hydrochlorothiazide Tablet (Hydrochlorothiazide) 12.5 Mg Tablet 12.5 Mg PO DAILY Levothyroxine Sodium 75 Mcg Tablet 1 Tab PO DAILY Sinemet Cr 25-100 Tablet (Carbidopa/Levodopa) 1 Each Tablet.er 1 Tab PO FIVE TIMES A DAY Sinemet Cr 50-200 Tablet (Carbidopa/Levodopa) 1 Each Tablet.er 1 Tab PO SIX TIMES A DAY Vitals/I & O Vital Sign - Last 24 Hours 01/26/19 01/26/19 01/26/19 01/26/19 11:00 15:00 19:39 19:50 Temp 98.1 98.0 97.7 98.1 98.0 97.7 Pulse 57 70 62 Resp 14 14 18 B/P (MAP) 138/69 (92) 116/54 (74) 100/49 (66) Pulse Ox 98 98 95 O2 Delivery Room Air Room Air Room Air Room Air 01/26/19 01/27/19 01/27/19 23:12 03:48 07:00 Temp 97.7 97.6 98.3 97.7 97.6 98.3 Pulse 47 40 46 Resp 17 15 16 B/P (MAP) 111/68 (82) 135/77 (96) 141/67 (91) Pulse Ox 98 97 98 O2 Delivery Room Air Room Air Room Air Intake and Output 01/26/19 01/26/19 01/27/19 14:59 22:59 06:59 Intake Total 120 ml 500 ml 0 ml Output Total 475 ml 100 ml 500 ml Balance -355 ml 400 ml -[address] head 01/27/19 - A right-sided subdural hematoma, is again seen surrounding the right cerebral hemisphere. This measures 8 mm in thickness. There is mass effect upon the right cerebral hemisphere with [id number] midline shift of 8 mm. These findings are unchanged. SABI HARRIS MD January 27, 2019 08:33
[2019-01-27] MEDS: POLYETHYLENE GLYCOL 3350 17 GM PACKET. PO PRN (08:49)
[2019-01-27] MEDS: hydroCHLOROthiazide 12.5 MG CAPSULE PO SCH (08:50)
[2019-01-27 11:02] VITALS: BP 122/59
[2019-01-27] MEDS: rOPINIRole 0.25 MG TABLET. PO SCH ×2 (13:46→18:43)
[2019-01-27 15:01] VITALS: BP 115/67
--- NOTE | 2019-01-27 16:19 | PDOC ---
PROGRESS NOTES Subjective Subjective patient seen at 1230 denies headache asymptomatic bradycardia Objective Objective Vital Signs Date Time Temp Pulse Resp B/P (MAP) Pulse Ox O2 Delivery O2 Flow Rate FiO2 01/27/19 15:01 98.1 61 16 115/67 (83) 99 Room Air 98.1 Intake and Output 01/27/19 06:59 Intake Total 620 ml Output Total 1075 ml Balance -455 ml Intake Oral 620 ml Output Urine Total 1075 ml Physical Exam General: Alert, Oriented X3, Cooperative, No acute distress MUSCULOSKELETAL: Other (CHINO) Neuro: Normal speech Assessment Assessment Problems Medical Problems: (1) Fatigue Status: Acute (2) Hypokalemia Status: Acute (3) Severe sinus bradycardia Status: Acute (4) Subacute subdural hematoma Status: Acute (5) Urinary tract infection Status: Acute Plan Plan of Care reviewed CT head- SDH unchanged continue steroids possible dc tomorrow Comment Review of Relevant I have reviewed the following items dami (where applicable) has been applied. Labs Laboratory Tests Test 01/26/19 10:43 01/27/19 03:30 White Blood Count 9.5 x10^3/uL (4.0-11.0) 7.8 x10^3/uL (4.0-11.0) Red Blood Count 4.60 x10^6/uL (3.50-5.40) 3.58 x10^6/uL (3.50-5.40) Hemoglobin 14.3 g/dL (12.0-15.5) 11.3 g/dL (12.0-15.5) Hematocrit 43.8 % (36.0-47.0) 33.8 % (36.0-47.0) Mean Corpuscular Volume 95 fL (79-100) 95 fL (79-100) Mean Corpuscular Hemoglobin 31 pg (25-35) 32 pg (25-35) Mean Corpuscular Hemoglobin Concent 33 g/dL (31-37) 33 g/dL (31-37) Red Cell Distribution Width 15.1 % (11.5-14.5) 14.6 % (11.5-14.5) Platelet Count 325 x10^3/uL (140-400) 290 x10^3/uL (140-400) Neutrophils (%) (Auto) 84 % (31-73) 84 % (31-73) Lymphocytes (%) (Auto) 7 % (24-48) 10 % (24-48) Monocytes (%) (Auto) 8 % (0-9) 6 % (0-9) Eosinophils (%) (Auto) 0 % (0-3) 0 % (0-3) Basophils (%) (Auto) 0 % (0-3) 0 % (0-3) Neutrophils # (Auto) 8.0 x10^3uL (1.8-7.7) 6.6 x10^3uL (1.8-7.7) Lymphocytes # (Auto) 0.7 x10^3/uL (1.0-4.8) 0.8 x10^3/uL (1.0-4.8) Monocytes # (Auto) 0.8 x10^3/uL (0.0-1.1) 0.4 x10^3/uL (0.0-1.1) Eosinophils # (Auto) 0.0 x10^3/uL (0.0-0.7) 0.0 x10^3/uL (0.0-0.7) Basophils # (Auto) 0.0 x10^3/uL (0.0-0.2) 0.0 x10^3/uL (0.0-0.2) Sodium Level 141 mmol/L (136-145) 141 mmol/L (136-145) Potassium Level 3.6 mmol/L (3.5-5.1) 3.8 mmol/L (3.5-5.1) Chloride Level 101 mmol/L (98-107) 103 mmol/L (98-107) Carbon Dioxide Level 28 mmol/L (21-32) 29 mmol/L (21-32) Anion Gap 12 (6-14) 9 (6-14) Blood Urea Nitrogen 12 mg/dL (7-20) 19 mg/dL (7-20) Creatinine 0.9 mg/dL (0.6-1.0) 0.6 mg/dL (0.6-1.0) Estimated GFR (Cockcroft-Gault) 77.0 123.0 Glucose Level 96 mg/dL (70-99) 96 mg/dL (70-99) Calcium Level 10.3 mg/dL (8.5-10.1) 9.1 mg/dL (8.5-10.1) Laboratory Tests Test 01/27/19 03:30 White Blood Count 7.8 x10^3/uL (4.0-11.0) Red Blood Count 3.58 x10^6/uL (3.50-5.40) Hemoglobin 11.3 g/dL (12.0-15.5) Hematocrit 33.8 % (36.0-47.0) Mean Corpuscular Volume 95 fL (79-100) Mean Corpuscular Hemoglobin 32 pg (25-35) Mean Corpuscular Hemoglobin Concent 33 g/dL (31-37) Red Cell Distribution Width 14.6 % (11.5-14.5) Platelet Count 290 x10^3/uL (140-400) Neutrophils (%) (Auto) 84 % (31-73) Lymphocytes (%) (Auto) 10 % (24-48) Monocytes (%) (Auto) 6 % (0-9) Eosinophils (%) (Auto) 0 % (0-3) Basophils (%) (Auto) 0 % (0-3) Neutrophils # (Auto) 6.6 x10^3uL (1.8-7.7) Lymphocytes # (Auto) 0.8 x10^3/uL (1.0-4.8) Monocytes # (Auto) 0.4 x10^3/uL (0.0-1.1) Eosinophils # (Auto) 0.0 x10^3/uL (0.0-0.7) Basophils # (Auto) 0.0 x10^3/uL (0.0-0.2) Sodium Level 141 mmol/L (136-145) Potassium Level 3.8 mmol/L (3.5-5.1) Chloride Level 103 mmol/L (98-107) Carbon Dioxide Level 29 mmol/L (21-32) Anion Gap 9 (6-14) Blood Urea Nitrogen 19 mg/dL (7-20) Creatinine 0.6 mg/dL (0.6-1.0) Estimated GFR (Cockcroft-Gault) 123.0 Glucose Level 96 mg/dL (70-99) Calcium Level 9.1 mg/dL (8.5-10.1) Microbiology 01/24/19 Urine Culture - Final, Complete 01/24/19 Urine Culture Result 1 (ADRIÁN) - Final, Complete Medications Current Medications Sodium Chloride 1,000 ml @ 1,000 mls/hr 1X ONCE IV Last administered on 01/24/19 14:30; Start 01/24/19 at 13:45; Stop 01/24/19 at 14:44; Status DC Potassium Chloride (Klor-Con) 40 meq 1X ONCE PO Last administered on 01/24/19at 17:44; Start 01/24/19 at 16:30; Stop 01/24/19 at 16:32; Status DC Ondansetron HCl (Zofran) 4 mg 1X ONCE IV Last administered on 01/24/19 17:26; Start 01/24/19 at 16:45; Stop 01/24/19 at 16:53; Status DC Ceftriaxone Sodium (Rocephin) 1 gm 1X ONCE IVP Last administered on 01/24/19 17:26; Start 01/24/19 at 17:00; Stop 01/24/19 at 17:01; Status DC Dexamethasone (Decadron) 2 mg 1X ONCE PO Last administered on 01/24/19at 17:44; Start 01/24/19 at 17:15; Stop 01/24/19 at 17:20; Status DC Famotidine (Pepcid Vial) 20 mg 1X ONCE IVP Last administered on 01/24/19at 17:29; Start 01/24/19 at 17:15; Stop 01/24/19 at 17:20; Status DC Atropine Sulfate (ATROPINE 0.5mg SYRINGE) 0.5 mg 1X ONCE IV ; Start 01/24/19 at 17:15; Stop 01/24/19 at 17:20; Status DC Ondansetron HCl (Zofran) 4 mg PRN Q8HRS PRN IV NAUSEA/VOMITING; Start 01/24/19 at 17:45; Stop 01/25/19 at 17:44; Status DC Atorvastatin Calcium (Lipitor) 10 mg QHS PO Last administered on 01/26/19at 20:30; Start 01/24/19 at 21:00 Carbidopa/Levodopa (Sinemet Cr) 3 tab.sa 0700,1000,1300 PO Last administered on 01/27/19at 13:45; Start 01/25/19 at 07:00 Levothyroxine Sodium (Synthroid) 75 mcg DAILY07 PO Last administered on 01/27/19at 06:09; Start 01/25/19 at 07:00 Nitroglycerin (Nitrostat) 0.4 mg PRN Q5MIN PRN SL CHEST PAIN; Start 01/24/19 at 20:15 Non-Formulary Medication (Carbidopa/ Levodopa (Sinemet Cr 50-200 Tablet)) 1 tab six times a day PO ; Start 01/24/19 at 20:15; Status UNV Non-Formulary Medication (Ciclopirox Olamine (Ciclopirox)) 1 teja HS TP ; Start 01/24/19 at 21:00; Stop 01/25/19 at 00:22; Status DC Hydrochlorothiazide (Microzide) 12.5 mg DAILY PO Last administered on 01/27/19at 08:50; Start 01/25/19 at 09:00 Polyethylene Glycol (miraLAX PACKET) 17 gm DAILY PO ; Start 01/25/19 at 09:00; Stop 01/25/19 at 09:00; Status DC Famotidine (Pepcid) 20 mg QHS PO Last administered on 01/26/19at 20:30; Start 01/24/19 at 22:00 Ropinirole HCl (Requip) 0.5 mg TID PO ; Start 01/24/19 at 21:00; Stop 01/24/19 at 21:45; Status DC Carbidopa/Levodopa (Sinemet Cr) 3 tab.sa 1600,1900 PO Last administered on 01/27/19at 15:43; Start 01/25/19 at 16:00 Carbidopa/Levodopa (Sinemet Cr) 2 tab.sa 2200 PO Last administered on 01/26/19at 21:51; Start 01/24/19 at 22:00 Polyethylene Glycol (miraLAX PACKET) 17 gm PRN DAILY PRN PO CONSTIPATION 1ST CHOICE Last administered on 01/27/19at 08:49; Start 01/25/19 at 09:00 Ropinirole HCl (Requip) 0.5 mg 0700,1300,1900 PO Last administered on 01/27/19at 13:46; Start 01/25/19 at 07:00 Clotrimazole (Lotrimin) 1 teja QHS TP ; Start 5/25/19 at 21:00 Dexamethasone Sodium Phosphate (Decadron) 2 mg Q8HRS IV Last administered on 01/27/19at 13:51; Start 01/25/19 at 10:00 Active Scripts Active Reported Miralax (Polyethylene Glycol 3350) 17 Gm Powd.pack 1 Pkt PO DAILY PRN Ciclopirox (Ciclopirox Olamine) 15 Gm Cream..g. 1 Teja TP HS NITROGLYCERIN SubLingual (Nitroglycerin) 0.4 Mg Tab.subl 0.4 Mg SL PRN Q5MIN PRN Atorvastatin Calcium 10 Mg Tablet 1 Tab PO DAILY Ranitidine Hcl 150 Mg Tablet 150 Mg PO DAILY Requip (Ropinirole Hcl) 0.5 Mg Tablet 0.5 Mg PO TID Hydrochlorothiazide Tablet (Hydrochlorothiazide) 12.5 Mg Tablet 12.5 Mg PO DAILY Levothyroxine Sodium 75 Mcg Tablet 1 Tab PO DAILY Sinemet Cr 25-100 Tablet (Carbidopa/Levodopa) 1 Each Tablet.er 1 Tab PO FIVE TIMES A DAY Sinemet Cr 50-200 Tablet (Carbidopa/Levodopa) 1 Each Tablet.er 1 Tab PO SIX TIMES A DAY Vitals/I & O Vital Sign - Last 24 Hours 01/26/19 01/26/19 01/26/19 01/27/19 19:39 19:50 23:12 03:48 Temp 97.7 97.7 97.6 97.7 97.7 97.6 Pulse 62 47 40 Resp 18 17 15 B/P (MAP) 100/49 (66) 111/68 (82) 135/77 (96) Pulse Ox 95 98 97 O2 Delivery Room Air Room Air Room Air Room Air 01/27/19 01/27/19 01/27/19 01/27/19 07:00 08:00 11:02 11:18 Temp 98.3 97.9 98.3 97.9 Pulse 46 60 Resp 16 16 B/P (MAP) 141/67 (91) 122/59 (80) Pulse Ox 98 100 O2 Delivery Room Air Room Air Room Air Room Air 01/27/19 15:01 Temp 98.1 98.1 Pulse 61 Resp 16 B/P (MAP) 115/67 (83) Pulse Ox 99 O2 Delivery Room Air Intake and Output 01/26/19 01/26/19 01/27/19 14:59 22:59 06:59 Intake Total 120 ml 500 ml 0 ml Output Total 475 ml 100 ml 500 ml Balance -355 ml 400 ml -500 ml MARIANA MARTINES MD January 27, 2019 16:19
[2019-01-27 19:44] VITALS: BP 96/49
[2019-01-27] MEDS: FAMOTIDINE 20 MG TABLET. PO SCH (20:33)
[2019-01-27] MEDS: ATORVASTATIN CALCIUM 10 MG TABLET. PO SCH (20:33)
[2019-01-27] MEDS: CLOTRIMAZOLE 1% TOPICAL CREAM 15GM TUBE. TP SCH (20:34)
[2019-01-27 22:37] VITALS: BP 118/62
[2019-01-28 03:04] VITALS: BP 148/78
[2019-01-28 04:40] LABS: BASO % 0 % (0-3); EOS % 0 % (0-3); HEMATOCRIT 35.3 % (36.0-47.0); HEMOGLOBIN 11.7 g/dL (12.0-15.5); LYMPH # 0.9 x10^3/uL (1.0-4.8); LYMPH % 11 % (24-48); MEAN CORPUSCULAR HEMOGLOBIN 31 pg (25-35); MEAN CORPUSCULAR HGB CONC 33 g/dL (31-37); MEAN CORPUSCULAR VOLUME 94 fL (79-100); MONO # 0.4 x10^3/uL (0.0-1.1); MONO % 5 % (0-9); NEUT # 6.5 x10^3uL (1.8-7.7); NEUT % 84 % (31-73); PLATELET COUNT 305 x10^3/uL (140-400); RED BLOOD COUNT 3.76 x10^6/uL (3.50-5.40); RED CELL DISTRIBUTION WIDTH 14.3 % (11.5-14.5); WHITE BLOOD COUNT 7.7 x10^3/uL (4.0-11.0)
[2019-01-28 04:49] LABS: CALCIUM 8.9 mg/dL (8.5-10.1); CREATININE 0.7 mg/dL (0.6-1.0); GFR 102.9
[2019-01-28] MEDS: LEVOTHYROXINE 75 MCG TABLET PO SCH (06:11)
[2019-01-28] MEDS: CARBIDOPA/LEVODOPA CR 25/100MG TABLET.SA. PO SCH ×3 (06:11→12:31)
[2019-01-28] MEDS: DEXAMETHASONE SOD PHOS 4 MG/ML VIAL IV SCH ×2 (06:12→12:34)
[2019-01-28] MEDS: rOPINIRole 0.25 MG TABLET. PO SCH ×2 (06:12→12:32)
[2019-01-28 07:00] VITALS: BP 177/72
--- NOTE | 2019-01-28 08:05 | PDOC ---
PROGRESS NOTES Chief Complaint Chief Complaint Subdural hematoma - evolving per CT GERD Hypertension Parkinson's Falls Grave's PVD s/p peripheral stents Bladder dystonia - with intermittent self-catheterization, seen by Urology outpatient History of Present Illness History of Present Illness Ms Wilkes is a 63 year old female w/ PMHx GERD, Hypertension, Parkinson's, grave's, PVD s/p peripheral stents, and bladder dystonia with intermittent cathing who presents with nausea and vomiting after a discharge home a week ago for SDH. Found with 8mm right SDH with midline shift on repeat CT head. CT head revealed what is a likely a subdural hematoma. On further review she notes she is on ASA for a lower extremity stent placed at [facility] over 3 years ago. Patient seen and examined Bruising on face still diffusely noted She reports no new complaints Discussed with Neurosurgery, discussed with Nurse. Bradycardia may be an indication for surgery, she is edmond in the 40s and now hypertensive in the 170s systolic which immediately improved. Repeat CT head stable. Will d/c with f/u CT head this coming per neurosurgery and office follow up as well. Discharged with 2mg TID decadron taper per neurosurgery. Her constipation is managed by miralax, given repeat prescription. Greater than 30 minutes spent on discharge. Vitals Vitals Vital Signs Date Time Temp Pulse Resp B/P (MAP) Pulse Ox O2 Delivery O2 Flow Rate FiO2 01/28/19 07:00 98.3 46 16 177/72 (107) 96 98.3 01/28/19 03:04 Room Air Physical Exam General: Alert, Oriented X3, Cooperative, No acute distress Heart: Regular rate Lungs: Clear Abdomen: Normal bowel sounds, Soft, No tenderness Extremities: No cyanosis, No edema Labs LABS Laboratory Tests Test 01/28/19 04:10 White Blood Count 7.7 x10^3/uL (4.0-11.0) Red Blood Count 3.76 x10^6/uL (3.50-5.40) Hemoglobin 11.7 g/dL (12.0-15.5) Hematocrit 35.3 % (36.0-47.0) Mean Corpuscular Volume 94 fL (79-100) Mean Corpuscular Hemoglobin 31 pg (25-35) Mean Corpuscular Hemoglobin Concent 33 g/dL (31-37) Red Cell Distribution Width 14.3 % (11.5-14.5) Platelet Count 305 x10^3/uL (140-400) Neutrophils (%) (Auto) 84 % (31-73) Lymphocytes (%) (Auto) 11 % (24-48) Monocytes (%) (Auto) 5 % (0-9) Eosinophils (%) (Auto) 0 % (0-3) Basophils (%) (Auto) 0 % (0-3) Neutrophils # (Auto) 6.5 x10^3uL (1.8-7.7) Lymphocytes # (Auto) 0.9 x10^3/uL (1.0-4.8) Monocytes # (Auto) 0.4 x10^3/uL (0.0-1.1) Eosinophils # (Auto) 0.0 x10^3/uL (0.0-0.7) Basophils # (Auto) 0.0 x10^3/uL (0.0-0.2) Sodium Level 141 mmol/L (136-145) Potassium Level 4.0 mmol/L (3.5-5.1) Chloride Level 104 mmol/L (98-107) Carbon Dioxide Level 28 mmol/L (21-32) Anion Gap 9 (6-14) Blood Urea Nitrogen 19 mg/dL (7-20) Creatinine 0.7 mg/dL (0.6-1.0) Estimated GFR (Cockcroft-Gault) 102.9 Glucose Level 105 mg/dL (70-99) Calcium Level 8.9 mg/dL (8.5-10.1) Assessment and Plan Assessmemt and Plan Problems Medical Problems: (1) Fatigue Status: Acute (2) Hypokalemia Status: Acute (3) Severe sinus bradycardia Status: Acute (4) Subacute subdural hematoma Status: Acute (5) Urinary tract infection Status: Acute Comment Review of Relevant I have reviewed the following items dami (where applicable) has been applied. Labs Laboratory Tests Test 01/26/19 10:43 01/27/19 03:30 01/28/19 04:10 White Blood Count 9.5 x10^3/uL (4.0-11.0) 7.8 x10^3/uL (4.0-11.0) 7.7 x10^3/uL (4.0-11.0) Red Blood Count 4.60 x10^6/uL (3.50-5.40) 3.58 x10^6/uL (3.50-5.40) 3.76 x10^6/uL (3.50-5.40) Hemoglobin 14.3 g/dL (12.0-15.5) 11.3 g/dL (12.0-15.5) 11.7 g/dL (12.0-15.5) Hematocrit 43.8 % (36.0-47.0) 33.8 % (36.0-47.0) 35.3 % (36.0-47.0) Mean Corpuscular Volume 95 fL (79-100) 95 fL (79-100) 94 fL (79-100) Mean Corpuscular Hemoglobin 31 pg (25-35) 32 pg (25-35) 31 pg (25-35) Mean Corpuscular Hemoglobin Concent 33 g/dL (31-37) 33 g/dL (31-37) 33 g/dL (31-37) Red Cell Distribution Width 15.1 % (11.5-14.5) 14.6 % (11.5-14.5) 14.3 % (11.5-14.5) Platelet Count 325 x10^3/uL (140-400) 290 x10^3/uL (140-400) 305 x10^3/uL (140-400) Neutrophils (%) (Auto) 84 % (31-73) 84 % (31-73) 84 % (31-73) Lymphocytes (%) (Auto) 7 % (24-48) 10 % (24-48) 11 % (24-48) Monocytes (%) (Auto) 8 % (0-9) 6 % (0-9) 5 % (0-9) Eosinophils (%) (Auto) 0 % (0-3) 0 % (0-3) 0 % (0-3) Basophils (%) (Auto) 0 % (0-3) 0 % (0-3) 0 % (0-3) Neutrophils # (Auto) 8.0 x10^3uL (1.8-7.7) 6.6 x10^3uL (1.8-7.7) 6.5 x10^3uL (1.8-7.7) Lymphocytes # (Auto) 0.7 x10^3/uL (1.0-4.8) 0.8 x10^3/uL (1.0-4.8) 0.9 x10^3/uL (1.0-4.8) Monocytes # (Auto) 0.8 x10^3/uL (0.0-1.1) 0.4 x10^3/uL (0.0-1.1) 0.4 x10^3/uL (0.0-1.1) Eosinophils # (Auto) 0.0 x10^3/uL (0.0-0.7) 0.0 x10^3/uL (0.0-0.7) 0.0 x10^3/uL (0.0-0.7) Basophils # (Auto) 0.0 x10^3/uL (0.0-0.2) 0.0 x10^3/uL (0.0-0.2) 0.0 x10^3/uL (0.0-0.2) Sodium Level 141 mmol/L (136-145) 141 mmol/L (136-145) 141 mmol/L (136-145) Potassium Level 3.6 mmol/L (3.5-5.1) 3.8 mmol/L (3.5-5.1) 4.0 mmol/L (3.5-5.1) Chloride Level 101 mmol/L (98-107) 103 mmol/L (98-107) 104 mmol/L (98-107) Carbon Dioxide Level 28 mmol/L (21-32) 29 mmol/L (21-32) 28 mmol/L (21-32) Anion Gap 12 (6-14) 9 (6-14) 9 (6-14) Blood Urea Nitrogen 12 mg/dL (7-20) 19 mg/dL (7-20) 19 mg/dL (7-20) Creatinine 0.9 mg/dL (0.6-1.0) 0.6 mg/dL (0.6-1.0) 0.7 mg/dL (0.6-1.0) Estimated GFR (Cockcroft-Gault) 77.0 123.0 102.9 Glucose Level 96 mg/dL (70-99) 96 mg/dL (70-99) 105 mg/dL (70-99) Calcium Level 10.3 mg/dL (8.5-10.1) 9.1 mg/dL (8.5-10.1) 8.9 mg/dL (8.5-10.1) Laboratory Tests Test 01/28/19 04:10 White Blood Count 7.7 x10^3/uL (4.0-11.0) Red Blood Count 3.76 x10^6/uL (3.50-5.40) Hemoglobin 11.7 g/dL (12.0-15.5) Hematocrit 35.3 % (36.0-47.0) Mean Corpuscular Volume 94 fL (79-100) Mean Corpuscular Hemoglobin 31 pg (25-35) Mean Corpuscular Hemoglobin Concent 33 g/dL (31-37) Red Cell Distribution Width 14.3 % (11.5-14.5) Platelet Count 305 x10^3/uL (140-400) Neutrophils (%) (Auto) 84 % (31-73) Lymphocytes (%) (Auto) 11 % (24-48) Monocytes (%) (Auto) 5 % (0-9) Eosinophils (%) (Auto) 0 % (0-3) Basophils (%) (Auto) 0 % (0-3) Neutrophils # (Auto) 6.5 x10^3uL (1.8-7.7) Lymphocytes # (Auto) 0.9 x10^3/uL (1.0-4.8) Monocytes # (Auto) 0.4 x10^3/uL (0.0-1.1) Eosinophils # (Auto) 0.0 x10^3/uL (0.0-0.7) Basophils # (Auto) 0.0 x10^3/uL (0.0-0.2) Sodium Level 141 mmol/L (136-145) Potassium Level 4.0 mmol/L (3.5-5.1) Chloride Level 104 mmol/L (98-107) Carbon Dioxide Level 28 mmol/L (21-32) Anion Gap 9 (6-14) Blood Urea Nitrogen 19 mg/dL (7-20) Creatinine 0.7 mg/dL (0.6-1.0) Estimated GFR (Cockcroft-Gault) 102.9 Glucose Level 105 mg/dL (70-99) Calcium Level 8.9 mg/dL (8.5-10.1) Microbiology 01/24/19 Urine Culture - Final, Complete 01/24/19 Urine Culture Result 1 (ADRIÁN) - Final, Complete Medications Current Medications Sodium Chloride 1,000 ml @ 1,000 mls/hr 1X ONCE IV Last administered on 01/24/19at 14:30; Start 01/24/19 at 13:45; Stop 01/24/19 at 14:44; Status DC Potassium Chloride (Klor-Con) 40 meq 1X ONCE PO Last administered on 01/24/19at 17:44; Start 01/24/19 at 16:30; Stop 01/24/19 at 16:32; Status DC Ondansetron HCl (Zofran) 4 mg 1X ONCE IV Last administered on 01/24/19at 17:26; Start 01/24/19 at 16:45; Stop 01/24/19 at 16:53; Status DC Ceftriaxone Sodium (Rocephin) 1 gm 1X ONCE IVP Last administered on 01/24/19 17:26; Start 01/24/19 at 17:00; Stop 01/24/19 at 17:01; Status DC Dexamethasone (Decadron) 2 mg 1X ONCE PO Last administered on 01/24/19at 17:44; Start 01/24/19 at 17:15; Stop 01/24/19 at 17:20; Status DC Famotidine (Pepcid Vial) 20 mg 1X ONCE IVP Last administered on 01/24/19at 17:29; Start 01/24/19 at 17:15; Stop 01/24/19 at 17:20; Status DC Atropine Sulfate (ATROPINE 0.5mg SYRINGE) 0.5 mg 1X ONCE IV ; Start 01/24/19 at 17:15; Stop 01/24/19 at 17:20; Status DC Ondansetron HCl (Zofran) 4 mg PRN Q8HRS PRN IV NAUSEA/VOMITING; Start 01/24/19 at 17:45; Stop 01/25/19 at 17:44; Status DC Atorvastatin Calcium (Lipitor) 10 mg QHS PO Last administered on 01/27/19at 20:33; Start 01/24/19 at 21:00 Carbidopa/Levodopa (Sinemet Cr) 3 tab.sa 0700,1000,1300 PO Last administered on 01/28/19 06:11; Start 01/25/19 at 07:00 Levothyroxine Sodium (Synthroid) 75 mcg DAILY07 PO Last administered on 01/28/19 06:11; Start 01/25/19 at 07:00 Nitroglycerin (Nitrostat) 0.4 mg PRN Q5MIN PRN SL CHEST PAIN; Start 01/24/19 at 20:15 Non-Formulary Medication (Carbidopa/ Levodopa (Sinemet Cr 50-200 Tablet)) 1 tab six times a day PO ; Start 01/24/19 at 20:15; Status UNV Non-Formulary Medication (Ciclopirox Olamine (Ciclopirox)) 1 teja HS TP ; Start 01/24/19 at 21:00; Stop 01/25/19 at 00:22; Status DC Hydrochlorothiazide (Microzide) 12.5 mg DAILY PO Last administered on 01/27/19at 08:50; Start 01/25/19 at 09:00 Polyethylene Glycol (miraLAX PACKET) 17 gm DAILY PO ; Start 01/25/19 at 09:00; Stop 01/25/19 at 09:00; Status DC Famotidine (Pepcid) 20 mg QHS PO Last administered on 01/27/19at 20:33; Start 01/24/19 at 22:00 Ropinirole HCl (Requip) 0.5 mg TID PO ; Start 01/24/19 at 21:00; Stop 01/24/19 at 21:45; Status DC Carbidopa/Levodopa (Sinemet Cr) 3 tab.sa 1600,1900 PO Last administered on 01/27/19at 18:43; Start 01/25/19 at 16:00 Carbidopa/Levodopa (Sinemet Cr) 2 tab.sa 2200 PO Last administered on 01/27/19at 22:22; Start 01/24/19 at 22:00 Polyethylene Glycol (miraLAX PACKET) 17 gm PRN DAILY PRN PO CONSTIPATION 1ST CHOICE Last administered on 01/27/19at 08:49; Start 01/25/19 at 09:00 Ropinirole HCl (Requip) 0.5 mg 0700,1300,1900 PO Last administered on 01/28/19at 06:12; Start 01/25/19 at 07:00 Clotrimazole (Lotrimin) 1 teja QHS TP ; Start 01/25/19 at 21:00 Dexamethasone Sodium Phosphate (Decadron) 2 mg Q8HRS IV Last administered on 01/28/19at 06:12; Start 01/25/19 at 10:00 Active Scripts Active Reported Miralax (Polyethylene Glycol 3350) 17 Gm Powd.pack 1 Pkt PO DAILY PRN Ciclopirox (Ciclopirox Olamine) 15 Gm Cream..g. 1 Teja TP HS NITROGLYCERIN SubLingual (Nitroglycerin) 0.4 Mg Tab.subl 0.4 Mg SL PRN Q5MIN PRN Atorvastatin Calcium 10 Mg Tablet 1 Tab PO DAILY Ranitidine Hcl 150 Mg Tablet 150 Mg PO DAILY Requip (Ropinirole Hcl) 0.5 Mg Tablet 0.5 Mg PO TID Hydrochlorothiazide Tablet (Hydrochlorothiazide) 12.5 Mg Tablet 12.5 Mg PO DAILY Levothyroxine Sodium 75 Mcg Tablet 1 Tab PO DAILY Sinemet Cr 25-100 Tablet (Carbidopa/Levodopa) 1 Each Tablet.er 1 Tab PO FIVE TIMES A DAY Sinemet Cr 50-200 Tablet (Carbidopa/Levodopa) 1 Each Tablet.er 1 Tab PO SIX TIMES A DAY Vitals/I & O Vital Sign - Last 24 Hours 01/27/19 01/27/19 01/27/19 01/27/19 11:02 11:18 15:01 19:38 Temp 97.9 98.1 97.9 98.1 Pulse 60 61 Resp 16 16 B/P (MAP) 122/59 (80) 115/67 (83) Pulse Ox 100 99 O2 Delivery Room Air Room Air Room Air Room Air 01/27/19 01/27/19 01/28/19 01/28/19 19:44 22:37 03:04 07:00 Temp 97.5 97.9 98.5 98.3 97.5 97.9 98.5 98.3 Pulse 60 54 44 46 Resp 16 16 18 16 B/P (MAP) 96/49 (65) 118/62 (80) 148/78 (101) 177/72 (107) Pulse Ox 97 99 94 96 O2 Delivery Room Air Room Air Room Air Intake and Output 01/27/19 01/27/19 01/28/19 15:00 23:00 07:00 Intake Total 480 ml 500 ml 400 ml Output Total 950 ml 750 ml Balance 480 ml -450 ml -350 ml SABI HARRIS MD January 28, 2019 08:05
[2019-01-28] MEDS: hydroCHLOROthiazide 12.5 MG CAPSULE PO SCH (08:29)
[2019-01-28 11:00] VITALS: BP 123/72
[2019-01-28] MEDS: POLYETHYLENE GLYCOL 3350 17 GM PACKET. PO PRN (12:34)
--- NOTE | 2019-01-28 13:44 | NUR ---
SS following for discharge planning. SS reviewed pt chart. Pt is from home and is currently on room air. PT recommended home healthcare. SS met with pt and sisters to discuss home healthcare. Pt declined need for home healthcare at this time. Pt's RN notified.
[2019-01-28] MEDS ORDERED: POLY17PO29 PO (14:01)
[2019-01-28] MEDS ORDERED: DEXA4TAB63 PO (14:02)
--- NOTE | 2019-01-28 14:07 | PDOC3 ---
Discharge Summary Visit Information Date of Admission: January 24, 2019 Date of Discharge: January 28, 2019 Admitting Diagnosis: Subdural hematoma Final Diagnosis Problems Medical Problems: (1) Fatigue Status: Acute (2) Hypokalemia Status: Acute (3) Severe sinus bradycardia Status: Acute (4) Subacute subdural hematoma Status: Acute (5) Urinary tract infection Status: Acute Brief Hospital Course Allergies Allergies Coded Allergies Type Severity Reaction Last Updated Verified oxybutynin Allergy Intermediate HYPOTENSION, NAUSEA 01/16/19 Yes ciprofloxacin Adverse Reaction Mild Diarrhea 01/16/19 Yes gabapentin Adverse Reaction Mild VERTIGO 01/16/19 Yes Vital Signs Vital Signs Date Time Temp Pulse Resp B/P (MAP) Pulse Ox O2 Delivery O2 Flow Rate FiO2 01/28/19 11:00 97.8 12 12 123/72 (89) 99 Ventilator 97.8 Lab Results Laboratory Tests Test 01/27/19 03:30 01/28/19 04:10 White Blood Count 7.8 x10^3/uL (4.0-11.0) 7.7 x10^3/uL (4.0-11.0) Red Blood Count 3.58 x10^6/uL (3.50-5.40) 3.76 x10^6/uL (3.50-5.40) Hemoglobin 11.3 g/dL (12.0-15.5) 11.7 g/dL (12.0-15.5) Hematocrit 33.8 % (36.0-47.0) 35.3 % (36.0-47.0) Mean Corpuscular Volume 95 fL (79-100) 94 fL (79-100) Mean Corpuscular Hemoglobin 32 pg (25-35) 31 pg (25-35) Mean Corpuscular Hemoglobin Concent 33 g/dL (31-37) 33 g/dL (31-37) Red Cell Distribution Width 14.6 % (11.5-14.5) 14.3 % (11.5-14.5) Platelet Count 290 x10^3/uL (140-400) 305 x10^3/uL (140-400) Neutrophils (%) (Auto) 84 % (31-73) 84 % (31-73) Lymphocytes (%) (Auto) 10 % (24-48) 11 % (24-48) Monocytes (%) (Auto) 6 % (0-9) 5 % (0-9) Eosinophils (%) (Auto) 0 % (0-3) 0 % (0-3) Basophils (%) (Auto) 0 % (0-3) 0 % (0-3) Neutrophils # (Auto) 6.6 x10^3uL (1.8-7.7) 6.5 x10^3uL (1.8-7.7) Lymphocytes # (Auto) 0.8 x10^3/uL (1.0-4.8) 0.9 x10^3/uL (1.0-4.8) Monocytes # (Auto) 0.4 x10^3/uL (0.0-1.1) 0.4 x10^3/uL (0.0-1.1) Eosinophils # (Auto) 0.0 x10^3/uL (0.0-0.7) 0.0 x10^3/uL (0.0-0.7) Basophils # (Auto) 0.0 x10^3/uL (0.0-0.2) 0.0 x10^3/uL (0.0-0.2) Sodium Level 141 mmol/L (136-145) 141 mmol/L (136-145) Potassium Level 3.8 mmol/L (3.5-5.1) 4.0 mmol/L (3.5-5.1) Chloride Level 103 mmol/L (98-107) 104 mmol/L (98-107) Carbon Dioxide Level 29 mmol/L (21-32) 28 mmol/L (21-32) Anion Gap 9 (6-14) 9 (6-14) Blood Urea Nitrogen 19 mg/dL (7-20) 19 mg/dL (7-20) Creatinine 0.6 mg/dL (0.6-1.0) 0.7 mg/dL (0.6-1.0) Estimated GFR (Cockcroft-Gault) 123.0 102.9 Glucose Level 96 mg/dL (70-99) 105 mg/dL (70-99) Calcium Level 9.1 mg/dL (8.5-10.1) 8.9 mg/dL (8.5-10.1) Laboratory Tests Test 01/28/19 04:10 White Blood Count 7.7 x10^3/uL (4.0-11.0) Red Blood Count 3.76 x10^6/uL (3.50-5.40) Hemoglobin 11.7 g/dL (12.0-15.5) Hematocrit 35.3 % (36.0-47.0) Mean Corpuscular Volume 94 fL (79-100) Mean Corpuscular Hemoglobin 31 pg (25-35) Mean Corpuscular Hemoglobin Concent 33 g/dL (31-37) Red Cell Distribution Width 14.3 % (11.5-14.5) Platelet Count 305 x10^3/uL (140-400) Neutrophils (%) (Auto) 84 % (31-73) Lymphocytes (%) (Auto) 11 % (24-48) Monocytes (%) (Auto) 5 % (0-9) Eosinophils (%) (Auto) 0 % (0-3) Basophils (%) (Auto) 0 % (0-3) Neutrophils # (Auto) 6.5 x10^3uL (1.8-7.7) Lymphocytes # (Auto) 0.9 x10^3/uL (1.0-4.8) Monocytes # (Auto) 0.4 x10^3/uL (0.0-1.1) Eosinophils # (Auto) 0.0 x10^3/uL (0.0-0.7) Basophils # (Auto) 0.0 x10^3/uL (0.0-0.2) Sodium Level 141 mmol/L (136-145) Potassium Level 4.0 mmol/L (3.5-5.1) Chloride Level 104 mmol/L (98-107) Carbon Dioxide Level 28 mmol/L (21-32) Anion Gap 9 (6-14) Blood Urea Nitrogen 19 mg/dL (7-20) Creatinine 0.7 mg/dL (0.6-1.0) Estimated GFR (Cockcroft-Gault) 102.9 Glucose Level 105 mg/dL (70-99) Calcium Level 8.9 mg/dL (8.5-10.1) Brief Hospital Course Ms Wilkes is a 63 year old female w/ PMHx GERD, Hypertension, Parkinson's, grave's, PVD s/p peripheral stents, and bladder dystonia with intermittent cathing who presents with nausea and vomiting after a discharge home a week ago for SDH. Found with 8mm right SDH with midline shift on repeat CT head. CT head revealed what is a likely a subdural hematoma. On further review she n otes she is on ASA for a lower extremity stent placed at [facility] over 3 years ago. Patient seen and examined Bruising on face still diffusely noted She reports no new complaints Discussed with Neurosurgery, discussed with Nurse. Bradycardia may be an indication for surgery, she is edmond in the 40s and now hypertensive in the 170s systolic which immediately improved. Repeat CT head st able. Will d/c with f/u CT head this coming per neurosurgery and office follow up as well. Discharged with 2mg TID decadron taper per neurosurgery. Her constipation is managed by miralax, given repeat prescription. Subdural hematoma - evolving per CT GERD Hypertension Parkinson's Falls Grave's PVD s/p peripheral stents Bladder dystonia - with intermittent self-catheterization, seen by Urology outpatient Greater than 30 minutes spent on discharge. Discharge Information Condition at Discharge: Improved Follow Up: Weeks (1) Disposition/Orders: D/C to Home Scheduled Atorvastatin Calcium (Atorvastatin Calcium) 10 Mg Tablet, 1 TAB PO DAILY for high cholesterol, #30 Ref 5 (Reported) Entered as Reported by: DARA VANCE on 01/13/192053 Last Action: Continued on 01/24/192005 by Jonny Celis Carbidopa/Levodopa (Sinemet Cr 50-200 Tablet) 1 Each Tablet.er, 1 TAB PO six times a day for parkinsons, (Reported) Entered as Reported by: DARA VANCE on 01/13/192053 Last Action: Converted on 01/24/192005 by Jonny Celis Carbidopa/Levodopa (Sinemet Cr 25-100 Tablet) 1 Each Tablet.er, 1 TAB PO five times a day for parkinsons, (Reported) Entered as Reported by: DARA VANCE on 01/13/192053 Last Action: Continued on 01/24/192005 by Jonny Celis Ciclopirox Olamine (Ciclopirox) 15 Gm Cream..g., 1 MILANA TP HS for toes, #15 Ref 1 (Reported) Entered as Reported by: DARA VANCE on 01/13/192053 Last Action: Converted on 01/24/192005 by Jonny Celis Dexamethasone (Decadron) 4 Mg Tablet, 2 MG PO TID for Subdural hematoma for 7 Days, #11 Prescribed by: SABI HARRIS MD on 01/28/19 1402 Hydrochlorothiazide (Hydrochlorothiazide Tablet) 12.5 Mg Tablet, 12.5 MG PO DAILY for DIURETIC, Ref 0 (Reported) Entered as Reported by: DARA VANCE on 01/13/192053 Last Action: Converted on 01/24/192005 by Jonny Celis Levothyroxine Sodium (Levothyroxine Sodium) 75 Mcg Tablet, 1 TAB PO DAILY for hypothyroidism, #30 Ref 5 (Reported) Entered as Reported by: DARA VANCE on 01/13/192053 Last Action: Continued on 01/24/192005 by Jonny Celis Ranitidine Hcl (Ranitidine Hcl) 150 Mg Tablet, 150 MG PO DAILY for GERD, (Reported) Entered as Reported by: DARA VANCE on 01/13/192053 Last Action: Converted on 01/24/192005 by Jonny Celis Ropinirole Hcl (Requip) 0.5 Mg Tablet, 0.5 MG PO TID for parkinsons, (Reported) Entered as Reported by: DARA VANCE on 01/13/192053 Last Action: Converted on 01/24/192005 by Jonny Celis Scheduled PRN Nitroglycerin (NITROGLYCERIN SubLingual) 0.4 Mg Tab.subl, 0.4 MG SL PRN Q5MIN PRN for CHEST PAIN, (Reported) Entered as Reported by: DARA VANCE on 01/13/192053 Last Action: Continued on 01/24/192005 by Jonny Celis Polyethylene Glycol 3350 (Miralax) 17 Gm Powd.pack, 1 PKT PO PRN BID PRN for CONSTIPATION for 30 Days, #60 Ref 5 Prescribed by: SABI HARRIS MD on 01/28/19 1401 SABI HARRIS MD January 28, 2019 14:07
[2019-01-28 15:00] VITALS: BP 105/61
--- NOTE | 2019-01-28 15:25 | NUR ---
Discharge instructions given. PIV and Monitor removed. Patient escorted to [facility] per wheelchair into private vehicle
== END 2019-01-28 15:15 | disposition home or self-care (01) | DRG 82 ==
LOC: ER 12:57 → 2 NORTH 17:30
PROVIDERS: ADMIT Family Medicine; ATTEND Family Medicine
DX: S06.5X9A Traumatic subdural hemorrhage with loss of consciousness of unspecified duration, initial encounter (principal); G93.6 Cerebral edema; N39.0 Urinary tract infection, site not specified; E05.00 Thyrotoxicosis with diffuse goiter without thyrotoxic crisis or storm; E78.00 Pure hypercholesterolemia, unspecified; E87.6 Hypokalemia; G20 Parkinson's disease; G24.9 Dystonia, unspecified; I10 Essential (primary) hypertension; I73.9 Peripheral vascular disease, unspecified; K21.9 Gastro-esophageal reflux disease without esophagitis; K59.00 Constipation, unspecified; M85.80 Other specified disorders of bone density and structure, unspecified site; Z87.440 Personal history of urinary (tract) infections; Z79.82 Long term (current) use of aspirin; Z82.49 Family history of ischemic heart disease and other diseases of the circulatory system; Z95.5 Presence of coronary angioplasty implant and graft; Z90.710 Acquired absence of both cervix and uterus; Z88.8 Allergy status to other drugs, medicaments and biological substances
CPT/HCPCS: 36415; 70450; 71045; 80048; 80053; 81001; 82553; 83735; 84439; 84443; 84481; 84484; 85007; 85025; 87086; 93005; 96361; 96374; 96375; J0696; J1100; J2405; J3490; J7030; 97116; 97530; 97535; 99285-25

== ENCOUNTER 2021-02-02 20:09 | Inpatient (IN) | payer MEDICARE ==
[~2021-02-02] VITALS: Ht 162.6 cm; Wt 0.4 kg
[~2021-02-02 20:09] MED LIST changes: +DEXA4TAB63 PO; +POLY17PO29 PO
[2021-02-02 21:14] LABS: BASO % 2 % (0-3); EOS # 0.1 x10^3/uL (0.0-0.7); EOS % 6 % (0-3); HEMATOCRIT 31.9 % (36.0-47.0); HEMOGLOBIN 10.9 g/dL (12.0-15.5); LYMPH # 0.9 x10^3/uL (1.0-4.8); LYMPH % 48 % (24-48); MEAN CORPUSCULAR HEMOGLOBIN 31 pg (25-35); MEAN CORPUSCULAR HGB CONC 34 g/dL (31-37); MEAN CORPUSCULAR VOLUME 91 fL (79-100); MONO # 0.2 x10^3/uL (0.0-1.1); MONO % 9 % (0-9); NEUT # 0.7 x10^3/uL (1.8-7.7); NEUT % 36 % (31-73); PLATELET COUNT 273 x10^3/uL (140-400); RED CELL DISTRIBUTION WIDTH 14.5 % (11.5-14.5)
[2021-02-02 21:23] LABS: CALCIUM 9.6 mg/dL (8.5-10.1); CREATININE 0.8 mg/dL (0.6-1.0); GFR 87.7; POTASSIUM 3.4 mmol/L (3.5-5.1); WHITE BLOOD COUNT 1.9 x10^3/uL (4.0-11.0)
[2021-02-02 21:28] LABS: ALBUMIN 4.2 g/dL (3.4-5.0); ALBUMIN/GLOBULIN RATIO 1.5 (1.0-1.7); MAGNESIUM 1.6 mg/dL (1.8-2.4); PHOSPHORUS 3.8 mg/dL (2.6-4.7); TOTAL BILIRUBIN 0.6 mg/dL (0.2-1.0)
[2021-02-02 21:39] LABS: % BASOS 2 % (0-3); % EOS 4 % (0-5); % LYMPHS 52 % (24-48); % MONOS 6 % (0-10); % SEGS 36 % (35-66); PLT ESTIMATE ADEQUATE (ADEQUATE)
--- NOTE | 2021-02-02 21:51 | ED.ADGEN ---
Past Medical History Past Medical History: CAD, GERD, High Cholesterol, Hypertension, [place] Additional Past Medical Histor: Parkinson's, grave's, cardiac stent Past Surgical History: Hysterectomy Additional Past Surgical Histo: Right ankle plate & screws, Left rotator cuff repair, cardiac stent Smoking Status: Never Smoker Alcohol Use: None Drug Use: None General Adult EDM: Chief Complaint: BRADYCARDIA HPI: HPI: Patient is a 65 year old female coming in for bradycardia. Patient states she felt a little bit weak lightheaded. States her pulse is usually 45 but today it was 35-36. Does not take any medications to slow her heart rate. Has a history of Parkinson's disease and is on carbidopa and she takes hydrochlorothiazide for hypertension. Patient has had decreased appetite and p.o. intake. Has had a 10 pound weight loss over the past 2 weeks. Patient states she has not had a bowel movement in about 2 days. Was recently treated for urinary tract infection with Bactrim but stopped about a week and half ago. Afterwards had some loose s tools. Review of Systems: Review of Systems: All other systems within normal limits except for as noted in the HPI Current Medications: Current Medications Medications (Trade) Dose Ordered Sig/Karol Start Time Stop Time Status Last Admin Dose Admin Acetaminophen (Tylenol) 650 mg PRN Q4HRS PRN 02/02/21 22:15 02/03/21 22:14 Morphine Sulfate (Morphine Sulfate) 2 mg PRN Q2HR PRN 02/02/21 22:15 02/03/21 22:14 Ondansetron HCl (Zofran) 4 mg PRN Q8HRS PRN 02/02/21 22:15 02/03/21 22:14 Allergies: Allergies: Allergies Coded Allergies Type Severity Reaction Last Updated Verified oxybutynin Allergy Intermediate HYPOTENSION, NAUSEA 01/16/19 Yes ciprofloxacin Adverse Reaction Mild Diarrhea 01/16/19 Yes gabapentin Adverse Reaction Mild VERTIGO 01/16/19 Yes Physical Exam: PE: Constitutional: Well developed, well nourished, no acute distress, non-toxic appearance. [] HENT: Normocephalic, atraumatic, bilateral external ears normal, nose normal. [] Eyes: PERRLA, conjunctiva normal, no discharge. [] Neck: No rigidity, supple, no stridor. [] Cardiovascular: Bradycardic, regular rhythm, brisk cap refill. Symmetric radial pulses, symmetric DP pulses. [] Lungs & Thorax: Non labored symmetric respirations, no tachypnea or respiratory distress [] Abdomen: Soft, nondistended, generalized tenderness palpation, no focal tenderness.. Skin: Warm, dry, no erythema, no rash. [] Back: Unremarkable Extremities: No deformities, range of motion grossly intact, no lower extremity edema [] Neurologic: Alert and oriented X 3, no focal deficits noted. Right upper extremity tremor [] Psychologic: Affect normal, judgement normal, mood normal. [] Current Patient Data: Labs: Laboratory Tests Test 02/02/21 21:04 02/02/21 21:30 White Blood Count 1.9 x10^3/uL (4.0-11.0) *L Red Blood Count 3.50 x10^6/uL (3.50-5.40) Hemoglobin 10.9 g/dL (12.0-15.5) L Hematocrit 31.9 % (36.0-47.0) L Mean Corpuscular Volume 91 fL (79-100) Mean Corpuscular Hemoglobin 31 pg (25-35) Mean Corpuscular Hemoglobin Concent 34 g/dL (31-37) Red Cell Distribution Width 14.5 % (11.5-14.5) Platelet Count 273 x10^3/uL (140-400) Neutrophils (%) (Auto) 36 % (31-73) Lymphocytes (%) (Auto) 48 % (24-48) Monocytes (%) (Auto) 9 % (0-9) Eosinophils (%) (Auto) 6 % (0-3) H Basophils (%) (Auto) 2 % (0-3) Neutrophils # (Auto) 0.7 x10^3/uL (1.8-7.7) L Lymphocytes # (Auto) 0.9 x10^3/uL (1.0-4.8) L Monocytes # (Auto) 0.2 x10^3/uL (0.0-1.1) Eosinophils # (Auto) 0.1 x10^3/uL (0.0-0.7) Basophils # (Auto) 0.0 x10^3/uL (0.0-0.2) Segmented Neutrophils % 36 % (35-66) Lymphocytes % 52 % (24-48) H Monocytes % 6 % (0-10) Eosinophils % 4 % (0-5) Basophils % 2 % (0-3) Platelet Estimate Adequate (ADEQUATE) Sodium Level 130 mmol/L (136-145) L Potassium Level 3.4 mmol/L (3.5-5.1) L Chloride Level 90 mmol/L (98-107) L Carbon Dioxide Level 34 mmol/L (21-32) H Anion Gap 6 (6-14) Blood Urea Nitrogen 17 mg/dL (7-20) Creatinine 0.8 mg/dL (0.6-1.0) Estimated GFR (Cockcroft-Gault) 87.7 BUN/Creatinine Ratio 21 (6-20) H Glucose Level 92 mg/dL (70-99) Calcium Level 9.6 mg/dL (8.5-10.1) Phosphorus Level 3.8 mg/dL (2.6-4.7) Magnesium Level 1.6 mg/dL (1.8-2.4) L Total Bilirubin 0.6 mg/dL (0.2-1.0) Aspartate Amino Transferase (AST) 30 U/L (15-37) Alanine Aminotransferase (ALT) 28 U/L (14-59) Alkaline Phosphatase 140 U/L (46-116) H Troponin I Quantitative < 0.017 ng/mL (0.000-0.055) OD-Tru-U-Type Natriuretic Peptide 79 pg/mL (0-124) Total Protein 7.0 g/dL (6.4-8.2) Albumin 4.2 g/dL (3.4-5.0) Albumin/Globulin Ratio 1.5 (1.0-1.7) Thyroid Stimulating Hormone (TSH) 11.145 uIU/mL (0.358-3.74) H Lactic Acid Level 0.9 mmol/L (0.4-2.0) Laboratory Tests 02/02/21 21:04 Laboratory Tests 02/02/21 21:04 Vital Signs: Vital Signs Date Time Temp Pulse Resp B/P (MAP) Pulse Ox O2 Delivery O2 Flow Rate FiO2 02/02/21 20:30 37 20 141/64 (89) 100 Room Air EKG: EKG: Sinus bradycardia, heart rate 41 bpm, left axis deviation, diffuse flattening of T waves with T wave inversions in V4, V5 sepsis [] Heart Score: C/O Chest Pain: No Risk Factors: Risk Factors: DM, Current or recent (<one month) smoker, HTN, HLP, family history of CAD, obesity. Risk Scores: Score 0 - 3: 2.5% MACE over next 6 weeks - Discharge Home Score 4 - 6: 20.3% MACE over next 6 weeks - Admit for Clinical Observation Score 7 - 10: 72.7% MACE over next 6 weeks - Early Invasive Strategies Radiology/Procedures: Radiology/Procedures: [facility] [address] [place] [address] IMAGING REPORT Signed PATIENT: SANYA PERALTA ACCOUNT: [id number] : 07/26/1921 LOCATION: ER AGE: 89 SEX: F EXAM STATUS: REG ER ORD. PHYSICIAN: FARHAT SALCEDO MD REASON: difficulty swallowing PROCEDURE: CT NECK CHEST WO CONTRAST Study: 1. CT neck without contrast 2. CT chest without contrast INDICATION: Difficulty swallowing. COMPARISON: None. TECHNIQUE: Axial CT imaging of the neck and chest performed without the use of intravenous contrast. Coronal and sagittal reformats were obtained. One or more of the following individualized dose reduction techniques were utilized for this examination: 1. Automated exposure control 2. Adjustment of the mA and/or kV according to patient size 3. Use of iterative reconstruction technique. FINDINGS: NECK: No foreign body or mucosal abnormality seen to explain reported difficulty swallowing. Normal thickness of the epiglottis. No cervical chain adenopathy. Unremarkable thyroid. Dense carotid calcific atherosclerosis on the left. Dense intracranial calcific atherosclerosis noted as well. Asymmetry of the thalami favored most likely related to oblique slice angle. Calcifications bilaterally at the posterior globes. No thyroid nodule. Multilevel cervical spondylosis. No evidence for severe central canal stenosis. Osseous neural foraminal stenosis at a few levels such as on the right at C3-C4 and C4-C5. CHEST: Dilated esophagus filled with debris. The distal aspect of the esophageal wall is thickened, image 24 series 3. Large hiatal hernia with much of the stomach above the diaphragm. The stomach is rotated with the body portion slightly above the gastroesophageal junction. Mild haziness of the fat in the lower hernia sac. No pneumatosis or pneumomediastinum. Extensive calcific atherosclerosis. Nonaneurysmal aorta. Calcific coronary artery disease. No adenopathy throughout the mediastinum/pierre. Scattered groundglass and nodular infiltrates bilaterally but greater on the right. Atelectasis is greatest at the right lung base. No pneumothorax. No acute abnormality seen below the diaphragm. Several additional chronic fi ndings. IMPRESSION: NECK: 1. No mucosal abnormality or foreign body to explain reported difficulty swallowing. 2. Extensive calcific atherosclerosis particularly dense involving the left carotid at the bulb. CHEST: 1. Dilated esophagus distended with debris. There are findings involving the rig ht more so than left lungs typical of aspiration. Large hiatal hernia with much of the stomach above the diaphragm. The herniated stomach is rotated with the gastric body slightly above the gastroesophageal junction. No comparison studies are available to determine the stability of this configuration but given dilatation of the esophagus a volvulus-type twisting of the stomach is possible resulting in obstruction. Note is made that the distal esophageal wall is thickened as well and malignancy is not excluded. No pneumatosis or pneumomediastinum to suggest ischemia/perforation. Electronically signed by: STEFANO MERCER MD (02/02/2021 8:19 PM) [facility] DICTATED and SIGNED BY: STEFANO MERCER MD DATE: 02/02/[id number] 0 [] Course & Med Decision Making: Course & Med Decision Making Pertinent Labs and Imaging studies reviewed. (See chart for details) Discussed problems of bradycardia leukopenia of undetermined origin hospitalist, Dr Paredes, who accepts patient care for further evaluation and monitoring. [] Dragon Disclaimer: Dragon Disclaimer: This electronic medical record was generated, in whole or in part, using a voice recognition dictation system. Departure Departure Impression: Primary Impression: Leukopenia Additional Impression: Bradycardia Disposition: 09 ADMITTED INPATIENT Admitting Physician: HIMS Condition: GUARDED Referrals: ANTONINA VYAS MD (PCP) Problem Qualifiers FARHAT SALCEDO MD Feb 02, 2021 21:51
--- NOTE | 2021-02-02 22:07 | RAD ---
EXAM: ABDOMEN 2 VIEWS WITH PA CHEST History: Bradycardia TECHNIQUE: An upright view the chest and upright and supine views of the abdomen COMPARISON: None available. Findings/ impression: The cardiomediastinal silhouette grossly appears unremarkable. The lungs are clear. Moderate amount o f stool identified throughout the colon likely constipation. Electronically signed by: Drew Nassar MD (02/02/2021 10:05 PM) [id number]
[2021-02-02] MEDS ORDERED: ONDANSETRON PF 4 MG/2 ML VIAL. IV PRN (22:15)
[2021-02-02] MEDS ORDERED: ACETAMINOPHEN 325 MG TABLET. PO PRN (22:15)
[2021-02-02] MEDS ORDERED: MORPHINE SULFATE 2 MG/ML VIAL. IV PRN (22:15)
[2021-02-02] MEDS ORDERED: ROPI5TAB4 PO (23:58)
[2021-02-02] MEDS ORDERED: FAMO40TA4 PO (23:58)
[2021-02-02] MEDS ORDERED: ATOR10TA60 PO (23:58)
[2021-02-02] MEDS ORDERED: CARB1TAB25 PO (23:58)
[2021-02-02] MEDS ORDERED: CARB1TAB22 PO (23:58)
[2021-02-03] VITALS (7 sets, daily range): BP systolic 114–150; BP diastolic 59–69
--- NOTE | 2021-02-03 | NUR ---
Patient arrived to ICU room 110 from ED @ 2325. Report received from MILANA Llanos. No fluids infusing. Notified Dr. Paredes and restarted home medications for AM. Pt on monitor, a-febrile, SR on monitor. Sister at bedside and will spend the night. Will continue to monitor and update as needed.
[2021-02-03 01:49] LABS: BILIRUBIN,URINE NEGATIVE (NEG); CLARITY,URINE CLEAR; COLOR,URINE YELLOW; NITRITE,URINE NEGATIVE (NEG); PROTEIN,URINE NEGATIVE (NEG-TRACE); UROBILINOGEN,URINE 0.2 mg/dL (0.2 mg/dL)
[2021-02-03 02:01] LABS: BACTERIA,URINE 0 /HPF (0-FEW); RBC,URINE 0 /HPF (0-2)
[2021-02-03 04:38] LABS: BASO % 2 % (0-3); EOS # 0.1 x10^3/uL (0.0-0.7); EOS % 5 % (0-3); HEMATOCRIT 29.3 % (36.0-47.0); LYMPH # 0.7 x10^3/uL (1.0-4.8); LYMPH % 37 % (24-48); MEAN CORPUSCULAR HEMOGLOBIN 31 pg (25-35); MEAN CORPUSCULAR HGB CONC 34 g/dL (31-37); MEAN CORPUSCULAR VOLUME 91 fL (79-100); MONO # 0.2 x10^3/uL (0.0-1.1); MONO % 11 % (0-9); NEUT # 0.8 x10^3/uL (1.8-7.7); NEUT % 45 % (31-73); PLATELET COUNT 264 x10^3/uL (140-400); RED BLOOD COUNT 3.23 x10^6/uL (3.50-5.40); RED CELL DISTRIBUTION WIDTH 14.6 % (11.5-14.5)
[2021-02-03 04:47] LABS: WHITE BLOOD COUNT 1.8 x10^3/uL (4.0-11.0)
[2021-02-03 04:59] LABS: ALBUMIN 3.7 g/dL (3.4-5.0); ALBUMIN/GLOBULIN RATIO 1.6 (1.0-1.7); CALCIUM 8.9 mg/dL (8.5-10.1); CREATININE 0.6 mg/dL (0.6-1.0); GFR 122.2; POTASSIUM 3.7 mmol/L (3.5-5.1); TOTAL BILIRUBIN 0.4 mg/dL (0.2-1.0)
[2021-02-03] MEDS ORDERED: LEVOTHYROXINE 75 MCG TABLET PO SCH (06:00)
--- NOTE | 2021-02-03 08:58 | EKG ---
[facility] [address] [place] [address] Test Date: 2021-02-02 Test Time: 20:52:23 Pat Name: JEREMY HANEY Department: Room: Gender: F Machine Stamper: : 1955 Requested By: FARHAT SALCEDO Order Number: [id number] Reading MD: Measurements Intervals [place] Rate: 41 P: -90 MD: 140 QRS: 0 QRSD: 136 T: 253 QT: 554 QTc: 462 Interpretive Statements SINUS BRADYCARDIA LEFTWARD AXIS LEFT BUNDLE BRANCH BLOCK ABNORMAL ECG RI6.02 No previous ECG available for comparison
[2021-02-03] MEDS: ASPIRIN CHEWABLE 81 MG TABLET. PO SCH (09:06)
--- NOTE | 2021-02-03 11:06 | PDOC1 ---
History and Physical Date of Admission Date of Admission DATE: 02/03/21 TIME: 11:05 Identification/Chief Complaint Chief Complaint weakness, bradycardia, FALLS , POOR APPETITE History of Present Illness History of Present Illness 65 year old female SEEN in ER bradycardia., weakness, neutropenia, falls Patient states she felt a little bit weak lightheaded. States her pulse is usually 45 but today it was 35-36. notes history of Parkinson's disease and is on carbidopa and she takes hydrochlorothiazide for hypertension. Patient has had decreased appetite and p.o. intake. Has had a 10 pound weight loss over the past 2 weeks. Patient states she has not had a bowel movement in about 2 days, tsh = 11.0, had reduced dose of synthroid to 0.0625mg a few weeks ago denies fever, chills of angina, SHE FELL IN 2019 AND SUFFERED A SUBDURAL HEMATOMA, still uses a walker at home , fell again 4 weeks ago at home HX SUBDURAL HEMATOMA 2018 GERDHypertension Parkinson's Falls Grave's disease on oral replacement PVD s/p peripheral stents Bladder dystonia - with intermittent self-catheterization, seen by Urology outpatient PLAN ====NEUROLOGY CONSULT /HEME CONSULT// RETIC, FE PANEL //PT/OT TREND WBC MAY NEED SNF dvt prophylaxis inc synthroid to 100 mcg po daily consider CT HEAD Past Medical History Past Medical History Past Medical History Past Medical History Past Medical History: CAD, GERD, High Cholesterol, Hypertension, DE Additional Past Medical Histor: Parkinson's, grave's, cardiac stent Past Surgical History: Hysterectomy Additional Past Surgical Histo: Right ankle plate & screws, Left rotator cuff repair, cardiac stent Smoking Status: Never Smoker Alcohol Use: None Drug Use: None FHX HTN Cardiovascular: HTN Pulmonary: No pertinent hx CENTRAL NERVOUS SYSTEM: Other (PARPINSONS) GI: GERD Heme/Onc: No pertinent hx Hepatobiliary: No pertinent hx Psych: No pertinent hx Musculoskeletal: Osteoarthritis Rheumatologic: No pertinent hx Infectious disease: No pertinent hx Renal/: Urinary Incontinence Endocrine: No pertinent hx Past Surgical History Past Surgical History: Arthroscopy, Hysterectomy, Other Family History Family History: Heart Disease, High Cholestrol, Hypertension Social History Smoke: No ALCOHOL: none Drugs: None Current Problem List Problem List Problems Medical Problems: (1) Bradycardia Status: Acute (2) Leukopenia Status: Acute Current Medications Current Medications Current Medications Ondansetron HCl (Zofran) 4 mg PRN Q8HRS PRN IV NAUSEA/VOMITING 1ST CHOICE; Start 02/02/21 at 22:15; Stop 02/03/21 at 22:14 Morphine Sulfate (Morphine Sulfate) 2 mg PRN Q2HR PRN IV SEVERE PAIN 7-10; Start 02/02/21 at 22:15; Stop 02/03/21 at 22:14 Acetaminophen (Tylenol) 650 mg PRN Q4HRS PRN PO FEVER > 100.3'F; Start 02/02/21 at 22:15; Stop 02/03/21 at 22:14 Atorvastatin Calcium (Lipitor) 10 mg HS PO ; Start 02/03/21 at 21:00 Levothyroxine Sodium (Synthroid) 75 mcg DAILY06 PO Last administered on 02/03/21at 05:47; Start 02/03/21 at 06:00; Stop 02/03/21 at 06:22; Status DC Aspirin (Aspirin Chewable) 81 mg 0830 PO Last administered on 02/03/21at 09:06; Start 02/03/21 at 08:30 Famotidine (Pepcid) 40 mg HS PO ; Start 02/03/21 at 21:00 Levothyroxine Sodium (Synthroid) 62.5 mcg DAILY06 PO ; Start 02/04/21 at 06:00 Active Scripts Active Decadron (Dexamethasone) 4 Mg Tablet 2 Mg PO TID 7 Days Miralax (Polyethylene Glycol 3350) 17 Gm Powd.pack 1 Pkt PO PRN BID PRN 30 Days Reported Atorvastatin Calcium 10 Mg Tablet 10 Mg PO HS PRN Famotidine 40 Mg Tablet 40 Mg PO HS Ropinirole Hcl 5 Mg Tablet 5 Mg PO TID Carbidopa-Levodopa 25-250 Tab (Carbidopa/Levodopa) 1 Each Tablet 1 Tab PO 6XDAY 30 Days Carbidopa-Levodopa 25-100 Tab (Carbidopa/Levodopa) 1 Each Tablet 1 Tab PO 6XDAY 30 Days Ciclopirox (Ciclopirox Olamine) 15 Gm Cream..g. 1 Teja TP HS NITROGLYCERIN SubLingual (Nitroglycerin) 0.4 Mg Tab.subl 0.4 Mg SL PRN Q5MIN PRN Atorvastatin Calcium 10 Mg Tablet 1 Tab PO DAILY Ranitidine Hcl 150 Mg Tablet 150 Mg PO DAILY Requip (Ropinirole Hcl) 0.5 Mg Tablet 0.5 Mg PO TID Hydrochlorothiazide Tablet (Hydrochlorothiazide) 12.5 Mg Tablet 12.5 Mg PO DAILY Levothyroxine Sodium 75 Mcg Tablet 1 Tab PO DAILY Sinemet Cr 25-100 Tablet (Carbidopa/Levodopa) 1 Each Tablet.er 1 Tab PO FIVE TIMES A DAY Sinemet Cr 50-200 Tablet (Carbidopa/Levodopa) 1 Each Tablet.er 1 Tab PO SIX TIMES A DAY Allergies Allergies: Coded Allergies: oxybutynin (Verified Allergy, Intermediate, HYPOTENSION, NAUSEA, 01/16/19) ciprofloxacin (Verified Adverse Reaction, Mild, Diarrhea, 01/16/19) gabapentin (Verified Adverse Reaction, Mild, VERTIGO, 01/16/19) ROS General: YES: Fatigue, Malaise, Appetite; No: Chills, Night Sweats, Other PSYCHOLOGICAL ROS: No: Anxiety, Behavioral Disorder, Concentration difficultie, Decreased libido, Depression, Disorientation, Hallucinations, Hostility, Irritablity, Memory difficulties, Mood Swings, Obsessive thoughts, Physical ab use, Sexual abuse, Sleep disturbances, Suicidal ideation, Other Eyes: No Blurry vision, No Decreased vision, No Double vision, No Dry eyes, No Excessive tearing, No Eye Pain, No Itchy Eyes, No Loss of vision, No Photophobia, No Scotomata, No Uses contacts, No Uses glasses, No Other HEENT: No: Heacaches, Visual Changes, Hearing change, Nasal congestion, Nasal discharge, Oral lesions, Sinus pain, Sore Throat, Epistaxis, Sneezing, Snoring, Tinnitus, Vertigo, Vocal changes, Other ALLERGY AND IMMUNOLOGY: YES: Hives; No: Insect Bite Sensitivity, Itchy/Watery Eyes, Nasal Congestion, Post Nasal Drip, Seasonal Allergies, Other Hematological and Lymphatic: No: Bleeding Problems, Blood Clots, Blood Transfusions, Brusing, Night Sweats, Pallor, Swollen Lymph Nodes, Other ENDOCRINE: No: Breast Changes, Galactorrhea, Hair Pattern Changes, Hot Flashes, Malaise/lethargy, Mood Swings, Palpitations, Polydipsia/polyuria, Skin Changes, Temperature Intolerance, Unexpected Weight Changes, Other Breast: No New/Changing Breast Lumps, No Nipple changes, No Nipple discharge, No Other Respiratory: No: Cough, Hemoptysis, Orthopnea, Pleuritic Pain, Shortness of breath, SOB with excertion, Sputum Changes, Stridor, Tachypnea, Wheezing, Other Cardiovascular: No Chest Pain, No Palpitations, No Orthopnea, No Paroxysmal Noc. Dyspnea, No Edema, No Lt Headedness, No Other Gastrointestinal: Yes Constipation; No Nausea, No Vomiting, No Abdominal Pain, No Diarrhea, No Melena, No Hematochezia, No Other Genitourinary: No Dysuria, No Frequency, No Incontinence, No Hematuria, No Retention, No Discharge, No Urgency, No Pain, No Flank Pain, No Other, No , No , No , No , No , No , No Musculoskeletal: Yes Gait Disturbance, Yes Joint Stiffness Neurological: Yes Dizziness, Yes Gait Disturbance, Yes Weakness, Yes Other (falls ) Skin: No Dry Skin, No Eczema, No Hair Changes, No Lumps, No Mole Changes, No Mottling, No Nail Changes, No Pruritus, No Rash, No Skin Lesion Changes, No Other, No Acne Physical Exam General: Alert, Oriented X3, Cooperative, No acute distress HEENT: Atraumatic, PERRLA, EOMI, Mucous membr. moist/pink Lungs: Clear to auscultation, Normal air movement Heart: RRR, no thrills, no gallops, other (bradycardia) Breasts: Not examined Abdomen: Normal bowel sounds, Soft, No tenderness, No masses Rectal Exam: not examined Extremities: No cyanosis Neuro: Normal speech, Cranial nerves 3-12 NL Psych/Mental Status: Mental status NL, Mood NL, Other (cogwheel rigidity) Vitals Vitals Vital Signs Date Time Temp Pulse Resp B/P (MAP) Pulse Ox O2 Delivery O2 Flow Rate FiO2 02/03/21 08:08 97.9 60 18 137/64 (88) 99 Room Air 97.9 Labs Labs Laboratory Tests Test 02/02/21 21:04 02/02/21 21:30 02/03/21 01:35 02/03/21 01:40 White Blood Count 1.9 x10^3/uL (4.0-11.0) Red Blood Count 3.50 x10^6/uL (3.50-5.40) Hemoglobin 10.9 g/dL (12.0-15.5) Hematocrit 31.9 % (36.0-47.0) Mean Corpuscular Volume 91 fL (79-100) Mean Corpuscular Hemoglobin 31 pg (25-35) Mean Corpuscular Hemoglobin Concent 34 g/dL (31-37) Red Cell Distribution Width 14.5 % (11.5-14.5) Platelet Count 273 x10^3/uL (140-400) Neutrophils (%) (Auto) 36 % (31-73) Lymphocytes (%) (Auto) 48 % (24-48) Monocytes (%) (Auto) 9 % (0-9) Eosinophils (%) (Auto) 6 % (0-3) Basophils (%) (Auto) 2 % (0-3) Neutrophils # (Auto) 0.7 x10^3/uL (1.8-7.7) Lymphocytes # (Auto) 0.9 x10^3/uL (1.0-4.8) Monocytes # (Auto) 0.2 x10^3/uL (0.0-1.1) Eosinophils # (Auto) 0.1 x10^3/uL (0.0-0.7) Basophils # (Auto) 0.0 x10^3/uL (0.0-0.2) Segmented Neutrophils % 36 % (35-66) Lymphocytes % 52 % (24-48) Monocytes % 6 % (0-10) Eosinophils % 4 % (0-5) Basophils % 2 % (0-3) Platelet Estimate Adequate (ADEQUATE) Sodium Level 130 mmol/L (136-145) Potassium Level 3.4 mmol/L (3.5-5.1) Chloride Level 90 mmol/L (98-107) Carbon Dioxide Level 34 mmol/L (21-32) Anion Gap 6 (6-14) Blood Urea Nitrogen 17 mg/dL (7-20) Creatinine 0.8 mg/dL (0.6-1.0) Estimated GFR (Cockcroft-Gault) 87.7 BUN/Creatinine Ratio 21 (6-20) Glucose Level 92 mg/dL (70-99) Calcium Level 9.6 mg/dL (8.5-10.1) Phosphorus Level 3.8 mg/dL (2.6-4.7) Magnesium Level 1.6 mg/dL (1.8-2.4) Total Bilirubin 0.6 mg/dL (0.2-1.0) Aspartate Amino Transf (AST/SGOT) 30 U/L (15-37) Alanine Aminotransferase (ALT/SGPT) 28 U/L (14-59) Alkaline Phosphatase 140 U/L (46-116) Troponin I Quantitative < 0.017 ng/mL (0.000-0.055) < 0.017 ng/mL (0.000-0.055) EH-Ngf-F-Type Natriuretic Peptide 79 pg/mL (0-124) Total Protein 7.0 g/dL (6.4-8.2) Albumin 4.2 g/dL (3.4-5.0) Albumin/Globulin Ratio 1.5 (1.0-1.7) Thyroid Stimulating Hormone (TSH) 11.145 uIU/mL (0.358-3.74) Lactic Acid Level 0.9 mmol/L (0.4-2.0) Urine Collection Type Unknown Urine Color Yellow Urine Clarity Clear Urine pH 6.0 (<5.0-8.0) Urine Specific [place] >=1.030 (1.000-1.030) Urine Protein Negative mg/dL (NEG-TRACE) Urine Glucose (UA) Negative mg/dL (NEG) Urine Ketones (Stick) 15 mg/dL (NEG) Urine Blood Negative (NEG) Urine Nitrite Negative (NEG) Urine Bilirubin Negative (NEG) Urine Urobilinogen Dipstick 0.2 mg/dL (0.2 mg/dL) Urine Leukocyte Esterase Small (NEG) Urine RBC 0 /HPF (0-2) Urine WBC 5-10 /HPF (0-4) Urine Squamous Epithelial Cells Few /LPF Urine Bacteria 0 /HPF (0-FEW) Urine Mucus Slight /LPF Test 02/03/21 04:07 White Blood Count 1.8 x10^3/uL (4.0-11.0) Red Blood Count 3.23 x10^6/uL (3.50-5.40) Hemoglobin 10.0 g/dL (12.0-15.5) Hematocrit 29.3 % (36.0-47.0) Mean Corpuscular Volume 91 fL (79-100) Mean Corpuscular Hemoglobin 31 pg (25-35) Mean Corpuscular Hemoglobin Concent 34 g/dL (31-37) Red Cell Distribution Width 14.6 % (11.5-14.5) Platelet Count 264 x10^3/uL (140-400) Neutrophils (%) (Auto) 45 % (31-73) Lymphocytes (%) (Auto) 37 % (24-48) Monocytes (%) (Auto) 11 % (0-9) Eosinophils (%) (Auto) 5 % (0-3) Basophils (%) (Auto) 2 % (0-3) Neutrophils # (Auto) 0.8 x10^3/uL (1.8-7.7) Lymphocytes # (Auto) 0.7 x10^3/uL (1.0-4.8) Monocytes # (Auto) 0.2 x10^3/uL (0.0-1.1) Eosinophils # (Auto) 0.1 x10^3/uL (0.0-0.7) Basophils # (Auto) 0.0 x10^3/uL (0.0-0.2) Sodium Level 131 mmol/L (136-145) Potassium Level 3.7 mmol/L (3.5-5.1) Chloride Level 93 mmol/L (98-107) Carbon Dioxide Level 32 mmol/L (21-32) Anion Gap 6 (6-14) Blood Urea Nitrogen 16 mg/dL (7-20) Creatinine 0.6 mg/dL (0.6-1.0) Estimated GFR (Cockcroft-Gault) 122.2 BUN/Creatinine Ratio 27 (6-20) Glucose Level 93 mg/dL (70-99) Calcium Level 8.9 mg/dL (8.5-10.1) Total Bilirubin 0.4 mg/dL (0.2-1.0) Aspartate Amino Transf (AST/SGOT) 26 U/L (15-37) Alanine Aminotransferase (ALT/SGPT) 27 U/L (14-59) Alkaline Phosphatase 129 U/L (46-116) Troponin I Quantitative < 0.017 ng/mL (0.000-0.055) Total Protein 6.0 g/dL (6.4-8.2) Albumin 3.7 g/dL (3.4-5.0) Albumin/Globulin Ratio 1.6 (1.0-1.7) Laboratory Tests Test 02/02/21 21:04 02/02/21 21:30 02/03/21 01:35 02/03/21 01:40 White Blood Count 1.9 x10^3/uL (4.0-11.0) Red Blood Count 3.50 x10^6/uL (3.50-5.40) Hemoglobin 10.9 g/dL (12.0-15.5) Hematocrit 31.9 % (36.0-47.0) Mean Corpuscular Volume 91 fL (79-100) Mean Corpuscular Hemoglobin 31 pg (25-35) Mean Corpuscular Hemoglobin Concent 34 g/dL (31-37) Red Cell Distribution Width 14.5 % (11.5-14.5) Platelet Count 273 x10^3/uL (140-400) Neutrophils (%) (Auto) 36 % (31-73) Lymphocytes (%) (Auto) 48 % (24-48) Monocytes (%) (Auto) 9 % (0-9) Eosinophils (%) (Auto) 6 % (0-3) Basophils (%) (Auto) 2 % (0-3) Neutrophils # (Auto) 0.7 x10^3/uL (1.8-7.7) Lymphocytes # (Auto) 0.9 x10^3/uL (1.0-4.8) Monocytes # (Auto) 0.2 x10^3/uL (0.0-1.1) Eosinophils # (Auto) 0.1 x10^3/uL (0.0-0.7) Basophils # (Auto) 0.0 x10^3/uL (0.0-0.2) Segmented Neutrophils % 36 % (35-66) Lymphocytes % 52 % (24-48) Monocytes % 6 % (0-10) Eosinophils % 4 % (0-5) Basophils % 2 % (0-3) Platelet Estimate Adequate (ADEQUATE) Sodium Level 130 mmol/L (136-145) Potassium Level 3.4 mmol/L (3.5-5.1) Chloride Level 90 mmol/L (98-107) Carbon Dioxide Level 34 mmol/L (21-32) Anion Gap 6 (6-14) Blood Urea Nitrogen 17 mg/dL (7-20) Creatinine 0.8 mg/dL (0.6-1.0) Estimated GFR (Cockcroft-Gault) 87.7 BUN/Creatinine Ratio 21 (6-20) Glucose Level 92 mg/dL (70-99) Calcium Level 9.6 mg/dL (8.5-10.1) Phosphorus Level 3.8 mg/dL (2.6-4.7) Magnesium Level 1.6 mg/dL (1.8-2.4) Total Bilirubin 0.6 mg/dL (0.2-1.0) Aspartate Amino Transf (AST/SGOT) 30 U/L (15-37) Alanine Aminotransferase (ALT/SGPT) 28 U/L (14-59) Alkaline Phosphatase 140 U/L (46-116) Troponin I Quantitative < 0.017 ng/mL (0.000-0.055) < 0.017 ng/mL (0.000-0.055) NQ-Vod-P-Type Natriuretic Peptide 79 pg/mL (0-124) Total Protein 7.0 g/dL (6.4-8.2) Albumin 4.2 g/dL (3.4-5.0) Albumin/Globulin Ratio 1.5 (1.0-1.7) Thyroid Stimulating Hormone (TSH) 11.145 uIU/mL (0.358-3.74) Lactic Acid Level 0.9 mmol/L (0.4-2.0) Urine Collection Type Unknown Urine Color Yellow Urine Clarity Clear Urine pH 6.0 (<5.0-8.0) Urine Specific [place] >=1.030 (1.000-1.030) Urine Protein Negative mg/dL (NEG-TRACE) Urine Glucose (UA) Negative mg/dL (NEG) Urine Ketones (Stick) 15 mg/dL (NEG) Urine Blood Negative (NEG) Urine Nitrite Negative (NEG) Urine Bilirubin Negative (NEG) Urine Urobilinogen Dipstick 0.2 mg/dL (0.2 mg/dL) Urine Leukocyte Esterase Small (NEG) Urine RBC 0 /HPF (0-2) Urine WBC 5-10 /HPF (0-4) Urine Squamous Epithelial Cells Few /LPF Urine Bacteria 0 /HPF (0-FEW) Urine Mucus Slight /LPF Test 02/03/21 04:07 White Blood Count 1.8 x10^3/uL (4.0-11.0) Red Blood Count 3.23 x10^6/uL (3.50-5.40) Hemoglobin 10.0 g/dL (12.0-15.5) Hematocrit 29.3 % (36.0-47.0) Mean Corpuscular Volume 91 fL (79-100) Mean Corpuscular Hemoglobin 31 pg (25-35) Mean Corpuscular Hemoglobin Concent 34 g/dL (31-37) Red Cell Distribution Width 14.6 % (11.5-14.5) Platelet Count 264 x10^3/uL (140-400) Neutrophils (%) (Auto) 45 % (31-73) Lymphocytes (%) (Auto) 37 % (24-48) Monocytes (%) (Auto) 11 % (0-9) Eosinophils (%) (Auto) 5 % (0-3) Basophils (%) (Auto) 2 % (0-3) Neutrophils # (Auto) 0.8 x10^3/uL (1.8-7.7) Lymphocytes # (Auto) 0.7 x10^3/uL (1.0-4.8) Monocytes # (Auto) 0.2 x10^3/uL (0.0-1.1) Eosinophils # (Auto) 0.1 x10^3/uL (0.0-0.7) Basophils # (Auto) 0.0 x10^3/uL (0.0-0.2) Sodium Level 131 mmol/L (136-145) Potassium Level 3.7 mmol/L (3.5-5.1) Chloride Level 93 mmol/L (98-107) Carbon Dioxide Level 32 mmol/L (21-32) Anion Gap 6 (6-14) Blood Urea Nitrogen 16 mg/dL (7-20) Creatinine 0.6 mg/dL (0.6-1.0) Estimated GFR (Cockcroft-Gault) 122.2 BUN/Creatinine Ratio 27 (6-20) Glucose Level 93 mg/dL (70-99) Calcium Level 8.9 mg/dL (8.5-10.1) Total Bilirubin 0.4 mg/dL (0.2-1.0) Aspartate Amino Transf (AST/SGOT) 26 U/L (15-37) Alanine Aminotransferase (ALT/SGPT) 27 U/L (14-59) Alkaline Phosphatase 129 U/L (46-116) Troponin I Quantitative < 0.017 ng/mL (0.000-0.055) Total Protein 6.0 g/dL (6.4-8.2) Albumin 3.7 g/dL (3.4-5.0) Albumin/Globulin Ratio 1.6 (1.0-1.7) Images Images PATIENT: JEREMY HANEY ACCOUNT: [id number] : 1955 LOCATION: ER AGE: 65 SEX: F EXAM STATUS: REG ER ORD. PHYSICIAN: FARHAT SALCEDO MD REASON: bradycardia PROCEDURE: ACUTE ABDOMEN SERIES EXAM: ABDOMEN 2 VIEWS WITH PA CHEST History: Bradycardia TECHNIQUE: An upright view the chest and upright and supine views of the abdomen COMPARISON: None available. Findings/ impression: The cardiomediastinal silhouette grossly appears unremarkable. The lungs are clear. Moderate amount of stool identified throughout the colon likely constipation. Electronically signed by: Drew Nassar MD (02/02/2021 10:05 PM) [id number] DICTATED and SIGNED BY: DREW NASSAR MD DATE: 02/02/21 [id number] VTE Prophylaxis Ordered VTE Prophylaxis Devices: Yes VTE Pharmacological Prophylaxi: Yes Assessment/Plan Assessment/Plan impression marked bradycardia, possibly due to hypothyroid state marked neutropenia Moderate amount of stool identified throughout the colon likely constipation. HX SUBDURAL HEMATOMA 2018 GERD Hypertension Parkinson's Falls Grave's disease on oral replacement PVD s/p peripheral stents Bladder dystonia - with intermittent self-catheterization, seen by Urology outpatient plan ADMIT NEUROLOGY CONSULT HEME CONSULT RETIC, FE PANEL PT/OT TREND WBC MAY NEED SNF dvt prophylaxis inc synthroid to 100 mcg po daily consider CT HEAD suspect she willl need > 72 hr stay to stabilize current issure Justifications for Admission Other Justification GABBY LARSON MD Feb 03, 2021 11:06
[2021-02-03] MEDS ORDERED: MAGNESIUM HYDROXIDE 2,400 MG/30 ML ORAL.SUSP. PO PRN (11:30)
[2021-02-03] MEDS ORDERED: 0.9 % SODIUM CHLORIDE 10 ML DISP.SYRIN. IV PRN (11:30)
[2021-02-03] MEDS ORDERED: POLYETHYLENE GLYCOL 3350 17 GM PACKET. PO PRN (11:30)
[2021-02-03] MEDS ORDERED: ONDANSETRON PF 4 MG/2 ML VIAL. IVP PRN (11:30)
[2021-02-03] MEDS ORDERED: MAG HYDROX/ALUMINUM HYD/SIMETH 30 ML ORAL.SUSP PO PRN (11:30)
[2021-02-03] MEDS ORDERED: CALCIUM CARBONATE 500 MG TAB.CHEW PO PRN (11:30)
--- NOTE | 2021-02-03 11:32 | PDOC2 ---
ZOË YANG PLANT PATHOLOGIST 02/03/21 1132: CARDIAC CONSULT DATE OF CONSULT Date of Consult DATE: 02/03/21 TIME: 10:56 REASON FOR CONSULT Reason for Consult: bradycardia REFERRING PHYSICIAN Referring Physician: Krunal SOURCE Source: Caregiver (sister), Chart review, Patient HISTORY OF PRESENT ILLNESS HISTORY OF PRESENT ILLNESS This is a 65 yo female admitted for complains of slow HR and weakness. She is a poor historian. Sister is at the bedside and provided details. She lives with her other sister and noted her with HR in the 30s but picked up with activity. No symptoms in relation to this. No chest pain, dizziness or passing out. Her mobility is limited but does use a walker. Upon admission she was noted with bradycardia. This was SB with first degree AV block lowest in the 30s but presently SR in the 60s.. No AV ashlyn blocking agents on her regimen but noted with new hypothyroidism. She also has parkinsons. She sees Dr. Grimalod at cardiology. NO falls or any recent injury. She has been taking her thyroid pills regular ly and on time away from food and any other pills and recently was decreased according to sister. She is constipated, poor appetite and also lost about 10 pounds at least in the last 2 weeks. PAST MEDICAL HISTORY Cardiovascular: CAD, HTN, Hyperlipidemia, Other (PAD) CENTRAL NERVOUS SYSTEM: Periperal neuropathy, Other (subdural hematoma r/t fall; parkinsons) GI: GERD Musculoskeletal: Osteoarthritis, Other (right bakers cyst) ENT: Other (graves opthalmopathy) Renal/: UTI Endocrine: Hypothyroidism, Other (graves disease) PAST SURGICAL HISTORY Past Surgical History: Arthroscopy (RTC repair; ankle surgery), Tonsillectomy, Hysterectomy, Other (foot surgery; wisdom tooth extraction; PCI/stent in 2016) FAMILY HISTORY Family History: Coronary Artery Disease SOCIAL HISTORY Smoke: No ALCOHOL: none Drugs: None Lives: with Family CURRENT MEDICATIONS CURRENT MEDICATIONS Current Medications Medications (Trade) Dose Ordered Sig/Karol Route PRN Reason Start Time Stop Time Status Last Admin Dose Admin Levothyroxine Sodium (Synthroid) 75 mcg DAILY06 PO 02/03/21 06:00 02/03/21 06:22 DC 02/03/21 05:47 Aspirin (Aspirin Chewable) 81 mg 0830 PO 02/03/21 08:30 02/03/21 09:06 ALLERGIES ALLERGIES: Coded Allergies: oxybutynin (Verified Allergy, Intermediate, HYPOTENSION, NAUSEA, 01/16/19) ciprofloxacin (Verified Adverse Reaction, Mild, Diarrhea, 01/16/19) gabapentin (Verified Adverse Reaction, Mild, VERTIGO, 01/16/19) PHYSICAL EXAM General: Alert, Oriented X3, Cooperative, No acute distress HEENT: Atraumatic, Mucous membr. moist/pink, Other (graves opthalmopathy) Lungs: Clear to auscultation, Normal air movement Heart: Regular rate (SR), Normal S1, Normal S2, No murmurs Abdomen: Soft, No tenderness Extremities: No cyanosis, Other (trace LE edema) Skin: No breakdown, No significant lesion Neuro: Normal speech, Sensation intact Psych/Mental Status: Mental status NL, Other (flat affect) MUSCULOSKELETAL: Osteoarthritic changes both hands VITALS/I&O VITALS/I&O: Vital Signs Date Time Temp Pulse Resp B/P (MAP) Pulse Ox O2 Delivery O2 Flow Rate FiO2 02/03/21 08:08 97.9 60 18 137/64 (88) 99 Room Air 97.9 I & O 02/02/21 02/02/21 02/03/21 15:00 23:00 07:00 Output Total 500 ml Balance -500 ml LABS Lab: Laboratory Tests Test 02/02/21 21:04 02/02/21 21:30 02/03/21 01:35 02/03/21 01:40 White Blood Count 1.9 x10^3/uL (4.0-11.0) *L Red Blood Count 3.50 x10^6/uL (3.50-5.40) Hemoglobin 10.9 g/dL (12.0-15.5) L Hematocrit 31.9 % (36.0-47.0) L Mean Corpuscular Volume 91 fL (79-100) Mean Corpuscular Hemoglobin 31 pg (25-35) Mean Corpuscular Hemoglobin Concent 34 g/dL (31-37) Red Cell Distribution Width 14.5 % (11.5-14.5) Platelet Count 273 x10^3/uL (140-400) Neutrophils (%) (Auto) 36 % (31-73) Lymphocytes (%) (Auto) 48 % (24-48) Monocytes (%) (Auto) 9 % (0-9) Eosinophils (%) (Auto) 6 % (0-3) H Basophils (%) (Auto) 2 % (0-3) Neutrophils # (Auto) 0.7 x10^3/uL (1.8-7.7) L Lymphocytes # (Auto) 0.9 x10^3/uL (1.0-4.8) L Monocytes # (Auto) 0.2 x10^3/uL (0.0-1.1) Eosinophils # (Auto) 0.1 x10^3/uL (0.0-0.7) Basophils # (Auto) 0.0 x10^3/uL (0.0-0.2) Segmented Neutrophils % 36 % (35-66) Lymphocytes % 52 % (24-48) H Monocytes % 6 % (0-10) Eosinophils % 4 % (0-5) Basophils % 2 % (0-3) Platelet Estimate Adequate (ADEQUATE) Sodium Level 130 mmol/L (136-145) L Potassium Level 3.4 mmol/L (3.5-5.1) L Chloride Level 90 mmol/L (98-107) L Carbon Dioxide Level 34 mmol/L (21-32) H Anion Gap 6 (6-14) Blood Urea Nitrogen 17 mg/dL (7-20) Creatinine 0.8 mg/dL (0.6-1.0) Estimated GFR (Cockcroft-Gault) 87.7 BUN/Creatinine Ratio 21 (6-20) H Glucose Level 92 mg/dL (70-99) Calcium Level 9.6 mg/dL (8.5-10.1) Phosphorus Level 3.8 mg/dL (2.6-4.7) Magnesium Level 1.6 mg/dL (1.8-2.4) L Total Bilirubin 0.6 mg/dL (0.2-1.0) Aspartate Amino Transferase (AST) 30 U/L (15-37) Alanine Aminotransferase (ALT) 28 U/L (14-59) Alkaline Phosphatase 140 U/L (46-116) H Troponin I Quantitative < 0.017 ng/mL (0.000-0.055) < 0.017 ng/mL (0.000-0.055) CU-Sfs-W-Type Natriuretic Peptide 79 pg/mL (0-124) Total Protein 7.0 g/dL (6.4-8.2) Albumin 4.2 g/dL (3.4-5.0) Albumin/Globulin Ratio 1.5 (1.0-1.7) Thyroid Stimulating Hormone (TSH) 11.145 uIU/mL (0.358-3.74) H Lactic Acid Level 0.9 mmol/L (0.4-2.0) Urine Collection Type Unknown Urine Color Yellow Urine Clarity Clear Urine pH 6.0 (<5.0-8.0) Urine Specific [place] >=1.030 (1.000-1.030) Urine Protein Negative mg/dL (NEG-TRACE) Urine Glucose (UA) Negative mg/dL (NEG) Urine Ketones (Stick) 15 mg/dL (NEG) Urine Blood Negative (NEG) Urine Nitrite Negative (NEG) Urine Bilirubin Negative (NEG) Urine Urobilinogen Dipstick 0.2 mg/dL (0.2 mg/dL) Urine Leukocyte Esterase Small (NEG) Urine RBC 0 /HPF (0-2) Urine WBC 5-10 /HPF (0-4) Urine Squamous Epithelial Cells Few /LPF Urine Bacteria 0 /HPF (0-FEW) Urine Mucus Slight /LPF Test 02/03/21 04:07 White Blood Count 1.8 x10^3/uL (4.0-11.0) *L Red Blood Count 3.23 x10^6/uL (3.50-5.40) L Hemoglobin 10.0 g/dL (12.0-15.5) L Hematocrit 29.3 % (36.0-47.0) L Mean Corpuscular Volume 91 fL (79-100) Mean Corpuscular Hemoglobin 31 pg (25-35) Mean Corpuscular Hemoglobin Concent 34 g/dL (31-37) Red Cell Distribution Width 14.6 % (11.5-14.5) H Platelet Count 264 x10^3/uL (140-400) Neutrophils (%) (Auto) 45 % (31-73) Lymphocytes (%) (Auto) 37 % (24-48) Monocytes (%) (Auto) 11 % (0-9) H Eosinophils (%) (Auto) 5 % (0-3) H Basophils (%) (Auto) 2 % (0-3) Neutrophils # (Auto) 0.8 x10^3/uL (1.8-7.7) L Lymphocytes # (Auto) 0.7 x10^3/uL (1.0-4.8) L Monocytes # (Auto) 0.2 x10^3/uL (0.0-1.1) Eosinophils # (Auto) 0.1 x10^3/uL (0.0-0.7) Basophils # (Auto) 0.0 x10^3/uL (0.0-0.2) Sodium Level 131 mmol/L (136-145) L Potassium Level 3.7 mmol/L (3.5-5.1) Chloride Level 93 mmol/L (98-107) L Carbon Dioxide Level 32 mmol/L (21-32) Anion Gap 6 (6-14) Blood Urea Nitrogen 16 mg/dL (7-20) Creatinine 0.6 mg/dL (0.6-1.0) Estimated GFR (Cockcroft-Gault) 122.2 BUN/Creatinine Ratio 27 (6-20) H Glucose Level 93 mg/dL (70-99) Calcium Level 8.9 mg/dL (8.5-10.1) Total Bilirubin 0.4 mg/dL (0.2-1.0) Aspartate Amino Transferase (AST) 26 U/L (15-37) Alanine Aminotransferase (ALT) 27 U/L (14-59) Alkaline Phosphatase 129 U/L (46-116) H Troponin I Quantitative < 0.017 ng/mL (0.000-0.055) Total Protein 6.0 g/dL (6.4-8.2) L Albumin 3.7 g/dL (3.4-5.0) Albumin/Globulin Ratio 1.6 (1.0-1.7) Laboratory Tests 02/02/21 21:04 02/03/21 04:07 Laboratory Tests 02/02/21 21:04 02/03/21 04:07 STRESS TEST STRESS TEST SUMMARY/OPINION: 11/09/2015 [facility] This study is normal with no evidence of significant myocardial ischemia. Left ventricular systolic function is normal. There are no high risk prognostic indicators present. The ECG portion of the study is negative for ischemia. There are no prior studies available for comparison. ASSESSMENT/PLAN ASSESSMENT/PLAN 1. Asymptomatic SB: lowest in the 30s with first degree AV block. No pauses. Good chronotropic response 2. Prolonged QTc: initially noted at 554 3. Hypothyroidism: not on goal at 11.1 4. Leukopenia: per PCP 5. Parkinsons: sinemet 6. 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 CAD: clinically stable. 2016 PCI 8. HTN: contolled 9. HLP Recommendations 1. No av ashlyn blocking agents.and caution with QT prolonging agents. Check orthostatic readings 2. Titration of synthroid per PCP 3. BP stable, no symptoms in regards to bradycardia which is likely the thyroid issue being the main contributor. Will defer to her primary almond paste molder Dr. Grimaldo at 4. Will obtain TTE and also recheck EKG and recheck QTc. 5. Continue secondary prevention measures. JAZIEL HANNA MD 02/03/212115: CARDIAC CONSULT ASSESSMENT/PLAN ASSESSMENT/PLAN Patient seen and examined. Agree with DRILL BIT SHARPENER's assessment and plan. Sinus edmond currently resolved - continue to monitor tele for SSS - no need o=for PPM at this time Check 2D echo to assess LVF CAD clinically stable Thank you for your consultation ZOË YANG APRN Feb 03, 2021 11:32 JAZIEL HANNA MD Feb 03, 2021 21:16
--- NOTE | 2021-02-03 12:16 | EKG ---
[facility] [address] [place] [address] Test Date: 2021-02-03 Test Time: 12:11:25 Pat Name: JEREMY HANEY Department: Room: 110 1 Gender: F Ocular Care Technologist: SEVEN : 1955 Requested By: ZOË YANG Order Number: [id number] Reading MD: Measurements Intervals [place] Rate: 70 P: CO: QRS: 18 QRSD: 86 T: 232 QT: 372 QTc: 404 Interpretive Statements ATRIAL FLUTTER T ABNORMALITY IN ANTERIOR LEADS LATERAL LEADS INFEROLATERAL LEADS ABNORMAL ECG RI6.02 Compared to ECG 02/02/2021 20:52:23 T-wave abnormality now present Sinus bradycardia no longer present Left-axis deviation no longer present Left bundle-branch block no longer present
--- NOTE | 2021-02-03 12:24 | PDOC2 ---
CONSULT Date of Consult Date of Consult DATE: 02/03/21 TIME: 12:17 Reason for Consult Reason for Consult: Leukopenia Referring Physician Referring Physician: Dr. Lacy Identification/Chief Complaint Chief Complaint Bradycardia Source Source: Chart review, Patient History of Present Illness Reason for Visit: Franky Wilkes is a 65-year-old female who has been admitted to the hospital for further evaluation and management of bradycardia and generalized weakness. She was found to have first-degree AV block. She was also noted to have new hypothyroidism. Her medical history is pertinent for Parkinson's disease and neurogenic bladder for which she sees urology at [facility]. During the patient's evaluation at [facility], she was found to have a new leukopenia. WBC count is 1.8. She also has normocytic anemia that is worse from prior labs. Review of her prior lab studies does not show leukopenia. Hematology consultation has been sought for further evaluation and management of leukopenia. Past Medical History Cardiovascular: CAD, HTN, Hyperlipidemia, Other (PAD) Pulmonary: No pertinent hx CENTRAL NERVOUS SYSTEM: Other (PARPINSONS) GI: GERD Heme/Onc: No pertinent hx Hepatobiliary: No pertinent hx Psych: No pertinent hx Musculoskeletal: Osteoarthritis Rheumatologic: No pertinent hx Infectious disease: No pertinent hx ENT: Other (graves opthalmopathy) Renal/: UTI Endocrine: Hypothyroidism, Other (graves disease) Past Surgical History Past Surgical History: Arthroscopy (RTC repair; ankle surgery), Tonsillectomy, Hysterectomy, Other (foot surgery; wisdom tooth extraction; PCI/stent in 2016) Family History Family History: Coronary Artery Disease Social History No ALCOHOL: none Drugs: None Lives: with Family Current Problem List Problem List Problems Medical Problems: (1) Bradycardia Status: Acute (2) Leukopenia Status: Acute Current Medications Current Medications Current Medications Ondansetron HCl (Zofran) 4 mg PRN Q8HRS PRN IV NAUSEA/VOMITING 1ST CHOICE; Start 02/02/21 at 22:15; Stop 02/03/21 at 22:14 Morphine Sulfate (Morphine Sulfate) 2 mg PRN Q2HR PRN IV SEVERE PAIN 7-10; Start 02/02/21 at 22:15; Stop 02/03/21 at 22:14 Acetaminophen (Tylenol) 650 mg PRN Q4HRS PRN PO FEVER > 100.3'F; Start 02/02/21 at 22:15; Stop 02/03/21 at 22:14 Atorvastatin Calcium (Lipitor) 10 mg HS PO ; Start 02/03/21 at 21:00 Levothyroxine Sodium (Synthroid) 75 mcg DAILY06 PO Last administered on 02/03/21at 05:47; Start 02/03/21 at 06:00; Stop 02/03/21 at 06:22; Status DC Aspirin (Aspirin Chewable) 81 mg 0830 PO Last administered on 02/03/21at 09:06; Start 02/03/21 at 08:30 Famotidine (Pepcid) 40 mg HS PO ; Start 02/03/21 at 21:00 Levothyroxine Sodium (Synthroid) 62.5 mcg DAILY06 PO ; Start 02/04/21 at 06:00; Stop 02/03/21 at 11:36; Status DC Ondansetron HCl (Zofran) 4 mg PRN Q6HRS PRN IVP NAUSEA/VOMITING; Start 02/03/21 at 11:30 Al Hydroxide/Mg Hydroxide (Mylanta Plus Xs) 30 ml PRN Q3HRS PRN PO HEARTBURN / GAS; Start 02/03/21 at 11:30 Calcium Carbonate/ Glycine (Tums) 500 mg PRN Q3HRS PRN PO HEARTBURN / GAS; Start 02/03/21 at 11:30 Famotidine (Pepcid) 20 mg BID PO ; Start 02/03/21 at 21:00; Stop 02/03/21 at 11:27; Status DC Heparin Sodium (Porcine) (Heparin Sodium) 5,000 unit Q8HRS SQ ; Start 02/03/21 at 14:00 Sodium Chloride (Normal Saline Flush) 3 ml QSHIFT PRN IV AFTER MEDS AND BLOOD DRAWS; Start 02/03/21 at 11:30 Sodium Chloride 1,000 ml @ 75 mls/hr [id number] IV ; Start 02/03/21 at 12:00 Docusate Sodium (Colace) 100 mg BID PO ; Start 02/03/21 at 21:00 Magnesium Hydroxide (Milk Of Magnesia) 2,400 mg PRN Q12HR PRN PO CONSTIPATION 2ND CHOICE; Start 02/03/21 at 11:30 Carbidopa/Levodopa (Sinemet 25/100) 1 tab 6XDAY PO ; Start 02/03/21 at 13:00 Polyethylene Glycol (miraLAX PACKET) 17 gm PRN BID PRN PO CONSTIPATION; Start 02/03/21 at 11:30 Non-Formulary Medication (Ranitidine Hcl ) 150 mg DAILY PO ; Start 02/04/21 at 09:00; Stop 02/03/21 at 11:27; Status DC Levothyroxine Sodium (Synthroid) 100 mcg DAILY06 PO ; Start 02/03/21 at 12:00 Ropinirole HCl (Requip) 0.5 mg TID PO ; Start 02/03/21 at 14:00 Active Scripts Active Decadron (Dexamethasone) 4 Mg Tablet 2 Mg PO TID 7 Days Miralax (Polyethylene Glycol 3350) 17 Gm Powd.pack 1 Pkt PO PRN BID PRN 30 Days Reported Atorvastatin Calcium 10 Mg Tablet 10 Mg PO HS PRN Famotidine 40 Mg Tablet 40 Mg PO HS Ropinirole Hcl 5 Mg Tablet 5 Mg PO TID Carbidopa-Levodopa 25-250 Tab (Carbidopa/Levodopa) 1 Each Tablet 1 Tab PO 6XDAY 30 Days Carbidopa-Levodopa 25-100 Tab (Carbidopa/Levodopa) 1 Each Tablet 1 Tab PO 6XDAY 30 Days Ciclopirox (Ciclopirox Olamine) 15 Gm Cream..g. 1 Teja TP HS NITROGLYCERIN SubLingual (Nitroglycerin) 0.4 Mg Tab.subl 0.4 Mg SL PRN Q5MIN PRN Atorvastatin Calcium 10 Mg Tablet 1 Tab PO DAILY Ranitidine Hcl 150 Mg Tablet 150 Mg PO DAILY Requip (Ropinirole Hcl) 0.5 Mg Tablet 0.5 Mg PO TID Hydrochlorothiazide Tablet (Hydrochlorothiazide) 12.5 Mg Tablet 12.5 Mg PO DAILY Levothyroxine Sodium 75 Mcg Tablet 1 Tab PO DAILY Sinemet Cr 25-100 Tablet (Carbidopa/Levodopa) 1 Each Tablet.er 1 Tab PO FIVE TIMES A DAY Sinemet Cr 50-200 Tablet (Carbidopa/Levodopa) 1 Each Tablet.er 1 Tab PO SIX TIMES A DAY Allergies Allergies: Coded Allergies: oxybutynin (Verified Allergy, Intermediate, HYPOTENSION, NAUSEA, 01/16/19) ciprofloxacin (Verified Adverse Reaction, Mild, Diarrhea, 01/16/19) gabapentin (Verified Adverse Reaction, Mild, VERTIGO, 01/16/19) ROS Review of System Negative unless stated otherwise in HPI Physical Exam Physical Exam General: Awake, alert, no distress Head: Atraumatic, no conjunctival icterus, normal oral cavity mucosa Neck: Supple, no lymphadenopathy Chest: No trauma noted Cardiovascular: Regular rhythm, normal rate, no murmurs Respiratory: Bilateral air entry noted, lungs clear to auscultation bilaterally. No accessory muscle use Abdominal: Abdomen is soft, nontender, nondistended. Bowel sounds were normal. No hepatomegaly or splenomegaly Musculoskeletal: No deformity noted Extremities: No edema noted Skin: No rash or lesions Neurologic: Alert and oriented x3, no grossly evident neurologic deficits noted. Full neurological exam was not performed Psychiatric: Appropriate mood and affect Vitals VITALS Vital Signs Date Time Temp Pulse Resp B/P (MAP) Pulse Ox O2 Delivery O2 Flow Rate FiO2 02/03/21 08:08 97.9 60 18 137/64 (88) 99 Room Air 97.9 Labs Labs Laboratory Tests Test 02/02/21 21:04 02/02/21 21:30 02/03/21 01:35 02/03/21 01:40 White Blood Count 1.9 x10^3/uL (4.0-11.0) Red Blood Count 3.50 x10^6/uL (3.50-5.40) Hemoglobin 10.9 g/dL (12.0-15.5) Hematocrit 31.9 % (36.0-47.0) Mean Corpuscular Volume 91 fL (79-100) Mean Corpuscular Hemoglobin 31 pg (25-35) Mean Corpuscular Hemoglobin Concent 34 g/dL (31-37) Red Cell Distribution Width 14.5 % (11.5-14.5) Platelet Count 273 x10^3/uL (140-400) Neutrophils (%) (Auto) 36 % (31-73) Lymphocytes (%) (Auto) 48 % (24-48) Monocytes (%) (Auto) 9 % (0-9) Eosinophils (%) (Auto) 6 % (0-3) Basophils (%) (Auto) 2 % (0-3) Neutrophils # (Auto) 0.7 x10^3/uL (1.8-7.7) Lymphocytes # (Auto) 0.9 x10^3/uL (1.0-4.8) Monocytes # (Auto) 0.2 x10^3/uL (0.0-1.1) Eosinophils # (Auto) 0.1 x10^3/uL (0.0-0.7) Basophils # (Auto) 0.0 x10^3/uL (0.0-0.2) Segmented Neutrophils % 36 % (35-66) Lymphocytes % 52 % (24-48) Monocytes % 6 % (0-10) Eosinophils % 4 % (0-5) Basophils % 2 % (0-3) Platelet Estimate Adequate (ADEQUATE) Sodium Level 130 mmol/L (136-145) Potassium Level 3.4 mmol/L (3.5-5.1) Chloride Level 90 mmol/L (98-107) Carbon Dioxide Level 34 mmol/L (21-32) Anion Gap 6 (6-14) Blood Urea Nitrogen 17 mg/dL (7-20) Creatinine 0.8 mg/dL (0.6-1.0) Estimated GFR (Cockcroft-Gault) 87.7 BUN/Creatinine Ratio 21 (6-20) Glucose Level 92 mg/dL (70-99) Calcium Level 9.6 mg/dL (8.5-10.1) Phosphorus Level 3.8 mg/dL (2.6-4.7) Magnesium Level 1.6 mg/dL (1.8-2.4) Total Bilirubin 0.6 mg/dL (0.2-1.0) Aspartate Amino Transf (AST/SGOT) 30 U/L (15-37) Alanine Aminotransferase (ALT/SGPT) 28 U/L (14-59) Alkaline Phosphatase 140 U/L (46-116) Troponin I Quantitative < 0.017 ng/mL (0.000-0.055) < 0.017 ng/mL (0.000-0.055) EU-Iwk-B-Type Natriuretic Peptide 79 pg/mL (0-124) Total Protein 7.0 g/dL (6.4-8.2) Albumin 4.2 g/dL (3.4-5.0) Albumin/Globulin Ratio 1.5 (1.0-1.7) Thyroid Stimulating Hormone (TSH) 11.145 uIU/mL (0.358-3.74) Lactic Acid Level 0.9 mmol/L (0.4-2.0) Urine Collection Type Unknown Urine Color Yellow Urine Clarity Clear Urine pH 6.0 (<5.0-8.0) Urine Specific [place] >=1.030 (1.000-1.030) Urine Protein Negative mg/dL (NEG-TRACE) Urine Glucose (UA) Negative mg/dL (NEG) Urine Ketones (Stick) 15 mg/dL (NEG) Urine Blood Negative (NEG) Urine Nitrite Negative (NEG) Urine Bilirubin Negative (NEG) Urine Urobilinogen Dipstick 0.2 mg/dL (0.2 mg/dL) Urine Leukocyte Esterase Small (NEG) Urine RBC 0 /HPF (0-2) Urine WBC 5-10 /HPF (0-4) Urine Squamous Epithelial Cells Few /LPF Urine Bacteria 0 /HPF (0-FEW) Urine Mucus Slight /LPF Test 02/03/21 04:07 White Blood Count 1.8 x10^3/uL (4.0-11.0) Red Blood Count 3.19 x10^6/uL (3.50-5.70) Hemoglobin 10.0 g/dL (12.0-15.5) Hematocrit 29.3 % (36.0-47.0) Mean Corpuscular Volume 91 fL (79-100) Mean Corpuscular Hemoglobin 31 pg (25-35) Mean Corpuscular Hemoglobin Concent 34 g/dL (31-37) Red Cell Distribution Width 14.6 % (11.5-14.5) Platelet Count 264 x10^3/uL (140-400) Neutrophils (%) (Auto) 45 % (31-73) Lymphocytes (%) (Auto) 37 % (24-48) Monocytes (%) (Auto) 11 % (0-9) Eosinophils (%) (Auto) 5 % (0-3) Basophils (%) (Auto) 2 % (0-3) Neutrophils # (Auto) 0.8 x10^3/uL (1.8-7.7) Lymphocytes # (Auto) 0.7 x10^3/uL (1.0-4.8) Monocytes # (Auto) 0.2 x10^3/uL (0.0-1.1) Eosinophils # (Auto) 0.1 x10^3/uL (0.0-0.7) Basophils # (Auto) 0.0 x10^3/uL (0.0-0.2) Absolute Reticulocyte Count x10^6/uL (0.020-0.120) Percent Reticulocyte Count < 0.2 % (0.5-2.3) Immature Reticulocyte Fraction (0.20-0.60) Sodium Level 131 mmol/L (136-145) Potassium Level 3.7 mmol/L (3.5-5.1) Chloride Level 93 mmol/L (98-107) Carbon Dioxide Level 32 mmol/L (21-32) Anion Gap 6 (6-14) Blood Urea Nitrogen 16 mg/dL (7-20) Creatinine 0.6 mg/dL (0.6-1.0) Estimated GFR (Cockcroft-Gault) 122.2 BUN/Creatinine Ratio 27 (6-20) Glucose Level 93 mg/dL (70-99) Calcium Level 8.9 mg/dL (8.5-10.1) Iron Level 118 ug/dL (50-170) Total Iron Binding Capacity 285 ug/dL (250-450) Iron Saturation 41 % (15-34) Total Bilirubin 0.4 mg/dL (0.2-1.0) Aspartate Amino Transf (AST/SGOT) 26 U/L (15-37) Alanine Aminotransferase (ALT/SGPT) 27 U/L (14-59) Alkaline Phosphatase 129 U/L (46-116) Troponin I Quantitative < 0.017 ng/mL (0.000-0.055) Total Protein 6.0 g/dL (6.4-8.2) Albumin 3.7 g/dL (3.4-5.0) Albumin/Globulin Ratio 1.6 (1.0-1.7) Laboratory Tests Test 02/02/21 21:04 02/02/21 21:30 02/03/21 01:35 02/03/21 01:40 White Blood Count 1.9 x10^3/uL (4.0-11.0) Red Blood Count 3.50 x10^6/uL (3.50-5.40) Hemoglobin 10.9 g/dL (12.0-15.5) Hematocrit 31.9 % (36.0-47.0) Mean Corpuscular Volume 91 fL (79-100) Mean Corpuscular Hemoglobin 31 pg (25-35) Mean Corpuscular Hemoglobin Concent 34 g/dL (31-37) Red Cell Distribution Width 14.5 % (11.5-14.5) Platelet Count 273 x10^3/uL (140-400) Neutrophils (%) (Auto) 36 % (31-73) Lymphocytes (%) (Auto) 48 % (24-48) Monocytes (%) (Auto) 9 % (0-9) Eosinophils (%) (Auto) 6 % (0-3) Basophils (%) (Auto) 2 % (0-3) Neutrophils # (Auto) 0.7 x10^3/uL (1.8-7.7) Lymphocytes # (Auto) 0.9 x10^3/uL (1.0-4.8) Monocytes # (Auto) 0.2 x10^3/uL (0.0-1.1) Eosinophils # (Auto) 0.1 x10^3/uL (0.0-0.7) Basophils # (Auto) 0.0 x10^3/uL (0.0-0.2) Segmented Neutrophils % 36 % (35-66) Lymphocytes % 52 % (24-48) Monocytes % 6 % (0-10) Eosinophils % 4 % (0-5) Basophils % 2 % (0-3) Platelet Estimate Adequate (ADEQUATE) Sodium Level 130 mmol/L (136-145) Potassium Level 3.4 mmol/L (3.5-5.1) Chloride Level 90 mmol/L (98-107) Carbon Dioxide Level 34 mmol/L (21-32) Anion Gap 6 (6-14) Blood Urea Nitrogen 17 mg/dL (7-20) Creatinine 0.8 mg/dL (0.6-1.0) Estimated GFR (Cockcroft-Gault) 87.7 BUN/Creatinine Ratio 21 (6-20) Glucose Level 92 mg/dL (70-99) Calcium Level 9.6 mg/dL (8.5-10.1) Phosphorus Level 3.8 mg/dL (2.6-4.7) Magnesium Level 1.6 mg/dL (1.8-2.4) Total Bilirubin 0.6 mg/dL (0.2-1.0) Aspartate Amino Transf (AST/SGOT) 30 U/L (15-37) Alanine Aminotransferase (ALT/SGPT) 28 U/L (14-59) Alkaline Phosphatase 140 U/L (46-116) Troponin I Quantitative < 0.017 ng/mL (0.000-0.055) < 0.017 ng/mL (0.000-0.055) CP-Mqs-U-Type Natriuretic Peptide 79 pg/mL (0-124) Total Protein 7.0 g/dL (6.4-8.2) Albumin 4.2 g/dL (3.4-5.0) Albumin/Globulin Ratio 1.5 (1.0-1.7) Thyroid Stimulating Hormone (TSH) 11.145 uIU/mL (0.358-3.74) Lactic Acid Level 0.9 mmol/L (0.4-2.0) Urine Collection Type Unknown Urine Color Yellow Urine Clarity Clear Urine pH 6.0 (<5.0-8.0) Urine Specific [place] >=1.030 (1.000-1.030) Urine Protein Negative mg/dL (NEG-TRACE) Urine Glucose (UA) Negative mg/dL (NEG) Urine Ketones (Stick) 15 mg/dL (NEG) Urine Blood Negative (NEG) Urine Nitrite Negative (NEG) Urine Bilirubin Negative (NEG) Urine Urobilinogen Dipstick 0.2 mg/dL (0.2 mg/dL) Urine Leukocyte Esterase Small (NEG) Urine RBC 0 /HPF (0-2) Urine WBC 5-10 /HPF (0-4) Urine Squamous Epithelial Cells Few /LPF Urine Bacteria 0 /HPF (0-FEW) Urine Mucus Slight /LPF Test 02/03/21 04:07 White Blood Count 1.8 x10^3/uL (4.0-11.0) Red Blood Count 3.19 x10^6/uL (3.50-5.70) Hemoglobin 10.0 g/dL (12.0-15.5) Hematocrit 29.3 % (36.0-47.0) Mean Corpuscular Volume 91 fL (79-100) Mean Corpuscular Hemoglobin 31 pg (25-35) Mean Corpuscular Hemoglobin Concent 34 g/dL (31-37) Red Cell Distribution Width 14.6 % (11.5-14.5) Platelet Count 264 x10^3/uL (140-400) Neutrophils (%) (Auto) 45 % (31-73) Lymphocytes (%) (Auto) 37 % (24-48) Monocytes (%) (Auto) 11 % (0-9) Eosinophils (%) (Auto) 5 % (0-3) Basophils (%) (Auto) 2 % (0-3) Neutrophils # (Auto) 0.8 x10^3/uL (1.8-7.7) Lymphocytes # (Auto) 0.7 x10^3/uL (1.0-4.8) Monocytes # (Auto) 0.2 x10^3/uL (0.0-1.1) Eosinophils # (Auto) 0.1 x10^3/uL (0.0-0.7) Basophils # (Auto) 0.0 x10^3/uL (0.0-0.2) Absolute Reticulocyte Count x10^6/uL (0.020-0.120) Percent Reticulocyte Count < 0.2 % (0.5-2.3) Immature Reticulocyte Fraction (0.20-0.60) Sodium Level 131 mmol/L (136-145) Potassium Level 3.7 mmol/L (3.5-5.1) Chloride Level 93 mmol/L (98-107) Carbon Dioxide Level 32 mmol/L (21-32) Anion Gap 6 (6-14) Blood Urea Nitrogen 16 mg/dL (7-20) Creatinine 0.6 mg/dL (0.6-1.0) Estimated GFR (Cockcroft-Gault) 122.2 BUN/Creatinine Ratio 27 (6-20) Glucose Level 93 mg/dL (70-99) Calcium Level 8.9 mg/dL (8.5-10.1) Iron Level 118 ug/dL (50-170) Total Iron Binding Capacity 285 ug/dL (250-450) Iron Saturation 41 % (15-34) Total Bilirubin 0.4 mg/dL (0.2-1.0) Aspartate Amino Transf (AST/SGOT) 26 U/L (15-37) Alanine Aminotransferase (ALT/SGPT) 27 U/L (14-59) Alkaline Phosphatase 129 U/L (46-116) Troponin I Quantitative < 0.017 ng/mL (0.000-0.055) Total Protein 6.0 g/dL (6.4-8.2) Albumin 3.7 g/dL (3.4-5.0) Albumin/Globulin Ratio 1.6 (1.0-1.7) Assessment/Plan Assessment/Plan Assessment: Neutropenia Normocytic anemia Parkinson's disease Neurogenic bladder Hypothyroidism Bradycardia Recommendations: -We will obtain iron studies, B12, SPEP, free light chains, EPO level, copper level, reticulocyte count for further evaluation of anemia and neutropenia -Management of bradycardia per cardiology service -Continue management of hypothyroidism and other chronic medical conditions -Recommend outpatient follow-up in hematology clinic for monitoring blood counts and considering additional evaluation at the time if needed -Rest per Dr. Bambi Anaya MD Medical Oncology/Hematology Ph: [phone] IGNACIO ANAYA MD Feb 03, 2021 12:24
[2021-02-03] MEDS: CARBIDOPA/LEVODOPA 25/100MG TABLET PO SCH ×4 (12:27→21:56)
[2021-02-03] MEDS: rOPINIRole 0.25 MG TABLET. PO SCH ×2 (12:27→20:52)
[2021-02-03] MEDS: IV NORMAL SALINE 1000ML BAG 1,000 ML IV SCH (12:34)
--- NOTE | 2021-02-03 12:41 | RAD ---
CT HEAD WITHOUT CONTRAST 02/03/2021 12:01 PM Indication: Falls. History of subdural hematoma Comparison: CT head without contrast January 27, 2019 Procedure: Multidetector CT imaging of the head was performed without the administration of contrast. Findings: There is no evidence of acute intracranial hemorrhage. There is no evidence of acute territ orial infarction. Please note that CT is limited for evaluation of acute ischemia. No mass effect or midline shift is identified . The ventricles and basilar cisterns have an appropriate appearance. No abnormal extra-axial fluid collections are seen. No acute osseous changes are identified. Impression: No evidence of acute intracranial abnormality CT DOSING PQRS STATEMENT: One or more of the following individualized dose reduction techniques were utilized for this examinat ion: 1. Automated exposure control 2. Adjustment of the mA and/or kV according to patient size 3. Use of iterative reconstruction technique Electronically signed by: Adrián Dunlap MD (02/03/2021 12:38 PM) [id number]
--- NOTE | 2021-02-03 13:29 | PDOC2 ---
NEUROLOGY CONSULT Date of Service DOS: DATE: 02/03/21 TIME: 13:28 Reason for Consult Reason for Consult: Parkinson's Referring Physician Referring Physician: Dr. Lacy Source Source: Caregiver (Daughter), Chart review, Patient History of Present Illness History of Present Illness The patient is a 65-year-old right-handed female admitted for weakness, she was measured to have a heart rate of 36. She was here 2 years ago with sinus bradycardia and also had a right subdural hematoma which did not require drainage. She follows with Dr. Mckeon at for Parkinson's. Patient has not been eating well over the past 2 weeks and has lost 10 pounds. She has been constipated. There is no history of stroke or seizure. Past Medical History Cardiovascular: CAD, HTN, VT, Hyperlipidemia, Other (Bradycardia) CENTRAL NERVOUS SYSTEM: Other (Parkinson's, subdural hematoma) GI: GERD Musculoskeletal: Osteoarthritis Renal/: Other (Bladder dystonia, self catheterizes) Endocrine: Hypothyroidism (Graves' disease) Past Surgical History Past Surgical History: Hysterectomy, Other (Coronary stent, right ankle plate & screws, left rotator cuff repair, arthroscopy) Family History Family History: CAD Social History Social History , no alcohol or tobacco Current Medications Current Medications Current Medications Ondansetron HCl (Zofran) 4 mg PRN Q8HRS PRN IV NAUSEA/VOMITING 1ST CHOICE; Start 02/02/21 at 22:15; Stop 02/03/21 at 13:05; Status DC Morphine Sulfate (Morphine Sulfate) 2 mg PRN Q2HR PRN IV SEVERE PAIN 7-10; Start 02/02/21 at 22:15; Stop 02/03/21 at 22:14 Acetaminophen (Tylenol) 650 mg PRN Q4HRS PRN PO FEVER > 100.3'F; Start 02/02/21 at 22:15; Stop 02/03/21 at 22:14 Atorvastatin Calcium (Lipitor) 10 mg HS PO ; Start 02/03/21 at 21:00 Levothyroxine Sodium (Synthroid) 75 mcg DAILY06 PO Last administered on 02/03/21at 05:47; Start 02/03/21 at 06:00; Stop 02/03/21 at 06:22; Status DC Aspirin (Aspirin Chewable) 81 mg 0830 PO Last administered on 02/03/21at 09:06; Start 02/03/21 at 08:30 Famotidine (Pepcid) 40 mg HS PO ; Start 02/03/21 at 21:00 Levothyroxine Sodium (Synthroid) 62.5 mcg DAILY06 PO ; Start 02/04/21 at 06:00; Stop 02/03/21 at 11:36; Status DC Ondansetron HCl (Zofran) 4 mg PRN Q6HRS PRN IVP NAUSEA/VOMITING; Start 02/03/21 at 11:30 Al Hydroxide/Mg Hydroxide (Mylanta Plus Xs) 30 ml PRN Q3HRS PRN PO HEARTBURN / GAS; Start 02/03/21 at 11:30 Calcium Carbonate/ Glycine (Tums) 500 mg PRN Q3HRS PRN PO HEARTBURN / GAS; Start 02/03/21 at 11:30 Famotidine (Pepcid) 20 mg BID PO ; Start 02/03/21 at 21:00; Stop 02/03/21 at 11:27; Status DC Heparin Sodium (Porcine) (Heparin Sodium) 5,000 unit Q8HRS SQ ; Start 02/03/21 at 14:00 Sodium Chloride (Normal Saline Flush) 3 ml QSHIFT PRN IV AFTER MEDS AND BLOOD DRAWS; Start 02/03/21 at 11:30 Sodium Chloride 1,000 ml @ 75 mls/hr [id number] IV Last administered on 02/03/21at 12:34; Start 02/03/21 at 12:00 Docusate Sodium (Colace) 100 mg BID PO ; Start 02/03/21 at 21:00 Magnesium Hydroxide (Milk Of Magnesia) 2,400 mg PRN Q12HR PRN PO CONSTIPATION 2ND CHOICE; Start 02/03/21 at 11:30 Carbidopa/Levodopa (Sinemet 25/100) 1 tab 6XDAY PO Last administered on 02/03/21at 12:27; Start 02/03/21 at 13:00 Polyethylene Glycol (miraLAX PACKET) 17 gm PRN BID PRN PO CONSTIPATION; Start 02/03/21 at 11:30 Non-Formulary Medication (Ranitidine Hcl ) 150 mg DAILY PO ; Start 02/04/21 at 09:00; Stop 02/03/21 at 11:27; Status DC Levothyroxine Sodium (Synthroid) 100 mcg DAILY06 PO ; Start 02/03/21 at 12:00 Ropinirole HCl (Requip) 0.5 mg TID PO Last administered on 02/03/21at 12:27; Start 02/03/21 at 14:00 Active Scripts Active Decadron (Dexamethasone) 4 Mg Tablet 2 Mg PO TID 7 Days Miralax (Polyethylene Glycol 3350) 17 Gm Powd.pack 1 Pkt PO PRN BID PRN 30 Days Reported Atorvastatin Calcium 10 Mg Tablet 10 Mg PO HS PRN Famotidine 40 Mg Tablet 40 Mg PO HS Ropinirole Hcl 5 Mg Tablet 5 Mg PO TID Carbidopa-Levodopa 25-250 Tab (Carbidopa/Levodopa) 1 Each Tablet 1 Tab PO 6XDAY 30 Days Carbidopa-Levodopa 25-100 Tab (Carbidopa/Levodopa) 1 Each Tablet 1 Tab PO 6XDAY 30 Days Ciclopirox (Ciclopirox Olamine) 15 Gm Cream..g. 1 Teja TP HS NITROGLYCERIN SubLingual (Nitroglycerin) 0.4 Mg Tab.subl 0.4 Mg SL PRN Q5MIN PRN Atorvastatin Calcium 10 Mg Tablet 1 Tab PO DAILY Ranitidine Hcl 150 Mg Tablet 150 Mg PO DAILY Requip (Ropinirole Hcl) 0.5 Mg Tablet 0.5 Mg PO TID Hydrochlorothiazide Tablet (Hydrochlorothiazide) 12.5 Mg Tablet 12.5 Mg PO DAILY Levothyroxine Sodium 75 Mcg Tablet 1 Tab PO DAILY Sinemet Cr 25-100 Tablet (Carbidopa/Levodopa) 1 Each Tablet.er 1 Tab PO FIVE TIMES A DAY Sinemet Cr 50-200 Tablet (Carbidopa/Levodopa) 1 Each Tablet.er 1 Tab PO SIX TIMES A DAY Allergies Allergies: Coded Allergies: oxybutynin (Verified Allergy, Intermediate, HYPOTENSION, NAUSEA, 01/16/19) ciprofloxacin (Verified Adverse Reaction, Mild, Diarrhea, 01/16/19) gabapentin (Verified Adverse Reaction, Mild, VERTIGO, 01/16/19) ROS Review of System Negative for fever, chills, weight loss, shortness of breath, chest pain, indigestion, hematochezia, melena, and dysuria. Full 14-point review of systems is negative. Physical Exam Physical Examination General: Well-developed, well-nourished black female in no acute distress HEENT: Normocephalic andatraumatic.Temporal arteriespulsatile and nontender. Neck: Supple without bruit, no meningismus Musculoskeletal: Stability:see neurologic. Gait exam:see neurologic. Tone:see jorge rologic.Strength:see neurologic. Neurological: Mental Status:intact, orientation, memory, attention span/concentration, lang uage, fund of knowledge normal. Cranial Nerves:Pupils equal and reactive to light, extraocular movements areintact, visual garcia are full to confrontation. Facial sensation is normal. There is no facial asymmetry. Vestibulo-ocular reflex is intact. Palate elevates and tongue protrudes in midline. All other cranial related problems are negative except as mentioned before.Reflexes:2+ and symmetric with flexor plantar responses. Motor:4/5 strength with normal bulk. Coordination:Finger-nose finger and [id number] testing are normal. Masked facies, soft voice, bradykinesia, cogwheel rigidity, minimal tremor. Gait:Not tested. Sensory:Normal pinprick, vibration, light touch, proprioception. Vitals VITALS Vital Signs Date Time Temp Pulse Resp B/P (MAP) Pulse Ox O2 Delivery O2 Flow Rate FiO2 02/03/21 12:00 97.3 75 18 114/62 (79) 99 Room Air 97.3 Labs Labs Laboratory Tests Test 02/02/21 21:04 02/02/21 21:30 02/03/21 01:35 02/03/21 01:40 White Blood Count 1.9 x10^3/uL (4.0-11.0) Red Blood Count 3.50 x10^6/uL (3.50-5.40) Hemoglobin 10.9 g/dL (12.0-15.5) Hematocrit 31.9 % (36.0-47.0) Mean Corpuscular Volume 91 fL (79-100) Mean Corpuscular Hemoglobin 31 pg (25-35) Mean Corpuscular Hemoglobin Concent 34 g/dL (31-37) Red Cell Distribution Width 14.5 % (11.5-14.5) Platelet Count 273 x10^3/uL (140-400) Neutrophils (%) (Auto) 36 % (31-73) Lymphocytes (%) (Auto) 48 % (24-48) Monocytes (%) (Auto) 9 % (0-9) Eosinophils (%) (Auto) 6 % (0-3) Basophils (%) (Auto) 2 % (0-3) Neutrophils # (Auto) 0.7 x10^3/uL (1.8-7.7) Lymphocytes # (Auto) 0.9 x10^3/uL (1.0-4.8) Monocytes # (Auto) 0.2 x10^3/uL (0.0-1.1) Eosinophils # (Auto) 0.1 x10^3/uL (0.0-0.7) Basophils # (Auto) 0.0 x10^3/uL (0.0-0.2) Segmented Neutrophils % 36 % (35-66) Lymphocytes % 52 % (24-48) Monocytes % 6 % (0-10) Eosinophils % 4 % (0-5) Basophils % 2 % (0-3) Platelet Estimate Adequate (ADEQUATE) Sodium Level 130 mmol/L (136-145) Potassium Level 3.4 mmol/L (3.5-5.1) Chloride Level 90 mmol/L (98-107) Carbon Dioxide Level 34 mmol/L (21-32) Anion Gap 6 (6-14) Blood Urea Nitrogen 17 mg/dL (7-20) Creatinine 0.8 mg/dL (0.6-1.0) Estimated GFR (Cockcroft-Gault) 87.7 BUN/Creatinine Ratio 21 (6-20) Glucose Level 92 mg/dL (70-99) Calcium Level 9.6 mg/dL (8.5-10.1) Phosphorus Level 3.8 mg/dL (2.6-4.7) Magnesium Level 1.6 mg/dL (1.8-2.4) Total Bilirubin 0.6 mg/dL (0.2-1.0) Aspartate Amino Transf (AST/SGOT) 30 U/L (15-37) Alanine Aminotransferase (ALT/SGPT) 28 U/L (14-59) Alkaline Phosphatase 140 U/L (46-116) Troponin I Quantitative < 0.017 ng/mL (0.000-0.055) < 0.017 ng/mL (0.000-0.055) LR-Qvq-A-Type Natriuretic Peptide 79 pg/mL (0-124) Total Protein 7.0 g/dL (6.4-8.2) Albumin 4.2 g/dL (3.4-5.0) Albumin/Globulin Ratio 1.5 (1.0-1.7) Thyroid Stimulating Hormone (TSH) 11.145 uIU/mL (0.358-3.74) Lactic Acid Level 0.9 mmol/L (0.4-2.0) Urine Collection Type Unknown Urine Color Yellow Urine Clarity Clear Urine pH 6.0 (<5.0-8.0) Urine Specific [place] >=1.030 (1.000-1.030) Urine Protein Negative mg/dL (NEG-TRACE) Urine Glucose (UA) Negative mg/dL (NEG) Urine Ketones (Stick) 15 mg/dL (NEG) Urine Blood Negative (NEG) Urine Nitrite Negative (NEG) Urine Bilirubin Negative (NEG) Urine Urobilinogen Dipstick 0.2 mg/dL (0.2 mg/dL) Urine Leukocyte Esterase Small (NEG) Urine RBC 0 /HPF (0-2) Urine WBC 5-10 /HPF (0-4) Urine Squamous Epithelial Cells Few /LPF Urine Bacteria 0 /HPF (0-FEW) Urine Mucus Slight /LPF Test 02/03/21 04:07 White Blood Count 1.8 x10^3/uL (4.0-11.0) Red Blood Count 3.19 x10^6/uL (3.50-5.70) Hemoglobin 10.0 g/dL (12.0-15.5) Hematocrit 29.3 % (36.0-47.0) Mean Corpuscular Volume 91 fL (79-100) Mean Corpuscular Hemoglobin 31 pg (25-35) Mean Corpuscular Hemoglobin Concent 34 g/dL (31-37) Red Cell Distribution Width 14.6 % (11.5-14.5) Platelet Count 264 x10^3/uL (140-400) Neutrophils (%) (Auto) 45 % (31-73) Lymphocytes (%) (Auto) 37 % (24-48) Monocytes (%) (Auto) 11 % (0-9) Eosinophils (%) (Auto) 5 % (0-3) Basophils (%) (Auto) 2 % (0-3) Neutrophils # (Auto) 0.8 x10^3/uL (1.8-7.7) Lymphocytes # (Auto) 0.7 x10^3/uL (1.0-4.8) Monocytes # (Auto) 0.2 x10^3/uL (0.0-1.1) Eosinophils # (Auto) 0.1 x10^3/uL (0.0-0.7) Basophils # (Auto) 0.0 x10^3/uL (0.0-0.2) Absolute Reticulocyte Count x10^6/uL (0.020-0.120) Percent Reticulocyte Count < 0.2 % (0.5-2.3) Immature Reticulocyte Fraction (0.20-0.60) Sodium Level 131 mmol/L (136-145) Potassium Level 3.7 mmol/L (3.5-5.1) Chloride Level 93 mmol/L (98-107) Carbon Dioxide Level 32 mmol/L (21-32) Anion Gap 6 (6-14) Blood Urea Nitrogen 16 mg/dL (7-20) Creatinine 0.6 mg/dL (0.6-1.0) Estimated GFR (Cockcroft-Gault) 122.2 BUN/Creatinine Ratio 27 (6-20) Glucose Level 93 mg/dL (70-99) Calcium Level 8.9 mg/dL (8.5-10.1) Iron Level 118 ug/dL (50-170) Total Iron Binding Capacity 285 ug/dL (250-450) Iron Saturation 41 % (15-34) Total Bilirubin 0.4 mg/dL (0.2-1.0) Aspartate Amino Transf (AST/SGOT) 26 U/L (15-37) Alanine Aminotransferase (ALT/SGPT) 27 U/L (14-59) Alkaline Phosphatase 129 U/L (46-116) Troponin I Quantitative < 0.017 ng/mL (0.000-0.055) Total Protein 6.0 g/dL (6.4-8.2) Albumin 3.7 g/dL (3.4-5.0) Albumin/Globulin Ratio 1.6 (1.0-1.7) Free Thyroxine 1.03 ng/dL (0.76-1.46) Laboratory Tests Test 02/02/21 21:04 02/02/21 21:30 02/03/21 01:35 02/03/21 01:40 White Blood Count 1.9 x10^3/uL (4.0-11.0) Red Blood Count 3.50 x10^6/uL (3.50-5.40) Hemoglobin 10.9 g/dL (12.0-15.5) Hematocrit 31.9 % (36.0-47.0) Mean Corpuscular Volume 91 fL (79-100) Mean Corpuscular Hemoglobin 31 pg (25-35) Mean Corpuscular Hemoglobin Concent 34 g/dL (31-37) Red Cell Distribution Width 14.5 % (11.5-14.5) Platelet Count 273 x10^3/uL (140-400) Neutrophils (%) (Auto) 36 % (31-73) Lymphocytes (%) (Auto) 48 % (24-48) Monocytes (%) (Auto) 9 % (0-9) Eosinophils (%) (Auto) 6 % (0-3) Basophils (%) (Auto) 2 % (0-3) Neutrophils # (Auto) 0.7 x10^3/uL (1.8-7.7) Lymphocytes # (Auto) 0.9 x10^3/uL (1.0-4.8) Monocytes # (Auto) 0.2 x10^3/uL (0.0-1.1) Eosinophils # (Auto) 0.1 x10^3/uL (0.0-0.7) Basophils # (Auto) 0.0 x10^3/uL (0.0-0.2) Segmented Neutrophils % 36 % (35-66) Lymphocytes % 52 % (24-48) Monocytes % 6 % (0-10) Eosinophils % 4 % (0-5) Basophils % 2 % (0-3) Platelet Estimate Adequate (ADEQUATE) Sodium Level 130 mmol/L (136-145) Potassium Level 3.4 mmol/L (3.5-5.1) Chloride Level 90 mmol/L (98-107) Carbon Dioxide Level 34 mmol/L (21-32) Anion Gap 6 (6-14) Blood Urea Nitrogen 17 mg/dL (7-20) Creatinine 0.8 mg/dL (0.6-1.0) Estimated GFR (Cockcroft-Gault) 87.7 BUN/Creatinine Ratio 21 (6-20) Glucose Level 92 mg/dL (70-99) Calcium Level 9.6 mg/dL (8.5-10.1) Phosphorus Level 3.8 mg/dL (2.6-4.7) Magnesium Level 1.6 mg/dL (1.8-2.4) Total Bilirubin 0.6 mg/dL (0.2-1.0) Aspartate Amino Transf (AST/SGOT) 30 U/L (15-37) Alanine Aminotransferase (ALT/SGPT) 28 U/L (14-59) Alkaline Phosphatase 140 U/L (46-116) Troponin I Quantitative < 0.017 ng/mL (0.000-0.055) < 0.017 ng/mL (0.000-0.055) PE-Psb-T-Type Natriuretic Peptide 79 pg/mL (0-124) Total Protein 7.0 g/dL (6.4-8.2) Albumin 4.2 g/dL (3.4-5.0) Albumin/Globulin Ratio 1.5 (1.0-1.7) Thyroid Stimulating Hormone (TSH) 11.145 uIU/mL (0.358-3.74) Lactic Acid Level 0.9 mmol/L (0.4-2.0) Urine Collection Type Unknown Urine Color Yellow Urine Clarity Clear Urine pH 6.0 (<5.0-8.0) Urine Specific [place] >=1.030 (1.000-1.030) Urine Protein Negative mg/dL (NEG-TRACE) Urine Glucose (UA) Negative mg/dL (NEG) Urine Ketones (Stick) 15 mg/dL (NEG) Urine Blood Negative (NEG) Urine Nitrite Negative (NEG) Urine Bilirubin Negative (NEG) Urine Urobilinogen Dipstick 0.2 mg/dL (0.2 mg/dL) Urine Leukocyte Esterase Small (NEG) Urine RBC 0 /HPF (0-2) Urine WBC 5-10 /HPF (0-4) Urine Squamous Epithelial Cells Few /LPF Urine Bacteria 0 /HPF (0-FEW) Urine Mucus Slight /LPF Test 02/03/21 04:07 White Blood Count 1.8 x10^3/uL (4.0-11.0) Red Blood Count 3.19 x10^6/uL (3.50-5.70) Hemoglobin 10.0 g/dL (12.0-15.5) Hematocrit 29.3 % (36.0-47.0) Mean Corpuscular Volume 91 fL (79-100) Mean Corpuscular Hemoglobin 31 pg (25-35) Mean Corpuscular Hemoglobin Concent 34 g/dL (31-37) Red Cell Distribution Width 14.6 % (11.5-14.5) Platelet Count 264 x10^3/uL (140-400) Neutrophils (%) (Auto) 45 % (31-73) Lymphocytes (%) (Auto) 37 % (24-48) Monocytes (%) (Auto) 11 % (0-9) Eosinophils (%) (Auto) 5 % (0-3) Basophils (%) (Auto) 2 % (0-3) Neutrophils # (Auto) 0.8 x10^3/uL (1.8-7.7) Lymphocytes # (Auto) 0.7 x10^3/uL (1.0-4.8) Monocytes # (Auto) 0.2 x10^3/uL (0.0-1.1) Eosinophils # (Auto) 0.1 x10^3/uL (0.0-0.7) Basophils # (Auto) 0.0 x10^3/uL (0.0-0.2) Absolute Reticulocyte Count x10^6/uL (0.020-0.120) Percent Reticulocyte Count < 0.2 % (0.5-2.3) Immature Reticulocyte Fraction (0.20-0.60) Sodium Level 131 mmol/L (136-145) Potassium Level 3.7 mmol/L (3.5-5.1) Chloride Level 93 mmol/L (98-107) Carbon Dioxide Level 32 mmol/L (21-32) Anion Gap 6 (6-14) Blood Urea Nitrogen 16 mg/dL (7-20) Creatinine 0.6 mg/dL (0.6-1.0) Estimated GFR (Cockcroft-Gault) 122.2 BUN/Creatinine Ratio 27 (6-20) Glucose Level 93 mg/dL (70-99) Calcium Level 8.9 mg/dL (8.5-10.1) Iron Level 118 ug/dL (50-170) Total Iron Binding Capacity 285 ug/dL (250-450) Iron Saturation 41 % (15-34) Total Bilirubin 0.4 mg/dL (0.2-1.0) Aspartate Amino Transf (AST/SGOT) 26 U/L (15-37) Alanine Aminotransferase (ALT/SGPT) 27 U/L (14-59) Alkaline Phosphatase 129 U/L (46-116) Troponin I Quantitative < 0.017 ng/mL (0.000-0.055) Total Protein 6.0 g/dL (6.4-8.2) Albumin 3.7 g/dL (3.4-5.0) Albumin/Globulin Ratio 1.6 (1.0-1.7) Free Thyroxine 1.03 ng/dL (0.76-1.46) Images Images CT HEAD WITHOUT CONTRAST 02/03/2021 12:01 PM Indication: Falls. History of subdural hematoma Comparison: CT head without contrast January 27, 2019 Procedure: Multidetector CT imaging of the head was performed without the administration of contrast. Findings: There is no evidence of acute intracranial hemorrhage. There is no evidence of acute territorial infarction. Please note that CT is limited for evaluation of acute ischemia. No mass effect or midline shift is identified . The ventricles and basilar cisterns have an appropriate appearance. No abnormal extra-axial fluid collections are seen. No acute osseous changes are identified. Impression: No evidence of acute intracranial abnormality Assessment/Plan Assessment/Plan Impression: Parkinson's, stable, sees Dr. Mckeon, internationally renowned Parkinson's expert at . History of subdural hematoma, today's head CT negative Bradycardia, carbidopa/levodopa and ropinirole do not cause this, they can cause hypotension. Severe hypothyroidism which of course is the most likely cause of her issues. Recommendations: Continue current Parkinson's regimen Rehabilitation modalities Discussed with patient's daughter. Thank you for letting me help with the patient's care. MESHA ASHRAF MD Feb 03, 2021 13:29
[2021-02-03 14:12] LABS: URIC ACID 4.5 mg/dL (2.6-6.0)
[2021-02-03] MEDS: LEVOTHYROXINE 100 MCG TABLET PO SCH (14:21)
[2021-02-03] MEDS: HEPARIN for SUB-Q USE 5,000 UNIT/ML VIAL. SQ SCH ×2 (14:24→21:58)
--- NOTE | 2021-02-03 14:41 | NUR ---
Unable to achieve orthostatic pressures r/t patient's physical abilities at this time will not allow patient to sit or stand.
--- NOTE | 2021-02-03 16:14 | NUR ---
SS following for discharge planning. SS reviewed pt chart and discussed with pt RN. Pt is from home and is currently on room air. PT/OT/ST ordered. SS will continue to follow for discharge planning.
[2021-02-03] MEDS: ATORVASTATIN CALCIUM 10 MG TABLET. PO SCH (20:52)
[2021-02-03] MEDS: FAMOTIDINE 20 MG TABLET. PO SCH (20:52)
[2021-02-03] MEDS: DOCUSATE SODIUM 100 MG CAPSULE. PO SCH (20:52)
[2021-02-03] MEDS ORDERED: FAMOTIDINE 20 MG TABLET. PO SCH (21:00)
[2021-02-04] MEDS: IV NORMAL SALINE 1000ML BAG 1,000 ML IV SCH ×2 (01:16→16:37)
[2021-02-04 03:48] VITALS: BP_SYST 120; BP_SYST 155; BP_DIAS 64; BP_DIAS 75
[2021-02-04] MEDS ORDERED: LEVOTHYROXINE 125 MCG TABLET PO SCH (06:00)
[2021-02-04] MEDS: LEVOTHYROXINE 100 MCG TABLET PO SCH (06:08)
[2021-02-04] MEDS: HEPARIN for SUB-Q USE 5,000 UNIT/ML VIAL. SQ SCH ×3 (06:11→21:31)
[2021-02-04 07:40] VITALS: BP 146/70
[2021-02-04 07:54] LABS: BASO % 1 % (0-3); EOS % 1 % (0-3); HEMATOCRIT 34.6 % (36.0-47.0); HEMOGLOBIN 11.9 g/dL (12.0-15.5); LYMPH # 0.8 x10^3/uL (1.0-4.8); LYMPH % 29 % (24-48); MEAN CORPUSCULAR HEMOGLOBIN 31 pg (25-35); MEAN CORPUSCULAR HGB CONC 34 g/dL (31-37); MEAN CORPUSCULAR VOLUME 91 fL (79-100); MONO # 0.4 x10^3/uL (0.0-1.1); MONO % 13 % (0-9); NEUT # 1.6 x10^3/uL (1.8-7.7); NEUT % 57 % (31-73); PLATELET COUNT 324 x10^3/uL (140-400); RED BLOOD COUNT 3.78 x10^6/uL (3.50-5.40); WHITE BLOOD COUNT 2.9 x10^3/uL (4.0-11.0)
[2021-02-04 08:13] LABS: ALBUMIN 3.9 g/dL (3.4-5.0); ALBUMIN/GLOBULIN RATIO 1.4 (1.0-1.7); CALCIUM 9.3 mg/dL (8.5-10.1); CREATININE 0.6 mg/dL (0.6-1.0); GFR 122.2; POTASSIUM 3.3 mmol/L (3.5-5.1); TOTAL BILIRUBIN 0.7 mg/dL (0.2-1.0); TOTAL PROTEIN 6.6 g/dL (6.4-8.2)
[2021-02-04] MEDS: ASPIRIN CHEWABLE 81 MG TABLET. PO SCH (08:28)
[2021-02-04] MEDS: DOCUSATE SODIUM 100 MG CAPSULE. PO SCH ×2 (08:28→21:24)
[2021-02-04] MEDS: CARBIDOPA/LEVODOPA 25/100MG TABLET PO SCH ×6 (08:28→21:30)
--- NOTE | 2021-02-04 08:49 | PDOC ---
PROGRESS NOTES Date of Service: DATE: 02/04/21 TIME: 08:48 Chief Complaint Chief Complaint VTE Prophylaxis Ordered VTE Prophylaxis Devices: Yes VTE Pharmacological Prophylaxi: Yes Assessment/Plan Assessment/Plan impression marked bradycardia, possibly due to hypothyroid state marked neutropenia Moderate amount of stool identified throughout the colon likely constipation. HX SUBDURAL HEMATOMA 2018 GERD Hypertension Parkinson's Falls Grave's disease on oral replacement PVD s/p peripheral stents Bladder dystonia - with intermittent self-catheterization, seen by Urology outpatient plan ADMIT NEUROLOGY CONSULT HEME CONSULT RETIC, FE PANEL PT/OT TREND WBC MAY NEED SNF dvt prophylaxis inc synthroid to 100 mcg po daily consider CT HEAD uti suspect she willl need > 72 hr stay to stabilize current issure Justifications for Admission Other Justification History of Present Illness History of Present Illness Identification/Chief Complaint Chief Complaint weakness, bradycardia, FALLS , POOR APPETITE History of Present Illness History of Present Illness 65 year old female SEEN in ER bradycardia., weakness, neutropenia, falls Patient states she felt a little bit weak lightheaded. States her pulse is usually 45 but today it was 35-36. notes history of Parkinson's disease and is on carbidopa and she takes hydrochlorothiazide for hypertension. Patient has had decreased appetite and p.o. intake. Has had a 10 pound weight loss over the past 2 weeks. 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 PVD s/p peripheral stents Bladder dystonia - with intermittent self-catheterization, seen by Urology outpatient PLAN ====NEUROLOGY CONSULT /HEME CONSULT// RETIC, FE PANEL //PT/OT TREND WBC MAY NEED SNF dvt prophylaxis inc synthroid to 100 mcg po daily consider CT HEAD Past Medical History Past Medical History Past Medical History Past Medical History Past Medical History: CAD, GERD, High Cholesterol, Hypertension, [place] Additional Past Medical Histor: Parkinson's, grave's, cardiac stent Past Surgical History: Hysterectomy Additional Past Surgical Histo: Right ankle plate & screws, Left rotator cuff repair, cardiac stent Smoking Status: Never Smoker Alcohol Use: None Drug Use: None FHX HTN Cardiovascular: HTN Pulmonary: No pertinent hx CENTRAL NERVOUS SYSTEM: Other (PARPINSONS) GI: GERD Heme/Onc: No pertinent hx Hepatobiliary: No pertinent hx Psych: No pertinent hx Musculoskeletal: Osteoarthritis Rheumatologic: No pertinent hx Infectious disease: No pertinent hx Renal/: Urinary Incontinence Endocrine: No pertinent hx Past Surgical History Past Surgical History: Arthroscopy, Hysterectomy, Other Family History Family History: Heart Disease, High Cholestrol, Hypertension Social History Smoke: No ALCOHOL: none Drugs: None Current Problem List Problem List Problems Medical Problems: (1) Bradycardia Status: Acute (2) Leukopenia Status: Acute Current Medications Current Medications Current Medications Ondansetron HCl (Zofran) 4 mg PRN Q8HRS PRN IV NAUSEA/VOMITING 1ST CHOICE; Start 02/02/21 at 22:15; Stop 02/03/21 at 22:14 Morphine Sulfate (Morphine Sulfate) 2 mg PRN Q2HR PRN IV SEVERE PAIN 7-10; Start 02/02/21 at 22:15; Stop 02/03/21 at 22:14 Acetaminophen (Tylenol) 650 mg PRN Q4HRS PRN PO FEVER > 100.3'F; Start 02/02/21 at 22:15; Stop 02/03/21 at 22:14 Atorvastatin Calcium (Lipitor) 10 mg HS PO ; Start 02/03/21 at 21:00 Levothyroxine Sodium (Synthroid) 75 mcg DAILY06 PO Last administered on 02/03/21at 05:47; Start 02/03/21 at 06:00; Stop 02/03/21 at 06:22; Status DC Aspirin (Aspirin Chewable) 81 mg 0830 PO Last administered on 02/03/21at 09:06; Start 02/03/21 at 08:30 Famotidine (Pepcid) 40 mg HS PO ; Start 02/03/21 at 21:00 Levothyroxine Sodium (Synthroid) 62.5 mcg DAILY06 PO ; Start 02/04/21 at 06:00 Active Scripts Active Decadron (Dexamethasone) 4 Mg Tablet 2 Mg PO TID 7 Days Miralax (Polyethylene Glycol 3350) 17 Gm Powd.pack 1 Pkt PO PRN BID PRN 30 Days Reported Atorvastatin Calcium 10 Mg Tablet 10 Mg PO HS PRN Famotidine 40 Mg Tablet 40 Mg PO HS Ropinirole Hcl 5 Mg Tablet 5 Mg PO TID Carbidopa-Levodopa 25-250 Tab (Carbidopa/Levodopa) 1 Each Tablet 1 Tab PO 6XDAY 30 Days Carbidopa-Levodopa 25-100 Tab (Carbidopa/Levodopa) 1 Each Tablet 1 Tab PO 6XDAY 30 Days Ciclopirox (Ciclopirox Olamine) 15 Gm Cream..g. 1 Teja TP HS NITROGLYCERIN SubLingual (Nitroglycerin) 0.4 Mg Tab.subl 0.4 Mg SL PRN Q5MIN PRN Atorvastatin Calcium 10 Mg Tablet 1 Tab PO DAILY Ranitidine Hcl 150 Mg Tablet 150 Mg PO DAILY Requip (Ropinirole Hcl) 0.5 Mg Tablet 0.5 Mg PO TID Hydrochlorothiazide Tablet (Hydrochlorothiazide) 12.5 Mg Tablet 12.5 Mg PO DAILY Levothyroxine Sodium 75 Mcg Tablet 1 Tab PO DAILY Sinemet Cr 25-100 Tablet (Carbidopa/Levodopa) 1 Each Tablet.er 1 Tab PO FIVE TIMES A DAY Sinemet Cr 50-200 Tablet (Carbidopa/Levodopa) 1 Each Tablet.er 1 Tab PO SIX TIMES A DAY Allergies Allergies: Coded Allergies: oxybutynin (Verified Allergy, Intermediate, HYPOTENSION, NAUSEA, 01/16/19) ciprofloxacin (Verified Adverse Reaction, Mild, Diarrhea, 01/16/19) gabapentin (Verified Adverse Reaction, Mild, VERTIGO, 01/16/19) ROS General: YES: Fatigue, Malaise, Appetite; No: Chills, Night Sweats, Other PSYCHOLOGICAL ROS: No: Anxiety, Behavioral Disorder, Concentration difficultie, Decreased libido, Depression, Disorientation, Hallucinations, Hostility, Irritablity, Memory difficulties, Mood Swings, Obsessive thoughts, Physical abuse, Sexual abuse, Sleep disturbances, Suicidal ideation, Other Eyes: No Blurry vision, No Decreased vision, No Double vision, No Dry eyes, No Excessive tearing, No Eye Pain, No Itchy Eyes, No Loss of vision, No Photophobia, No Scotomata, No Uses contacts, No Uses glasses, No Other HEENT: No: Heacaches, Visual Changes, Hearing change, Nasal congestion, Nasal discharge, Oral lesions, Sinus pain, Sore Throat, Epistaxis, Sneezing, Snoring, Tinnitus, Vertigo, Vocal changes, Other ALLERGY AND IMMUNOLOGY: YES: Hives; No: Insect Bite Sensitivity, Itchy/Watery Eyes, Nasal Congestion, Post Nasal Drip, Seasonal Allergies, Other Hematological and Lymphatic: No: Bleeding Problems, Blood Clots, Blood Transfusions, Brusing, Night Sweats, Pallor, Swollen Lymph Nodes, Other ENDOCRINE: No: Breast Changes, Galactorrhea, Hair Pattern Changes, Hot Flashes, Malaise/lethargy, Mood Swings, Palpitations, Polydipsia/polyuria, Skin Changes, Temperature Intolerance, Unexpected Weight Changes, Other Breast: No New/Changing Breast Lumps, No Nipple changes, No Nipple discharge, No Other Respiratory: No: Cough, Hemoptysis, Orthopnea, Pleuritic Pain, Shortness of breath, SOB with excertion, Sputum Changes, Stridor, Tachypnea, Wheezing, Other Cardiovascular: No Chest Pain, No Palpitations, No Orthopnea, No Paroxysmal Noc. Dyspnea, No Edema, No Lt Headedness, No Other Gastrointestinal: Yes Constipation; No Nausea, No Vomiting, No Abdominal Pain, No Diarrhea, No Melena, No Hematochezia, No Other Genitourinary: No Dysuria, No Frequency, No Incontinence, No Hematuria, No Retention, No Discharge, No Urgency, No Pain, No Flank Pain, No Other, No , No , No , No , No , No , No Musculoskeletal: Yes Gait Disturbance, Yes Joint Stiffness Neurological: Yes Dizziness, Yes Gait Disturbance, Yes Weakness, Yes Other (falls ) Skin: No Dry Skin, No Eczema, No Hair Changes, No Lumps, No Mole Changes, No Mottling, No Nail Changes, No Pruritus, No Rash, No Skin Lesion Changes, No Other, No Acne 6-04 weaker today acute metabolic encephalopathy begin iv cefipime uti marked bradycardia, possibly due to hypothyroid state marked neutropenia Moderate amount of stool identified throughout the colon likely constipation. HX SUBDURAL HEMATOMA 2018 GERD Hypertension Parkinson's Falls Grave's disease on oral replacement PVD s/p peripheral stents Bladder dystonia - with intermittent self-catheterization, seen by Urology outpatient Vitals Vitals Vital Signs Date Time Temp Pulse Resp B/P (MAP) Pulse Ox O2 Delivery O2 Flow Rate FiO2 02/04/21 07:40 98.3 62 18 146/70 (95) 98 Room Air 98.3 Physical Exam General: Alert, Oriented X3, Cooperative, No acute distress Heart: Regular rate (SR), Normal S1, Normal S2, No murmurs Lungs: Clear Abdomen: Normal bowel sounds, Soft, No tenderness, No masses Extremities: No cyanosis Skin: No breakdown, No significant lesion Labs LABS Visit Type * On Hold Attempted Visit Details * Pt admitted through ER overnight and pt has not had Parkinson's meds for last 24 hours and RN reports pt very rigid. Parkinson's meds restarted around 1300 but pt remains rigid. 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 * Ashlyn Savanna PT Laboratory Tests Test 02/03/21 13:10 02/04/21 07:35 Haptoglobin 159 mg/dL (37-355) Uric Acid 4.5 mg/dL (2.6-6.0) Ferritin 143 ng/mL (8-252) Lactate Dehydrogenase 208 U/L (81-234) Vitamin B12 Level 511 pg/mL (247-911) White Blood Count 2.9 x10^3/uL (4.0-11.0) Red Blood Count 3.78 x10^6/uL (3.50-5.40) Hemoglobin 11.9 g/dL (12.0-15.5) Hematocrit 34.6 % (36.0-47.0) Mean Corpuscular Volume 91 fL (79-100) Mean Corpuscular Hemoglobin 31 pg (25-35) Mean Corpuscular Hemoglobin Concent 34 g/dL (31-37) Red Cell Distribution Width 15.0 % (11.5-14.5) Platelet Count 324 x10^3/uL (140-400) Neutrophils (%) (Auto) 57 % (31-73) Lymphocytes (%) (Auto) 29 % (24-48) Monocytes (%) (Auto) 13 % (0-9) Eosinophils (%) (Auto) 1 % (0-3) Basophils (%) (Auto) 1 % (0-3) Neutrophils # (Auto) 1.6 x10^3/uL (1.8-7.7) Lymphocytes # (Auto) 0.8 x10^3/uL (1.0-4.8) Monocytes # (Auto) 0.4 x10^3/uL (0.0-1.1) Eosinophils # (Auto) 0.0 x10^3/uL (0.0-0.7) Basophils # (Auto) 0.0 x10^3/uL (0.0-0.2) Sodium Level 138 mmol/L (136-145) Potassium Level 3.3 mmol/L (3.5-5.1) Chloride Level 101 mmol/L (98-107) Carbon Dioxide Level 32 mmol/L (21-32) Anion Gap 5 (6-14) Blood Urea Nitrogen 8 mg/dL (7-20) Creatinine 0.6 mg/dL (0.6-1.0) Estimated GFR (Cockcroft-Gault) 122.2 BUN/Creatinine Ratio 13 (6-20) Glucose Level 77 mg/dL (70-99) Calcium Level 9.3 mg/dL (8.5-10.1) Total Bilirubin 0.7 mg/dL (0.2-1.0) Aspartate Amino Transf (AST/SGOT) 33 U/L (15-37) Alanine Aminotransferase (ALT/SGPT) 27 U/L (14-59) Alkaline Phosphatase 138 U/L (46-116) Total Protein 6.6 g/dL (6.4-8.2) Albumin 3.9 g/dL (3.4-5.0) Albumin/Globulin Ratio 1.4 (1.0-1.7) Assessment and Plan Assessmemt and Plan Problems Medical Problems: (1) Bradycardia Status: Acute (2) Leukopenia Status: Acute Comment Review of Relevant I have reviewed the following items dami (where applicable) has been applied. Labs Laboratory Tests Test 02/02/21 21:04 02/02/21 21:30 02/03/21 01:35 02/03/21 01:40 White Blood Count 1.9 x10^3/uL (4.0-11.0) Red Blood Count 3.50 x10^6/uL (3.50-5.40) Hemoglobin 10.9 g/dL (12.0-15.5) Hematocrit 31.9 % (36.0-47.0) Mean Corpuscular Volume 91 fL (79-100) Mean Corpuscular Hemoglobin 31 pg (25-35) Mean Corpuscular Hemoglobin Concent 34 g/dL (31-37) Red Cell Distribution Width 14.5 % (11.5-14.5) Platelet Count 273 x10^3/uL (140-400) Neutrophils (%) (Auto) 36 % (31-73) Lymphocytes (%) (Auto) 48 % (24-48) Monocytes (%) (Auto) 9 % (0-9) Eosinophils (%) (Auto) 6 % (0-3) Basophils (%) (Auto) 2 % (0-3) Neutrophils # (Auto) 0.7 x10^3/uL (1.8-7.7) Lymphocytes # (Auto) 0.9 x10^3/uL (1.0-4.8) Monocytes # (Auto) 0.2 x10^3/uL (0.0-1.1) Eosinophils # (Auto) 0.1 x10^3/uL (0.0-0.7) Basophils # (Auto) 0.0 x10^3/uL (0.0-0.2) Segmented Neutrophils % 36 % (35-66) Lymphocytes % 52 % (24-48) Monocytes % 6 % (0-10) Eosinophils % 4 % (0-5) Basophils % 2 % (0-3) Platelet Estimate Adequate (ADEQUATE) Sodium Level 130 mmol/L (136-145) Potassium Level 3.4 mmol/L (3.5-5.1) Chloride Level 90 mmol/L (98-107) Carbon Dioxide Level 34 mmol/L (21-32) Anion Gap 6 (6-14) Blood Urea Nitrogen 17 mg/dL (7-20) Creatinine 0.8 mg/dL (0.6-1.0) Estimated GFR (Cockcroft-Gault) 87.7 BUN/Creatinine Ratio 21 (6-20) Glucose Level 92 mg/dL (70-99) Calcium Level 9.6 mg/dL (8.5-10.1) Phosphorus Level 3.8 mg/dL (2.6-4.7) Magnesium Level 1.6 mg/dL (1.8-2.4) Total Bilirubin 0.6 mg/dL (0.2-1.0) Aspartate Amino Transf (AST/SGOT) 30 U/L (15-37) Alanine Aminotransferase (ALT/SGPT) 28 U/L (14-59) Alkaline Phosphatase 140 U/L (46-116) Troponin I Quantitative < 0.017 ng/mL (0.000-0.055) < 0.017 ng/mL (0.000-0.055) NY-Xnn-S-Type Natriuretic Peptide 79 pg/mL (0-124) Total Protein 7.0 g/dL (6.4-8.2) Albumin 4.2 g/dL (3.4-5.0) Albumin/Globulin Ratio 1.5 (1.0-1.7) Thyroid Stimulating Hormone (TSH) 11.145 uIU/mL (0.358-3.74) Lactic Acid Level 0.9 mmol/L (0.4-2.0) Urine Collection Type Unknown Urine Color Yellow Urine Clarity Clear Urine pH 6.0 (<5.0-8.0) Urine Specific Erin >=1.030 (1.000-1.030) Urine Protein Negative mg/dL (NEG-TRACE) Urine Glucose (UA) Negative mg/dL (NEG) Urine Ketones (Stick) 15 mg/dL (NEG) Urine Blood Negative (NEG) Urine Nitrite Negative (NEG) Urine Bilirubin Negative (NEG) Urine Urobilinogen Dipstick 0.2 mg/dL (0.2 mg/dL) Urine Leukocyte Esterase Small (NEG) Urine RBC 0 /HPF (0-2) Urine WBC 5-10 /HPF (0-4) Urine Squamous Epithelial Cells Few /LPF Urine Bacteria 0 /HPF (0-FEW) Urine Mucus Slight /LPF Test 02/03/21 04:07 02/03/21 13:10 02/04/21 07:35 White Blood Count 1.8 x10^3/uL (4.0-11.0) 2.9 x10^3/uL (4.0-11.0) Red Blood Count 3.19 x10^6/uL (3.50-5.70) 3.78 x10^6/uL (3.50-5.40) Hemoglobin 10.0 g/dL (12.0-15.5) 11.9 g/dL (12.0-15.5) Hematocrit 29.3 % (36.0-47.0) 34.6 % (36.0-47.0) Mean Corpuscular Volume 91 fL (79-100) 91 fL (79-100) Mean Corpuscular Hemoglobin 31 pg (25-35) 31 pg (25-35) Mean Corpuscular Hemoglobin Concent 34 g/dL (31-37) 34 g/dL (31-37) Red Cell Distribution Width 14.6 % (11.5-14.5) 15.0 % (11.5-14.5) Platelet Count 264 x10^3/uL (140-400) 324 x10^3/uL (140-400) Neutrophils (%) (Auto) 45 % (31-73) 57 % (31-73) Lymphocytes (%) (Auto) 37 % (24-48) 29 % (24-48) Monocytes (%) (Auto) 11 % (0-9) 13 % (0-9) Eosinophils (%) (Auto) 5 % (0-3) 1 % (0-3) Basophils (%) (Auto) 2 % (0-3) 1 % (0-3) Neutrophils # (Auto) 0.8 x10^3/uL (1.8-7.7) 1.6 x10^3/uL (1.8-7.7) Lymphocytes # (Auto) 0.7 x10^3/uL (1.0-4.8) 0.8 x10^3/uL (1.0-4.8) Monocytes # (Auto) 0.2 x10^3/uL (0.0-1.1) 0.4 x10^3/uL (0.0-1.1) Eosinophils # (Auto) 0.1 x10^3/uL (0.0-0.7) 0.0 x10^3/uL (0.0-0.7) Basophils # (Auto) 0.0 x10^3/uL (0.0-0.2) 0.0 x10^3/uL (0.0-0.2) Absolute Reticulocyte Count x10^6/uL (0.020-0.120) Percent Reticulocyte Count < 0.2 % (0.5-2.3) Immature Reticulocyte Fraction (0.20-0.60) Sodium Level 131 mmol/L (136-145) 138 mmol/L (136-145) Potassium Level 3.7 mmol/L (3.5-5.1) 3.3 mmol/L (3.5-5.1) Chloride Level 93 mmol/L (98-107) 101 mmol/L (98-107) Carbon Dioxide Level 32 mmol/L (21-32) 32 mmol/L (21-32) Anion Gap 6 (6-14) 5 (6-14) Blood Urea Nitrogen 16 mg/dL (7-20) 8 mg/dL (7-20) Creatinine 0.6 mg/dL (0.6-1.0) 0.6 mg/dL (0.6-1.0) Estimated GFR (Cockcroft-Gault) 122.2 122.2 BUN/Creatinine Ratio 27 (6-20) 13 (6-20) Glucose Level 93 mg/dL (70-99) 77 mg/dL (70-99) Calcium Level 8.9 mg/dL (8.5-10.1) 9.3 mg/dL (8.5-10.1) Iron Level 118 ug/dL (50-170) Total Iron Binding Capacity 285 ug/dL (250-450) Iron Saturation 41 % (15-34) Total Bilirubin 0.4 mg/dL (0.2-1.0) 0.7 mg/dL (0.2-1.0) Aspartate Amino Transf (AST/SGOT) 26 U/L (15-37) 33 U/L (15-37) Alanine Aminotransferase (ALT/SGPT) 27 U/L (14-59) 27 U/L (14-59) Alkaline Phosphatase 129 U/L (46-116) 138 U/L (46-116) Troponin I Quantitative < 0.017 ng/mL (0.000-0.055) Total Protein 6.0 g/dL (6.4-8.2) 6.6 g/dL (6.4-8.2) Albumin 3.7 g/dL (3.4-5.0) 3.9 g/dL (3.4-5.0) Albumin/Globulin Ratio 1.6 (1.0-1.7) 1.4 (1.0-1.7) Free Thyroxine 1.03 ng/dL (0.76-1.46) Haptoglobin 159 mg/dL (37-355) Uric Acid 4.5 mg/dL (2.6-6.0) Ferritin 143 ng/mL (8-252) Lactate Dehydrogenase 208 U/L (81-234) Vitamin B12 Level 511 pg/mL (247-911) Laboratory Tests Test 02/03/21 13:10 02/04/21 07:35 Haptoglobin 159 mg/dL (37-355) Uric Acid 4.5 mg/dL (2.6-6.0) Ferritin 143 ng/mL (8-252) Lactate Dehydrogenase 208 U/L (81-234) Vitamin B12 Level 511 pg/mL (247-911) White Blood Count 2.9 x10^3/uL (4.0-11.0) Red Blood Count 3.78 x10^6/uL (3.50-5.40) Hemoglobin 11.9 g/dL (12.0-15.5) Hematocrit 34.6 % (36.0-47.0) Mean Corpuscular Volume 91 fL (79-100) Mean Corpuscular Hemoglobin 31 pg (25-35) Mean Corpuscular Hemoglobin Concent 34 g/dL (31-37) Red Cell Distribution Width 15.0 % (11.5-14.5) Platelet Count 324 x10^3/uL (140-400) Neutrophils (%) (Auto) 57 % (31-73) Lymphocytes (%) (Auto) 29 % (24-48) Monocytes (%) (Auto) 13 % (0-9) Eosinophils (%) (Auto) 1 % (0-3) Basophils (%) (Auto) 1 % (0-3) Neutrophils # (Auto) 1.6 x10^3/uL (1.8-7.7) Lymphocytes # (Auto) 0.8 x10^3/uL (1.0-4.8) Monocytes # (Auto) 0.4 x10^3/uL (0.0-1.1) Eosinophils # (Auto) 0.0 x10^3/uL (0.0-0.7) Basophils # (Auto) 0.0 x10^3/uL (0.0-0.2) Sodium Level 138 mmol/L (136-145) Potassium Level 3.3 mmol/L (3.5-5.1) Chloride Level 101 mmol/L (98-107) Carbon Dioxide Level 32 mmol/L (21-32) Anion Gap 5 (6-14) Blood Urea Nitrogen 8 mg/dL (7-20) Creatinine 0.6 mg/dL (0.6-1.0) Estimated GFR (Cockcroft-Gault) 122.2 BUN/Creatinine Ratio 13 (6-20) Glucose Level 77 mg/dL (70-99) Calcium Level 9.3 mg/dL (8.5-10.1) Total Bilirubin 0.7 mg/dL (0.2-1.0) Aspartate Amino Transf (AST/SGOT) 33 U/L (15-37) Alanine Aminotransferase (ALT/SGPT) 27 U/L (14-59) Alkaline Phosphatase 138 U/L (46-116) Total Protein 6.6 g/dL (6.4-8.2) Albumin 3.9 g/dL (3.4-5.0) Albumin/Globulin Ratio 1.4 (1.0-1.7) Microbiology 02/03/21 Urine Culture - Preliminary, Resulted Medications Current Medications Ondansetron HCl (Zofran) 4 mg PRN Q8HRS PRN IV NAUSEA/VOMITING 1ST CHOICE; Start 02/02/21 at 22:15; Stop 02/03/21 at 13:05; Status DC Morphine Sulfate (Morphine Sulfate) 2 mg PRN Q2HR PRN IV SEVERE PAIN 7-10; Start 02/02/21 at 22:15; Stop 02/03/21 at 22:14; Status DC Acetaminophen (Tylenol) 650 mg PRN Q4HRS PRN PO FEVER > 100.3'F; Start 02/02/21 at 22:15; Stop 02/03/21 at 22:14; Status DC Atorvastatin Calcium (Lipitor) 10 mg HS PO Last administered on 02/03/21at 20:52; Start 02/03/21 at 21:00 Levothyroxine Sodium (Synthroid) 75 mcg DAILY06 PO Last administered on 02/03/21at 05:47; Start 02/03/21 at 06:00; Stop 02/03/21 at 06:22; Status DC Aspirin (Aspirin Chewable) 81 mg 0830 PO Last administered on 02/04/21at 08:28; Start 02/03/21 at 08:30 Famotidine (Pepcid) 40 mg HS PO Last administered on 02/03/21at 20:52; Start 02/03/21 at 21:00 Levothyroxine Sodium (Synthroid) 62.5 mcg DAILY06 PO ; Start 02/04/21 at 06:00; Stop 02/03/21 at 11:36; Status DC Ondansetron HCl (Zofran) 4 mg PRN Q6HRS PRN IVP NAUSEA/VOMITING; Start 02/03/21 at 11:30 Al Hydroxide/Mg Hydroxide (Mylanta Plus Xs) 30 ml PRN Q3HRS PRN PO HEARTBURN / GAS; Start 02/03/21 at 11:30 Calcium Carbonate/ Glycine (Tums) 500 mg PRN Q3HRS PRN PO HEARTBURN / GAS; Start 02/03/21 at 11:30 Famotidine (Pepcid) 20 mg BID PO ; Start 02/03/21 at 21:00; Stop 02/03/21 at 11:27; Status DC Heparin Sodium (Porcine) (Heparin Sodium) 5,000 unit Q8HRS SQ Last administered on 02/04/21at 06:11; Start 02/03/21 at 14:00 Sodium Chloride (Normal Saline Flush) 3 ml QSHIFT PRN IV AFTER MEDS AND BLOOD DRAWS; Start 02/03/21 at 11:30 Sodium Chloride 1,000 ml @ 75 mls/hr [id number] IV Last administered on 02/04/21at 01:16; Start 02/03/21 at 12:00 Docusate Sodium (Colace) 100 mg BID PO Last administered on 02/04/21at 08:28; Start 02/03/21 at 21:00 Magnesium Hydroxide (Milk Of Magnesia) 2,400 mg PRN Q12HR PRN PO CONSTIPATION 2ND CHOICE; Start 02/03/21 at 11:30 Carbidopa/Levodopa (Sinemet 25/100) 1 tab 6XDAY PO Last administered on 02/04/21at 08:28; Start 02/03/21 at 13:00 Polyethylene Glycol (miraLAX PACKET) 17 gm PRN BID PRN PO CONSTIPATION; Start 02/03/21 at 11:30 Non-Formulary Medication (Ranitidine Hcl ) 150 mg DAILY PO ; Start 02/04/21 at 09:00; Stop 02/03/21 at 11:27; Status DC Levothyroxine Sodium (Synthroid) 100 mcg DAILY06 PO Last administered on 02/04/21at 06:08; Start 02/03/21 at 12:00 Ropinirole HCl (Requip) 0.5 mg TID PO Last administered on 02/03/21at 20:52; Start 02/03/21 at 14:00 Active Scripts Active Decadron (Dexamethasone) 4 Mg Tablet 2 Mg PO TID 7 Days Miralax (Polyethylene Glycol 3350) 17 Gm Powd.pack 1 Pkt PO PRN BID PRN 30 Days Reported Atorvastatin Calcium 10 Mg Tablet 10 Mg PO HS PRN Famotidine 40 Mg Tablet 40 Mg PO HS Ropinirole Hcl 5 Mg Tablet 5 Mg PO TID Carbidopa-Levodopa 25-250 Tab (Carbidopa/Levodopa) 1 Each Tablet 1 Tab PO 6XDAY 30 Days Carbidopa-Levodopa 25-100 Tab (Carbidopa/Levodopa) 1 Each Tablet 1 Tab PO 6XDAY 30 Days Ciclopirox (Ciclopirox Olamine) 15 Gm Cream..g. 1 Teja TP HS NITROGLYCERIN SubLingual (Nitroglycerin) 0.4 Mg Tab.subl 0.4 Mg SL PRN Q5MIN PRN Atorvastatin Calcium 10 Mg Tablet 1 Tab PO DAILY Ranitidine Hcl 150 Mg Tablet 150 Mg PO DAILY Requip (Ropinirole Hcl) 0.5 Mg Tablet 0.5 Mg PO TID Hydrochlorothiazide Tablet (Hydrochlorothiazide) 12.5 Mg Tablet 12.5 Mg PO DAILY Levothyroxine Sodium 75 Mcg Tablet 1 Tab PO DAILY Sinemet Cr 25-100 Tablet (Carbidopa/Levodopa) 1 Each Tablet.er 1 Tab PO FIVE TIMES A DAY Sinemet Cr 50-200 Tablet (Carbidopa/Levodopa) 1 Each Tablet.er 1 Tab PO SIX TIMES A DAY Vitals/I & O Vital Sign - Last 24 Hours 02/03/21 02/03/21 02/03/21 02/03/21 12:00 16:07 20:00 20:00 Temp 97.3 97.9 100.1 97.3 97.9 100.1 Pulse 75 65 67 Resp 18 18 18 B/P (MAP) 114/62 (79) 150/59 (89) 121/64 (83) Pulse Ox 99 99 99 O2 Delivery Room Air Room Air Room Air Room Air 02/03/21 02/04/21 02/04/21 23:55 03:48 07:40 Temp 98.4 98.3 98.4 98.3 Pulse 57 62 62 Resp 18 18 18 B/P (MAP) 124/59 (80) 155/75 (101) 146/70 (95) Pulse Ox 99 99 98 O2 Delivery Room Air Room Air Room Air Intake and Output 02/03/21 02/03/21 02/04/21 15:00 23:00 07:00 Intake Total 240 ml 1213 ml Output Total 525 ml 850 ml 900 ml Balance -285 ml -850 ml 313 ml Justicifation of Admission Dx: Justifications for Admission: Justification of Admission Dx: Yes Sepsis: Infection GABBY LARSON MD Feb 04, 2021 08:49
[2021-02-04] MEDS ORDERED: NON FORMULARY ITEM (Ranitidine Hcl 150 MG) PO SCH (09:00)
--- NOTE | 2021-02-04 09:02 | PDOC ---
PROGRESS NOTES Date of Service DATE: 02/04/21 TIME: 08:59 Assessment Problems Medical Problems: (1) Bradycardia Status: Acute (2) Leukopenia Status: Acute Parkinson's, stable, sees Dr. Mckeon, internationally renowned Parkinson's expert at . History of subdural hematoma, 02/[address] negative Bradycardia, carbidopa/levodopa and ropinirole do not cause this, they can cause hypotension. Severe hypothyroidism which of course is the most likely cause of her issues. Plan Continue current Parkinson's regimen Rehabilitation modalities Discussed with patient's daughter. She can follow-up with Dr. Fonseca I will see at intervals Subjective No complaints Objective Vital Signs Date Time Temp Pulse Resp B/P (MAP) Pulse Ox O2 Delivery O2 Flow Rate FiO2 02/04/21 07:40 98.3 62 18 146/70 (95) 98 Room Air 98.3 Intake and Output 02/04/21 07:00 Intake Total 1453 ml Output Total 2275 ml Balance -822 ml Intake Oral 240 ml IV Total 1213 ml Output Urine Total 2275 ml PHYSICAL EXAM Alert. Oriented to time, place and person. Voice is stronger PERRL. EOMI. CN: no focal findings. Muscle tone: Cogwheel rigidity Muscle strength: 4/5 DTR: 2+ Plantar reflex: Flexor Gait: not examined in bed. Sensory exam: no abnormal findings. No cerebellar signs elicited. Masked facies, bradykinesia, no tremor Review of Relevant I have reviewed the following items dami (where applicable) has been applied. Labs Laboratory Tests Test 02/02/21 21:04 02/02/21 21:30 02/03/21 01:35 02/03/21 01:40 White Blood Count 1.9 x10^3/uL (4.0-11.0) Red Blood Count 3.50 x10^6/uL (3.50-5.40) Hemoglobin 10.9 g/dL (12.0-15.5) Hematocrit 31.9 % (36.0-47.0) Mean Corpuscular Volume 91 fL (79-100) Mean Corpuscular Hemoglobin 31 pg (25-35) Mean Corpuscular Hemoglobin Concent 34 g/dL (31-37) Red Cell Distribution Width 14.5 % (11.5-14.5) Platelet Count 273 x10^3/uL (140-400) Neutrophils (%) (Auto) 36 % (31-73) Lymphocytes (%) (Auto) 48 % (24-48) Monocytes (%) (Auto) 9 % (0-9) Eosinophils (%) (Auto) 6 % (0-3) Basophils (%) (Auto) 2 % (0-3) Neutrophils # (Auto) 0.7 x10^3/uL (1.8-7.7) Lymphocytes # (Auto) 0.9 x10^3/uL (1.0-4.8) Monocytes # (Auto) 0.2 x10^3/uL (0.0-1.1) Eosinophils # (Auto) 0.1 x10^3/uL (0.0-0.7) Basophils # (Auto) 0.0 x10^3/uL (0.0-0.2) Segmented Neutrophils % 36 % (35-66) Lymphocytes % 52 % (24-48) Monocytes % 6 % (0-10) Eosinophils % 4 % (0-5) Basophils % 2 % (0-3) Platelet Estimate Adequate (ADEQUATE) Sodium Level 130 mmol/L (136-145) Potassium Level 3.4 mmol/L (3.5-5.1) Chloride Level 90 mmol/L (98-107) Carbon Dioxide Level 34 mmol/L (21-32) Anion Gap 6 (6-14) Blood Urea Nitrogen 17 mg/dL (7-20) Creatinine 0.8 mg/dL (0.6-1.0) Estimated GFR (Cockcroft-Gault) 87.7 BUN/Creatinine Ratio 21 (6-20) Glucose Level 92 mg/dL (70-99) Calcium Level 9.6 mg/dL (8.5-10.1) Phosphorus Level 3.8 mg/dL (2.6-4.7) Magnesium Level 1.6 mg/dL (1.8-2.4) Total Bilirubin 0.6 mg/dL (0.2-1.0) Aspartate Amino Transf (AST/SGOT) 30 U/L (15-37) Alanine Aminotransferase (ALT/SGPT) 28 U/L (14-59) Alkaline Phosphatase 140 U/L (46-116) Troponin I Quantitative < 0.017 ng/mL (0.000-0.055) < 0.017 ng/mL (0.000-0.055) YQ-Doh-C-Type Natriuretic Peptide 79 pg/mL (0-124) Total Protein 7.0 g/dL (6.4-8.2) Albumin 4.2 g/dL (3.4-5.0) Albumin/Globulin Ratio 1.5 (1.0-1.7) Thyroid Stimulating Hormone (TSH) 11.145 uIU/mL (0.358-3.74) Lactic Acid Level 0.9 mmol/L (0.4-2.0) Urine Collection Type Unknown Urine Color Yellow Urine Clarity Clear Urine pH 6.0 (<5.0-8.0) Urine Specific [place] >=1.030 (1.000-1.030) Urine Protein Negative mg/dL (NEG-TRACE) Urine Glucose (UA) Negative mg/dL (NEG) Urine Ketones (Stick) 15 mg/dL (NEG) Urine Blood Negative (NEG) Urine Nitrite Negative (NEG) Urine Bilirubin Negative (NEG) Urine Urobilinogen Dipstick 0.2 mg/dL (0.2 mg/dL) Urine Leukocyte Esterase Small (NEG) Urine RBC 0 /HPF (0-2) Urine WBC 5-10 /HPF (0-4) Urine Squamous Epithelial Cells Few /LPF Urine Bacteria 0 /HPF (0-FEW) Urine Mucus Slight /LPF Test 02/03/21 04:07 02/03/21 13:10 02/04/21 07:35 White Blood Count 1.8 x10^3/uL (4.0-11.0) 2.9 x10^3/uL (4.0-11.0) Red Blood Count 3.19 x10^6/uL (3.50-5.70) 3.78 x10^6/uL (3.50-5.40) Hemoglobin 10.0 g/dL (12.0-15.5) 11.9 g/dL (12.0-15.5) Hematocrit 29.3 % (36.0-47.0) 34.6 % (36.0-47.0) Mean Corpuscular Volume 91 fL (79-100) 91 fL (79-100) Mean Corpuscular Hemoglobin 31 pg (25-35) 31 pg (25-35) Mean Corpuscular Hemoglobin Concent 34 g/dL (31-37) 34 g/dL (31-37) Red Cell Distribution Width 14.6 % (11.5-14.5) 15.0 % (11.5-14.5) Platelet Count 264 x10^3/uL (140-400) 324 x10^3/uL (140-400) Neutrophils (%) (Auto) 45 % (31-73) 57 % (31-73) Lymphocytes (%) (Auto) 37 % (24-48) 29 % (24-48) Monocytes (%) (Auto) 11 % (0-9) 13 % (0-9) Eosinophils (%) (Auto) 5 % (0-3) 1 % (0-3) Basophils (%) (Auto) 2 % (0-3) 1 % (0-3) Neutrophils # (Auto) 0.8 x10^3/uL (1.8-7.7) 1.6 x10^3/uL (1.8-7.7) Lymphocytes # (Auto) 0.7 x10^3/uL (1.0-4.8) 0.8 x10^3/uL (1.0-4.8) Monocytes # (Auto) 0.2 x10^3/uL (0.0-1.1) 0.4 x10^3/uL (0.0-1.1) Eosinophils # (Auto) 0.1 x10^3/uL (0.0-0.7) 0.0 x10^3/uL (0.0-0.7) Basophils # (Auto) 0.0 x10^3/uL (0.0-0.2) 0.0 x10^3/uL (0.0-0.2) Absolute Reticulocyte Count x10^6/uL (0.020-0.120) Percent Reticulocyte Count < 0.2 % (0.5-2.3) Immature Reticulocyte Fraction (0.20-0.60) Sodium Level 131 mmol/L (136-145) 138 mmol/L (136-145) Potassium Level 3.7 mmol/L (3.5-5.1) 3.3 mmol/L (3.5-5.1) Chloride Level 93 mmol/L (98-107) 101 mmol/L (98-107) Carbon Dioxide Level 32 mmol/L (21-32) 32 mmol/L (21-32) Anion Gap 6 (6-14) 5 (6-14) Blood Urea Nitrogen 16 mg/dL (7-20) 8 mg/dL (7-20) Creatinine 0.6 mg/dL (0.6-1.0) 0.6 mg/dL (0.6-1.0) Estimated GFR (Cockcroft-Gault) 122.2 122.2 BUN/Creatinine Ratio 27 (6-20) 13 (6-20) Glucose Level 93 mg/dL (70-99) 77 mg/dL (70-99) Calcium Level 8.9 mg/dL (8.5-10.1) 9.3 mg/dL (8.5-10.1) Iron Level 118 ug/dL (50-170) Total Iron Binding Capacity 285 ug/dL (250-450) Iron Saturation 41 % (15-34) Total Bilirubin 0.4 mg/dL (0.2-1.0) 0.7 mg/dL (0.2-1.0) Aspartate Amino Transf (AST/SGOT) 26 U/L (15-37) 33 U/L (15-37) Alanine Aminotransferase (ALT/SGPT) 27 U/L (14-59) 27 U/L (14-59) Alkaline Phosphatase 129 U/L (46-116) 138 U/L (46-116) Troponin I Quantitative < 0.017 ng/mL (0.000-0.055) Total Protein 6.0 g/dL (6.4-8.2) 6.6 g/dL (6.4-8.2) Albumin 3.7 g/dL (3.4-5.0) 3.9 g/dL (3.4-5.0) Albumin/Globulin Ratio 1.6 (1.0-1.7) 1.4 (1.0-1.7) Free Thyroxine 1.03 ng/dL (0.76-1.46) Haptoglobin 159 mg/dL (37-355) Uric Acid 4.5 mg/dL (2.6-6.0) Ferritin 143 ng/mL (8-252) Lactate Dehydrogenase 208 U/L (81-234) Vitamin B12 Level 511 pg/mL (247-911) Laboratory Tests Test 02/03/21 13:10 02/04/21 07:35 Haptoglobin 159 mg/dL (37-355) Uric Acid 4.5 mg/dL (2.6-6.0) Ferritin 143 ng/mL (8-252) Lactate Dehydrogenase 208 U/L (81-234) Vitamin B12 Level 511 pg/mL (247-911) White Blood Count 2.9 x10^3/uL (4.0-11.0) Red Blood Count 3.78 x10^6/uL (3.50-5.40) Hemoglobin 11.9 g/dL (12.0-15.5) Hematocrit 34.6 % (36.0-47.0) Mean Corpuscular Volume 91 fL (79-100) Mean Corpuscular Hemoglobin 31 pg (25-35) Mean Corpuscular Hemoglobin Concent 34 g/dL (31-37) Red Cell Distribution Width 15.0 % (11.5-14.5) Platelet Count 324 x10^3/uL (140-400) Neutrophils (%) (Auto) 57 % (31-73) Lymphocytes (%) (Auto) 29 % (24-48) Monocytes (%) (Auto) 13 % (0-9) Eosinophils (%) (Auto) 1 % (0-3) Basophils (%) (Auto) 1 % (0-3) Neutrophils # (Auto) 1.6 x10^3/uL (1.8-7.7) Lymphocytes # (Auto) 0.8 x10^3/uL (1.0-4.8) Monocytes # (Auto) 0.4 x10^3/uL (0.0-1.1) Eosinophils # (Auto) 0.0 x10^3/uL (0.0-0.7) Basophils # (Auto) 0.0 x10^3/uL (0.0-0.2) Sodium Level 138 mmol/L (136-145) Potassium Level 3.3 mmol/L (3.5-5.1) Chloride Level 101 mmol/L (98-107) Carbon Dioxide Level 32 mmol/L (21-32) Anion Gap 5 (6-14) Blood Urea Nitrogen 8 mg/dL (7-20) Creatinine 0.6 mg/dL (0.6-1.0) Estimated GFR (Cockcroft-Gault) 122.2 BUN/Creatinine Ratio 13 (6-20) Glucose Level 77 mg/dL (70-99) Calcium Level 9.3 mg/dL (8.5-10.1) Total Bilirubin 0.7 mg/dL (0.2-1.0) Aspartate Amino Transf (AST/SGOT) 33 U/L (15-37) Alanine Aminotransferase (ALT/SGPT) 27 U/L (14-59) Alkaline Phosphatase 138 U/L (46-116) Total Protein 6.6 g/dL (6.4-8.2) Albumin 3.9 g/dL (3.4-5.0) Albumin/Globulin Ratio 1.4 (1.0-1.7) Microbiology 02/03/21 Urine Culture - Preliminary, Resulted Medications Current Medications Ondansetron HCl (Zofran) 4 mg PRN Q8HRS PRN IV NAUSEA/VOMITING 1ST CHOICE; Start 02/02/21 at 22:15; Stop 02/03/21 at 13:05; Status DC Morphine Sulfate (Morphine Sulfate) 2 mg PRN Q2HR PRN IV SEVERE PAIN 7-10; Start 02/02/21 at 22:15; Stop 02/03/21 at 22:14; Status DC Acetaminophen (Tylenol) 650 mg PRN Q4HRS PRN PO FEVER > 100.3'F; Start 02/02/21 at 22:15; Stop 02/03/21 at 22:14; Status DC Atorvastatin Calcium (Lipitor) 10 mg HS PO Last administered on 02/03/21at 20:52; Start 02/03/21 at 21:00 Levothyroxine Sodium (Synthroid) 75 mcg DAILY06 PO Last administered on 02/03/21at 05:47; Start 02/03/21 at 06:00; Stop 02/03/21 at 06:22; Status DC Aspirin (Aspirin Chewable) 81 mg 0830 PO Last administered on 02/04/21at 08:28; Start 02/03/21 at 08:30 Famotidine (Pepcid) 40 mg HS PO Last administered on 02/03/21at 20:52; Start 02/03/21 at 21:00 Levothyroxine Sodium (Synthroid) 62.5 mcg DAILY06 PO ; Start 02/04/21 at 06:00; Stop 02/03/21 at 11:36; Status DC Ondansetron HCl (Zofran) 4 mg PRN Q6HRS PRN IVP NAUSEA/VOMITING; Start 02/03/21 at 11:30 Al Hydroxide/Mg Hydroxide (Mylanta Plus Xs) 30 ml PRN Q3HRS PRN PO HEARTBURN / GAS; Start 02/03/21 at 11:30 Calcium Carbonate/ Glycine (Tums) 500 mg PRN Q3HRS PRN PO HEARTBURN / GAS; Start 02/03/21 at 11:30 Famotidine (Pepcid) 20 mg BID PO ; Start 02/03/21 at 21:00; Stop 02/03/21 at 11:27; Status DC Heparin Sodium (Porcine) (Heparin Sodium) 5,000 unit Q8HRS SQ Last administered on 02/04/21at 06:11; Start 02/03/21 at 14:00 Sodium Chloride (Normal Saline Flush) 3 ml QSHIFT PRN IV AFTER MEDS AND BLOOD DRAWS; Start 02/03/21 at 11:30 Sodium Chloride 1,000 ml @ 75 mls/hr [id number] IV Last administered on 02/04/21at 01:16; Start 02/03/21 at 12:00 Docusate Sodium (Colace) 100 mg BID PO Last administered on 02/04/21at 08:28; Start 02/03/21 at 21:00 Magnesium Hydroxide (Milk Of Magnesia) 2,400 mg PRN Q12HR PRN PO CONSTIPATION 2ND CHOICE; Start 02/03/21 at 11:30 Carbidopa/Levodopa (Sinemet 25/100) 1 tab 6XDAY PO Last administered on 02/04/21a t 08:28; Start 02/03/21 at 13:00 Polyethylene Glycol (miraLAX PACKET) 17 gm PRN BID PRN PO CONSTIPATION; Start 02/03/21 at 11:30 Non-Formulary Medication (Ranitidine Hcl ) 150 mg DAILY PO ; Start 02/04/21 at 09:00; Stop 02/03/21 at 11:27; Status DC Levothyroxine Sodium (Synthroid) 100 mcg DAILY06 PO Last administered on 02/04/21at 06:08; Start 02/03/21 at 12:00 Ropinirole HCl (Requip) 0.5 mg TID PO Last administered on 02/03/21at 20:52; Start 02/03/21 at 14:00 Active Scripts Active Decadron (Dexamethasone) 4 Mg Tablet 2 Mg PO TID 7 Days Miralax (Polyethylene Glycol 3350) 17 Gm Powd.pack 1 Pkt PO PRN BID PRN 30 Days Reported Atorvastatin Calcium 10 Mg Tablet 10 Mg PO HS PRN Famotidine 40 Mg Tablet 40 Mg PO HS Ropinirole Hcl 5 Mg Tablet 5 Mg PO TID Carbidopa-Levodopa 25-250 Tab (Carbidopa/Levodopa) 1 Each Tablet 1 Tab PO 6XDAY 30 Days Carbidopa-Levodopa 25-100 Tab (Carbidopa/Levodopa) 1 Each Tablet 1 Tab PO 6XDAY 30 Days Ciclopirox (Ciclopirox Olamine) 15 Gm Cream..g. 1 Teja TP HS NITROGLYCERIN SubLingual (Nitroglycerin) 0.4 Mg Tab.subl 0.4 Mg SL PRN Q5MIN PRN Atorvastatin Calcium 10 Mg Tablet 1 Tab PO DAILY Ranitidine Hcl 150 Mg Tablet 150 Mg PO DAILY Requip (Ropinirole Hcl) 0.5 Mg Tablet 0.5 Mg PO TID Hydrochlorothiazide Tablet (Hydrochlorothiazide) 12.5 Mg Tablet 12.5 Mg PO DAILY Levothyroxine Sodium 75 Mcg Tablet 1 Tab PO DAILY Sinemet Cr 25-100 Tablet (Carbidopa/Levodopa) 1 Each Tablet.er 1 Tab PO FIVE TIMES A DAY Sinemet Cr 50-200 Tablet (Carbidopa/Levodopa) 1 Each Tablet.er 1 Tab PO SIX TIMES A DAY Vitals/I & O Vital Sign - Last 24 Hours 02/03/21 02/03/21 02/03/21 02/03/21 12:00 16:07 20:00 20:00 Temp 97.3 97.9 100.1 97.3 97.9 100.1 Pulse 75 65 67 Resp 18 18 18 B/P (MAP) 114/62 (79) 150/59 (89) 121/64 (83) Pulse Ox 99 99 99 O2 Delivery Room Air Room Air Room Air Room Air 02/03/21 02/04/21 02/04/21 23:55 03:48 07:40 Temp 98.4 98.3 98.4 98.3 Pulse 57 62 62 Resp 18 18 18 B/P (MAP) 124/59 (80) 155/75 (101) 146/70 (95) Pulse Ox 99 99 98 O2 Delivery Room Air Room Air Room Air Intake and Output 02/03/21 02/03/21 02/04/21 15:00 23:00 07:00 Intake Total 240 ml 1213 ml Output Total 525 ml 850 ml 900 ml Balance -285 ml -850 ml 313 ml Justicifation of Admission Dx: Justifications for Admission: Justification of Admission Dx: N/A MESHA ASHRAF MD Feb 04, 2021 09:02
--- NOTE | 2021-02-04 10:35 | PDOC ---
ZOË YANG BUCKLE COVERER 02/04/21 1035: CARDIO Progress Notes Date and Time Date of Service 02/04/2021 Time of Evaluation 1010 Subjective Subjective: No Chest Pain, No shortness of breath, No Palpitations Vitals Vitals Vital Signs Date Time Temp Pulse Resp B/P (MAP) Pulse Ox O2 Delivery O2 Flow Rate FiO2 02/04/21 07:40 98.3 62 18 146/70 (95) 98 Room Air 98.3 Weight Weight [ ] Input and Output Intake and Output Intake and Output 02/04/21 07:00 Intake Total 1453 ml Output Total 2275 ml Balance -822 ml Intake Oral 240 ml IV Total 1213 ml Output Urine Total 2275 ml Laboratory Labs Laboratory Tests Test 02/03/21 13:10 02/04/21 07:35 Haptoglobin 159 mg/dL (37-355) Uric Acid 4.5 mg/dL (2.6-6.0) Ferritin 143 ng/mL (8-252) Lactate Dehydrogenase 208 U/L (81-234) Vitamin B12 Level 511 pg/mL (247-911) White Blood Count 2.9 x10^3/uL (4.0-11.0) Red Blood Count 3.78 x10^6/uL (3.50-5.40) Hemoglobin 11.9 g/dL (12.0-15.5) Hematocrit 34.6 % (36.0-47.0) Mean Corpuscular Volume 91 fL (79-100) Mean Corpuscular Hemoglobin 31 pg (25-35) Mean Corpuscular Hemoglobin Concent 34 g/dL (31-37) Red Cell Distribution Width 15.0 % (11.5-14.5) Platelet Count 324 x10^3/uL (140-400) Neutrophils (%) (Auto) 57 % (31-73) Lymphocytes (%) (Auto) 29 % (24-48) Monocytes (%) (Auto) 13 % (0-9) Eosinophils (%) (Auto) 1 % (0-3) Basophils (%) (Auto) 1 % (0-3) Neutrophils # (Auto) 1.6 x10^3/uL (1.8-7.7) Lymphocytes # (Auto) 0.8 x10^3/uL (1.0-4.8) Monocytes # (Auto) 0.4 x10^3/uL (0.0-1.1) Eosinophils # (Auto) 0.0 x10^3/uL (0.0-0.7) Basophils # (Auto) 0.0 x10^3/uL (0.0-0.2) Sodium Level 138 mmol/L (136-145) Potassium Level 3.3 mmol/L (3.5-5.1) Chloride Level 101 mmol/L (98-107) Carbon Dioxide Level 32 mmol/L (21-32) Anion Gap 5 (6-14) Blood Urea Nitrogen 8 mg/dL (7-20) Creatinine 0.6 mg/dL (0.6-1.0) Estimated GFR (Cockcroft-Gault) 122.2 BUN/Creatinine Ratio 13 (6-20) Glucose Level 77 mg/dL (70-99) Calcium Level 9.3 mg/dL (8.5-10.1) Total Bilirubin 0.7 mg/dL (0.2-1.0) Aspartate Amino Transf (AST/SGOT) 33 U/L (15-37) Alanine Aminotransferase (ALT/SGPT) 27 U/L (14-59) Alkaline Phosphatase 138 U/L (46-116) Total Protein 6.6 g/dL (6.4-8.2) Albumin 3.9 g/dL (3.4-5.0) Albumin/Globulin Ratio 1.4 (1.0-1.7) Microbiology Micro Microbiology 02/03/21 Urine Culture - Preliminary, Resulted Physical Exam HEENT: Neck Supple W Full Motion Chest: Symmetric LUNGS: Other (diminished) Heart: RRR (SR), other (bradycardia) Abdomen: Soft N/T Extremities: No Edema, No Calf Tenderness Neurology: follow commands, other (drowsy) Assessment Assessment 1. Asymptomatic SB: better overnight lowest in the 40s with first degree AV block. No pauses. Good chronotropic response 2. Prolonged QTc: initially noted at 554 now better at 404 3. Hypothyroidism: not on goal at 11.1 4. Leukopenia: per PCP 5. Parkinsons: sinemet 6. 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 CAD: clinically stable. 2016 PCI 8. HTN: contolled 9. HLP Recommendations 1. No av ashlyn blocking agents.and caution with QT prolonging agents. 2. Titration of synthroid per PCP 3. BP stable, no symptoms in regards to bradycardia which is likely the thyroid issue being the main contributor. Will defer to her primary referral nurse Dr. Grimaldo at 4. TTE pending today 5. Continue secondary prevention measures. Pls call if any questions Justicifation of Admission Dx: Justifications for Admission: Justification of Admission Dx: N/A JAZIEL HANNA MD 02/04/21 1156: CARDIO Progress Notes Assessment Assessment Patient seen and examined. Agree with SIGNWRITER's assessment and plan. Sinus edmond currently resolved - continue to monitor tele for SSS - no need for PPM at this time Check 2D echo to assess LVF CAD clinically stable ZOË YANG APRN Feb 04, 2021 10:35 JAZIEL HANNA MD Feb 04, 2021 11:56
[2021-02-04] MEDS: rOPINIRole 0.25 MG TABLET. PO SCH ×3 (10:39→21:23)
--- NOTE | 2021-02-04 10:41 | NUR ---
SS following up with discharge planning. SS reviewed pt chart and discussed with pt RN. Pt is from home and is currently on room air. PT/OT/ST ordered. Possible need for home healthcare at discharge. SS will continue to follow for discharge planning.
[2021-02-04] MEDS ORDERED: cefTRIAXone IV Push 1 GM VIAL. IVP SCH (10:45)
[2021-02-04] MEDS ORDERED: POTASSIUM BICARB 20 MEQ EFFERVESCENT TABLET. PO ONE (11:30)
[2021-02-04] MEDS: CEFEPIME HCL IV Push 2 GM VIAL. IVP SCH ×2 (11:32→21:23)
[2021-02-04 12:00] VITALS: BP 145/65
[2021-02-04 14:27] LABS: ALBUM 3.6 g/dL (2.9-4.4); ALPHA 1 0.3 g/dL (0.0-0.4); ALPHA 2 0.7 g/dL (0.4-1.0); BETA 0.7 g/dL (0.7-1.3); GAMMA 0.8 g/dL (0.4-1.8); PROTEIN TOTAL 6.1 g/dL (6.0-8.5); SPEP AG RATIO 1.4 (0.7-1.7)
[2021-02-04 16:00] VITALS: BP 145/73
[2021-02-04 16:12] LABS: KAPPA FREE 15.3 mg/L (3.3-19.4); KAPPA LAMBDA RATIO 1.24 (0.26-1.65); LAMBDA FREE 12.3 mg/L (5.7-26.3)
--- NOTE | 2021-02-04 17:30 | CARD ---
MR#: [id number] Date of Study: 02/04/2021 Ordering Physician: GABBY LARSON, Referring Physician: GABBY LARSON, Tech: Jodi Goff [facility] APPROVED REPORT EXAM: Two-dimensional and M-mode echocardiogram with Doppler and color Doppler. Other Information Quality : AverageHR: 60bpm Rhythm : NSR INDICATION Congestive Heart Failure RISK FACTORS Hypertension 2D DIMENSIONS RVDd3.5 (2.9-3.5cm)Left Atrium(2D)4.0 (1.6-4.0cm) IVSd1.0 (0.7-1.1cm)Aortic Root(2D)3.1 (2.0-3.7cm) LVDd4.5 (3.9-5.9cm)LVOT Diameter1.9 (1.8-2.4cm) PWd1.0 (0.7-1.1cm)LVDs2.8 (2.5-4.0cm) FS (%) 38.6 %SV63.7 ml Aortic Valve AoV Peak Roman.148.5cm/sAoV VTI36.1cm AO Peak GR.8.8mmHgLVOT Peak Roman.118.0cm/s AO Mean GR.4mmHgAVA (VMAX)2.16cm2 Mitral Valve MV E Cmynsuao22.0cm/sMV DECEL [id number] MV A Xogqmlal514.5cm/sE/A Ratio0.7 Pulmonary Valve PV Peak Tmuspfvl107.0cm/s Tricuspid Valve TR P. Cczbdahn636pz/sTR Peak Gr.30mmHg Pulmonary Vein S1 Vvaiexxl20.0cm/sD2 Sbohyzxz79.3cm/s PVa [id number] LEFT VENTRICLE The left ventricle is normal size. There is normal left ventricular wall thickness. The left ventricu lar systolic function is normal and the ejection fraction is within normal range. LV ejection fracti on 55-60%. There is normal LV segmental wall motion. Transmitral Doppler flow pattern is Grade I-abno rmal relaxation pattern. RIGHT VENTRICLE The right ventricle is normal size. There is normal right ventricular wall thickness. The right ventr icular systolic function is normal. ATRIA The left atrium size is normal. The right atrium size is normal. The interatrial septum appears intac t but is quite thin. Would consider a bubble study if clinical suspicion of possible abnormal flow is present. AORTIC VALVE The aortic valve is normal in structure and function. Doppler and Color Flow revealed no significant aortic regurgitation. There is no significant aortic valvular stenosis. MITRAL VALVE The mitral valve is normal in structure and function. There is no evidence of mitral valve prolapse. There is no mitral valve stenosis. Doppler and Color Flow revealed mild mitral regurgitation. TRICUSPID VALVE The tricuspid valve is normal in structure and function. Doppler and Color Flow revealed mild tricusp id regurgitation. There is no tricuspid valve stenosis. PULMONIC VALVE The pulmonary valve is normal in structure and function. Doppler and Color Flow revealed trace pulmon ic valvular regurgitation. GREAT VESSELS The aortic root is normal in size. The ascending aorta is normal in size. The IVC is normal in size a nd collapses >50% with inspiration. PERICARDIAL EFFUSION There is no evidence of significant pericardial effusion. Critical Notification Critical Value: No <Conclusion> The left ventricle is normal size. The left ventricular systolic function is normal and the ejection fraction is within normal range. LV ejection fraction 55-60%. The interatrial septum appears intact but is quite thin. Would consider a bubble study if clinical s uspicion of abnormal flow is present. Doppler and Color Flow revealed no significant aortic regurgitation. There is no significant aortic valvular stenosis. Doppler and Color Flow revealed mild mitral regurgitation. Doppler and Color Flow revealed mild tricuspid regurgitation. Signed by : Norbert Sarmiento MD Electronically Approved : 02/04/2021 17:30:07
[2021-02-04 20:00] VITALS: BP 125/73
[2021-02-04] MEDS: LACTOBACILLUS RHAMNOSUS GG 1 CAPSULE. PO SCH (21:23)
[2021-02-04] MEDS: FAMOTIDINE 20 MG TABLET. PO SCH (21:24)
[2021-02-04] MEDS: ATORVASTATIN CALCIUM 10 MG TABLET. PO SCH (21:24)
[2021-02-04 23:59] VITALS: BP 117/58
[2021-02-05 04:00] VITALS: BP 164/69
[2021-02-05] MEDS: LEVOTHYROXINE 100 MCG TABLET PO SCH (05:40)
[2021-02-05] MEDS: HEPARIN for SUB-Q USE 5,000 UNIT/ML VIAL. SQ SCH ×3 (05:41→22:00)
[2021-02-05 05:43] LABS: BASO % 1 % (0-3); EOS # 0.1 x10^3/uL (0.0-0.7); EOS % 2 % (0-3); HEMATOCRIT 30.1 % (36.0-47.0); HEMOGLOBIN 10.3 g/dL (12.0-15.5); LYMPH # 1.3 x10^3/uL (1.0-4.8); LYMPH % 29 % (24-48); MEAN CORPUSCULAR HEMOGLOBIN 31 pg (25-35); MEAN CORPUSCULAR HGB CONC 34 g/dL (31-37); MEAN CORPUSCULAR VOLUME 92 fL (79-100); MONO # 0.5 x10^3/uL (0.0-1.1); MONO % 11 % (0-9); NEUT # 2.5 x10^3/uL (1.8-7.7); NEUT % 57 % (31-73); PLATELET COUNT 283 x10^3/uL (140-400); RED BLOOD COUNT 3.29 x10^6/uL (3.50-5.40); RED CELL DISTRIBUTION WIDTH 15.3 % (11.5-14.5); WHITE BLOOD COUNT 4.3 x10^3/uL (4.0-11.0)
--- NOTE | 2021-02-05 06:32 | NUR ---
Increased confusion from beginning of shift. Asking "am I in a different dimension?" but able to reorient at that time. At the end of shift it was more difficult to reorient and redirect. Fixated on not wearing a mask and repeatedly states "I don't have sepsis!" Slightly agitated and feels threatened when grace emptied and accusing of trying to start a fire with it. VSS. Will continue to monitor.
[2021-02-05] MEDS: CARBIDOPA/LEVODOPA 25/100MG TABLET PO SCH ×6 (07:14→22:00)
[2021-02-05 08:45] LABS: CALCIUM 8.8 mg/dL (8.5-10.1); CREATININE 0.6 mg/dL (0.6-1.0); GFR 122.2; POTASSIUM 3.8 mmol/L (3.5-5.1)
[2021-02-05] MEDS: CEFEPIME HCL IV Push 2 GM VIAL. IVP SCH ×2 (08:45→20:30)
[2021-02-05] MEDS: ASPIRIN CHEWABLE 81 MG TABLET. PO SCH (08:45)
[2021-02-05] MEDS: DOCUSATE SODIUM 100 MG CAPSULE. PO SCH ×2 (08:45→20:49)
[2021-02-05] MEDS: rOPINIRole 0.25 MG TABLET. PO SCH ×3 (08:53→20:50)
[2021-02-05] MEDS: LACTOBACILLUS RHAMNOSUS GG 1 CAPSULE. PO SCH ×2 (09:00→20:49)
--- NOTE | 2021-02-05 09:46 | NUR ---
Patient restless and fidgety in the room, picking at lines and cords. At 0700 went in the room to prevent patient from removing her IV, the patient started yelling and swinging at RNs. Patient's sister Kelly called on the phone in the room, patient talked to her saying she "was in hell" and "there were people holding her down". When Kelly tried to reorient, she was unsuccessful, so Kelly talked to this RN for an update on patient's condition and when the confusion started. When placing telemetry leads back on patient, she started hitting multiple nurses. Patient given some space, covered with a blanket, and given some towels to fold to keep occupied. Kelly then came up to sit with the patient, and she was unable to orient the patient as well. The patient did not recognize Kelly at first, but was less restless with her there. Patient refused all medications, attempted to crush them and put in applesauce but still refused. Patient's sister is currently trying to convince her to take them. ICU delirium was explained to Kelly in great detail as that could be part of her confusion and hallucinations. Kelly wants to try to take the patient home with her today, will discuss with Dr. Lacy. Due to disorientation, family is at the bedside, fall socks on patient, bed in lowest position with the bed alarm on.
--- NOTE | 2021-02-05 10:23 | NUR ---
Patient still hasn't taken 0700 dose of carbidopa/levodopa, non-administered dose for 1000.
--- NOTE | 2021-02-05 11:17 | PDOC ---
PROGRESS NOTES Date of Service: DATE: 02/05/21 TIME: 11:17 Chief Complaint Chief Complaint VTE Prophylaxis Ordered VTE Prophylaxis Devices: Yes VTE Pharmacological Prophylaxi: Yes Assessment/Plan Assessment/Plan impression marked bradycardia, possibly due to hypothyroid state marked neutropenia Moderate amount of stool identified throughout the colon likely constipation. HX SUBDURAL HEMATOMA 2018 GERD Hypertension Parkinson's Falls Grave's disease on oral replacement PVD s/p peripheral stents Bladder dystonia - with intermittent self-catheterization, seen by Urology outpatient plan ADMIT NEUROLOGY CONSULT HEME CONSULT RETIC, FE PANEL PT/OT TREND WBC MAY NEED SNF dvt prophylaxis inc synthroid to 100 mcg po daily consider CT HEAD uti suspect she willl need > 72 hr stay to stabilize current issure Justifications for Admission Other Justification History of Present Illness History of Present Illness Identification/Chief Complaint Chief Complaint weakness, bradycardia, FALLS , POOR APPETITE History of Present Illness History of Present Illness 65 year old female SEEN in ER bradycardia., weakness, neutropenia, falls Patient states she felt a little bit weak lightheaded. States her pulse is usually 45 but today it was 35-36. notes history of Parkinson's disease and is on carbidopa and she takes hydrochlorothiazide for hypertension. Patient has had decreased appetite and p.o. intake. Has had a 10 pound weight loss over the past 2 weeks. 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 PVD s/p peripheral stents Bladder dystonia - with intermittent self-catheterization, seen by Urology outpatient PLAN ====NEUROLOGY CONSULT /HEME CONSULT// RETIC, FE PANEL //PT/OT TREND WBC MAY NEED SNF dvt prophylaxis inc synthroid to 100 mcg po daily consider CT HEAD Past Medical History Past Medical History Past Medical History Past Medical History Past Medical History: CAD, GERD, High Cholesterol, Hypertension, [place] Additional Past Medical Histor: Parkinson's, grave's, cardiac stent Past Surgical History: Hysterectomy Additional Past Surgical Histo: Right ankle plate & screws, Left rotator cuff repair, cardiac stent Smoking Status: Never Smoker Alcohol Use: None Drug Use: None FHX HTN Cardiovascular: HTN Pulmonary: No pertinent hx CENTRAL NERVOUS SYSTEM: Other (PARPINSONS) GI: GERD Heme/Onc: No pertinent hx Hepatobiliary: No pertinent hx Psych: No pertinent hx Musculoskeletal: Osteoarthritis Rheumatologic: No pertinent hx Infectious disease: No pertinent hx Renal/: Urinary Incontinence Endocrine: No pertinent hx Past Surgical History Past Surgical History: Arthroscopy, Hysterectomy, Other Family History Family History: Heart Disease, High Cholestrol, Hypertension Social History Smoke: No ALCOHOL: none Drugs: None Current Problem List Problem List Problems Medical Problems: (1) Bradycardia Status: Acute (2) Leukopenia Status: Acute Current Medications Current Medications Current Medications Ondansetron HCl (Zofran) 4 mg PRN Q8HRS PRN IV NAUSEA/VOMITING 1ST CHOICE; Start 02/02/21 at 22:15; Stop 02/03/21 at 22:14 Morphine Sulfate (Morphine Sulfate) 2 mg PRN Q2HR PRN IV SEVERE PAIN 7-10; Start 02/02/21 at 22:15; Stop 02/03/21 at 22:14 Acetaminophen (Tylenol) 650 mg PRN Q4HRS PRN PO FEVER > 100.3'F; Start 02/02/21 at 22:15; Stop 02/03/21 at 22:14 Atorvastatin Calcium (Lipitor) 10 mg HS PO ; Start 02/03/21 at 21:00 Levothyroxine Sodium (Synthroid) 75 mcg DAILY06 PO Last administered on 02/03/21at 05:47; Start 02/03/21 at 06:00; Stop 02/03/21 at 06:22; Status DC Aspirin (Aspirin Chewable) 81 mg 0830 PO Last administered on 02/03/21at 09:06; Start 02/03/21 at 08:30 Famotidine (Pepcid) 40 mg HS PO ; Start 02/03/21 at 21:00 Levothyroxine Sodium (Synthroid) 62.5 mcg DAILY06 PO ; Start 02/04/21 at 06:00 Active Scripts Active Decadron (Dexamethasone) 4 Mg Tablet 2 Mg PO TID 7 Days Miralax (Polyethylene Glycol 3350) 17 Gm Powd.pack 1 Pkt PO PRN BID PRN 30 Days Reported Atorvastatin Calcium 10 Mg Tablet 10 Mg PO HS PRN Famotidine 40 Mg Tablet 40 Mg PO HS Ropinirole Hcl 5 Mg Tablet 5 Mg PO TID Carbidopa-Levodopa 25-250 Tab (Carbidopa/Levodopa) 1 Each Tablet 1 Tab PO 6XDAY 30 Days Carbidopa-Levodopa 25-100 Tab (Carbidopa/Levodopa) 1 Each Tablet 1 Tab PO 6XDAY 30 Days Ciclopirox (Ciclopirox Olamine) 15 Gm Cream..g. 1 Teja TP HS NITROGLYCERIN SubLingual (Nitroglycerin) 0.4 Mg Tab.subl 0.4 Mg SL PRN Q5MIN PRN Atorvastatin Calcium 10 Mg Tablet 1 Tab PO DAILY Ranitidine Hcl 150 Mg Tablet 150 Mg PO DAILY Requip (Ropinirole Hcl) 0.5 Mg Tablet 0.5 Mg PO TID Hydrochlorothiazide Tablet (Hydrochlorothiazide) 12.5 Mg Tablet 12.5 Mg PO DAILY Levothyroxine Sodium 75 Mcg Tablet 1 Tab PO DAILY Sinemet Cr 25-100 Tablet (Carbidopa/Levodopa) 1 Each Tablet.er 1 Tab PO FIVE TIMES A DAY Sinemet Cr 50-200 Tablet (Carbidopa/Levodopa) 1 Each Tablet.er 1 Tab PO SIX TIMES A DAY Allergies Allergies: Coded Allergies: oxybutynin (Verified Allergy, Intermediate, HYPOTENSION, NAUSEA, 01/16/19) ciprofloxacin (Verified Adverse Reaction, Mild, Diarrhea, 01/16/19) gabapentin (Verified Adverse Reaction, Mild, VERTIGO, 01/16/19) ROS General: YES: Fatigue, Malaise, Appetite; No: Chills, Night Sweats, Other PSYCHOLOGICAL ROS: No: Anxiety, Behavioral Disorder, Concentration difficultie, Decreased libido, Depression, Disorientation, Hallucinations, Hostility, Irritablity, Memory difficulties, Mood Swings, Obsessive thoughts, Physical abuse, Sexual abuse, Sleep disturbances, Suicidal ideation, Other Eyes: No Blurry vision, No Decreased vision, No Double vision, No Dry eyes, No Excessive tearing, No Eye Pain, No Itchy Eyes, No Loss of vision, No Photophobia, No Scotomata, No Uses contacts, No Uses glasses, No Other HEENT: No: Heacaches, Visual Changes, Hearing change, Nasal congestion, Nasal discharge, Oral lesions, Sinus pain, Sore Throat, Epistaxis, Sneezing, Snoring, Tinnitus, Vertigo, Vocal changes, Other ALLERGY AND IMMUNOLOGY: YES: Hives; No: Insect Bite Sensitivity, Itchy/Watery Eyes, Nasal Congestion, Post Nasal Drip, Seasonal Allergies, Other Hematological and Lymphatic: No: Bleeding Problems, Blood Clots, Blood Transfusions, Brusing, Night Sweats, Pallor, Swollen Lymph Nodes, Other ENDOCRINE: No: Breast Changes, Galactorrhea, Hair Pattern Changes, Hot Flashes, Malaise/lethargy, Mood Swings, Palpitations, Polydipsia/polyuria, Skin Changes, Temperature Intolerance, Unexpected Weight Changes, Other Breast: No New/Changing Breast Lumps, No Nipple changes, No Nipple discharge, No Other Respiratory: No: Cough, Hemoptysis, Orthopnea, Pleuritic Pain, Shortness of breath, SOB with excertion, Sputum Changes, Stridor, Tachypnea, Wheezing, Other Cardiovascular: No Chest Pain, No Palpitations, No Orthopnea, No Paroxysmal Noc. Dyspnea, No Edema, No Lt Headedness, No Other Gastrointestinal: Yes Constipation; No Nausea, No Vomiting, No Abdominal Pain, No Diarrhea, No Melena, No Hematochezia, No Other Genitourinary: No Dysuria, No Frequency, No Incontinence, No Hematuria, No Retention, No Discharge, No Urgency, No Pain, No Flank Pain, No Other, No , No , No , No , No , No , No Musculoskeletal: Yes Gait Disturbance, Yes Joint Stiffness Neurological: Yes Dizziness, Yes Gait Disturbance, Yes Weakness, Yes Other (falls ) Skin: No Dry Skin, No Eczema, No Hair Changes, No Lumps, No Mole Changes, No Mottling, No Nail Changes, No Pruritus, No Rash, No Skin Lesion Changes, No Other, No Acne 6-04 weaker today acute metabolic encephalopathy begin iv cefipime uti marked bradycardia, possibly due to hypothyroid state marked neutropenia Moderate amount of stool identified throughout the colon likely constipation. HX SUBDURAL HEMATOMA 2018 GERD Hypertension Parkinson's Falls Grave's disease on oral replacement PVD s/p peripheral stents Bladder dystonia - with intermittent self-catheterization, seen by Urology outpatient 6- SEPSIS DUE TO UTI weaker today, more confused, will not take her meds today acute metabolic encephalopathy continue cefipime uti marked bradycardia, possibly due to hypothyroid state, IMPROVED marked neutropenia m spike not observed Moderate amount of stool identified throughout the colon likely constipation. HX SUBDURAL HEMATOMA 2018 GERD Hypertension Parkinson's Falls Grave's disease on oral replacement PVD s/p peripheral stents Bladder dystonia - with intermittent self-catheterization, seen by Urology outpatient TO FLOOR TODAY CLOSE TO Nursing station 80,000 CFU/ML GRAM NEGATIVE RODS on 02/04/21 at 0728 FINAL ID= [PSEUDOMONAS AERUGINOSA] d/w RN Vitals Vitals Vital Signs Date Time Temp Pulse Resp B/P (MAP) Pulse Ox O2 Delivery O2 Flow Rate FiO2 02/05/21 08:00 57 16 Room Air 02/05/21 04:00 98.1 164/69 (100) 98 98.1 Physical Exam Physical Exam NOT ORIENTED, THINKS SHE IS IN HELL , but talking about [place], lethargic General: Alert, Cooperative, No acute distress Heart: Regular rate (SR), Normal S1, Normal S2, No murmurs Lungs: Clear Abdomen: Normal bowel sounds, Soft, No tenderness, No masses Extremities: No cyanosis Skin: No breakdown, No significant lesion Labs LABS SPEC #: [id number] CARMELA: 02/03/21 STATUS: COMP REQ #: [id number] RECD: 02/03/[address]: FARHAT SALCEDO MD SOURCE: VOID ENTR: 02/03/[address]: JUANA MERINO MD SPDESC: ANTONINA VYAS MD, KEVIN Y MD ORDERED: URINE CULTURE Procedure Result ---- -------- URINE CULTURE Final Final 80,000 CFU/ML GRAM NEGATIVE RODS on 02/04/21 at 0728 FINAL ID= [PSEUDOMONAS AERUGINOSA] Testing Performed by: [address] [address] For Inquires, the Physician may contact the Microbiology department at [phone] PSEUDOMONAS AERUGINOSA ANTIMICROBIAL SUSCEPTIBILITY Final Comment NEG ADRIÁN 56 PSEUDOMONAS AERUGINOSA ANTIBIOTIC RESULT INTERPRETATION AMIKACIN <=16 S AZTREONAM <=4 S CEFTAZIDIME 4 S CIPROFLOXACIN <=0.25 S CEFEPIME <=2 S CEFTAZIDIME/AVIBACTAM <=4 S GENTAMICIN 4 S LEVOFLOXACIN <=0.5 S MEROPENEM <=1 S PIPERACILLIN/TAZOBACTAM <=8 S TOBRAMYCIN <=2 S Unless otherwise specified, Testing Performed by: [address] [address] For Inquires, the Physician may contact the Microbiology department at [phone] Laboratory Tests Test 02/05/21 04:30 White Blood Count 4.3 x10^3/uL (4.0-11.0) Red Blood Count 3.29 x10^6/uL (3.50-5.40) Hemoglobin 10.3 g/dL (12.0-15.5) Hematocrit 30.1 % (36.0-47.0) Mean Corpuscular Volume 92 fL (79-100) Mean Corpuscular Hemoglobin 31 pg (25-35) Mean Corpuscular Hemoglobin Concent 34 g/dL (31-37) Red Cell Distribution Width 15.3 % (11.5-14.5) Platelet Count 283 x10^3/uL (140-400) Neutrophils (%) (Auto) 57 % (31-73) Lymphocytes (%) (Auto) 29 % (24-48) Monocytes (%) (Auto) 11 % (0-9) Eosinophils (%) (Auto) 2 % (0-3) Basophils (%) (Auto) 1 % (0-3) Neutrophils # (Auto) 2.5 x10^3/uL (1.8-7.7) Lymphocytes # (Auto) 1.3 x10^3/uL (1.0-4.8) Monocytes # (Auto) 0.5 x10^3/uL (0.0-1.1) Eosinophils # (Auto) 0.1 x10^3/uL (0.0-0.7) Basophils # (Auto) 0.0 x10^3/uL (0.0-0.2) Sodium Level 140 mmol/L (136-145) Potassium Level 3.8 mmol/L (3.5-5.1) Chloride Level 104 mmol/L (98-107) Carbon Dioxide Level 28 mmol/L (21-32) Anion Gap 8 (6-14) Blood Urea Nitrogen 14 mg/dL (7-20) Creatinine 0.6 mg/dL (0.6-1.0) Estimated GFR (Cockcroft-Gault) 122.2 Glucose Level 89 mg/dL (70-99) Calcium Level 8.8 mg/dL (8.5-10.1) Assessment and Plan Assessmemt and Plan Problems Medical Problems: (1) Bradycardia Status: Acute (2) Leukopenia Status: Acute Comment Review of Relevant I have reviewed the following items dami (where applicable) has been applied. Labs Laboratory Tests Test 02/03/21 13:10 02/04/21 07:35 02/05/21 04:30 Haptoglobin 159 mg/dL (37-355) Uric Acid 4.5 mg/dL (2.6-6.0) Erythropoietin 7.9 mIU/mL (2.6-18.5) Ferritin 143 ng/mL (8-252) Lactate Dehydrogenase 208 U/L (81-234) Total Protein (PEP) 6.1 g/dL (6.0-8.5) Albumin (PEP) 3.6 g/dL (2.9-4.4) Globulin 2.5 g/dL (2.2-3.9) Albumin/Globulin Ratio 1.4 (0.7-1.7) 1.4 (1.0-1.7) Bzyox-9-Rvifnpesm 0.3 g/dL (0.0-0.4) Buqds-4-Fpfnedlkk 0.7 g/dL (0.4-1.0) Beta Globulins 0.7 g/dL (0.7-1.3) Gamma Globulins 0.8 g/dL (0.4-1.8) Protein Electrophoresis M-Jak Not observed g/dL (Not Protein Electrophoresis Comment Comment (.) Vitamin B12 Level 511 pg/mL (247-911) Immunoglobulin [place]/Lambda Ratio 1.24 (0.26-1.65) Free [place] Light Chains 15.3 mg/L (3.3-19.4) Free Lambda Light Chains 12.3 mg/L (5.7-26.3) White Blood Count 2.9 x10^3/uL (4.0-11.0) 4.3 x10^3/uL (4.0-11.0) Red Blood Count 3.78 x10^6/uL (3.50-5.40) 3.29 x10^6/uL (3.50-5.40) Hemoglobin 11.9 g/dL (12.0-15.5) 10.3 g/dL (12.0-15.5) Hematocrit 34.6 % (36.0-47.0) 30.1 % (36.0-47.0) Mean Corpuscular Volume 91 fL (79-100) 92 fL (79-100) Mean Corpuscular Hemoglobin 31 pg (25-35) 31 pg (25-35) Mean Corpuscular Hemoglobin Concent 34 g/dL (31-37) 34 g/dL (31-37) Red Cell Distribution Width 15.0 % (11.5-14.5) 15.3 % (11.5-14.5) Platelet Count 324 x10^3/uL (140-400) 283 x10^3/uL (140-400) Neutrophils (%) (Auto) 57 % (31-73) 57 % (31-73) Lymphocytes (%) (Auto) 29 % (24-48) 29 % (24-48) Monocytes (%) (Auto) 13 % (0-9) 11 % (0-9) Eosinophils (%) (Auto) 1 % (0-3) 2 % (0-3) Basophils (%) (Auto) 1 % (0-3) 1 % (0-3) Neutrophils # (Auto) 1.6 x10^3/uL (1.8-7.7) 2.5 x10^3/uL (1.8-7.7) Lymphocytes # (Auto) 0.8 x10^3/uL (1.0-4.8) 1.3 x10^3/uL (1.0-4.8) Monocytes # (Auto) 0.4 x10^3/uL (0.0-1.1) 0.5 x10^3/uL (0.0-1.1) Eosinophils # (Auto) 0.0 x10^3/uL (0.0-0.7) 0.1 x10^3/uL (0.0-0.7) Basophils # (Auto) 0.0 x10^3/uL (0.0-0.2) 0.0 x10^3/uL (0.0-0.2) Sodium Level 138 mmol/L (136-145) 140 mmol/L (136-145) Potassium Level 3.3 mmol/L (3.5-5.1) 3.8 mmol/L (3.5-5.1) Chloride Level 101 mmol/L (98-107) 104 mmol/L (98-107) Carbon Dioxide Level 32 mmol/L (21-32) 28 mmol/L (21-32) Anion Gap 5 (6-14) 8 (6-14) Blood Urea Nitrogen 8 mg/dL (7-20) 14 mg/dL (7-20) Creatinine 0.6 mg/dL (0.6-1.0) 0.6 mg/dL (0.6-1.0) Estimated GFR (Cockcroft-Gault) 122.2 122.2 BUN/Creatinine Ratio 13 (6-20) Glucose Level 77 mg/dL (70-99) 89 mg/dL (70-99) Calcium Level 9.3 mg/dL (8.5-10.1) 8.8 mg/dL (8.5-10.1) Total Bilirubin 0.7 mg/dL (0.2-1.0) Aspartate Amino Transf (AST/SGOT) 33 U/L (15-37) Alanine Aminotransferase (ALT/SGPT) 27 U/L (14-59) Alkaline Phosphatase 138 U/L (46-116) Total Protein 6.6 g/dL (6.4-8.2) Albumin 3.9 g/dL (3.4-5.0) Laboratory Tests Test 02/05/21 04:30 White Blood Count 4.3 x10^3/uL (4.0-11.0) Red Blood Count 3.29 x10^6/uL (3.50-5.40) Hemoglobin 10.3 g/dL (12.0-15.5) Hematocrit 30.1 % (36.0-47.0) Mean Corpuscular Volume 92 fL (79-100) Mean Corpuscular Hemoglobin 31 pg (25-35) Mean Corpuscular Hemoglobin Concent 34 g/dL (31-37) Red Cell Distribution Width 15.3 % (11.5-14.5) Platelet Count 283 x10^3/uL (140-400) Neutrophils (%) (Auto) 57 % (31-73) Lymphocytes (%) (Auto) 29 % (24-48) Monocytes (%) (Auto) 11 % (0-9) Eosinophils (%) (Auto) 2 % (0-3) Basophils (%) (Auto) 1 % (0-3) Neutrophils # (Auto) 2.5 x10^3/uL (1.8-7.7) Lymphocytes # (Auto) 1.3 x10^3/uL (1.0-4.8) Monocytes # (Auto) 0.5 x10^3/uL (0.0-1.1) Eosinophils # (Auto) 0.1 x10^3/uL (0.0-0.7) Basophils # (Auto) 0.0 x10^3/uL (0.0-0.2) Sodium Level 140 mmol/L (136-145) Potassium Level 3.8 mmol/L (3.5-5.1) Chloride Level 104 mmol/L (98-107) Carbon Dioxide Level 28 mmol/L (21-32) Anion Gap 8 (6-14) Blood Urea Nitrogen 14 mg/dL (7-20) Creatinine 0.6 mg/dL (0.6-1.0) Estimated GFR (Cockcroft-Gault) 122.2 Glucose Level 89 mg/dL (70-99) Calcium Level 8.8 mg/dL (8.5-10.1) Microbiology 02/03/21 Urine Culture - Final, Complete 02/03/21 Antimicrobic Susceptibility - Final, Complete Medications Current Medications Ondansetron HCl (Zofran) 4 mg PRN Q8HRS PRN IV NAUSEA/VOMITING 1ST CHOICE; Start 02/02/21 at 22:15; Stop 02/03/21 at 13:05; Status DC Morphine Sulfate (Morphine Sulfate) 2 mg PRN Q2HR PRN IV SEVERE PAIN 7-10; Start 02/02/21 at 22:15; Stop 02/03/21 at 22:14; Status DC Acetaminophen (Tylenol) 650 mg PRN Q4HRS PRN PO FEVER > 100.3'F; Start 02/02/21 at 22:15; Stop 02/03/21 at 22:14; Status DC Atorvastatin Calcium (Lipitor) 10 mg HS PO Last administered on 02/04/21at 21:24; Start 02/03/21 at 21:00 Levothyroxine Sodium (Synthroid) 75 mcg DAILY06 PO Last administered on 02/03/21at 05:47; Start 02/03/21 at 06:00; Stop 02/03/21 at 06:22; Status DC Aspirin (Aspirin Chewable) 81 mg 0830 PO Last administered on 02/05/21at 08:45; Start 02/03/21 at 08:30 Famotidine (Pepcid) 40 mg HS PO Last administered on 02/04/21at 21:24; Start 02/03/21 at 21:00 Levothyroxine Sodium (Synthroid) 62.5 mcg DAILY06 PO ; Start 02/04/21 at 06:00; Stop 02/03/21 at 11:36; Status DC Ondansetron HCl (Zofran) 4 mg PRN Q6HRS PRN IVP NAUSEA/VOMITING; Start 02/03/21 at 11:30 Al Hydroxide/Mg Hydroxide (Mylanta Plus Xs) 30 ml PRN Q3HRS PRN PO HEARTBURN / GAS; Start 02/03/21 at 11:30 Calcium Carbonate/ Glycine (Tums) 500 mg PRN Q3HRS PRN PO HEARTBURN / GAS -1ST CHOICE; Start 02/03/21 at 11:30 Famotidine (Pepcid) 20 mg BID PO ; Start 02/03/21 at 21:00; Stop 02/03/21 at 11:27; Status DC Heparin Sodium (Porcine) (Heparin Sodium) 5,000 unit Q8HRS SQ Last administered on 02/05/21at 05:41; Start 02/03/21 at 14:00 Sodium Chloride (Normal Saline Flush) 3 ml QSHIFT PRN IV AFTER MEDS AND BLOOD DRAWS; Start 02/03/21 at 11:30 Sodium Chloride 1,000 ml @ 50 mls/hr Q20H IV Last administered on 02/04/21at 16:37; Start 02/03/21 at 12:00 Docusate Sodium (Colace) 100 mg BID PO Last administered on 02/05/21at 08:45; Start 02/03/21 at 21:00 Magnesium Hydroxide (Milk Of Magnesia) 2,400 mg PRN Q12HR PRN PO CONSTIPATION 2ND CHOICE; Start 02/03/21 at 11:30 Carbidopa/Levodopa (Sinemet 25/100) 1 tab 6XDAY PO Last administered on 02/05/21at 07:14; Start 02/03/21 at 13:00 Polyethylene Glycol (miraLAX PACKET) 17 gm PRN BID PRN PO CONSTIPATION; Start 02/03/21 at 11:30 Non-Formulary Medication (Ranitidine Hcl ) 150 mg DAILY PO ; Start 02/04/21 at 09:00; Stop 02/03/21 at 11:27; Status DC Levothyroxine Sodium (Synthroid) 100 mcg DAILY06 PO Last administered on 02/05/21at 05:40; Start 02/03/21 at 12:00 Ropinirole HCl (Requip) 0.5 mg TID PO Last administered on 02/05/21at 08:53; Start 02/03/21 at 14:00 Ceftriaxone Sodium (Rocephin) 1 gm Q24H IVP ; Start 02/04/21 at 10:45; Status UNV Cefepime HCl (Maxipime) 2 gm Q12HR IVP Last administered on 02/05/21at 08:45; Start 02/04/21 at 11:00 Potassium Bicarbonate (Potassium Effervescent Tablet) 40 meq 1X ONCE PO Last administered on 02/04/21at 12:32; Start 02/04/21 at 11:30; Stop 02/04/21 at 11:31; Status DC Lactobacillus Rhamnosus (Culturelle) 1 cap BID PO Last administered on 02/04/21at 21:23; Start 02/04/21 at 21:00 Active Scripts Active Decadron (Dexamethasone) 4 Mg Tablet 2 Mg PO TID 7 Days Miralax (Polyethylene Glycol 3350) 17 Gm Powd.pack 1 Pkt PO PRN BID PRN 30 Days Reported Atorvastatin Calcium 10 Mg Tablet 10 Mg PO HS PRN Famotidine 40 Mg Tablet 40 Mg PO HS Ropinirole Hcl 5 Mg Tablet 5 Mg PO TID Carbidopa-Levodopa 25-250 Tab (Carbidopa/Levodopa) 1 Each Tablet 1 Tab PO 6XDAY 30 Days Carbidopa-Levodopa 25-100 Tab (Carbidopa/Levodopa) 1 Each Tablet 1 Tab PO 6XDAY 30 Days Ciclopirox (Ciclopirox Olamine) 15 Gm Cream..g. 1 Teja TP HS NITROGLYCERIN SubLingual (Nitroglycerin) 0.4 Mg Tab.subl 0.4 Mg SL PRN Q5MIN PRN Atorvastatin Calcium 10 Mg Tablet 1 Tab PO DAILY Ranitidine Hcl 150 Mg Tablet 150 Mg PO DAILY Requip (Ropinirole Hcl) 0.5 Mg Tablet 0.5 Mg PO TID Hydrochlorothiazide Tablet (Hydrochlorothiazide) 12.5 Mg Tablet 12.5 Mg PO DAILY Levothyroxine Sodium 75 Mcg Tablet 1 Tab PO DAILY Sinemet Cr 25-100 Tablet (Carbidopa/Levodopa) 1 Each Tablet.er 1 Tab PO FIVE TIMES A DAY Sinemet Cr 50-200 Tablet (Carbidopa/Levodopa) 1 Each Tablet.er 1 Tab PO SIX TIMES A DAY Vitals/I & O Vital Sign - Last 24 Hours 02/04/21 02/04/21 02/04/21 02/04/21 12:00 16:00 20:00 20:00 Temp 98.0 98.0 97.9 98.0 98.0 97.9 Pulse 93 53 74 Resp 18 18 12 B/P (MAP) 145/65 (91) 145/73 (97) 125/73 (90) Pulse Ox 94 99 99 O2 Delivery Room Air Room Air Room Air Room Air 6/402/05/21 02/05/21 02/05/21 23:59 04:00 07:57 08:00 Temp 99.3 98.1 99.3 98.1 Pulse 53 55 57 Resp 12 18 16 B/P (MAP) 117/58 (77) 164/69 (100) Pulse Ox 98 98 O2 Delivery Room Air Room Air Room Air Room Air Intake and Output 02/04/21 02/04/21 02/05/21 15:00 23:00 07:00 Intake Total 830 ml 708 ml 350 ml Output Total 335 ml 245 ml 260 ml Balance 495 ml 463 ml 90 ml Justicifation of Admission Dx: Justifications for Admission: Justification of Admission Dx: Yes Sepsis: Infection GABBY LARSON MD Feb 05, 2021 11:17
[2021-02-05] MEDS: IV NORMAL SALINE 1000ML BAG 1,000 ML IV SCH ×2 (12:32→23:03)
--- NOTE | 2021-02-05 13:35 | PDOC ---
PROGRESS NOTES Date of Service DATE: 02/05/21 TIME: 13:33 Assessment Problems Medical Problems: (1) Bradycardia Status: Acute (2) Leukopenia Status: Acute Turns out we did not give her her Sinemet CR, she takes both Sinemet CR and immediate-release Sinemet ICU psychosis, patient has had hallucinations previously. Parkinson's, stable, sees Dr. Mckeon, internationally renowned Parkinson's expert at . History of subdural hematoma, 02/[address] negative Bradycardia, carbidopa/levodopa and ropinirole do not cause this, they can cause hypotension. Severe hypothyroidism which of course is the most likely cause of her issues. Plan I wrote for half the normal dose of her Sinemet CR Continue current Parkinson's regimen Transfer to regular room, hopefully that will help with her psychosis Rehabilitation modalities Discussed with patient's daughters. She can follow-up with Dr. Fonseca I will see at intervals Discussed with Dr. Lacy Subjective None Objective Vital Signs Date Time Temp Pulse Resp B/P (MAP) Pulse Ox O2 Delivery O2 Flow Rate FiO2 02/05/21 12:00 76 18 Room Air 02/05/21 04:00 98.1 164/69 (100) 98 98.1 Intake and Output 02/05/21 07:00 Intake Total 1888 ml Output Total 840 ml Balance 1048 ml Intake Oral 800 ml IV Total 838 ml Other 250 ml Output Urine Total 840 ml PHYSICAL EXAM Alert. Oriented to person. Voice is stronger PERRL. EOMI. CN: no focal findings. Muscle tone: Cogwheel rigidity Muscle strength: 4/5 DTR: 2+ Plantar reflex: Flexor Gait: not examined in bed. Sensory exam: no abnormal findings. No cerebellar signs elicited. Masked facies, bradykinesia, no tremor Review of Relevant I have reviewed the following items dami (where applicable) has been applied. Labs Laboratory Tests Test 02/04/21 07:35 02/05/21 04:30 White Blood Count 2.9 x10^3/uL (4.0-11.0) 4.3 x10^3/uL (4.0-11.0) Red Blood Count 3.78 x10^6/uL (3.50-5.40) 3.29 x10^6/uL (3.50-5.40) Hemoglobin 11.9 g/dL (12.0-15.5) 10.3 g/dL (12.0-15.5) Hematocrit 34.6 % (36.0-47.0) 30.1 % (36.0-47.0) Mean Corpuscular Volume 91 fL (79-100) 92 fL (79-100) Mean Corpuscular Hemoglobin 31 pg (25-35) 31 pg (25-35) Mean Corpuscular Hemoglobin Concent 34 g/dL (31-37) 34 g/dL (31-37) Red Cell Distribution Width 15.0 % (11.5-14.5) 15.3 % (11.5-14.5) Platelet Count 324 x10^3/uL (140-400) 283 x10^3/uL (140-400) Neutrophils (%) (Auto) 57 % (31-73) 57 % (31-73) Lymphocytes (%) (Auto) 29 % (24-48) 29 % (24-48) Monocytes (%) (Auto) 13 % (0-9) 11 % (0-9) Eosinophils (%) (Auto) 1 % (0-3) 2 % (0-3) Basophils (%) (Auto) 1 % (0-3) 1 % (0-3) Neutrophils # (Auto) 1.6 x10^3/uL (1.8-7.7) 2.5 x10^3/uL (1.8-7.7) Lymphocytes # (Auto) 0.8 x10^3/uL (1.0-4.8) 1.3 x10^3/uL (1.0-4.8) Monocytes # (Auto) 0.4 x10^3/uL (0.0-1.1) 0.5 x10^3/uL (0.0-1.1) Eosinophils # (Auto) 0.0 x10^3/uL (0.0-0.7) 0.1 x10^3/uL (0.0-0.7) Basophils # (Auto) 0.0 x10^3/uL (0.0-0.2) 0.0 x10^3/uL (0.0-0.2) Sodium Level 138 mmol/L (136-145) 140 mmol/L (136-145) Potassium Level 3.3 mmol/L (3.5-5.1) 3.8 mmol/L (3.5-5.1) Chloride Level 101 mmol/L (98-107) 104 mmol/L (98-107) Carbon Dioxide Level 32 mmol/L (21-32) 28 mmol/L (21-32) Anion Gap 5 (6-14) 8 (6-14) Blood Urea Nitrogen 8 mg/dL (7-20) 14 mg/dL (7-20) Creatinine 0.6 mg/dL (0.6-1.0) 0.6 mg/dL (0.6-1.0) Estimated GFR (Cockcroft-Gault) 122.2 122.2 BUN/Creatinine Ratio 13 (6-20) Glucose Level 77 mg/dL (70-99) 89 mg/dL (70-99) Calcium Level 9.3 mg/dL (8.5-10.1) 8.8 mg/dL (8.5-10.1) Total Bilirubin 0.7 mg/dL (0.2-1.0) Aspartate Amino Transf (AST/SGOT) 33 U/L (15-37) Alanine Aminotransferase (ALT/SGPT) 27 U/L (14-59) Alkaline Phosphatase 138 U/L (46-116) Total Protein 6.6 g/dL (6.4-8.2) Albumin 3.9 g/dL (3.4-5.0) Albumin/Globulin Ratio 1.4 (1.0-1.7) Laboratory Tests Test 02/05/21 04:30 White Blood Count 4.3 x10^3/uL (4.0-11.0) Red Blood Count 3.29 x10^6/uL (3.50-5.40) Hemoglobin 10.3 g/dL (12.0-15.5) Hematocrit 30.1 % (36.0-47.0) Mean Corpuscular Volume 92 fL (79-100) Mean Corpuscular Hemoglobin 31 pg (25-35) Mean Corpuscular Hemoglobin Concent 34 g/dL (31-37) Red Cell Distribution Width 15.3 % (11.5-14.5) Platelet Count 283 x10^3/uL (140-400) Neutrophils (%) (Auto) 57 % (31-73) Lymphocytes (%) (Auto) 29 % (24-48) Monocytes (%) (Auto) 11 % (0-9) Eosinophils (%) (Auto) 2 % (0-3) Basophils (%) (Auto) 1 % (0-3) Neutrophils # (Auto) 2.5 x10^3/uL (1.8-7.7) Lymphocytes # (Auto) 1.3 x10^3/uL (1.0-4.8) Monocytes # (Auto) 0.5 x10^3/uL (0.0-1.1) Eosinophils # (Auto) 0.1 x10^3/uL (0.0-0.7) Basophils # (Auto) 0.0 x10^3/uL (0.0-0.2) Sodium Level 140 mmol/L (136-145) Potassium Level 3.8 mmol/L (3.5-5.1) Chloride Level 104 mmol/L (98-107) Carbon Dioxide Level 28 mmol/L (21-32) Anion Gap 8 (6-14) Blood Urea Nitrogen 14 mg/dL (7-20) Creatinine 0.6 mg/dL (0.6-1.0) Estimated GFR (Cockcroft-Gault) 122.2 Glucose Level 89 mg/dL (70-99) Calcium Level 8.8 mg/dL (8.5-10.1) Microbiology 02/03/21 Urine Culture - Final, Complete 02/03/21 Antimicrobic Susceptibility - Final, Complete Medications Current Medications Ondansetron HCl (Zofran) 4 mg PRN Q8HRS PRN IV NAUSEA/VOMITING 1ST CHOICE; Start 02/02/21 at 22:15; Stop 02/03/21 at 13:05; Status DC Morphine Sulfate (Morphine Sulfate) 2 mg PRN Q2HR PRN IV SEVERE PAIN 7-10; Start 02/02/21 at 22:15; Stop 02/03/21 at 22:14; Status DC Acetaminophen (Tylenol) 650 mg PRN Q4HRS PRN PO FEVER > 100.3'F; Start 02/02/21 at 22:15; Stop 02/03/21 at 22:14; Status DC Atorvastatin Calcium (Lipitor) 10 mg HS PO Last administered on 02/04/21at 21:24; Start 02/03/21 at 21:00 Levothyroxine Sodium (Synthroid) 75 mcg DAILY06 PO Last administered on at 05:47; Start 02/03/21 at 06:00; Stop 02/03/21 at 06:22; Status DC Aspirin (Aspirin Chewable) 81 mg 0830 PO Last administered on 02/05/21at 08:45; Start 02/03/21 at 08:30 Famotidine (Pepcid) 40 mg HS PO Last administered on 02/04/21at 21:24; Start 02/03/21 at 21:00 Levothyroxine Sodium (Synthroid) 62.5 mcg DAILY06 PO ; Start 02/04/21 at 06:00; Stop 02/03/21 at 11:36; Status DC Ondansetron HCl (Zofran) 4 mg PRN Q6HRS PRN IVP NAUSEA/VOMITING; Start 02/03/21 at 11:30 Al Hydroxide/Mg Hydroxide (Mylanta Plus Xs) 30 ml PRN Q3HRS PRN PO HEARTBURN / GAS; Start 02/03/21 at 11:30 Calcium Carbonate/ Glycine (Tums) 500 mg PRN Q3HRS PRN PO HEARTBURN / GAS -1ST CHOICE; Start 02/03/21 at 11:30 Famotidine (Pepcid) 20 mg BID PO ; Start 02/03/21 at 21:00; Stop 02/03/21 at 11:27; Status DC Heparin Sodium (Porcine) (Heparin Sodium) 5,000 unit Q8HRS SQ Last administered on 02/05/21at 05:41; Start 02/03/21 at 14:00 Sodium Chloride (Normal Saline Flush) 3 ml QSHIFT PRN IV AFTER MEDS AND BLOOD DRAWS; Start 02/03/21 at 11:30 Sodium Chloride 1,000 ml @ 50 mls/hr Q20H IV Last administered on 02/04/21at 16:37; Start 02/03/21 at 12:00 Docusate Sodium (Colace) 100 mg BID PO Last administered on 02/05/21at 08:45; Start 02/03/21 at 21:00 Magnesium Hydroxide (Milk Of Magnesia) 2,400 mg PRN Q12HR PRN PO CONSTIPATION 2ND CHOICE; Start 02/03/21 at 11:30 Carbidopa/Levodopa (Sinemet 25/100) 1 tab 6XDAY PO Last administered on 02/05at 12:40; Start 02/03/21 at 13:00 Polyethylene Glycol (miraLAX PACKET) 17 gm PRN BID PRN PO CONSTIPATION; Start 02/03/21 at 11:30 Non-Formulary Medication (Ranitidine Hcl ) 150 mg DAILY PO ; Start 02/04/21 at 09:00; Stop 02/03/21 at 11:27; Status DC Levothyroxine Sodium (Synthroid) 100 mcg DAILY06 PO Last administered on 02/05/21at 05:40; Start 02/03/21 at 12:00 Ropinirole HCl (Requip) 0.5 mg TID PO Last administered on 02/05/21at 12:41; Start 02/03/21 at 14:00 Ceftriaxone Sodium (Rocephin) 1 gm Q24H IVP ; Start 02/04/21 at 10:45; Status UNV Cefepime HCl (Maxipime) 2 gm Q12HR IVP Last administered on 02/05/21at 08:45; Start 02/04/21 at 11:00 Potassium Bicarbonate (Potassium Effervescent Tablet) 40 meq 1X ONCE PO Last administered on 02/04/21at 12:32; Start 02/04/21 at 11:30; Stop 02/04/21 at 11:31; Status DC Lactobacillus Rhamnosus (Culturelle) 1 cap BID PO Last administered on 02/04/21at 21:23; Start 02/04/21 at 21:00 Active Scripts Active Decadron (Dexamethasone) 4 Mg Tablet 2 Mg PO TID 7 Days Miralax (Polyethylene Glycol 3350) 17 Gm Powd.pack 1 Pkt PO PRN BID PRN 30 Days Reported Atorvastatin Calcium 10 Mg Tablet 10 Mg PO HS PRN Famotidine 40 Mg Tablet 40 Mg PO HS Ropinirole Hcl 5 Mg Tablet 5 Mg PO TID Carbidopa-Levodopa 25-250 Tab (Carbidopa/Levodopa) 1 Each Tablet 1 Tab PO 6XDAY 30 Days Carbidopa-Levodopa 25-100 Tab (Carbidopa/Levodopa) 1 Each Tablet 1 Tab PO 6XDAY 30 Days Ciclopirox (Ciclopirox Olamine) 15 Gm Cream..g. 1 Teja TP HS NITROGLYCERIN SubLingual (Nitroglycerin) 0.4 Mg Tab.subl 0.4 Mg SL PRN Q5MIN PRN Atorvastatin Calcium 10 Mg Tablet 1 Tab PO DAILY Ranitidine Hcl 150 Mg Tablet 150 Mg PO DAILY Requip (Ropinirole Hcl) 0.5 Mg Tablet 0.5 Mg PO TID Hydrochlorothiazide Tablet (Hydrochlorothiazide) 12.5 Mg Tablet 12.5 Mg PO DAILY Levothyroxine Sodium 75 Mcg Tablet 1 Tab PO DAILY Sinemet Cr 25-100 Tablet (Carbidopa/Levodopa) 1 Each Tablet.er 1 Tab PO FIVE TIMES A DAY Sinemet Cr 50-200 Tablet (Carbidopa/Levodopa) 1 Each Tablet.er 1 Tab PO SIX TIMES A DAY Vitals/I & O Vital Sign - Last 24 Hours 02/04/21 02/04/21 02/04/21 02/04/21 16:00 20:00 20:00 23:59 Temp 98.0 97.9 99.3 98.0 97.9 99.3 Pulse 53 74 53 Resp 18 12 12 B/P (MAP) 145/73 (97) 125/73 (90) 117/58 (77) Pulse Ox 99 99 98 O2 Delivery Room Air Room Air Room Air Room Air 02/05/21 02/05/21 02/05/21 02/05/21 04:00 07:57 08:00 12:00 Temp 98.1 98.1 Pulse 55 57 76 Resp 18 16 18 B/P (MAP) 164/69 (100) Pulse Ox 98 O2 Delivery Room Air Room Air Room Air Room Air Intake and Output 02/04/21 02/04/21 02/05/21 15:00 23:00 07:00 Intake Total 830 ml 708 ml 350 ml Output Total 335 ml 245 ml 260 ml Balance 495 ml 463 ml 90 ml Justicifation of Admission Dx: Justifications for Admission: Justification of Admission Dx: Yes Sepsis: Infection MESHA ASHRAF MD Feb 05, 2021 13:35
[2021-02-05] MEDS: CARBIDOPA/LEVODOPA CR 25/100MG TABLET.SA. PO SCH ×3 (16:00→22:00)
[2021-02-05 20:00] VITALS: BP 135/75
[2021-02-05] MEDS: ATORVASTATIN CALCIUM 10 MG TABLET. PO SCH (20:49)
[2021-02-05] MEDS: FAMOTIDINE 20 MG TABLET. PO SCH (20:50)
[2021-02-06 05:00] VITALS: BP 122/66
[2021-02-06] MEDS: LEVOTHYROXINE 100 MCG TABLET PO SCH (05:32)
[2021-02-06] MEDS: HEPARIN for SUB-Q USE 5,000 UNIT/ML VIAL. SQ SCH ×3 (05:33→22:00)
[2021-02-06 08:00] VITALS: BP 154/72
[2021-02-06] MEDS: CARBIDOPA/LEVODOPA CR 25/100MG TABLET.SA. PO SCH ×5 (08:21→21:13)
[2021-02-06] MEDS: rOPINIRole 0.25 MG TABLET. PO SCH ×3 (08:22→21:13)
[2021-02-06] MEDS: ASPIRIN CHEWABLE 81 MG TABLET. PO SCH (08:22)
[2021-02-06] MEDS: CARBIDOPA/LEVODOPA 25/100MG TABLET PO SCH ×5 (08:22→21:13)
[2021-02-06] MEDS: DOCUSATE SODIUM 100 MG CAPSULE. PO SCH ×2 (08:22→21:13)
[2021-02-06] MEDS: CEFEPIME HCL IV Push 2 GM VIAL. IVP SCH ×2 (08:23→21:36)
[2021-02-06] MEDS: LACTOBACILLUS RHAMNOSUS GG 1 CAPSULE. PO SCH ×2 (08:49→21:13)
--- NOTE | 2021-02-06 10:47 | PDOC ---
PROGRESS NOTES Date of Service: DATE: 02/06/21 TIME: 10:46 Chief Complaint Chief Complaint VTE Prophylaxis Ordered VTE Prophylaxis Devices: Yes VTE Pharmacological Prophylaxi: Yes Assessment/Plan Assessment/Plan impression marked bradycardia, possibly due to hypothyroid state marked neutropenia Moderate amount of stool identified throughout the colon likely constipation. HX SUBDURAL HEMATOMA 2018 GERD Hypertension Parkinson's Falls Grave's disease on oral replacement PVD s/p peripheral stents Bladder dystonia - with intermittent self-catheterization, seen by Urology outpatient plan ADMIT NEUROLOGY CONSULT HEME CONSULT RETIC, FE PANEL PT/OT TREND WBC MAY NEED SNF dvt prophylaxis inc synthroid to 100 mcg po daily consider CT HEAD uti suspect she willl need > 72 hr stay to stabilize current issure Justifications for Admission Other Justification History of Present Illness History of Present Illness Identification/Chief Complaint Chief Complaint weakness, bradycardia, FALLS , POOR APPETITE History of Present Illness History of Present Illness 65 year old female SEEN in ER bradycardia., weakness, neutropenia, falls Patient states she felt a little bit weak lightheaded. States her pulse is usually 45 but today it was 35-36. notes history of Parkinson's disease and is on carbidopa and she takes hydrochlorothiazide for hypertension. Patient has had decreased appetite and p.o. intake. Has had a 10 pound weight loss over the past 2 weeks. 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 PVD s/p peripheral stents Bladder dystonia - with intermittent self-catheterization, seen by Urology outpatient PLAN ====NEUROLOGY CONSULT /HEME CONSULT// RETIC, FE PANEL //PT/OT TREND WBC MAY NEED SNF dvt prophylaxis inc synthroid to 100 mcg po daily consider CT HEAD Past Medical History Past Medical History Past Medical History Past Medical History Past Medical History: CAD, GERD, High Cholesterol, Hypertension, [place] Additional Past Medical Histor: Parkinson's, grave's, cardiac stent Past Surgical History: Hysterectomy Additional Past Surgical Histo: Right ankle plate & screws, Left rotator cuff repair, cardiac stent Smoking Status: Never Smoker Alcohol Use: None Drug Use: None FHX HTN Cardiovascular: HTN Pulmonary: No pertinent hx CENTRAL NERVOUS SYSTEM: Other (PARPINSONS) GI: GERD Heme/Onc: No pertinent hx Hepatobiliary: No pertinent hx Psych: No pertinent hx Musculoskeletal: Osteoarthritis Rheumatologic: No pertinent hx Infectious disease: No pertinent hx Renal/: Urinary Incontinence Endocrine: No pertinent hx Past Surgical History Past Surgical History: Arthroscopy, Hysterectomy, Other Family History Family History: Heart Disease, High Cholestrol, Hypertension Social History Smoke: No ALCOHOL: none Drugs: None Current Problem List Problem List Problems Medical Problems: (1) Bradycardia Status: Acute (2) Leukopenia Status: Acute Current Medications Current Medications Current Medications Ondansetron HCl (Zofran) 4 mg PRN Q8HRS PRN IV NAUSEA/VOMITING 1ST CHOICE; Start 02/02/21 at 22:15; Stop 02/03/21 at 22:14 Morphine Sulfate (Morphine Sulfate) 2 mg PRN Q2HR PRN IV SEVERE PAIN 7-10; Start 02/02/21 at 22:15; Stop 02/03/21 at 22:14 Acetaminophen (Tylenol) 650 mg PRN Q4HRS PRN PO FEVER > 100.3'F; Start 02/02/21 at 22:15; Stop 02/03/21 at 22:14 Atorvastatin Calcium (Lipitor) 10 mg HS PO ; Start 02/03/21 at 21:00 Levothyroxine Sodium (Synthroid) 75 mcg DAILY06 PO Last administered on 02/03/21at 05:47; Start 02/03/21 at 06:00; Stop 02/03/21 at 06:22; Status DC Aspirin (Aspirin Chewable) 81 mg 0830 PO Last administered on 02/03/21at 09:06; Start 02/03/21 at 08:30 Famotidine (Pepcid) 40 mg HS PO ; Start 02/03/21 at 21:00 Levothyroxine Sodium (Synthroid) 62.5 mcg DAILY06 PO ; Start 02/04/21 at 06:00 Active Scripts Active Decadron (Dexamethasone) 4 Mg Tablet 2 Mg PO TID 7 Days Miralax (Polyethylene Glycol 3350) 17 Gm Powd.pack 1 Pkt PO PRN BID PRN 30 Days Reported Atorvastatin Calcium 10 Mg Tablet 10 Mg PO HS PRN Famotidine 40 Mg Tablet 40 Mg PO HS Ropinirole Hcl 5 Mg Tablet 5 Mg PO TID Carbidopa-Levodopa 25-250 Tab (Carbidopa/Levodopa) 1 Each Tablet 1 Tab PO 6XDAY 30 Days Carbidopa-Levodopa 25-100 Tab (Carbidopa/Levodopa) 1 Each Tablet 1 Tab PO 6XDAY 30 Days Ciclopirox (Ciclopirox Olamine) 15 Gm Cream..g. 1 Teja TP HS NITROGLYCERIN SubLingual (Nitroglycerin) 0.4 Mg Tab.subl 0.4 Mg SL PRN Q5MIN PRN Atorvastatin Calcium 10 Mg Tablet 1 Tab PO DAILY Ranitidine Hcl 150 Mg Tablet 150 Mg PO DAILY Requip (Ropinirole Hcl) 0.5 Mg Tablet 0.5 Mg PO TID Hydrochlorothiazide Tablet (Hydrochlorothiazide) 12.5 Mg Tablet 12.5 Mg PO DAILY Levothyroxine Sodium 75 Mcg Tablet 1 Tab PO DAILY Sinemet Cr 25-100 Tablet (Carbidopa/Levodopa) 1 Each Tablet.er 1 Tab PO FIVE TIMES A DAY Sinemet Cr 50-200 Tablet (Carbidopa/Levodopa) 1 Each Tablet.er 1 Tab PO SIX TIMES A DAY Allergies Allergies: Coded Allergies: oxybutynin (Verified Allergy, Intermediate, HYPOTENSION, NAUSEA, 01/16/19) ciprofloxacin (Verified Adverse Reaction, Mild, Diarrhea, 01/16/19) gabapentin (Verified Adverse Reaction, Mild, VERTIGO, 01/16/19) ROS General: YES: Fatigue, Malaise, Appetite; No: Chills, Night Sweats, Other PSYCHOLOGICAL ROS: No: Anxiety, Behavioral Disorder, Concentration difficultie, Decreased libido, Depression, Disorientation, Hallucinations, Hostility, Irritablity, Memory difficulties, Mood Swings, Obsessive thoughts, Physical abuse, Sexual abuse, Sleep disturbances, Suicidal ideation, Other Eyes: No Blurry vision, No Decreased vision, No Double vision, No Dry eyes, No Excessive tearing, No Eye Pain, No Itchy Eyes, No Loss of vision, No Photophobia, No Scotomata, No Uses contacts, No Uses glasses, No Other HEENT: No: Heacaches, Visual Changes, Hearing change, Nasal congestion, Nasal discharge, Oral lesions, Sinus pain, Sore Throat, Epistaxis, Sneezing, Snoring, Tinnitus, Vertigo, Vocal changes, Other ALLERGY AND IMMUNOLOGY: YES: Hives; No: Insect Bite Sensitivity, Itchy/Watery Eyes, Nasal Congestion, Post Nasal Drip, Seasonal Allergies, Other Hematological and Lymphatic: No: Bleeding Problems, Blood Clots, Blood Transfusions, Brusing, Night Sweats, Pallor, Swollen Lymph Nodes, Other ENDOCRINE: No: Breast Changes, Galactorrhea, Hair Pattern Changes, Hot Flashes, Malaise/lethargy, Mood Swings, Palpitations, Polydipsia/polyuria, Skin Changes, Temperature Intolerance, Unexpected Weight Changes, Other Breast: No New/Changing Breast Lumps, No Nipple changes, No Nipple discharge, No Other Respiratory: No: Cough, Hemoptysis, Orthopnea, Pleuritic Pain, Shortness of breath, SOB with excertion, Sputum Changes, Stridor, Tachypnea, Wheezing, Other Cardiovascular: No Chest Pain, No Palpitations, No Orthopnea, No Paroxysmal Noc. Dyspnea, No Edema, No Lt Headedness, No Other Gastrointestinal: Yes Constipation; No Nausea, No Vomiting, No Abdominal Pain, No Diarrhea, No Melena, No Hematochezia, No Other Genitourinary: No Dysuria, No Frequency, No Incontinence, No Hematuria, No Retention, No Discharge, No Urgency, No Pain, No Flank Pain, No Other, No , No , No , No , No , No , No Musculoskeletal: Yes Gait Disturbance, Yes Joint Stiffness Neurological: Yes Dizziness, Yes Gait Disturbance, Yes Weakness, Yes Other (falls ) Skin: No Dry Skin, No Eczema, No Hair Changes, No Lumps, No Mole Changes, No Mottling, No Nail Changes, No Pruritus, No Rash, No Skin Lesion Changes, No Other, No Acne 6-04 weaker today acute metabolic encephalopathy begin iv cefipime uti marked bradycardia, possibly due to hypothyroid state marked neutropenia Moderate amount of stool identified throughout the colon likely constipation. HX SUBDURAL HEMATOMA 2018 GERD Hypertension Parkinson's Falls Grave's disease on oral replacement PVD s/p peripheral stents Bladder dystonia - with intermittent self-catheterization, seen by Urology outpatient 6- SEPSIS DUE TO UTI weaker today, more confused, will not take her meds today acute metabolic encephalopathy continue cefipime uti marked bradycardia, possibly due to hypothyroid state, IMPROVED marked neutropenia m spike not observed Moderate amount of stool identified throughout the colon likely constipation. HX SUBDURAL HEMATOMA 2018 GERD Hypertension Parkinson's Falls Grave's disease on oral replacement PVD s/p peripheral stents Bladder dystonia - with intermittent self-catheterization, seen by Urology outpatient TO FLOOR TODAY CLOSE TO Nursing station 80,000 CFU/ML GRAM NEGATIVE RODS on 02/04/21 at 0728 FINAL ID= [PSEUDOMONAS AERUGINOSA] d/w RN 02-06 SEPSIS DUE TO UTI more alert today, cooperative, feels stronger acute metabolic encephalopathy continue cefipime uti marked bradycardia, possibly due to hypothyroid state, IMPROVED marked neutropenia m spike not observed Moderate amount of stool identified throughout the colon likely constipation. HX SUBDURAL HEMATOMA 2018 GERD Hypertension Parkinson's Falls Grave's disease on oral replacement PVD s/p peripheral stents Bladder dystonia - with intermittent self-catheterization, seen by Urology outpatient TO FLOOR TODAY CLOSE TO Nursing station 80,000 CFU/ML GRAM NEGATIVE RODS on 02/04/21 at 0728 FINAL ID= [PSEUDOMONAS AERUGINOSA] d/w RN Vitals Vitals Vital Signs Date Time Temp Pulse Resp B/P (MAP) Pulse Ox O2 Delivery O2 Flow Rate FiO2 02/06/21 08:00 98.7 60 16 154/72 (99) 93 Room Air 98.7 Physical Exam Physical Exam NOT ORIENTED, THINKS SHE IS IN HELL , but talking about [place], lethargic General: Alert, Oriented X3, Cooperative, No acute distress Heart: Regular rate (SR), Normal S1, Normal S2, No murmurs Lungs: Clear Abdomen: Normal bowel sounds, Soft, No tenderness, No masses Extremities: No clubbing, No cyanosis, No edema Skin: No breakdown, No significant lesion Assessment and Plan Assessmemt and Plan Problems Medical Problems: (1) Bradycardia Status: Acute (2) Leukopenia Status: Acute Comment Review of Relevant I have reviewed the following items dami (where applicable) has been applied. Labs Laboratory Tests Test 02/05/21 04:30 White Blood Count 4.3 x10^3/uL (4.0-11.0) Red Blood Count 3.29 x10^6/uL (3.50-5.40) Hemoglobin 10.3 g/dL (12.0-15.5) Hematocrit 30.1 % (36.0-47.0) Mean Corpuscular Volume 92 fL (79-100) Mean Corpuscular Hemoglobin 31 pg (25-35) Mean Corpuscular Hemoglobin Concent 34 g/dL (31-37) Red Cell Distribution Width 15.3 % (11.5-14.5) Platelet Count 283 x10^3/uL (140-400) Neutrophils (%) (Auto) 57 % (31-73) Lymphocytes (%) (Auto) 29 % (24-48) Monocytes (%) (Auto) 11 % (0-9) Eosinophils (%) (Auto) 2 % (0-3) Basophils (%) (Auto) 1 % (0-3) Neutrophils # (Auto) 2.5 x10^3/uL (1.8-7.7) Lymphocytes # (Auto) 1.3 x10^3/uL (1.0-4.8) Monocytes # (Auto) 0.5 x10^3/uL (0.0-1.1) Eosinophils # (Auto) 0.1 x10^3/uL (0.0-0.7) Basophils # (Auto) 0.0 x10^3/uL (0.0-0.2) Sodium Level 140 mmol/L (136-145) Potassium Level 3.8 mmol/L (3.5-5.1) Chloride Level 104 mmol/L (98-107) Carbon Dioxide Level 28 mmol/L (21-32) Anion Gap 8 (6-14) Blood Urea Nitrogen 14 mg/dL (7-20) Creatinine 0.6 mg/dL (0.6-1.0) Estimated GFR (Cockcroft-Gault) 122.2 Glucose Level 89 mg/dL (70-99) Calcium Level 8.8 mg/dL (8.5-10.1) Microbiology 02/03/21 Urine Culture - Final, Complete 02/03/21 Antimicrobic Susceptibility - Final, Complete Medications Current Medications Ondansetron HCl (Zofran) 4 mg PRN Q8HRS PRN IV NAUSEA/VOMITING 1ST CHOICE; Start 02/02/21 at 22:15; Stop 02/03/21 at 13:05; Status DC Morphine Sulfate (Morphine Sulfate) 2 mg PRN Q2HR PRN IV SEVERE PAIN 7-10; Start 02/02/21 at 22:15; Stop 02/03/21 at 22:14; Status DC Acetaminophen (Tylenol) 650 mg PRN Q4HRS PRN PO FEVER > 100.3'F; Start 02/02/21 at 22:15; Stop 02/03/21 at 22:14; Status DC Atorvastatin Calcium (Lipitor) 10 mg HS PO Last administered on 02/04/21at 21:24; Start 02/03/21 at 21:00 Levothyroxine Sodium (Synthroid) 75 mcg DAILY06 PO Last administered on 02/03/21at 05:47; Start 02/03/21 at 06:00; Stop 02/03/21 at 06:22; Status DC Aspirin (Aspirin Chewable) 81 mg 0830 PO Last administered on 02/06/21at 08:22; Start 02/03/21 at 08:30 Famotidine (Pepcid) 40 mg HS PO Last administered on 02/04/21at 21:24; Start 02/03/21 at 21:00 Levothyroxine Sodium (Synthroid) 62.5 mcg DAILY06 PO ; Start 02/04/21 at 06:00; Stop 02/03/21 at 11:36; Status DC Ondansetron HCl (Zofran) 4 mg PRN Q6HRS PRN IVP NAUSEA/VOMITING; Start 02/03/21 at 11:30 Al Hydroxide/Mg Hydroxide (Mylanta Plus Xs) 30 ml PRN Q3HRS PRN PO HEARTBURN / GAS; Start 02/03/21 at 11:30 Calcium Carbonate/ Glycine (Tums) 500 mg PRN Q3HRS PRN PO HEARTBURN / GAS -1ST CHOICE; Start 02/03/21 at 11:30 Famotidine (Pepcid) 20 mg BID PO ; Start 02/03/21 at 21:00; Stop 02/03/21 at 11:27; Status DC Heparin Sodium (Porcine) (Heparin Sodium) 5,000 unit Q8HRS SQ Last administered on 02/05/21at 05:41; Start 02/03/21 at 14:00 Sodium Chloride (Normal Saline Flush) 3 ml QSHIFT PRN IV AFTER MEDS AND BLOOD DRAWS; Start 02/03/21 at 11:30 Sodium Chloride 1,000 ml @ 50 mls/hr Q20H IV Last administered on 02/05/21at 23:03; Start 02/03/21 at 12:00 Docusate Sodium (Colace) 100 mg BID PO Last administered on 02/06/21 08:22; Start 02/03/21 at 21:00 Magnesium Hydroxide (Milk Of Magnesia) 2,400 mg PRN Q12HR PRN PO CONSTIPATION 2ND CHOICE; Start 02/03/21 at 11:30 Carbidopa/Levodopa (Sinemet 25/100) 1 tab 6XDAY PO Last administered on 02/06/21at 10:06; Start 02/03/21 at 13:00 Polyethylene Glycol (miraLAX PACKET) 17 gm PRN BID PRN PO CONSTIPATION; Start 02/03/21 at 11:30 Non-Formulary Medication (Ranitidine Hcl ) 150 mg DAILY PO ; Start 02/04/21 at 09:00; Stop 02/03/21 at 11:27; Status DC Levothyroxine Sodium (Synthroid) 100 mcg DAILY06 PO Last administered on 02/06/21 05:32; Start 02/03/21 at 12:00 Ropinirole HCl (Requip) 0.5 mg TID PO Last administered on 02/06/21 08:22; Start 02/03/21 at 14:00 Ceftriaxone Sodium (Rocephin) 1 gm Q24H IVP ; Start 02/04/21 at 10:45; Status UNV Cefepime HCl (Maxipime) 2 gm Q12HR IVP Last administered on 02/06/21 08:23; Start 02/04/21 at 11:00 Potassium Bicarbonate (Potassium Effervescent Tablet) 40 meq 1X ONCE PO Last administered on 02/04/21at 12:32; Start 02/04/21 at 11:30; Stop 02/04/21 at 11:31; Status DC Lactobacillus Rhamnosus (Culturelle) 1 cap BID PO Last administered on 02/04/21at 21:23; Start 02/04/21 at 21:00 Carbidopa/Levodopa (Sinemet Cr) 1 tab.sa 6XDAY PO Last administered on 02/06/21at 10:07; Start 02/05/21 at 16:00 Active Scripts Active Decadron (Dexamethasone) 4 Mg Tablet 2 Mg PO TID 7 Days Miralax (Polyethylene Glycol 3350) 17 Gm Powd.pack 1 Pkt PO PRN BID PRN 30 Days Reported Atorvastatin Calcium 10 Mg Tablet 10 Mg PO HS PRN Famotidine 40 Mg Tablet 40 Mg PO HS Ropinirole Hcl 5 Mg Tablet 5 Mg PO TID Carbidopa-Levodopa 25-250 Tab (Carbidopa/Levodopa) 1 Each Tablet 1 Tab PO 6XDAY 30 Days Carbidopa-Levodopa 25-100 Tab (Carbidopa/Levodopa) 1 Each Tablet 1 Tab PO 6XDAY 30 Days Ciclopirox (Ciclopirox Olamine) 15 Gm Cream..g. 1 Teja TP HS NITROGLYCERIN SubLingual (Nitroglycerin) 0.4 Mg Tab.subl 0.4 Mg SL PRN Q5MIN PRN Atorvastatin Calcium 10 Mg Tablet 1 Tab PO DAILY Ranitidine Hcl 150 Mg Tablet 150 Mg PO DAILY Requip (Ropinirole Hcl) 0.5 Mg Tablet 0.5 Mg PO TID Hydrochlorothiazide Tablet (Hydrochlorothiazide) 12.5 Mg Tablet 12.5 Mg PO DAILY Levothyroxine Sodium 75 Mcg Tablet 1 Tab PO DAILY Sinemet Cr 25-100 Tablet (Carbidopa/Levodopa) 1 Each Tablet.er 1 Tab PO FIVE TIMES A DAY Sinemet Cr 50-200 Tablet (Carbidopa/Levodopa) 1 Each Tablet.er 1 Tab PO SIX TIMES A DAY Vitals/I & O Vital Sign - Last 24 Hours 02/05/21 02/05/21 02/05/21 02/05/21 12:00 16:00 20:00 20:00 Temp 99.8 99.8 Pulse 76 58 61 Resp 18 16 18 B/P (MAP) 135/75 (95) Pulse Ox 96 O2 Delivery Room Air Room Air Room Air Room Air 02/06/21 02/06/21 02/06/21 02/06/21 00:01 05:00 07:33 08:00 Temp 99.2 98.7 99.2 98.7 Pulse 60 54 60 Resp 18 18 16 B/P (MAP) 122/66 (84) 154/72 (99) Pulse Ox 95 93 O2 Delivery Room Air Room Air Room Air Room Air Intake and Output 02/05/21 02/05/21 02/06/21 15:00 23:00 07:00 Intake Total 954 ml Output Total 575 ml 750 ml 700 ml Balance -575 ml -750 ml 254 ml Justicifation of Admission Dx: Justifications for Admission: Justification of Admission Dx: Yes Sepsis: Infection GABBY LARSON MD Feb 06, 2021 10:46
[2021-02-06 12:00] VITALS: BP 114/61
[2021-02-06] MEDS: hydroCHLOROthiazide 12.5 MG CAPSULE PO SCH (13:00)
--- NOTE | 2021-02-06 14:41 | PDOC ---
PROGRESS NOTES Date of Service DATE: 02/06/21 TIME: 14:38 Assessment Problems Medical Problems: (1) Bradycardia Status: Acute (2) Leukopenia Status: Acute ICU psychosis, patient has had hallucinations previously, better today. Parkinson's, stable, sees Dr. Mckeon, internationally renowned Parkinson's expert at . Patient is on her Sinemet immediate release as well as half of her normal dose of CR History of subdural hematoma, 02/[address] negative Bradycardia, carbidopa/levodopa and ropinirole do not cause this, they can cause hypotension. Severe hypothyroidism which of course is the most likely cause of her issues. Plan We will increase her Sinemet CR to her daily home dose starting tomorrow Continue current Parkinson's regimen Transfer to regular room, hopefully that will help with her psychosis Rehabilitation modalities Discussed with patient's daughter. She can follow-up with Dr. Fonseca I will see at intervals Subjective Feels better Objective Vital Signs Date Time Temp Pulse Resp B/P (MAP) Pulse Ox O2 Delivery O2 Flow Rate FiO2 02/06/21 12:00 99.0 58 18 114/61 (78) 96 Room Air 99.0 Intake and Output 02/06/21 07:00 Intake Total 954 ml Output Total 2025 ml Balance -1071 ml IV Total 954 ml Output Urine Total 2025 ml PHYSICAL EXAM Alert. Oriented to person. Voice is stronger. Denies hallucinations PERRL. EOMI. CN: no focal findings. Muscle tone: Cogwheel rigidity better Muscle strength: 4/5 DTR: 2+ Plantar reflex: Flexor Gait: not examined in bed. Sensory exam: no abnormal findings. No cerebellar signs elicited. Masked facies, bradykinesia, no tremor Review of Relevant I have reviewed the following items dami (where applicable) has been applied. Labs Laboratory Tests Test 02/05/21 04:30 White Blood Count 4.3 x10^3/uL (4.0-11.0) Red Blood Count 3.29 x10^6/uL (3.50-5.40) Hemoglobin 10.3 g/dL (12.0-15.5) Hematocrit 30.1 % (36.0-47.0) Mean Corpuscular Volume 92 fL (79-100) Mean Corpuscular Hemoglobin 31 pg (25-35) Mean Corpuscular Hemoglobin Concent 34 g/dL (31-37) Red Cell Distribution Width 15.3 % (11.5-14.5) Platelet Count 283 x10^3/uL (140-400) Neutrophils (%) (Auto) 57 % (31-73) Lymphocytes (%) (Auto) 29 % (24-48) Monocytes (%) (Auto) 11 % (0-9) Eosinophils (%) (Auto) 2 % (0-3) Basophils (%) (Auto) 1 % (0-3) Neutrophils # (Auto) 2.5 x10^3/uL (1.8-7.7) Lymphocytes # (Auto) 1.3 x10^3/uL (1.0-4.8) Monocytes # (Auto) 0.5 x10^3/uL (0.0-1.1) Eosinophils # (Auto) 0.1 x10^3/uL (0.0-0.7) Basophils # (Auto) 0.0 x10^3/uL (0.0-0.2) Sodium Level 140 mmol/L (136-145) Potassium Level 3.8 mmol/L (3.5-5.1) Chloride Level 104 mmol/L (98-107) Carbon Dioxide Level 28 mmol/L (21-32) Anion Gap 8 (6-14) Blood Urea Nitrogen 14 mg/dL (7-20) Creatinine 0.6 mg/dL (0.6-1.0) Estimated GFR (Cockcroft-Gault) 122.2 Glucose Level 89 mg/dL (70-99) Calcium Level 8.8 mg/dL (8.5-10.1) Microbiology 02/03/21 Urine Culture - Final, Complete 02/03/21 Antimicrobic Susceptibility - Final, Complete Medications Current Medications Ondansetron HCl (Zofran) 4 mg PRN Q8HRS PRN IV NAUSEA/VOMITING 1ST CHOICE; Start 02/02/21 at 22:15; Stop 02/03/21 at 13:05; Status DC Morphine Sulfate (Morphine Sulfate) 2 mg PRN Q2HR PRN IV SEVERE PAIN 7-10; Start 02/02/21 at 22:15; Stop 02/03/21 at 22:14; Status DC Acetaminophen (Tylenol) 650 mg PRN Q4HRS PRN PO FEVER > 100.3'F; Start 02/02/21 at 22:15; Stop 02/03/21 at 22:14; Status DC Atorvastatin Calcium (Lipitor) 10 mg HS PO Last administered on 02/04/21at 21:24; Start 02/03/21 at 21:00 Levothyroxine Sodium (Synthroid) 75 mcg DAILY06 PO Last administered on 02/03/21at 05:47; Start 02/03/21 at 06:00; Stop 02/03/21 at 06:22; Status DC Aspirin (Aspirin Chewable) 81 mg 0830 PO Last administered on 02/06/21at 08:22; Start 02/03/21 at 08:30 Famotidine (Pepcid) 40 mg HS PO Last administered on 02/04/21at 21:24; Start 02/03/21 at 21:00 Levothyroxine Sodium (Synthroid) 62.5 mcg DAILY06 PO ; Start 02/04/21 at 06:00; Stop 02/03/21 at 11:36; Status DC Ondansetron HCl (Zofran) 4 mg PRN Q6HRS PRN IVP NAUSEA/VOMITING; Start 02/03/21 at 11:30 Al Hydroxide/Mg Hydroxide (Mylanta Plus Xs) 30 ml PRN Q3HRS PRN PO HEARTBURN / GAS; Start 02/03/21 at 11:30 Calcium Carbonate/ Glycine (Tums) 500 mg PRN Q3HRS PRN PO HEARTBURN / GAS -1ST CHOICE; Start 02/03/21 at 11:30 Famotidine (Pepcid) 20 mg BID PO ; Start 02/03/21 at 21:00; Stop 02/03/21 at 11:27; Status DC Heparin Sodium (Porcine) (Heparin Sodium) 5,000 unit Q8HRS SQ Last administered on 02/05/21at 05:41; Start 02/03/21 at 14:00 Sodium Chloride (Normal Saline Flush) 3 ml QSHIFT PRN IV AFTER MEDS AND BLOOD DRAWS; Start 02/03/21 at 11:30 Sodium Chloride 1,000 ml @ 50 mls/hr Q20H IV Last administered on 02/05/21at 23:03; Start 02/03/21 at 12:00 Docusate Sodium (Colace) 100 mg BID PO Last administered on 02/06/21at 08:22; Start 02/03/21 at 21:00 Magnesium Hydroxide (Milk Of Magnesia) 2,400 mg PRN Q12HR PRN PO CONSTIPATION 2ND CHOICE; Start 02/03/21 at 11:30 Carbidopa/Levodopa (Sinemet 25/100) 1 tab 6XDAY PO Last administered on 02/06/21at 14:31; Start 02/03/21 at 13:00 Polyethylene Glycol (miraLAX PACKET) 17 gm PRN BID PRN PO CONSTIPATION; Start 02/03/21 at 11:30 Non-Formulary Medication (Ranitidine Hcl ) 150 mg DAILY PO ; Start 02/04/21 at 09:00; Stop 02/03/21 at 11:27; Status DC Levothyroxine Sodium (Synthroid) 100 mcg DAILY06 PO Last administered on 02/06/21at 05:32; Start 02/03/21 at 12:00 Ropinirole HCl (Requip) 0.5 mg TID PO Last administered on 02/06/21at 14:31; Start 02/03/21 at 14:00 Ceftriaxone Sodium (Rocephin) 1 gm Q24H IVP ; Start 02/04/21 at 10:45; Status UNV Cefepime HCl (Maxipime) 2 gm Q12HR IVP Last administered on 02/06/21at 08:23; Start 02/04/21 at 11:00 Potassium Bicarbonate (Potassium Effervescent Tablet) 40 meq 1X ONCE PO Last administered on 02/04/21at 12:32; Start 02/04/21 at 11:30; Stop 02/04/21 at 11:31; Status DC Lactobacillus Rhamnosus (Culturelle) 1 cap BID PO Last administered on 02/04/21at 21:23; Start 02/04/21 at 21:00 Carbidopa/Levodopa (Sinemet Cr) 1 tab.sa 6XDAY PO Last administered on 02/06/21at 14:31; Start 02/05/21 at 16:00 Hydrochlorothiazide (Microzide) 12.5 mg DAILY PO ; Start 02/06/21 at 13:00 Active Scripts Active Decadron (Dexamethasone) 4 Mg Tablet 2 Mg PO TID 7 Days Miralax (Polyethylene Glycol 3350) 17 Gm Powd.pack 1 Pkt PO PRN BID PRN 30 Days Reported Atorvastatin Calcium 10 Mg Tablet 10 Mg PO HS PRN Famotidine 40 Mg Tablet 40 Mg PO HS Ropinirole Hcl 5 Mg Tablet 5 Mg PO TID Carbidopa-Levodopa 25-250 Tab (Carbidopa/Levodopa) 1 Each Tablet 1 Tab PO 6XDAY 30 Days Carbidopa-Levodopa 25-100 Tab (Carbidopa/Levodopa) 1 Each Tablet 1 Tab PO 6XDAY 30 Days Ciclopirox (Ciclopirox Olamine) 15 Gm Cream..g. 1 Teja TP HS NITROGLYCERIN SubLingual (Nitroglycerin) 0.4 Mg Tab.subl 0.4 Mg SL PRN Q5MIN PRN Atorvastatin Calcium 10 Mg Tablet 1 Tab PO DAILY Ranitidine Hcl 150 Mg Tablet 150 Mg PO DAILY Requip (Ropinirole Hcl) 0.5 Mg Tablet 0.5 Mg PO TID Hydrochlorothiazide Tablet (Hydrochlorothiazide) 12.5 Mg Tablet 12.5 Mg PO DAILY Levothyroxine Sodium 75 Mcg Tablet 1 Tab PO DAILY Sinemet Cr 25-100 Tablet (Carbidopa/Levodopa) 1 Each Tablet.er 1 Tab PO FIVE TIMES A DAY Sinemet Cr 50-200 Tablet (Carbidopa/Levodopa) 1 Each Tablet.er 1 Tab PO SIX TIMES A DAY Vitals/I & O Vital Sign - Last 24 Hours 02/05/21 02/05/21 02/05/21 02/06/21 16:00 20:00 20:00 00:01 Temp 99.8 99.8 Pulse 58 61 60 Resp 16 18 18 B/P (MAP) 135/75 (95) Pulse Ox 96 O2 Delivery Room Air Room Air Room Air Room Air 02/06/21 02/06/21 02/06/21 02/06/21 05:00 07:33 08:00 12:00 Temp 99.2 98.7 99.0 99.2 98.7 99.0 Pulse 54 60 58 Resp 18 16 18 B/P (MAP) 122/66 (84) 154/72 (99) 114/61 (78) Pulse Ox 95 93 96 O2 Delivery Room Air Room Air Room Air Room Air Intake and Output 02/05/21 02/05/21 02/06/21 15:00 23:00 07:00 Intake Total 954 ml Output Total 575 ml 750 ml 700 ml Balance -575 ml -750 ml 254 ml Justicifation of Admission Dx: Justifications for Admission: Justification of Admission Dx: Yes Sepsis: Infection MESHA ASHRAF MD Feb 06, 2021 14:41
[2021-02-06 16:00] VITALS: BP 122/64
[2021-02-06 19:55] VITALS: BP 125/55
[2021-02-06] MEDS: ATORVASTATIN CALCIUM 10 MG TABLET. PO SCH (21:12)
[2021-02-06] MEDS: FAMOTIDINE 20 MG TABLET. PO SCH (21:13)
[2021-02-06] MEDS: IV NORMAL SALINE 1000ML BAG 1,000 ML IV SCH (21:44)
[2021-02-06 23:22] VITALS: BP 156/68
[2021-02-07] MEDS: CARBIDOPA/LEVODOPA 25/100MG TABLET PO SCH ×7 (00:26→22:28)
[2021-02-07] MEDS: CARBIDOPA/LEVODOPA CR 25/100MG TABLET.SA. PO SCH ×7 (00:26→22:28)
[2021-02-07] MEDS: HEPARIN for SUB-Q USE 5,000 UNIT/ML VIAL. SQ SCH ×3 (04:53→22:30)
[2021-02-07] MEDS: LEVOTHYROXINE 100 MCG TABLET PO SCH (06:00)
[2021-02-07 06:44] LABS: BASO % 0 % (0-3); EOS # 0.2 x10^3/uL (0.0-0.7); EOS % 3 % (0-3); HEMATOCRIT 30.8 % (36.0-47.0); HEMOGLOBIN 10.5 g/dL (12.0-15.5); LYMPH # 1.3 x10^3/uL (1.0-4.8); LYMPH % 19 % (24-48); MEAN CORPUSCULAR HEMOGLOBIN 31 pg (25-35); MEAN CORPUSCULAR HGB CONC 34 g/dL (31-37); MEAN CORPUSCULAR VOLUME 92 fL (79-100); MONO # 0.6 x10^3/uL (0.0-1.1); MONO % 8 % (0-9); NEUT # 4.9 x10^3/uL (1.8-7.7); NEUT % 70 % (31-73); PLATELET COUNT 277 x10^3/uL (140-400); RED BLOOD COUNT 3.34 x10^6/uL (3.50-5.40); RED CELL DISTRIBUTION WIDTH 15.1 % (11.5-14.5)
[2021-02-07 07:00] VITALS: BP 156/72
[2021-02-07] MEDS: DOCUSATE SODIUM 100 MG CAPSULE. PO SCH ×2 (08:42→20:28)
[2021-02-07] MEDS: hydroCHLOROthiazide 12.5 MG CAPSULE PO SCH (08:43)
[2021-02-07] MEDS: rOPINIRole 0.25 MG TABLET. PO SCH ×3 (08:43→20:28)
[2021-02-07] MEDS: LACTOBACILLUS RHAMNOSUS GG 1 CAPSULE. PO SCH ×2 (08:43→20:28)
[2021-02-07] MEDS: ASPIRIN CHEWABLE 81 MG TABLET. PO SCH (08:43)
[2021-02-07] MEDS: CEFEPIME HCL IV Push 2 GM VIAL. IVP SCH ×2 (08:48→20:28)
--- NOTE | 2021-02-07 09:24 | PDOC ---
PROGRESS NOTES Date of Service DATE: 02/07/21 TIME: 09:22 Assessment Problems Medical Problems: (1) Bradycardia Status: Acute (2) Leukopenia Status: Acute Psychosis, patient has had hallucinations previously, better today. Parkinson's, stable, sees Dr. Mckeon, internationally renowned Parkinson's expert at . Patient is on her Sinemet immediate release as well as half of her normal dose of CR History of subdural hematoma, 02/[address] negative Bradycardia: carbidopa/levodopa and ropinirole do not cause this, they can cause hypotension. Severe hypothyroidism which of course is the most likely cause of her issues. Plan I was going to increase her Sinemet CR to her daily home dose, but her exam is not that bad, she still has some hallucinations, I think it is best to continue on the half dose and she can resume the normal dose when she gets home and in her familiar surroundings Continue current Parkinson's regimen Rehabilitation modalities Discussed with patient's daughter. Follow-up with Dr. Fonseca Subjective Still some hallucinations occasional Objective Vital Signs Date Time Temp Pulse Resp B/P (MAP) Pulse Ox O2 Delivery O2 Flow Rate FiO2 02/07/21 07:25 Room Air 02/07/21 07:00 98.1 56 18 156/72 (100) 100 98.1 Intake and Output 02/07/21 07:00 Intake Total 920 ml Output Total 2450 ml Balance -1530 ml Intake Oral 920 ml Output Urine Total 2450 ml PHYSICAL EXAM Alert. Oriented to person. Voice is stronger. Still some mild hallucinations PERRL. EOMI. CN: no focal findings. Muscle tone: Cogwheel rigidity better Muscle strength: 4/5 DTR: 2+ Plantar reflex: Flexor Gait: not examined in bed. Sensory exam: no abnormal findings. No cerebellar signs elicited. Masked facies, bradykinesia, no tremor Review of Relevant I have reviewed the following items dami (where applicable) has been applied. Labs Laboratory Tests Test 02/07/21 06:05 White Blood Count 7.0 x10^3/uL (4.0-11.0) Red Blood Count 3.34 x10^6/uL (3.50-5.40) Hemoglobin 10.5 g/dL (12.0-15.5) Hematocrit 30.8 % (36.0-47.0) Mean Corpuscular Volume 92 fL (79-100) Mean Corpuscular Hemoglobin 31 pg (25-35) Mean Corpuscular Hemoglobin Concent 34 g/dL (31-37) Red Cell Distribution Width 15.1 % (11.5-14.5) Platelet Count 277 x10^3/uL (140-400) Neutrophils (%) (Auto) 70 % (31-73) Lymphocytes (%) (Auto) 19 % (24-48) Monocytes (%) (Auto) 8 % (0-9) Eosinophils (%) (Auto) 3 % (0-3) Basophils (%) (Auto) 0 % (0-3) Neutrophils # (Auto) 4.9 x10^3/uL (1.8-7.7) Lymphocytes # (Auto) 1.3 x10^3/uL (1.0-4.8) Monocytes # (Auto) 0.6 x10^3/uL (0.0-1.1) Eosinophils # (Auto) 0.2 x10^3/uL (0.0-0.7) Basophils # (Auto) 0.0 x10^3/uL (0.0-0.2) Laboratory Tests Test 02/07/21 06:05 White Blood Count 7.0 x10^3/uL (4.0-11.0) Red Blood Count 3.34 x10^6/uL (3.50-5.40) Hemoglobin 10.5 g/dL (12.0-15.5) Hematocrit 30.8 % (36.0-47.0) Mean Corpuscular Volume 92 fL (79-100) Mean Corpuscular Hemoglobin 31 pg (25-35) Mean Corpuscular Hemoglobin Concent 34 g/dL (31-37) Red Cell Distribution Width 15.1 % (11.5-14.5) Platelet Count 277 x10^3/uL (140-400) Neutrophils (%) (Auto) 70 % (31-73) Lymphocytes (%) (Auto) 19 % (24-48) Monocytes (%) (Auto) 8 % (0-9) Eosinophils (%) (Auto) 3 % (0-3) Basophils (%) (Auto) 0 % (0-3) Neutrophils # (Auto) 4.9 x10^3/uL (1.8-7.7) Lymphocytes # (Auto) 1.3 x10^3/uL (1.0-4.8) Monocytes # (Auto) 0.6 x10^3/uL (0.0-1.1) Eosinophils # (Auto) 0.2 x10^3/uL (0.0-0.7) Basophils # (Auto) 0.0 x10^3/uL (0.0-0.2) Microbiology 02/03/21 Urine Culture - Final, Complete 02/03/21 Antimicrobic Susceptibility - Final, Complete Medications Current Medications Ondansetron HCl (Zofran) 4 mg PRN Q8HRS PRN IV NAUSEA/VOMITING 1ST CHOICE; Start 02/02/21 at 22:15; Stop 02/03/21 at 13:05; Status DC Morphine Sulfate (Morphine Sulfate) 2 mg PRN Q2HR PRN IV SEVERE PAIN 7-10; Start 02/02/21 at 22:15; Stop 02/03/21 at 22:14; Status DC Acetaminophen (Tylenol) 650 mg PRN Q4HRS PRN PO FEVER > 100.3'F; Start 02/02/21 at 22:15; Stop 02/03/21 at 22:14; Status DC Atorvastatin Calcium (Lipitor) 10 mg HS PO Last administered on 02/06/21at 21:12; Start 02/03/21 at 21:00 Levothyroxine Sodium (Synthroid) 75 mcg DAILY06 PO Last administered on 02/03/21at 05:47; Start 02/03/21 at 06:00; Stop 02/03/21 at 06:22; Status DC Aspirin (Aspirin Chewable) 81 mg 0830 PO Last administered on 02/07/21at 08:43; Start 02/03/21 at 08:30 Famotidine (Pepcid) 40 mg HS PO Last administered on 02/06/21at 21:13; Start 02/03/21 at 21:00 Levothyroxine Sodium (Synthroid) 62.5 mcg DAILY06 PO ; Start 02/04/21 at 06:00; Stop 02/03/21 at 11:36; Status DC Ondansetron HCl (Zofran) 4 mg PRN Q6HRS PRN IVP NAUSEA/VOMITING; Start 02/03/21 at 11:30 Al Hydroxide/Mg Hydroxide (Mylanta Plus Xs) 30 ml PRN Q3HRS PRN PO HEARTBURN / GAS; Start 02/03/21 at 11:30 Calcium Carbonate/ Glycine (Tums) 500 mg PRN Q3HRS PRN PO HEARTBURN / GAS -1ST CHOICE; Start 02/03/21 at 11:30 Famotidine (Pepcid) 20 mg BID PO ; Start 02/03/21 at 21:00; Stop 02/03/21 at 11:27; Status DC Heparin Sodium (Porcine) (Heparin Sodium) 5,000 unit Q8HRS SQ Last administered on 02/05/21at 05:41; Start 02/03/21 at 14:00 Sodium Chloride (Normal Saline Flush) 3 ml QSHIFT PRN IV AFTER MEDS AND BLOOD DRAWS; Start 02/03/21 at 11:30 Sodium Chloride 1,000 ml @ 50 mls/hr Q20H IV Last administered on 02/06/21at 21:44; Start 02/03/21 at 12:00 Docusate Sodium (Colace) 100 mg BID PO Last administered on 02/07/21at 08:42; Start 02/03/21 at 21:00 Magnesium Hydroxide (Milk Of Magnesia) 2,400 mg PRN Q12HR PRN PO CONSTIPATION 2ND CHOICE; Start 02/03/21 at 11:30 Carbidopa/Levodopa (Sinemet 25/100) 1 tab 6XDAY PO Last administered on 02/07/21at 06:00; Start 02/03/21 at 13:00 Polyethylene Glycol (miraLAX PACKET) 17 gm PRN BID PRN PO CONSTIPATION; Start 02/03/21 at 11:30 Non-Formulary Medication (Ranitidine Hcl ) 150 mg DAILY PO ; Start 02/04/21 at 09:00; Stop 02/03/21 at 11:27; Status DC Levothyroxine Sodium (Synthroid) 100 mcg DAILY06 PO Last administered on 02/07/21at 06:00; Start 02/03/21 at 12:00 Ropinirole HCl (Requip) 0.5 mg TID PO Last administered on 02/07/21at 08:43; Start 02/03/21 at 14:00 Ceftriaxone Sodium (Rocephin) 1 gm Q24H IVP ; Start 02/04/21 at 10:45; Status UNV Cefepime HCl (Maxipime) 2 gm Q12HR IVP Last administered on 02/07/21at 08:48; Start 02/04/21 at 11:00 Potassium Bicarbonate (Potassium Effervescent Tablet) 40 meq 1X ONCE PO Last administered on 02/04/21at 12:32; Start 02/04/21 at 11:30; Stop 02/04/21 at 11:31; Status DC Lactobacillus Rhamnosus (Culturelle) 1 cap BID PO Last administered on 02/07/21at 08:43; Start 02/04/21 at 21:00 Carbidopa/Levodopa (Sinemet Cr) 1 tab.sa 6XDAY PO Last administered on 02/07/21at 06:00; Start 02/05/21 at 16:00 Hydrochlorothiazide (Microzide) 12.5 mg DAILY PO Last administered on 02/07/21at 08:43; Start 02/06/21 at 13:00 Active Scripts Active Decadron (Dexamethasone) 4 Mg Tablet 2 Mg PO TID 7 Days Miralax (Polyethylene Glycol 3350) 17 Gm Powd.pack 1 Pkt PO PRN BID PRN 30 Days Reported Atorvastatin Calcium 10 Mg Tablet 10 Mg PO HS PRN Famotidine 40 Mg Tablet 40 Mg PO HS Ropinirole Hcl 5 Mg Tablet 5 Mg PO TID Carbidopa-Levodopa 25-250 Tab (Carbidopa/Levodopa) 1 Each Tablet 1 Tab PO 6XDAY 30 Days Carbidopa-Levodopa 25-100 Tab (Carbidopa/Levodopa) 1 Each Tablet 1 Tab PO 6XDAY 30 Days Ciclopirox (Ciclopirox Olamine) 15 Gm Cream..g. 1 Teja TP HS NITROGLYCERIN SubLingual (Nitroglycerin) 0.4 Mg Tab.subl 0.4 Mg SL PRN Q5MIN PRN Atorvastatin Calcium 10 Mg Tablet 1 Tab PO DAILY Ranitidine Hcl 150 Mg Tablet 150 Mg PO DAILY Requip (Ropinirole Hcl) 0.5 Mg Tablet 0.5 Mg PO TID Hydrochlorothiazide Tablet (Hydrochlorothiazide) 12.5 Mg Tablet 12.5 Mg PO DAILY Levothyroxine Sodium 75 Mcg Tablet 1 Tab PO DAILY Sinemet Cr 25-100 Tablet (Carbidopa/Levodopa) 1 Each Tablet.er 1 Tab PO FIVE TIMES A DAY Sinemet Cr 50-200 Tablet (Carbidopa/Levodopa) 1 Each Tablet.er 1 Tab PO SIX TIMES A DAY Vitals/I & O Vital Sign - Last 24 Hours 02/06/21 02/06/21 02/06/21 02/06/21 12:00 16:00 19:55 20:00 Temp 99.0 99.0 98.1 99.0 99.0 98.1 Pulse 58 54 48 Resp 18 16 18 B/P (MAP) 114/61 (78) 122/64 (83) 125/55 (78) Pulse Ox 96 95 100 O2 Delivery Room Air Room Air Room Air Room Air 02/06/21 02/07/21 02/07/21 02/07/21 23:22 04:00 07:00 07:25 Temp 97.8 98.1 97.8 98.1 Pulse 50 56 Resp 20 18 18 B/P (MAP) 156/68 (97) 156/72 (100) Pulse Ox 100 100 O2 Delivery Room Air Room Air Room Air Intake and Output 02/06/21 02/06/21 02/07/21 15:00 23:00 07:00 Intake Total 240 ml 680 ml Output Total 750 ml 300 ml 1400 ml Balance -510 ml -300 ml -720 ml Justicifation of Admission Dx: Justifications for Admission: Justification of Admission Dx: Yes Sepsis: Infection MESHA ASHRAF MD Feb 07, 2021 09:24
[2021-02-07 10:34] VITALS: BP 136/76
--- NOTE | 2021-02-07 12:14 | PDOC ---
[facility] PROGRESS NOTE Date of Service DOS: DATE: 02/07/21 TIME: 12:11 Chief Complaint Chief Complaint A/P: marked bradycardia, possibly due to hypothyroid state marked neutropenia Moderate amount of stool identified throughout the colon likely constipation. HX SUBDURAL HEMATOMA 2018 GERD Hypertension Parkinson's Falls Grave's disease on oral replacement PVD s/p peripheral stents Bladder dystonia - with intermittent self-catheterization, seen by Urology outpatient plan ADMIT NEUROLOGY CONSULT HEME CONSULT RETIC, FE PANEL PT/OT TREND WBC MAY NEED SNF dvt prophylaxis inc synthroid to 100 mcg po daily consider CT HEAD uti suspect she willl need > 72 hr stay to stabilize current issure Justifications for Admission Other Justification History of Present Illness History of Present Illness Ms Wilkes is a 65 year old female w/ PMHx parkinson, HTN, GERD, Graves disease, PVD s/p stenting, bladder dystonia with intermittent self cath who presented to ED c/o bradycardia., weakness, neutropenia, falls Patient states she felt a little bit weak lightheaded. States her pulse is usually 45 but today it was 35-36. notes history of Parkinson's disease and is on carbidopa and she takes hydrochlorothiazide for hypertension. Patient has had decreased appetite and p.o. intake. Has had a 10 pound weight loss over the past 2 weeks. Patient states she has not had a bowel movement in about 2 days, tsh = 11.0, had reduced dose of synthroid to 0.0625mg a few weeks ago denies fever, chills of angina, SHE FELL IN 2019 AND SUFFERED A SUBDURAL HEMATOMA, still uses a walker at home , fell again 4 weeks ago at home NEUROLOGY CONSULT /HEME CONSULT// RETIC, FE PANEL //PT/OT TREND WBC MAY NEED SNF dvt prophylaxis inc synthroid to 100 mcg po daily consider CT HEAD 02/04: weaker today. begin iv cefipime uti 02/05: ICU SEPSIS DUE TO UTI. weaker today, more confused, will not take her meds today 02/06: Urine with pseudomonas. Patient with cipro allergy. Transferred from ICU. Afebrile. Seen bedside with sister. Discussed with therapy recommends for SNF. Patient sisters and patient are opposed to going to skilled facility. Encouraged to continue exercises ambulation and DC Richards catheter Vitals/I&O Vitals/I&O: Vital Signs Date Time Temp Pulse Resp B/P (MAP) Pulse Ox O2 Delivery O2 Flow Rate FiO2 02/07/21 10:34 97.3 64 18 136/76 (96) 97 Room Air 97.3 I & O 02/06/21 02/06/21 02/07/21 15:00 23:00 07:00 Intake Total 240 ml 680 ml Output Total 750 ml 300 ml 1400 ml Balance -510 ml -300 ml -720 ml Physical Exam Physical Exam: NOT ORIENTED, THINKS SHE IS IN HELL , but talking about [place], lethargic General: Alert, Oriented X3, Cooperative, No acute distress Heart: Regular rate (SR), Normal S1, Normal S2, No murmurs Lungs: Clear Abdomen: Normal bowel sounds, Soft, No tenderness, No masses Extremities: No clubbing, No cyanosis, No edema Skin: No breakdown, No significant lesion Labs Labs: Laboratory Tests Test 02/07/21 06:05 White Blood Count 7.0 x10^3/uL (4.0-11.0) Red Blood Count 3.34 x10^6/uL (3.50-5.40) Hemoglobin 10.5 g/dL (12.0-15.5) Hematocrit 30.8 % (36.0-47.0) Mean Corpuscular Volume 92 fL (79-100) Mean Corpuscular Hemoglobin 31 pg (25-35) Mean Corpuscular Hemoglobin Concent 34 g/dL (31-37) Red Cell Distribution Width 15.1 % (11.5-14.5) Platelet Count 277 x10^3/uL (140-400) Neutrophils (%) (Auto) 70 % (31-73) Lymphocytes (%) (Auto) 19 % (24-48) Monocytes (%) (Auto) 8 % (0-9) Eosinophils (%) (Auto) 3 % (0-3) Basophils (%) (Auto) 0 % (0-3) Neutrophils # (Auto) 4.9 x10^3/uL (1.8-7.7) Lymphocytes # (Auto) 1.3 x10^3/uL (1.0-4.8) Monocytes # (Auto) 0.6 x10^3/uL (0.0-1.1) Eosinophils # (Auto) 0.2 x10^3/uL (0.0-0.7) Basophils # (Auto) 0.0 x10^3/uL (0.0-0.2) Assessment and Plan Assessmemt and Plan Problems Medical Problems: (1) Bradycardia Status: Acute (2) Leukopenia Status: Acute Comment Review of Relevant I have reviewed the following items dami (where applicable) has been applied. Medications: Current Medications Medications (Trade) Dose Ordered Sig/Karol Route PRN Reason Start Time Stop Time Status Last Admin Dose Admin Hydrochlorothiazide (Microzide) 12.5 mg DAILY PO 02/06/21 13:00 02/07/21 08:43 Justifications for Admission General Conditions Other justification for admit: BRADYCARDIA, LEUKOPENIA Other Justification SABI HARRIS MD Feb 07, 2021 12:14
--- NOTE | 2021-02-07 12:20 | NUR ---
SW following. Discussed with RN, pt from home with sisters, room air, regular diet. Therapy recommending Home Health. SW met with pt and sister, Berenice at bedside, they are agreeable to home health and do not have a preference of provider. Dalton Munoz RN notified. COREEN will continue to follow. Addendum: 02/07/21 at 1508 by CRISTIAN ANGELA [facility] RN notified.
[2021-02-07 14:32] VITALS: BP 100/45
[2021-02-07 20:00] VITALS: BP 141/79
[2021-02-07] MEDS: FAMOTIDINE 20 MG TABLET. PO SCH (20:27)
[2021-02-07] MEDS: ATORVASTATIN CALCIUM 10 MG TABLET. PO SCH (20:28)
[2021-02-07 23:59] VITALS: BP 115/58
[2021-02-08 03:00] VITALS: BP 132/52
[2021-02-08] MEDS: CARBIDOPA/LEVODOPA 25/100MG TABLET PO SCH ×6 (05:31→21:58)
[2021-02-08] MEDS: LEVOTHYROXINE 100 MCG TABLET PO SCH (05:32)
[2021-02-08] MEDS: CARBIDOPA/LEVODOPA CR 25/100MG TABLET.SA. PO SCH ×6 (05:32→21:58)
[2021-02-08] MEDS: HEPARIN for SUB-Q USE 5,000 UNIT/ML VIAL. SQ SCH ×3 (05:33→22:02)
[2021-02-08 06:24] LABS: CREATININE 0.6 mg/dL (0.6-1.0); GFR 122.2; POTASSIUM 4.2 mmol/L (3.5-5.1)
[2021-02-08 08:00] VITALS: BP 116/76
[2021-02-08 08:18] LABS: BASO # 0.1 x10^3/uL (0.0-0.2); BASO % 1 % (0-3); EOS # 0.2 x10^3/uL (0.0-0.7); EOS % 4 % (0-3); HEMATOCRIT 28.6 % (36.0-47.0); HEMOGLOBIN 9.7 g/dL (12.0-15.5); LYMPH # 1.4 x10^3/uL (1.0-4.8); LYMPH % 29 % (24-48); MEAN CORPUSCULAR HEMOGLOBIN 31 pg (25-35); MEAN CORPUSCULAR HGB CONC 34 g/dL (31-37); MEAN CORPUSCULAR VOLUME 92 fL (79-100); MONO # 0.5 x10^3/uL (0.0-1.1); MONO % 10 % (0-9); NEUT # 2.7 x10^3/uL (1.8-7.7); NEUT % 56 % (31-73); PLATELET COUNT 258 x10^3/uL (140-400); RED BLOOD COUNT 3.12 x10^6/uL (3.50-5.40); RED CELL DISTRIBUTION WIDTH 14.9 % (11.5-14.5); WHITE BLOOD COUNT 4.8 x10^3/uL (4.0-11.0)
[2021-02-08] MEDS: DOCUSATE SODIUM 100 MG CAPSULE. PO SCH ×2 (08:37→21:20)
[2021-02-08] MEDS: CEFEPIME HCL IV Push 2 GM VIAL. IVP SCH ×2 (08:37→21:21)
[2021-02-08] MEDS: ASPIRIN CHEWABLE 81 MG TABLET. PO SCH (08:37)
[2021-02-08] MEDS: LACTOBACILLUS RHAMNOSUS GG 1 CAPSULE. PO SCH ×2 (08:37→21:20)
[2021-02-08] MEDS: rOPINIRole 0.25 MG TABLET. PO SCH ×3 (08:38→19:55)
--- NOTE | 2021-02-08 11:10 | PDOC ---
[facility] [facility] PROGRESS NOTE Date of Service DOS: DATE: 02/08/21 TIME: 11:09 Chief Complaint Chief Complaint A/P: marked bradycardia, possibly due to hypothyroid state marked neutropenia Moderate amount of stool identified throughout the colon likely constipation. HX SUBDURAL HEMATOMA 2018 GERD Hypertension Parkinson's Falls Grave's disease on oral replacement PVD s/p peripheral stents Bladder dystonia - with intermittent self-catheterization, seen by Urology outpatient plan ADMIT NEUROLOGY CONSULT HEME CONSULT RETIC, FE PANEL PT/OT TREND WBC MAY NEED SNF dvt prophylaxis inc synthroid to 100 mcg po daily consider CT HEAD uti suspect she willl need > 72 hr stay to stabilize current issure Justifications for Admission Other Justification History of Present Illness History of Present Illness Ms Wilkes is a 65 year old female w/ PMHx parkinson, HTN, GERD, Graves disease, PVD s/p stenting, bladder dystonia with intermittent self cath who presented to ED c/o bradycardia., weakness, neutropenia, falls Patient states she felt a little bit weak lightheaded. States her pulse is usually 45 but today it was 35-36. notes history of Parkinson's disease and is on carbidopa and she takes hydrochlorothiazide for hypertension. Patient has had decreased appetite and p.o. intake. Has had a 10 pound weight loss over the past 2 weeks. Patient states she has not had a bowel movement in about 2 days, tsh = 11.0, had reduced dose of synthroid to 0.0625mg a few weeks ago denies fever, chills of angina, SHE FELL IN 2019 AND SUFFERED A SUBDURAL HEMATOMA, still uses a walker at home , fell again 4 weeks ago at home NEUROLOGY CONSULT /HEME CONSULT// RETIC, FE PANEL //PT/OT TREND WBC MAY NEED SNF dvt prophylaxis inc synthroid to 100 mcg po daily consider CT HEAD 02/04: weaker today. begin iv cefipime uti 02/05: ICU SEPSIS DUE TO UTI. weaker today, more confused, will not take her meds today 02/06: Urine with pseudomonas. Patient with cipro allergy. Transferred from ICU. 02/07: Afebrile. Seen bedside with sister. Discussed with therapy recommends for SNF. Patient sisters and patient are opposed to going to skilled facility. Afebrile. Able to eat pancakes on her own for breakfast. Having trouble straightening her legs. Awaiting therapy evaluation today. Encouraged to continue exercises ambulation and DC Richards catheter. Informed me she was on 62.5 mcg of levothyroxine as of August and we discussed calculating weight- based dosing on discharge to be 75 mcg based on her TSH of 11. Vitals/I&O Vitals/I&O: Vital Signs Date Time Temp Pulse Resp B/P (MAP) Pulse Ox O2 Delivery O2 Flow Rate FiO2 02/08/21 08:00 98.6 57 17 116/76 (89) 94 Room Air 98.6 I & O 02/07/21 02/07/21 02/08/21 15:00 23:00 07:00 Intake Total 120 ml 60 ml Output Total 500 ml 450 ml Balance -380 ml -390 ml Physical Exam Physical Exam: NOT ORIENTED, THINKS SHE IS IN HELL , but talking about Royal, lethargic General: Alert, Oriented X3, Cooperative, No acute distress Heart: Regular rate (SR), Normal S1, Normal S2, No murmurs Lungs: Clear Abdomen: Normal bowel sounds, Soft, No tenderness, No masses Extremities: No clubbing, No cyanosis, No edema Skin: No breakdown, No significant lesion Labs Labs: Laboratory Tests Test 02/08/21 04:50 02/08/21 07:30 Sodium Level 138 mmol/L (136-145) Potassium Level 4.2 mmol/L (3.5-5.1) Chloride Level 101 mmol/L (98-107) Carbon Dioxide Level 29 mmol/L (21-32) Anion Gap 8 (6-14) Blood Urea Nitrogen 9 mg/dL (7-20) Creatinine 0.6 mg/dL (0.6-1.0) Estimated GFR (Cockcroft-Gault) 122.2 Glucose Level 70 mg/dL (70-99) Calcium Level 9.0 mg/dL (8.5-10.1) White Blood Count 4.8 x10^3/uL (4.0-11.0) Red Blood Count 3.12 x10^6/uL (3.50-5.40) Hemoglobin 9.7 g/dL (12.0-15.5) Hematocrit 28.6 % (36.0-47.0) Mean Corpuscular Volume 92 fL (79-100) Mean Corpuscular Hemoglobin 31 pg (25-35) Mean Corpuscular Hemoglobin Concent 34 g/dL (31-37) Red Cell Distribution Width 14.9 % (11.5-14.5) Platelet Count 258 x10^3/uL (140-400) Neutrophils (%) (Auto) 56 % (31-73) Lymphocytes (%) (Auto) 29 % (24-48) Monocytes (%) (Auto) 10 % (0-9) Eosinophils (%) (Auto) 4 % (0-3) Basophils (%) (Auto) 1 % (0-3) Neutrophils # (Auto) 2.7 x10^3/uL (1.8-7.7) Lymphocytes # (Auto) 1.4 x10^3/uL (1.0-4.8) Monocytes # (Auto) 0.5 x10^3/uL (0.0-1.1) Eosinophils # (Auto) 0.2 x10^3/uL (0.0-0.7) Basophils # (Auto) 0.1 x10^3/uL (0.0-0.2) Assessment and Plan Assessmemt and Plan Problems Medical Problems: (1) Bradycardia Status: Acute (2) Leukopenia Status: Acute Comment Review of Relevant I have reviewed the following items dami (where applicable) has been applied. Justifications for Admission General Conditions Other justification for admit: BRADYCARDIA, LEUKOPENIA Other Justification SABI HARRIS MD Feb 08, 2021 11:10
[2021-02-08 12:03] VITALS: BP 125/57
--- NOTE | 2021-02-08 12:30 | PDOC ---
PROGRESS NOTES Date of Service DATE: 02/08/21 TIME: 12:28 Assessment Problems Medical Problems: (1) Bradycardia Status: Acute (2) Leukopenia Status: Acute Psychosis, patient has had hallucinations previously, better today. Parkinson's, stable, sees Dr. Mckeon, internationally renowned Parkinson's expert at . Patient is on her Sinemet immediate release as well as half of her normal dose of CR History of subdural hematoma, 02/[address] negative Bradycardia: carbidopa/levodopa and ropinirole do not cause this, they can cause hypotension. Severe hypothyroidism which of course is the most likely cause of her issues. Plan Continue on the half dose Sinemet CR and she can resume the normal dose when she gets home and in her familiar surroundings Continue current Parkinson's regimen Rehabilitation modalities Discussed with patient's daughter. Follow-up with Dr. Marian Avina with me for discharge, family is all set up at home including the straight catheterizations, they wanted to go home Subjective No complaints Objective Vital Signs Date Time Temp Pulse Resp B/P (MAP) Pulse Ox O2 Delivery O2 Flow Rate FiO2 02/08/21 12:03 97.8 56 17 125/57 (79) 96 Room Air 97.8 Intake and Output 02/08/21 07:00 Intake Total 180 ml Output Total 950 ml Balance -770 ml Intake Oral 180 ml Output Urine Total 950 ml PHYSICAL EXAM Alert. Oriented to person. Voice is strong. Denies hallucinations PERRL. EOMI. CN: no focal findings. Muscle tone: Cogwheel rigidity better Muscle strength: 4/5 DTR: 2+ Plantar reflex: Flexor Gait: not examined in bed. Sensory exam: no abnormal findings. No cerebellar signs elicited. Masked facies, bradykinesia, no tremor Review of Relevant I have reviewed the following items dami (where applicable) has been applied. Labs Laboratory Tests Test 02/07/21 06:05 02/08/21 04:50 02/08/21 07:30 White Blood Count 7.0 x10^3/uL (4.0-11.0) 4.8 x10^3/uL (4.0-11.0) Red Blood Count 3.34 x10^6/uL (3.50-5.40) 3.12 x10^6/uL (3.50-5.40) Hemoglobin 10.5 g/dL (12.0-15.5) 9.7 g/dL (12.0-15.5) Hematocrit 30.8 % (36.0-47.0) 28.6 % (36.0-47.0) Mean Corpuscular Volume 92 fL (79-100) 92 fL (79-100) Mean Corpuscular Hemoglobin 31 pg (25-35) 31 pg (25-35) Mean Corpuscular Hemoglobin Concent 34 g/dL (31-37) 34 g/dL (31-37) Red Cell Distribution Width 15.1 % (11.5-14.5) 14.9 % (11.5-14.5) Platelet Count 277 x10^3/uL (140-400) 258 x10^3/uL (140-400) Neutrophils (%) (Auto) 70 % (31-73) 56 % (31-73) Lymphocytes (%) (Auto) 19 % (24-48) 29 % (24-48) Monocytes (%) (Auto) 8 % (0-9) 10 % (0-9) Eosinophils (%) (Auto) 3 % (0-3) 4 % (0-3) Basophils (%) (Auto) 0 % (0-3) 1 % (0-3) Neutrophils # (Auto) 4.9 x10^3/uL (1.8-7.7) 2.7 x10^3/uL (1.8-7.7) Lymphocytes # (Auto) 1.3 x10^3/uL (1.0-4.8) 1.4 x10^3/uL (1.0-4.8) Monocytes # (Auto) 0.6 x10^3/uL (0.0-1.1) 0.5 x10^3/uL (0.0-1.1) Eosinophils # (Auto) 0.2 x10^3/uL (0.0-0.7) 0.2 x10^3/uL (0.0-0.7) Basophils # (Auto) 0.0 x10^3/uL (0.0-0.2) 0.1 x10^3/uL (0.0-0.2) Sodium Level 138 mmol/L (136-145) Potassium Level 4.2 mmol/L (3.5-5.1) Chloride Level 101 mmol/L (98-107) Carbon Dioxide Level 29 mmol/L (21-32) Anion Gap 8 (6-14) Blood Urea Nitrogen 9 mg/dL (7-20) Creatinine 0.6 mg/dL (0.6-1.0) Estimated GFR (Cockcroft-Gault) 122.2 Glucose Level 70 mg/dL (70-99) Calcium Level 9.0 mg/dL (8.5-10.1) Laboratory Tests Test 02/08/21 04:50 02/08/21 07:30 Sodium Level 138 mmol/L (136-145) Potassium Level 4.2 mmol/L (3.5-5.1) Chloride Level 101 mmol/L (98-107) Carbon Dioxide Level 29 mmol/L (21-32) Anion Gap 8 (6-14) Blood Urea Nitrogen 9 mg/dL (7-20) Creatinine 0.6 mg/dL (0.6-1.0) Estimated GFR (Cockcroft-Gault) 122.2 Glucose Level 70 mg/dL (70-99) Calcium Level 9.0 mg/dL (8.5-10.1) White Blood Count 4.8 x10^3/uL (4.0-11.0) Red Blood Count 3.12 x10^6/uL (3.50-5.40) Hemoglobin 9.7 g/dL (12.0-15.5) Hematocrit 28.6 % (36.0-47.0) Mean Corpuscular Volume 92 fL (79-100) Mean Corpuscular Hemoglobin 31 pg (25-35) Mean Corpuscular Hemoglobin Concent 34 g/dL (31-37) Red Cell Distribution Width 14.9 % (11.5-14.5) Platelet Count 258 x10^3/uL (140-400) Neutrophils (%) (Auto) 56 % (31-73) Lymphocytes (%) (Auto) 29 % (24-48) Monocytes (%) (Auto) 10 % (0-9) Eosinophils (%) (Auto) 4 % (0-3) Basophils (%) (Auto) 1 % (0-3) Neutrophils # (Auto) 2.7 x10^3/uL (1.8-7.7) Lymphocytes # (Auto) 1.4 x10^3/uL (1.0-4.8) Monocytes # (Auto) 0.5 x10^3/uL (0.0-1.1) Eosinophils # (Auto) 0.2 x10^3/uL (0.0-0.7) Basophils # (Auto) 0.1 x10^3/uL (0.0-0.2) Microbiology 02/03/21 Urine Culture - Final, Complete 02/03/21 Antimicrobic Susceptibility - Final, Complete Medications Current Medications Ondansetron HCl (Zofran) 4 mg PRN Q8HRS PRN IV NAUSEA/VOMITING 1ST CHOICE; Start 02/02/21 at 22:15; Stop 02/03/21 at 13:05; Status DC Morphine Sulfate (Morphine Sulfate) 2 mg PRN Q2HR PRN IV SEVERE PAIN 7-10; Start 02/02/21 at 22:15; Stop 02/03/21 at 22:14; Status DC Acetaminophen (Tylenol) 650 mg PRN Q4HRS PRN PO FEVER > 100.3'F; Start 02/02/21 at 22:15; Stop 02/03/21 at 22:14; Status DC Atorvastatin Calcium (Lipitor) 10 mg HS PO Last administered on 02/07/21at 20:28; Start 02/03/21 at 21:00 Levothyroxine Sodium (Synthroid) 75 mcg DAILY06 PO Last administered on 02/03/21at 05:47; Start 02/03/21 at 06:00; Stop 02/03/21 at 06:22; Status DC Aspirin (Aspirin Chewable) 81 mg 0830 PO Last administered on 02/08/21at 08:37; Start 02/03/21 at 08:30 Famotidine (Pepcid) 40 mg HS PO Last administered on 02/07/21at 20:27; Start 02/03/21 at 21:00 Levothyroxine Sodium (Synthroid) 62.5 mcg DAILY06 PO ; Start 02/04/21 at 06:00; Stop 02/03/21 at 11:36; Status DC Ondansetron HCl (Zofran) 4 mg PRN Q6HRS PRN IVP NAUSEA/VOMITING; Start 02/03/21 at 11:30 Al Hydroxide/Mg Hydroxide (Mylanta Plus Xs) 30 ml PRN Q3HRS PRN PO HEARTBURN / GAS; Start 02/03/21 at 11:30 Calcium Carbonate/ Glycine (Tums) 500 mg PRN Q3HRS PRN PO HEARTBURN / GAS -1ST CHOICE; Start 02/03/21 at 11:30 Famotidine (Pepcid) 20 mg BID PO ; Start 02/03/21 at 21:00; Stop 02/03/21 at 11:27; Status DC Heparin Sodium (Porcine) (Heparin Sodium) 5,000 unit Q8HRS SQ Last administered on 02/08/21at 05:33; Start 02/03/21 at 14:00 Sodium Chloride (Normal Saline Flush) 3 ml QSHIFT PRN IV AFTER MEDS AND BLOOD DRAWS; Start 02/03/21 at 11:30 Sodium Chloride 1,000 ml @ 50 mls/hr Q20H IV Last administered on 02/06/21at 21:44; Start 02/03/21 at 12:00; Stop 02/07/21 at 12:53; Status DC Docusate Sodium (Colace) 100 mg BID PO Last administered on 02/08/21at 08:37; Start 02/03/21 at 21:00 Magnesium Hydroxide (Milk Of Magnesia) 2,400 mg PRN Q12HR PRN PO CONSTIPATION 2ND CHOICE; Start 02/03/21 at 11:30 Carbidopa/Levodopa (Sinemet 25/100) 1 tab 6XDAY PO Last administered on 02/08/21at 08:38; Start 02/03/21 at 13:00 Polyethylene Glycol (miraLAX PACKET) 17 gm PRN BID PRN PO CONSTIPATION; Start 02/03/21 at 11:30 Non-Formulary Medication (Ranitidine Hcl ) 150 mg DAILY PO ; Start 02/04/21 at 09:00; Stop 02/03/21 at 11:27; Status DC Levothyroxine Sodium (Synthroid) 100 mcg DAILY06 PO Last administered on 02/08/21 05:32; Start 02/03/21 at 12:00; Stop 02/08/21 at 11:09; Status DC Ropinirole HCl (Requip) 0.5 mg TID PO Last administered on 02/08/21at 08:38; Start 02/03/21 at 14:00 Ceftriaxone Sodium (Rocephin) 1 gm Q24H IVP ; Start 02/04/21 at 10:45; Status UNV Cefepime HCl (Maxipime) 2 gm Q12HR IVP Last administered on 02/08/21at 08:37; Start 02/04/21 at 11:00 Potassium Bicarbonate (Potassium Effervescent Tablet) 40 meq 1X ONCE PO Last administered on 02/04/21at 12:32; Start 02/04/21 at 11:30; Stop 02/04/21 at 11:31; Status DC Lactobacillus Rhamnosus (Culturelle) 1 cap BID PO Last administered on 02/08/21at 08:37; Start 02/04/21 at 21:00 Carbidopa/Levodopa (Sinemet Cr) 1 tab.sa 6XDAY PO Last administered on 02/08/21at 08:38; Start 02/05/21 at 16:00 Hydrochlorothiazide (Microzide) 12.5 mg DAILY PO Last administered on 02/07/21at 08:43; Start 02/06/21 at 13:00; Stop 02/07/21 at 12:49; Status DC Levothyroxine Sodium (Synthroid) 75 mcg DAILY06 PO ; Start 02/09/21 at 06:00 Active Scripts Active Decadron (Dexamethasone) 4 Mg Tablet 2 Mg PO TID 7 Days Miralax (Polyethylene Glycol 3350) 17 Gm Powd.pack 1 Pkt PO PRN BID PRN 30 Days Reported Atorvastatin Calcium 10 Mg Tablet 10 Mg PO HS PRN Famotidine 40 Mg Tablet 40 Mg PO HS Ropinirole Hcl 5 Mg Tablet 5 Mg PO TID Carbidopa-Levodopa 25-250 Tab (Carbidopa/Levodopa) 1 Each Tablet 1 Tab PO 6XDAY 30 Days Carbidopa-Levodopa 25-100 Tab (Carbidopa/Levodopa) 1 Each Tablet 1 Tab PO 6XDAY 30 Days Ciclopirox (Ciclopirox Olamine) 15 Gm Cream..g. 1 Teja TP HS NITROGLYCERIN SubLingual (Nitroglycerin) 0.4 Mg Tab.subl 0.4 Mg SL PRN Q5MIN PRN Atorvastatin Calcium 10 Mg Tablet 1 Tab PO DAILY Ranitidine Hcl 150 Mg Tablet 150 Mg PO DAILY Requip (Ropinirole Hcl) 0.5 Mg Tablet 0.5 Mg PO TID Hydrochlorothiazide Tablet (Hydrochlorothiazide) 12.5 Mg Tablet 12.5 Mg PO DAILY Levothyroxine Sodium 75 Mcg Tablet 1 Tab PO DAILY Sinemet Cr 25-100 Tablet (Carbidopa/Levodopa) 1 Each Tablet.er 1 Tab PO FIVE TIMES A DAY Sinemet Cr 50-200 Tablet (Carbidopa/Levodopa) 1 Each Tablet.er 1 Tab PO SIX TIMES A DAY Vitals/I & O Vital Sign - Last 24 Hours 02/07/21 02/07/21 02/07/21 02/07/21 14:32 20:00 20:00 23:59 Temp 97.9 97.7 98.4 97.9 97.7 98.4 Pulse 59 59 52 Resp 18 18 18 B/P (MAP) 100/45 (63) 141/79 (99) 115/58 (77) Pulse Ox 100 97 95 O2 Delivery Room Air Room Air 02/08/21 02/08/21 02/08/21 02/08/21 03:00 08:00 08:00 12:03 Temp 98.7 98.6 97.8 98.7 98.6 97.8 Pulse 54 57 56 Resp 16 17 17 B/P (MAP) 132/52 (78) 116/76 (89) 125/57 (79) Pulse Ox 95 94 96 O2 Delivery Room Air Room Air Room Air Intake and Output 02/07/21 02/07/21 02/08/21 15:00 23:00 07:00 Intake Total 120 ml 60 ml Output Total 500 ml 450 ml Balance -380 ml -390 ml Justicifation of Admission Dx: Justifications for Admission: Justification of Admission Dx: Yes Sepsis: Infection MESHA ASHRAF MD Feb 08, 2021 12:30
[2021-02-08 15:52] VITALS: BP 119/46
[2021-02-08 19:00] VITALS: BP 133/70
[2021-02-08] MEDS: ATORVASTATIN CALCIUM 10 MG TABLET. PO SCH (21:20)
[2021-02-08] MEDS: FAMOTIDINE 20 MG TABLET. PO SCH (21:21)
[2021-02-08 23:00] VITALS: BP 153/70
[2021-02-09] MEDS: HEPARIN for SUB-Q USE 5,000 UNIT/ML VIAL. SQ SCH (06:00)
[2021-02-09] MEDS ORDERED: LEVOTHYROXINE 100 MCG TABLET PO SCH (06:00)
[2021-02-09] MEDS: CARBIDOPA/LEVODOPA 25/100MG TABLET PO SCH ×3 (07:00→13:23)
[2021-02-09] MEDS: CARBIDOPA/LEVODOPA CR 25/100MG TABLET.SA. PO SCH ×3 (07:00→13:23)
--- NOTE | 2021-02-09 08:18 | PDOC ---
[employer] [facility] PROGRESS NOTE Date of Service DOS: DATE: 02/09/21 TIME: 08:18 Chief Complaint Chief Complaint A/P: marked bradycardia, possibly due to hypothyroid state marked neutropenia Moderate amount of stool identified throughout the colon likely constipation. HX SUBDURAL HEMATOMA 2018 GERD Hypertension Parkinson's Falls Grave's disease on oral replacement PVD s/p peripheral stents Bladder dystonia - with intermittent self-catheterization, seen by Urology outpatient plan ADMIT NEUROLOGY CONSULT HEME CONSULT RETIC, FE PANEL PT/OT TREND WBC MAY NEED SNF dvt prophylaxis inc synthroid to 100 mcg po daily consider CT HEAD uti suspect she willl need > 72 hr stay to stabilize current issure Justifications for Admission Other Justification History of Present Illness History of Present Illness Ms Wilkes is a 65 year old female w/ PMHx parkinson, HTN, GERD, Graves disease, PVD s/p stenting, bladder dystonia with intermittent self cath who presented to ED c/o bradycardia., weakness, neutropenia, falls Patient states she felt a little bit weak lightheaded. States her pulse is usually 45 but today it was 35-36. notes history of Parkinson's disease and is on carbidopa and she takes hydrochlorothiazide for hypertension. Patient has had decreased appetite and p.o. intake. Has had a 10 pound weight loss over the past 2 weeks. Patient states she has not had a bowel movement in about 2 days, tsh = 11.0, had reduced dose of synthroid to 0.0625mg a few weeks ago denies fever, chills of angina, SHE FELL IN 2018 AND SUFFERED A SUBDURAL HEMATOMA, still uses a walker at home , fell again 4 weeks ago at home NEUROLOGY CONSULT /HEME CONSULT// RETIC, FE PANEL //PT/OT TREND WBC MAY NEED SNF dvt prophylaxis inc synthroid to 100 mcg po daily consider CT HEAD 02/04: weaker today. begin iv cefipime uti 02/05: ICU SEPSIS DUE TO UTI. weaker today, more confused, will not take her meds today 02/06: Urine with pseudomonas. Patient with cipro allergy. Transferred from ICU. 02/07: Afebrile. Seen bedside with sister. Discussed with therapy recommends for SNF. Patient sisters and patient are opposed to going to skilled facility. 02/08: Afebrile. Able to eat pancakes on her own for breakfast. Having trouble straightening her legs. Awaiting therapy evaluation today. Encouraged to continue exercises ambulation and DC Richards catheter. Informed me she was on 62.5 mcg of levothyroxine as of August and we discussed calculating weight- based dosing on discharge to be 75 mcg based on her TSH of 11. Has f/u with Neurology, Dr. Fonseca Able to get up. Completed cefepime for Pseudomonas UTI. Richards cath removed today going home with home health and outpatient follow-up needs TSH checked in 3 months given her symptomatic hypothyroidism Continue on the half dose Sinemet CR and she can resume the normal dose when she gets home and in her familiar surroundings Continue current Parkinson's regimen Rehabilitation modalities - home health Discussed with patient's sisters Follow-up with Dr. Fonseca 5x daily prn straight catheterizations Vitals/I&O Vitals/I&O: Vital Signs Date Time Temp Pulse Resp B/P (MAP) Pulse Ox O2 Delivery O2 Flow Rate FiO2 02/08/21 23:00 98.1 62 18 153/70 (97) 98 98.1 02/08/21 20:00 Room Air I & O 02/08/21 02/08/21 02/09/21 15:00 23:00 07:00 Intake Total 100 ml 300 ml Output Total 250 ml 250 ml Balance 100 ml 50 ml -250 ml Physical Exam Physical Exam: NOT ORIENTED, THINKS SHE IS IN HELL , but talking about Royal, lethargic General: Alert, Oriented X3, Cooperative, No acute distress Heart: Regular rate (SR), Normal S1, Normal S2, No murmurs Lungs: Clear Abdomen: Normal bowel sounds, Soft, No tenderness, No masses Extremities: No clubbing, No cyanosis, No edema Skin: No breakdown, No significant lesion Assessment and Plan Assessmemt and Plan Problems Medical Problems: (1) Bradycardia Status: Acute (2) Leukopenia Status: Acute Comment Review of Relevant I have reviewed the following items dami (where applicable) has been applied. Justifications for Admission General Conditions Other justification for admit: BRADYCARDIA, LEUKOPENIA Other Justification SABI HARRIS MD Feb 09, 2021 08:18
[2021-02-09 08:31] VITALS: BP 114/53
[2021-02-09] MEDS: rOPINIRole 0.25 MG TABLET. PO SCH ×3 (09:00→13:23)
[2021-02-09] MEDS: ASPIRIN CHEWABLE 81 MG TABLET. PO SCH (09:28)
[2021-02-09] MEDS: CEFEPIME HCL IV Push 2 GM VIAL. IVP SCH (09:28)
[2021-02-09] MEDS: DOCUSATE SODIUM 100 MG CAPSULE. PO SCH (09:28)
[2021-02-09] MEDS: LACTOBACILLUS RHAMNOSUS GG 1 CAPSULE. PO SCH (09:28)
--- NOTE | 2021-02-09 09:40 | NUR ---
SW following. Discussed with RN, pt from home with sisters, room air, regular diet. Family wanting to take pt home today. Pt accepted with [facility]. SW will continue to follow.
--- NOTE | 2021-02-09 10:11 | PDOC ---
PROGRESS NOTES Date of Service DATE: 02/09/21 TIME: 10:08 Assessment Problems Medical Problems: (1) Bradycardia Status: Acute (2) Leukopenia Status: Acute Psychosis, patient has had hallucinations previously, resolved Parkinson's, stable, sees Dr. Mckeon, internationally renowned Parkinson's expert at . Patient is on her Sinemet immediate release as well as half of her normal dose of CR History of subdural hematoma, 02/[address] negative Bradycardia: carbidopa/levodopa and ropinirole do not cause this, they can cause hypotension. Severe hypothyroidism which of course is the most likely cause of her issues. Plan Continue on the half dose Sinemet CR and she can resume the normal dose when she gets home and in her familiar surroundings Continue current Parkinson's regimen Rehabilitation modalities Discussed with patient's daughter. Follow-up with Dr. Marian Avina with me for discharge, family is all set up at home including the straight catheterizations, they want to go home Subjective No complaints, wants to go home, doesn't want SNU Objective Vital Signs Date Time Temp Pulse Resp B/P (MAP) Pulse Ox O2 Delivery O2 Flow Rate FiO2 02/09/21 08:31 98.4 60 17 114/53 (73) 95 Room Air 98.4 Intake and Output 02/09/21 07:00 Intake Total 400 ml Output Total 500 ml Balance -100 ml Intake Oral 400 ml Output Urine Total 500 ml PHYSICAL EXAM Alert. Oriented to person. Voice is strong. Denies hallucinations PERRL. EOMI. CN: no focal findings. Muscle tone: Cogwheel rigidity better Muscle strength: 4/5 DTR: 2+ Plantar reflex: Flexor Gait: not examined in bed. Sensory exam: no abnormal findings. No cerebellar signs elicited. Masked facies, bradykinesia, no tremor Review of Relevant I have reviewed the following items dami (where applicable) has been applied. Labs Laboratory Tests Test 02/08/21 04:50 02/08/21 07:30 Sodium Level 138 mmol/L (136-145) Potassium Level 4.2 mmol/L (3.5-5.1) Chloride Level 101 mmol/L (98-107) Carbon Dioxide Level 29 mmol/L (21-32) Anion Gap 8 (6-14) Blood Urea Nitrogen 9 mg/dL (7-20) Creatinine 0.6 mg/dL (0.6-1.0) Estimated GFR (Cockcroft-Gault) 122.2 Glucose Level 70 mg/dL (70-99) Calcium Level 9.0 mg/dL (8.5-10.1) White Blood Count 4.8 x10^3/uL (4.0-11.0) Red Blood Count 3.12 x10^6/uL (3.50-5.40) Hemoglobin 9.7 g/dL (12.0-15.5) Hematocrit 28.6 % (36.0-47.0) Mean Corpuscular Volume 92 fL (79-100) Mean Corpuscular Hemoglobin 31 pg (25-35) Mean Corpuscular Hemoglobin Concent 34 g/dL (31-37) Red Cell Distribution Width 14.9 % (11.5-14.5) Platelet Count 258 x10^3/uL (140-400) Neutrophils (%) (Auto) 56 % (31-73) Lymphocytes (%) (Auto) 29 % (24-48) Monocytes (%) (Auto) 10 % (0-9) Eosinophils (%) (Auto) 4 % (0-3) Basophils (%) (Auto) 1 % (0-3) Neutrophils # (Auto) 2.7 x10^3/uL (1.8-7.7) Lymphocytes # (Auto) 1.4 x10^3/uL (1.0-4.8) Monocytes # (Auto) 0.5 x10^3/uL (0.0-1.1) Eosinophils # (Auto) 0.2 x10^3/uL (0.0-0.7) Basophils # (Auto) 0.1 x10^3/uL (0.0-0.2) Microbiology 02/03/21 Urine Culture - Final, Complete 02/03/21 Antimicrobic Susceptibility - Final, Complete Medications Current Medications Ondansetron HCl (Zofran) 4 mg PRN Q8HRS PRN IV NAUSEA/VOMITING 1ST CHOICE; Start 02/02/21 at 22:15; Stop 02/03/21 at 13:05; Status DC Morphine Sulfate (Morphine Sulfate) 2 mg PRN Q2HR PRN IV SEVERE PAIN 7-10; Start 02/02/21 at 22:15; Stop 02/03/21 at 22:14; Status DC Acetaminophen (Tylenol) 650 mg PRN Q4HRS PRN PO FEVER > 100.3'F; Start 02/02/21 at 22:15; Stop 02/03/21 at 22:14; Status DC Atorvastatin Calcium (Lipitor) 10 mg HS PO Last administered on 02/08/21at 21:20; Start 02/03/21 at 21:00 Levothyroxine Sodium (Synthroid) 75 mcg DAILY06 PO Last administered on 02/03/21at 05:47; Start 02/03/21 at 06:00; Stop 02/03/21 at 06:22; Status DC Aspirin (Aspirin Chewable) 81 mg 0830 PO Last administered on 02/09/21at 09:28; Start 02/03/21 at 08:30 Famotidine (Pepcid) 40 mg HS PO Last administered on 02/08/21at 21:21; Start 02/03/21 at 21:00 Levothyroxine Sodium (Synthroid) 62.5 mcg DAILY06 PO ; Start 02/04/21 at 06:00; Stop 02/03/21 at 11:36; Status DC Ondansetron HCl (Zofran) 4 mg PRN Q6HRS PRN IVP NAUSEA/VOMITING; Start 02/03/21 at 11:30 Al Hydroxide/Mg Hydroxide (Mylanta Plus Xs) 30 ml PRN Q3HRS PRN PO HEARTBURN / GAS; Start 02/03/21 at 11:30 Calcium Carbonate/ Glycine (Tums) 500 mg PRN Q3HRS PRN PO HEARTBURN / GAS -1ST CHOICE; Start 02/03/21 at 11:30 Famotidine (Pepcid) 20 mg BID PO ; Start 02/03/21 at 21:00; Stop 02/03/21 at 11:27; Status DC Heparin Sodium (Porcine) (Heparin Sodium) 5,000 unit Q8HRS SQ Last administered on 02/08/21at 22:02; Start 02/03/21 at 14:00 Sodium Chloride (Normal Saline Flush) 3 ml QSHIFT PRN IV AFTER MEDS AND BLOOD DRAWS; Start 02/03/21 at 11:30 Sodium Chloride 1,000 ml @ 50 mls/hr Q20H IV Last administered on 02/06/21at 21:44; Start 02/03/21 at 12:00; Stop 02/07/21 at 12:53; Status DC Docusate Sodium (Colace) 100 mg BID PO Last administered on 02/09/21 09:28; Start 02/03/21 at 21:00 Magnesium Hydroxide (Milk Of Magnesia) 2,400 mg PRN Q12HR PRN PO CONSTIPATION 2ND CHOICE; Start 02/03/21 at 11:30 Carbidopa/Levodopa (Sinemet 25/100) 1 tab 6XDAY PO Last administered on 02/09/21 09:29; Start 02/03/21 at 13:00 Polyethylene Glycol (miraLAX PACKET) 17 gm PRN BID PRN PO CONSTIPATION; Start 02/03/21 at 11:30 Non-Formulary Medication (Ranitidine Hcl ) 150 mg DAILY PO ; Start 02/04/21 at 09:00; Stop 02/03/21 at 11:27; Status DC Levothyroxine Sodium (Synthroid) 100 mcg DAILY06 PO Last administered on 02/08/21 05:32; Start 02/03/21 at 12:00; Stop 02/08/21 at 11:09; Status DC Ropinirole HCl (Requip) 0.5 mg TID PO Last administered on 02/08/21 19:55; Start 02/03/21 at 14:00 Ceftriaxone Sodium (Rocephin) 1 gm Q24H IVP ; Start 02/04/21 at 10:45; Status UNV Cefepime HCl (Maxipime) 2 gm Q12HR IVP Last administered on 02/09/21 09:28; Start 02/04/21 at 11:00 Potassium Bicarbonate (Potassium Effervescent Tablet) 40 meq 1X ONCE PO Last administered on 02/04/21at 12:32; Start 02/04/21 at 11:30; Stop 02/04/21 at 11:31; Status DC Lactobacillus Rhamnosus (Culturelle) 1 cap BID PO Last administered on 02/09/21 09:28; Start 02/04/21 at 21:00 Carbidopa/Levodopa (Sinemet Cr) 1 tab.sa 6XDAY PO Last administered on 02/09/21 09:29; Start 02/05/21 at 16:00 Hydrochlorothiazide (Microzide) 12.5 mg DAILY PO Last administered on 6/7/21at 08:43; Start 02/06/21 at 13:00; Stop 02/07/21 at 12:49; Status DC Levothyroxine Sodium (Synthroid) 75 mcg DAILY06 PO ; Start 02/09/21 at 06:00 Active Scripts Active Decadron (Dexamethasone) 4 Mg Tablet 2 Mg PO TID 7 Days Miralax (Polyethylene Glycol 3350) 17 Gm Powd.pack 1 Pkt PO PRN BID PRN 30 Days Reported Atorvastatin Calcium 10 Mg Tablet 10 Mg PO HS PRN Famotidine 40 Mg Tablet 40 Mg PO HS Ropinirole Hcl 5 Mg Tablet 5 Mg PO TID Carbidopa-Levodopa 25-250 Tab (Carbidopa/Levodopa) 1 Each Tablet 1 Tab PO 6XDAY 30 Days Carbidopa-Levodopa 25-100 Tab (Carbidopa/Levodopa) 1 Each Tablet 1 Tab PO 6XDAY 30 Days Ciclopirox (Ciclopirox Olamine) 15 Gm Cream..g. 1 Teja TP HS NITROGLYCERIN SubLingual (Nitroglycerin) 0.4 Mg Tab.subl 0.4 Mg SL PRN Q5MIN PRN Atorvastatin Calcium 10 Mg Tablet 1 Tab PO DAILY Ranitidine Hcl 150 Mg Tablet 150 Mg PO DAILY Requip (Ropinirole Hcl) 0.5 Mg Tablet 0.5 Mg PO TID Hydrochlorothiazide Tablet (Hydrochlorothiazide) 12.5 Mg Tablet 12.5 Mg PO DAILY Levothyroxine Sodium 75 Mcg Tablet 1 Tab PO DAILY Sinemet Cr 25-100 Tablet (Carbidopa/Levodopa) 1 Each Tablet.er 1 Tab PO FIVE TIMES A DAY Sinemet Cr 50-200 Tablet (Carbidopa/Levodopa) 1 Each Tablet.er 1 Tab PO SIX TIMES A DAY Vitals/I & O Vital Sign - Last 24 Hours 02/08/21 02/08/21 02/08/21 02/08/21 12:03 15:52 19:00 20:00 Temp 97.8 98.3 97.5 97.8 98.3 97.5 Pulse 56 55 63 Resp 17 17 18 B/P (MAP) 125/57 (79) 119/46 (70) 133/70 (91) Pulse Ox 96 98 96 O2 Delivery Room Air Room Air Room Air 02/08/21 02/09/21 23:00 08:31 Temp 98.1 98.4 98.1 98.4 Pulse 62 60 Resp 18 17 B/P (MAP) 153/70 (97) 114/53 (73) Pulse Ox 98 95 O2 Delivery Room Air Intake and Output 02/08/21 02/08/21 02/09/21 15:00 23:00 07:00 Intake Total 100 ml 300 ml Output Total 250 ml 250 ml Balance 100 ml 50 ml -250 ml Justicifation of Admission Dx: Justifications for Admission: Justification of Admission Dx: Yes Sepsis: Infection EMSHA ASHRAF MD Feb 09, 2021 10:11
[2021-02-09 11:00] VITALS: BP 129/49
[2021-02-09] MEDS ORDERED: AMLO2.5T5 PO (12:00)
[2021-02-09] MEDS ORDERED: LEVO75TA5 PO (12:00)
--- NOTE | 2021-02-09 12:04 | SNU/HH DC ---
DISCHARGE WITH HOME HEALTH DISCHARGE INFORMATION: Discharge Date: Feb 09, 2021 Final Diagnosis: Problems Medical Problems: (1) Bradycardia Status: Acute (2) Leukopenia Status: Acute Condition on Discharge: Stable CODE STATUS: Code Status: Full HOME HEALTH: Face to Face: I certify this patient is under my care and that I, or a nurse practitioner or physician's collections assistant working with me, had a face to face encounter that meets the physician face to face encounter requirements with this patient on 02/09/2021. Medical Complications: Falls, HTN, Other (Parkinson Disease) Halfway For: Bowel/Bladder Training, Medication Management, Pain Management RN For Eval/Treatment: Yes Physical Therapy For: Evalulation/Treatment Occupational Therapy For: Evaluation/Treatment Pt Meets Homebound Status: Unsteady balance w/ amb,, Limited distance walking POST DISCHARGE ORDERS: Activity Instructions for Disc: No restrictions Weight Bearing Status after Di: No restrictions DIET AFTER DISCHARGE: Regular CHECKS AFTER DISCHARGE: Checks after discharge: Check blood press - daily, Check your Temp as needed FOLLOW-UP: Follow up with: Dr. Fonseca Additional Instructions: Continue on the half dose Sinemet CR and she can resume the normal dose when she gets home and in her familiar surroundings Continue current Parkinson's regimen Rehabilitation modalities Follow-up with Dr. Fonseca Straight catheterizations up to 5x daily prn TREATMENT/EQUIPMENT ORDERS: Adaptive Equipment Issued: Front wheeled walker CERTIFICATION STATEMENT: Certification Statement: Certification Statement: Based on the above finding, I certify that this patient is confined to the home and needs intermittent senior living care, physical therapy and/or speech therapy, or continues to need occupational therapy.~ This patient is under my care, and I have initiated the establishment of the plan of care.~ This patient will be followed by myself or a community physician who will periodically review the plan of care. Home Meds Active Scripts Amlodipine Besylate (AMLODIPINE BESYLATE) 2.5 Mg Tablet, 2.5 MG PO DAILY for HTN for 30 Days, #30 TAB 1 Refill Prov:SABI HARRIS MD 02/09/21 Levothyroxine Sodium (LEVOTHYROXINE SODIUM) 75 Mcg Tablet, 1 TAB PO DAILY07 for hypothyroidism for 30 Days, #30 TAB 5 Refills Prov:SABI HARRIS MD 02/09/21 Polyethylene Glycol 3350 (MIRALAX) 17 Gm Powd.pack, 1 PKT PO PRN BID PRN for CONSTIPATION for 30 Days, #60 PKT 5 Refills Prov:SABI HARRIS MD 01/28/19 Reported Medications Atorvastatin Calcium (ATORVASTATIN CALCIUM) 10 Mg Tablet, 10 MG PO HS PRN for cholestrol, #30 TAB 0 Refills 02/02/21 Famotidine (FAMOTIDINE) 40 Mg Tablet, 40 MG PO HS for GERD, TAB 02/02/21 Carbidopa/Levodopa (CARBIDOPA-LEVODOPA 25-100 TAB) 1 Each Tablet, 1 TAB PO 6XDAY for parkinsons for 30 Days, #180 TAB 0 Refills 02/02/21 Nitroglycerin (NITROGLYCERIN SubLingual) 0.4 Mg Tab.subl, 0.4 MG SL PRN Q5MIN PRN for CHEST PAIN, BOTTLE 01/13/19 Ropinirole Hcl (REQUIP) 0.5 Mg Tablet, 0.5 MG PO TID for parkinsons, TAB 01/13/19 Carbidopa/Levodopa (SINEMET CR 50-200 TABLET) 1 Each Tablet.er, 1 TAB PO six times a day for parkinsons, TAB 01/13/19 Discontinued Reported Medications Ropinirole Hcl (ROPINIROLE HCL) 5 Mg Tablet, 5 MG PO TID for Parkinsons, TAB 02/02/21 Carbidopa/Levodopa (CARBIDOPA-LEVODOPA 25-250 TAB) 1 Each Tablet, 1 TAB PO 6XDAY for Parkinsons for 30 Days, #180 TAB 0 Refills 02/02/21 Ciclopirox Olamine (CICLOPIROX) 15 Gm Cream..g., 1 MILANA TP HS for toes, #15 GM 1 Refill 01/13/19 Atorvastatin Calcium (ATORVASTATIN CALCIUM) 10 Mg Tablet, 1 TAB PO DAILY for high cholesterol, #30 TAB 5 Refills 01/13/19 Ranitidine Hcl (RANITIDINE HCL) 150 Mg Tablet, 150 MG PO DAILY for GERD, TAB 01/13/19 Hydrochlorothiazide (HYDROCHLOROTHIAZIDE TABLET) 12.5 Mg Tablet, 12.5 MG PO DAILY for DIURETIC, TAB 0 Refills 01/13/19 Carbidopa/Levodopa (SINEMET CR 25-100 TABLET) 1 Each Tablet.er, 1 TAB PO five times a day for parkinsons, TAB 01/13/19 Discontinued Scripts Dexamethasone (Decadron) 4 Mg Tablet, 2 MG PO TID for Subdural hematoma for 7 Days, #11 TAB Prov:SABI HARRIS MD 01/28/19 SABI HARRIS MD Feb 09, 2021 12:04
--- NOTE | 2021-02-09 12:10 | PDOC3 ---
Discharge Summary Visit Information Date of Admission: Feb 02, 2021 Date of Discharge: Feb 09, 2021 Admitting Diagnosis: Symptomatic bradycardia Final Diagnosis Problems Medical Problems: (1) Bradycardia Status: Acute (2) Leukopenia Status: Acute Brief Hospital Course Allergies Allergies Coded Allergies Type Severity Reaction Last Updated Verified oxybutynin Allergy Intermediate HYPOTENSION, NAUSEA 01/16/19 Yes ciprofloxacin Adverse Reaction Mild Diarrhea 01/16/19 Yes gabapentin Adverse Reaction Mild VERTIGO 01/16/19 Yes Vital Signs Vital Signs Date Time Temp Pulse Resp B/P (MAP) Pulse Ox O2 Delivery O2 Flow Rate FiO2 02/09/21 08:31 98.4 60 17 114/53 (73) 95 Room Air 98.4 Lab Results Laboratory Tests Test 02/08/21 04:50 02/08/21 07:30 Sodium Level 138 mmol/L (136-145) Potassium Level 4.2 mmol/L (3.5-5.1) Chloride Level 101 mmol/L (98-107) Carbon Dioxide Level 29 mmol/L (21-32) Anion Gap 8 (6-14) Blood Urea Nitrogen 9 mg/dL (7-20) Creatinine 0.6 mg/dL (0.6-1.0) Estimated GFR (Cockcroft-Gault) 122.2 Glucose Level 70 mg/dL (70-99) Calcium Level 9.0 mg/dL (8.5-10.1) White Blood Count 4.8 x10^3/uL (4.0-11.0) Red Blood Count 3.12 x10^6/uL (3.50-5.40) Hemoglobin 9.7 g/dL (12.0-15.5) Hematocrit 28.6 % (36.0-47.0) Mean Corpuscular Volume 92 fL (79-100) Mean Corpuscular Hemoglobin 31 pg (25-35) Mean Corpuscular Hemoglobin Concent 34 g/dL (31-37) Red Cell Distribution Width 14.9 % (11.5-14.5) Platelet Count 258 x10^3/uL (140-400) Neutrophils (%) (Auto) 56 % (31-73) Lymphocytes (%) (Auto) 29 % (24-48) Monocytes (%) (Auto) 10 % (0-9) Eosinophils (%) (Auto) 4 % (0-3) Basophils (%) (Auto) 1 % (0-3) Neutrophils # (Auto) 2.7 x10^3/uL (1.8-7.7) Lymphocytes # (Auto) 1.4 x10^3/uL (1.0-4.8) Monocytes # (Auto) 0.5 x10^3/uL (0.0-1.1) Eosinophils # (Auto) 0.2 x10^3/uL (0.0-0.7) Basophils # (Auto) 0.1 x10^3/uL (0.0-0.2) Brief Hospital Course Ms Wilkes is a 65 year old female w/ PMHx parkinson, HTN, GERD, Graves disease, PVD s/p stenting, bladder dystonia with intermittent self cath who presented to ED c/o bradycardia., weakness, neutropenia, falls Patient states she felt a little bit weak lightheaded. States her pulse is usually 45 but today it was 35-36. notes history of Parkinson's disease and is on carbidopa and she takes hydrochlorothiazide for hypertension. Patient has had decreased appetite and p.o. intake. Has had a 10 pound weight loss over the past 2 weeks. Patient states she has not had a bowel movement in about 2 days, tsh = 11.0, had reduced dose of synthroid to 0.0625mg a few weeks ago denies fever, chills of angina, SHE FELL IN 2018 AND SUFFERED A SUBDURAL HEMATOMA, still uses a walker at home , fell again 4 weeks ago at home NEUROLOGY CONSULT /HEME CONSULT// RETIC, FE PANEL //PT/OT TREND WBC MAY NEED SNF dvt prophylaxis inc synthroid to 100 mcg po daily initially 02/04: weaker today. begin iv cefipime uti 02/05: ICU SEPSIS DUE TO UTI. weaker today, more confused, will not take her meds today 02/06: Urine with pseudomonas. Patient with cipro allergy. Transferred from ICU. 02/07: Afebrile. Seen bedside with sister. Discussed with therapy recommends for SNF. Patient sisters and patient are opposed to going to skilled facility. 02/08: Afebrile. Able to eat pancakes on her own for breakfast. Having trouble straightening her legs. Awaiting therapy evaluation today. Encouraged to continue exercises ambulation and DC Richards catheter. Informed me she was on 62.5 mcg of levothyroxine as of August and we discussed calculating weight- based dosing on discharge to be 75 mcg based on her TSH of 11. Has f/u with Gustavo bermeo, Dr. Fonseca Able to get up. Completed cefepime for Pseudomonas UTI. Richards cath removed today going home with home health and outpatient follow-up needs TSH checked in 3 months given her symptomatic hypothyroidism Plan: Continue on the half dose Sinemet CR and she can resume the normal dose when she gets home and in her familiar surroundings Continue current Parkinson's regimen Rehabilitation modalities - home health Discussed with patient's sisters Follow-up with Dr. Fonseca 5x daily prn straight catheterizations Problem list: marked bradycardia, possibly due to hypothyroid state marked neutropenia - improved, no clear source, but her sinemet dosing was cut in half initially Moderate amount of stool identified throughout the colon likely constipation. HX SUBDURAL HEMATOMA 2018 GERD Hypertension Parkinson's Falls Grave's disease on oral replacement PVD s/p peripheral stents Bladder dystonia - with intermittent self-catheterization, seen by Urology outpatient NEUROLOGY CONSULT HEME CONSULT Cardiology consult Greater than 30 minutes spent on d/c home with home health Discharge Information Condition at Discharge: Improved Follow Up: Weeks (1) Disposition/Orders: D/C to Home w/ HH Scheduled Amlodipine Besylate (Amlodipine Besylate) 2.5 Mg Tablet, 2.5 MG PO DAILY for HTN for 30 Days, #30 Ref 1 Prescribed by: SABI HARRIS MD on 02/09/21 1200 Carbidopa/Levodopa (Sinemet Cr 50-200 Tablet) 1 Each Tablet.er, 1 TAB PO six times a day for parkinsons, (Reported) Entered as Reported by: DARA VANCE on 01/13/192053 Carbidopa/Levodopa (Carbidopa-Levodopa 25-100 Tab) 1 Each Tablet, 1 TAB PO 6XDAY for parkinsons for 30 Days, #180 Ref 0 (Reported) Entered as Reported by: AZAM SOLOMON on 02/02/212357 Last Taken: Unknown Dose on 02/02/212214 Last Action: Continued on 02/03/21 1125 by GABBY LARSON MD Famotidine (Famotidine) 40 Mg Tablet, 40 MG PO HS for GERD, (Reported) Entered as Reported by: AZAM SOLOMON on 02/02/212357 Last Taken: Unknown Dose on 02/02/212014 Last Action: Converted on 02/03/2132 by AZAM SOLOMON Levothyroxine Sodium (Levothyroxine Sodium) 75 Mcg Tablet, 1 TAB PO DAILY07 for hypothyroidism for 30 Days, #30 Ref 5 Prescribed by: SABI HARRIS MD on 02/09/21 1200 Ropinirole Hcl (Requip) 0.5 Mg Tablet, 0.5 MG PO TID for parkinsons, (Reported) Entered as Reported by: DARA VANCE on 01/13/192053 Last Action: Converted on 02/03/211213 by Saqib Trinidad Scheduled PRN Atorvastatin Calcium (Atorvastatin Calcium) 10 Mg Tablet, 10 MG PO HS PRN for cholestrol, #30 Ref 0 (Reported) Entered as Reported by: AZAM SOLOMON on 02/02/212357 Last Action: Continued on 02/03/2132 by AZAM SOLOMON Nitroglycerin (NITROGLYCERIN SubLingual) 0.4 Mg Tab.subl, 0.4 MG SL PRN Q5MIN PRN for CHEST PAIN, (Reported) Entered as Reported by: DARA VANCE on 01/13/192053 Last Action: HELD on 02/03/211124 by GABBY LARSON MD Polyethylene Glycol 3350 (Miralax) 17 Gm Powd.pack, 1 PKT PO PRN BID PRN for CONSTIPATION for 30 Days, #60 Ref 5 Prescribed by: SABI HARRIS MD on 01/28/19 1401 Last Action: Continued on 02/03/211124 by GABBY LARSON MD Discontinued Medications Atorvastatin Calcium (Atorvastatin Calcium) 10 Mg Tablet, 1 TAB PO DAILY for high cholesterol, #30 Ref 5 (Reported) Entered as Reported by: DARA VANCE on 01/13/192053 Carbidopa/Levodopa (Sinemet Cr 25-100 Tablet) 1 Each Tablet.er, 1 TAB PO five times a day for parkinsons, (Reported) Entered as Reported by: DARA VANCE on 01/13/192053 Carbidopa/Levodopa (Carbidopa-Levodopa 25-250 Tab) 1 Each Tablet, 1 TAB PO 6XDAY for Parkinsons for 30 Days, #180 Ref 0 (Reported) Entered as Reported by: AZAM SOLOMON on 02/02/212357 Last Taken: Unknown Dose on 02/02/215 Last Action: HELD on 02/03/211124 by GABBY LARSON MD Ciclopirox Olamine (Ciclopirox) 15 Gm Cream..g., 1 MILANA TP HS for toes, #15 Ref 1 (Reported) Entered as Reported by: DARA VANCE on 01/13/192053 Last Action: HELD on 02/03/211124 by GABBY LARSON MD Dexamethasone (Decadron) 4 Mg Tablet, 2 MG PO TID for Subdural hematoma for 7 Days, #11 Prescribed by: SABI HARRIS MD on 01/28/19 1402 Last Action: HELD on 02/03/211124 by GABBY LARSON MD Hydrochlorothiazide (Hydrochlorothiazide Tablet) 12.5 Mg Tablet, 12.5 MG PO DAILY for DIURETIC, Ref 0 (Reported) Entered as Reported by: DARA VANCE on 01/13/192053 Last Taken: Unknown Dose on 02/02/21 0830 Last Action: Converted on 02/06/21 1223 by NAVJOT HAWKINS Ranitidine Hcl (Ranitidine Hcl) 150 Mg Tablet, 150 MG PO DAILY for GERD, (Reported) Entered as Reported by: DARA VANCE on 01/13/192053 Last Action: Converted on 02/03/211124 by GABBY LARSON MD Ropinirole Hcl (Ropinirole Hcl) 5 Mg Tablet, 5 MG PO TID for Parkinsons, (Reported) Entered as Reported by: AZAM SOLOMON on 02/02/212357 Last Taken: Unknown Dose on 02/02/21 190 Last Action: HELD on 02/03/211124 by GABBY LARSON MD Justicifation of Admission Dx: Justifications for Admission: Justification of Admission Dx: Yes Sepsis: Infection SABI HARRIS MD Feb 09, 2021 12:10
--- NOTE | 2021-02-09 16:27 | NUR ---
Pt discharged home with HH. Discharge instructions and prescriptions discussed. Pt sister verbalized understanding. IV removed. Richards removed without complications. Pt belongings were packed by sister. Pt assisted to wheelchair and was secured in car with family.
== END 2021-02-09 16:31 | disposition home health service (06) | DRG 871 ==
LOC: ER 20:09 → 1 WEST ICU 21:43 → 4 NORTH 02-06 20:10
PROVIDERS: ADMIT Internal Medicine; ATTEND Internal Medicine
DX: A41.9 Sepsis, unspecified organism (principal); G93.41 Metabolic encephalopathy; G24.8 Other dystonia; D70.2 Other drug-induced agranulocytosis; E03.9 Hypothyroidism, unspecified; E05.00 Thyrotoxicosis with diffuse goiter without thyrotoxic crisis or storm; K21.9 Gastro-esophageal reflux disease without esophagitis; B96.5 Pseudomonas (aeruginosa) (mallei) (pseudomallei) as the cause of diseases classified elsewhere; E78.00 Pure hypercholesterolemia, unspecified; E78.5 Hyperlipidemia, unspecified; G20 Parkinson's disease; I10 Essential (primary) hypertension; I25.10 Atherosclerotic heart disease of native coronary artery without angina pectoris; I44.0 Atrioventricular block, first degree; I73.9 Peripheral vascular disease, unspecified; N31.9 Neuromuscular dysfunction of bladder, unspecified; Z79.899 Other long term (current) drug therapy; Z82.49 Family history of ischemic heart disease and other diseases of the circulatory system; Z87.440 Personal history of urinary (tract) infections; Z88.1 Allergy status to other antibiotic agents; Z90.710 Acquired absence of both cervix and uterus; Z95.5 Presence of coronary angioplasty implant and graft; G62.9 Polyneuropathy, unspecified; I49.5 Sick sinus syndrome; M19.90 Unspecified osteoarthritis, unspecified site; I25.2 Old myocardial infarction; Z88.8 Allergy status to other drugs, medicaments and biological substances; D64.9 Anemia, unspecified; T50.905A Adverse effect of unspecified drugs, medicaments and biological substances, initial encounter; Y92.89 Other specified places as the place of occurrence of the external cause
CPT/HCPCS: 36415; 70450; 74022; 80048; 80053; 81001; 82525; 82607; 82668; 82728; 83010; 83520; 83540; 83550; 83605; 83615; 83735; 83880; 84100; 84165; 84439; 84443; 84484; 84550; 85007; 85025; 85045; 87077; 87086; 87186; 93005; 93306; J0692; J1644; J7030; 97110-GO; 97110-GP; 97116-GP; 97530-GO; 97530-GP; 97535-GO; 99285-25; G0378

== ENCOUNTER 2021-05-27 05:42 | Emergency (ER) | payer MEDICARE ==
[~2021-05-27] VITALS: Ht 162.6 cm; Wt 59.0 kg
[~2021-05-27 05:42] MED LIST changes: +AMLO2.5T5 PO; +CARB1TAB22 PO; +CARB1TAB25 PO; +FAMO40TA4 PO; +ROPI5TAB4 PO
[2021-05-27 06:05] VITALS: BP 145/92
--- NOTE | 2021-05-27 06:05 | PHYS DOC ---
Past Medical History Past Medical History: CAD, GERD, High Cholesterol, Hypertension, [place] Additional Past Medical Histor: Parkinson's, grave's, cardiac stent Past Surgical History: Hysterectomy Additional Past Surgical Histo: Right ankle plate & screws, Left rotator cuff repair, cardiac stent Smoking Status: Never Smoker Alcohol Use: None Drug Use: None Adult General HPI HPI Patient is a 65 year old [female who presents with nose bleed. She states she had onset of nosebleed around 230 this morning. She woke up to use the restroom. She blew her nose a couple of times and realized that she was bleeding from the left nostril. She did not have any trauma. No history of recurrent nosebleeds. She only takes aspirin. She states the bleeding has been steady since 230 this morning. No recent illness. No other complaints. No dizziness or lightheadedness Review of Systems Review of Systems Constitutional: Denies fever or chills Eyes: Denies change in visual acuity, redness, or eye pain HENT: As documented in HPI Respiratory: Denies cough or shortness of breath Cardiovascular: No additional information not addressed in HPI GI: Denies : Denies dysuria or hematuria Musculoskeletal: Denies Integument: Denies rash or skin lesions Neurologic: Denies headache Endocrine: Denies polyuria All other systems were reviewed and found to be within normal limits, except as documented in this note. Current Medications Current Medications Current Medications Medications (Trade) Dose Ordered Sig/[facility] Start Time Stop Time Status Last Admin Dose Admin Lidocaine HCl (Glydo (Lidocaine) Jelly) 1 tomas 1X ONCE 05/27/21 07:00 05/27/21 07:01 DC 05/27/21 06:42 1 TOMAS Phenylephrine HCl (Dorian-Synephrine 0.5% Nasal) 2 spray PRN Q4HRS PRN 05/27/21 06:45 05/27/21 06:43 2 SPRAY Allergies Allergies Allergies Coded Allergies Type Severity Reaction Last Updated Verified oxybutynin Allergy Intermediate HYPOTENSION, NAUSEA 01/16/19 Yes ciprofloxacin Adverse Reaction Mild Diarrhea 01/16/19 Yes gabapentin Adverse Reaction Mild VERTIGO 01/16/19 Yes Physical Exam Physical Exam Constitutional: Well developed, well nourished, no acute distress, non-toxic appearance. HENT: Normocephalic, atraumatic, bilateral external ears normal, oropharynx moist, steady bleeding from left nare Eyes: PERRLA, EOMI, conjunctiva normal, no discharge. Noted to have exophthalmos Neck: Normal range of motion, no tenderness, supple, no stridor. Cardiovascular:Heart rate regular rhythm, no murmur Lungs & Thorax: Bilateral breath sounds clear to auscultation Abdomen: Bowel sounds normal, soft, no tenderness Skin: Warm, dry, no erythema, no rash. Back: Normal ROM Extremities: No tenderness, no cyanosis, no clubbing, ROM intact, no edema. Neurologic: Alert and oriented X 3 Psychologic: Affect normal Current Patient Data Vital Signs Vital Signs Date Time Temp Pulse Resp B/P (MAP) Pulse Ox O2 Delivery O2 Flow Rate FiO2 05/27/21 06:05 98.6 91 18 145/92 (109) 98 Room Air 98.6 Lab Values Laboratory Tests Test 05/27/21 07:10 White Blood Count 5.2 x10^3/uL (4.0-11.0) Red Blood Count 3.48 x10^6/uL (3.50-5.40) L Hemoglobin 10.9 g/dL (12.0-15.5) L Hematocrit 32.7 % (36.0-47.0) L Mean Corpuscular Volume 94 fL (79-100) Mean Corpuscular Hemoglobin 31 pg (25-35) Mean Corpuscular Hemoglobin Concent 33 g/dL (31-37) Red Cell Distribution Width 17.3 % (11.5-14.5) H Platelet Count 308 x10^3/uL (140-400) Neutrophils (%) (Auto) 72 % (31-73) Lymphocytes (%) (Auto) 15 % (24-48) L Monocytes (%) (Auto) 8 % (0-9) Eosinophils (%) (Auto) 3 % (0-3) Basophils (%) (Auto) 1 % (0-3) Neutrophils # (Auto) 3.8 x10^3/uL (1.8-7.7) Lymphocytes # (Auto) 0.8 x10^3/uL (1.0-4.8) L Monocytes # (Auto) 0.4 x10^3/uL (0.0-1.1) Eosinophils # (Auto) 0.2 x10^3/uL (0.0-0.7) Basophils # (Auto) 0.0 x10^3/uL (0.0-0.2) Sodium Level 140 mmol/L (136-145) Potassium Level 4.2 mmol/L (3.5-5.1) Chloride Level 103 mmol/L (98-107) Carbon Dioxide Level 30 mmol/L (21-32) Anion Gap 7 (6-14) Blood Urea Nitrogen 26 mg/dL (7-20) H Creatinine 0.6 mg/dL (0.6-1.0) Estimated GFR (Cockcroft-Gault) 122.2 Glucose Level 87 mg/dL (70-99) Calcium Level 9.0 mg/dL (8.5-10.1) Laboratory Tests 05/27/21 07:10 Laboratory Tests 05/27/21 07:10 EKG EKG [] Radiology/Procedures Radiology/Procedures [] Course & Med Decision Making Course & Med Decision Making Pertinent Labs and Imaging studies reviewed. (See chart for details) 06:25: Patient is seen and examined. No acute distress although she has some steady bleeding from the left nare. Bleeding appears to be posterior and is present down the posterior oropharynx as well with small amount coming from the right nare. Unable to visualize the source of the bleeding in the anterior portion of the nose. Will attempt Dorian-Synephrine inhaled. 07:20: Dorian-Synephrine was used but bleeding did not stop. After that, 3 cm Merocel was placed. Was coated with lidocaine jelly. Following this, bleeding immediately stopped. Patient was reexamined 30 minutes later. No blood in the posterior oropharynx. No active bleeding. Given augmentin in ER. 07:45: All labs are reviewed. Patient stable for discharge home at this time. No recurrent bleeding. Hemoglobin not depressed. Platelets normal range. She will be discharged home with Augmentin. Recommend follow-up with ear nose and throat in the next 3 to 4 days to have packing removed. All of her questions ar e answered and she is agreeable to the discharge plan of care. Dragon Disclaimer Dragon Disclaimer This electronic medical record was generated, in whole or in part, using a voice recognition dictation system. Departure Departure Impression: Primary Impression: Epistaxis Additional Impression: Acute posterior epistaxis Disposition: HOME / SELF CARE / HOMELESS Condition: IMPROVED Referrals: LORE TRIVEDI MD Patient Instructions: Nosebleed, [id number] Additional Instructions: Call Dr. Trivedi's office today. Be certain to tell them that you have a packing placed that will need to be removed. Scripts Amoxicillin/Potassium Clav (AUGMENTIN 875-125 TABLET) 1 Each Tablet 1 TAB PO BID for 10 Days, #20 TAB 0 Refills Prov: KINJAL CRUZ DO 05/27/21 Problem Qualifiers KINJAL CRUZ DO May 27, 2021 06:05
[2021-05-27] MEDS ORDERED: PHENYLEPHRINE 0.5% NASAL SPRAY 15ML BOTTLE. NS PRN (06:45)
[2021-05-27] MEDS ORDERED: LIDOCAINE 2% JELLY 6ML IN APPLICATOR. MM ONE (07:00)
[2021-05-27 07:18] LABS: BASO % 1 % (0-3); EOS # 0.2 x10^3/uL (0.0-0.7); EOS % 3 % (0-3); HEMATOCRIT 32.7 % (36.0-47.0); HEMOGLOBIN 10.9 g/dL (12.0-15.5); LYMPH # 0.8 x10^3/uL (1.0-4.8); LYMPH % 15 % (24-48); MEAN CORPUSCULAR HEMOGLOBIN 31 pg (25-35); MEAN CORPUSCULAR HGB CONC 33 g/dL (31-37); MEAN CORPUSCULAR VOLUME 94 fL (79-100); MONO # 0.4 x10^3/uL (0.0-1.1); MONO % 8 % (0-9); NEUT # 3.8 x10^3/uL (1.8-7.7); NEUT % 72 % (31-73); PLATELET COUNT 308 x10^3/uL (140-400); RED BLOOD COUNT 3.48 x10^6/uL (3.50-5.40); RED CELL DISTRIBUTION WIDTH 17.3 % (11.5-14.5); WHITE BLOOD COUNT 5.2 x10^3/uL (4.0-11.0)
[2021-05-27 07:28] LABS: CREATININE 0.6 mg/dL (0.6-1.0); GFR 122.2; POTASSIUM 4.2 mmol/L (3.5-5.1)
[2021-05-27] MEDS ORDERED: AMOX1TAB61 PO (07:36)
[2021-05-27] MEDS ORDERED: AMOXICILLIN/K CLAV 875/125MG TABLET. PO ONE (07:45)
== END 2021-05-27 07:50 | disposition home or self-care (01) ==
LOC: ER 05:42
DX: R04.0 Epistaxis (principal); E78.00 Pure hypercholesterolemia, unspecified; K21.9 Gastro-esophageal reflux disease without esophagitis; I10 Essential (primary) hypertension; I25.10 Atherosclerotic heart disease of native coronary artery without angina pectoris; Z95.5 Presence of coronary angioplasty implant and graft; Z88.1 Allergy status to other antibiotic agents; Z88.8 Allergy status to other drugs, medicaments and biological substances
CPT/HCPCS: 36415; 80048; 85025; 99283

== ENCOUNTER 2021-05-28 12:45 | Emergency (ER) | payer MEDICARE ==
[~2021-05-28] VITALS: Ht 162.6 cm; Wt 59.0 kg
[~2021-05-28 12:45] MED LIST changes: +AMOX1TAB61 PO
[2021-05-28 13:38] VITALS: BP 118/73
--- NOTE | 2021-05-28 14:02 | PHYS DOC ---
Past Medical History Past Medical History: CAD, GERD, High Cholesterol, Hypertension, [place] Additional Past Medical Histor: parkinsons, Graves disease Past Surgical History: No Surgical History Additional Past Surgical Histo: Right ankle plate & screws, Left rotator cuff repair, cardiac stent Smoking Status: Never Smoker Alcohol Use: None Drug Use: None General Adult EDM: Chief Complaint: NOSEBLEED HPI: HPI: Patient is a 65 year old female who present to ER for evaluation of nosebleeding. Patient was seen here yesterday for nosebleeding, patient is not on blood thinners, patient was diagnosed with posterior nosebleeding, packing was placed on the left nostril yesterday patient was discharged home with prescription for Augmentin to be taken twice a day for 10 days. Patient will refer to ENT for follow-up. Patient scheduled to see her ENT doctor at on Sunday. Patient came back here today for evaluation because she noticed some pink blood dripping out the packing material. Patient denies feeling any blood dripping in the back of her throat. Patient denies any headache, no chest pain, no abdominal pain, no nausea vomiting. Patient denies any dizziness Review of Systems: Review of Systems: Constitutional: Denies fever or chills. [] Eyes: Denies change in visual acuity. [] HENT: Denies nasal congestion or sore throat. [] Respiratory: Denies cough or shortness of breath. [] Cardiovascular: Denies chest pain or edema. [] GI: Denies abdominal pain, nausea, vomiting, bloody stools or diarrhea. [] : Denies dysuria. [] Musculoskeletal: Denies back pain or joint pain. [] Integument: Denies rash. [] Neurologic: Denies headache, focal weakness or sensory changes. [] Endocrine: Denies polyuria or polydipsia. [] Lymphatic: Denies swollen glands. [] Psychiatric: Denies depression or anxiety. [] Heart Score: C/O Chest Pain: N/A Risk Factors: Risk Factors: DM, Current or recent (<one month) smoker, HTN, HLP, family history of CAD, obesity. Risk Scores: Score 0 - 3: 2.5% MACE over next 6 weeks - Discharge Home Score 4 - 6: 20.3% MACE over next 6 weeks - Admit for Clinical Observation Score 7 - 10: 72.7% MACE over next 6 weeks - Early Invasive Strategies Allergies: Allergies: Allergies Coded Allergies Type Severity Reaction Last Updated Verified oxybutynin Allergy Intermediate HYPOTENSION, NAUSEA 05/28/21 Yes ciprofloxacin Adverse Reaction Mild Diarrhea 05/28/21 Yes gabapentin Adverse Reaction Mild VERTIGO 05/28/21 Yes Physical Exam: PE: Constitutional: Well developed, well nourished, no acute distress, non-toxic appearance. [] HENT: Normocephalic, atraumatic, bilateral external ears normal, oropharynx moist, no oral exudates, packing is in place in the left nostril, no active bleeding noticed, no active bleeding in the back of her throat Eyes: PERRLA, EOMI, conjunctiva normal, no discharge. [] Neurologic: Alert and oriented X 3, normal motor function, normal sensory function, no focal deficits noted. [] Psychologic: Affect normal, judgement normal, mood normal. [] Current Patient Data: Vital Signs: Vital Signs Date Time Temp Pulse Resp B/P (MAP) Pulse Ox O2 Delivery O2 Flow Rate FiO2 05/28/21 13:38 97.3 45 24 118/73 (88) 100 Room Air 97.3 EKG: EKG: [] Radiology/Procedures: Radiology/Procedures: [] Course & Med Decision Making: Course & Med Decision Making Pertinent Labs and Imaging studies reviewed. (See chart for details) No active bleeding noticed on examination, packing will be kept in place until she see the ENT doctor on Sunday [place] Disclaimer: Kim Disclaimer: This electronic medical record was generated, in whole or in part, using a voice recognition dictation system. Departure Departure Impression: Primary Impression: Epistaxis Disposition: HOME / SELF CARE / HOMELESS Condition: STABLE Referrals: ANTONINA VYAS MD (PCP) Follow-up with ENT doctor as scheduled on Sunday. Patient Instructions: Nosebleed Additional Instructions: Thank you for visiting our Emergency Department. We appreciate you trusting us with your care. If any additional problems come up don't hesitate to return to visit us. Please follow up with your primary care provider so they can plan additional care if needed and know about the problem that you had. If symptoms worsen come back to the Emergency Department. Any concerning symptoms that start such as chest pain, shortness of air, weakness or numbness on one side of the body, running high fevers or any other concerning symptoms return to the ER. DORIS GIBBS DO May 28, 2021 14:02
== END 2021-05-28 14:18 | disposition home or self-care (01) ==
LOC: ER 12:45
DX: R04.0 Epistaxis (principal); I25.10 Atherosclerotic heart disease of native coronary artery without angina pectoris; K21.9 Gastro-esophageal reflux disease without esophagitis; E78.00 Pure hypercholesterolemia, unspecified; I10 Essential (primary) hypertension; I25.2 Old myocardial infarction; Z88.1 Allergy status to other antibiotic agents; Z88.8 Allergy status to other drugs, medicaments and biological substances
CPT/HCPCS: 99281